=== PATIENT | male | born 1985 | race Two or more races ===

== ENCOUNTER 2022-05-21 15:20 | Emergency (ER) | payer MEDICAID, OTHER ==
[~2022-05-21] VITALS: Ht 167.6 cm; Wt 63.7 kg
[2022-05-21] MEDS ORDERED: cloNIDine HCL 0.1 MG TAB PO ONE ×2 (15:45→22:30)
[2022-05-21 16:14] LABS: Basophils # (auto) 0.1 10 ^3/uL (0-0.2); Eosinophils # (auto) 0.3 10 ^3/uL (0-0.8); Eosinophils % (auto) 3.8 % (0.0-7.0); Hematocrit 44.3 % (41.0-53.0); Hemoglobin 15.2 g/dL (13.5-17.5); Lymphocytes # (auto) 1.5 10 ^3/uL (0.4-5.4); Lymphocytes % (auto) 22.2 % (10.0-50.0); Mean Corpuscular Hemoglobin 29.4 pg (28.0-32.0); Mean Corpuscular Hgb Conc. 34.2 g/dL (32.0-36.0); Mean Corpuscular Volume 86.1 fL (80.0-100.0); Monocytes # (auto) 0.4 10 ^3/uL (0-1.3); Monocytes % (auto) 6.3 % (0.0-12.0); Neutrophils # (auto) 4.4 10 ^3/uL (1.6-8.6); Neutrophils % (auto) 66.7 % (37.0-80.0); Nucleated Red Blood Cells % 0.2 %; Red Blood Cells 5.15 10^6/uL (4.5-5.90); Red Cell Distribution Width 13.4 % (11.8-14.3); White Blood Cell 6.6 10^3/uL (4.4-10.8)
[2022-05-21 16:35] LABS: Albumin 3.7 g/dL (3.4-5.0); Calcium 9.3 mg/dL (8.5-10.1)
[2022-05-21 16:43] LABS: Bilirubin, Total 0.4 mg/dL (0.2-1.0); Total Protein 7.1 g/dL (6.4-8.2)
[2022-05-21] MEDS ORDERED: AML5T PO (23:00)
[2022-05-21 23:32] VITALS: BP 165/105
[2022-05-22 00:03] LABS: Urine Bacteria NONE SEEN /hpf (None Seen); Urine Blood Negative /uL (Negative); Urine Specific Gravity 1.015 (1.001-1.035); Urine WBC <1 /hpf (0 - 3)
== END 2022-05-21 23:34 | disposition home or self-care (01) ==
LOC: ER 15:20
DX: M79.672 Pain in left foot (principal); M79.671 Pain in right foot; I10 Essential (primary) hypertension; X58.XXXA Exposure to other specified factors, initial encounter; Y93.89 Activity, other specified; Y92.89 Other specified places as the place of occurrence of the external cause; Y99.8 Other external cause status
CPT/HCPCS: 36415; 71045; 73630; 80053; 81001; 84484; 85025

== ENCOUNTER 2022-12-03 08:34 | Inpatient (IN) | payer MEDICAID ==
[~2022-12-03] VITALS: Ht 175.3 cm; Wt 58.1 kg
[~2022-12-03 08:34] MED LIST: AML5T PO
[2022-12-03 08:40] VITALS: PULSE 96; RESP 25; O2SAT 98
[2022-12-03 09:07] LABS: Basophils # (auto) 0.1 10 ^3/uL (0-0.2); Basophils % (auto) 0.8 % (0.0-2.0); Eosinophils # (auto) 0.1 10 ^3/uL (0-0.8); Eosinophils % (auto) 0.6 % (0.0-7.0); Hematocrit 42.4 % (41.0-53.0); Hemoglobin 14.1 g/dL (13.5-17.5); Lymphocytes # (auto) 0.9 10 ^3/uL (0.4-5.4); Lymphocytes % (auto) 9.1 % (10.0-50.0); Mean Corpuscular Hemoglobin 29.5 pg (28.0-32.0); Mean Corpuscular Hgb Conc. 33.1 g/dL (32.0-36.0); Mean Corpuscular Volume 89.1 fL (80.0-100.0); Monocytes # (auto) 0.4 10 ^3/uL (0-1.3); Monocytes % (auto) 4.1 % (0.0-12.0); Neutrophils # (auto) 8.4 10 ^3/uL (1.6-8.6); Neutrophils % (auto) 85.4 % (37.0-80.0); Nucleated Red Blood Cells % 0.1 %; Red Blood Cells 4.76 10^6/uL (4.5-5.90); Red Cell Distribution Width 13.7 % (11.8-14.3); White Blood Cell 9.8 10^3/uL (4.4-10.8)
[2022-12-03] MEDS ORDERED: SODIUM CHLORIDE 0.9% 1,000 ML IV ONE (09:15)
[2022-12-03 09:41] LABS: Alanine Aminotransferase 27 U/L (7-40); Albumin 4.4 g/dL (3.2-4.8); Alkaline Phosphatase 94 U/L (46-116); Anion Gap 8 (5-15); Aspartate Aminotransferase 25 U/L (13-40); BUN/Creatinine Ratio 10.3 (10.0-20.0); Blood Urea Nitrogen 12 mg/dL (9-23); Calcium 9.9 mg/dL (8.5-10.1); Carbon Dioxide 28 mmol/L (20-30); Chloride 104 mmol/L (98-107); Glucose 110 mg/dL (74-106); Potassium 3.9 mmol/L (3.5-5.1); Sodium 140 mmol/L (136-145)
[2022-12-03 09:42] LABS: Bilirubin, Total 0.8 mg/dL (0.2-1.0); Total Protein 7.2 g/dL (5.7-8.2)
[2022-12-03 09:50] LABS: Urine Bacteria NONE SEEN /hpf (None Seen); Urine Blood Negative /uL (Negative); Urine Clarity Clear (Clear); Urine Color Yellow (Yellow); Urine Protein, UAD TRACE (Negative); Urine Specific Gravity 1.019 (1.001-1.035); Urine Urobilinogen Normal (Negative); Urine WBC 1 /hpf (0 - 3)
[2022-12-03 10:22] LABS: Amphetamine Screen, Urine Pos (NEGATIVE)
[2022-12-03 10:23] LABS: Benzodiazephine Screen, Urine Neg (NEGATIVE)
[2022-12-03 10:24] LABS: Barbiturate Scree,Urine Neg (NEGATIVE); Cocaine Screen, Urine Neg (NEGATIVE)
[2022-12-03 10:25] LABS: Cannabinoid Screen, Urine Neg (NEGATIVE); Opiate Scree,Urine Neg (NEGATIVE); Phencyclidine Screen, Urine Neg (NEGATIVE)
[2022-12-03 11:00] LABS: Acetaminophen < 2.0 UG/ML (10.0-20.0); Lipase 45 U/L (12-53)
[2022-12-03 11:09] LABS: Salicylate < 3.0 mg/dL (2.8-20.0)
[2022-12-03] MEDS ORDERED: cefTRIAXone 1GM/50ML D5W 50 ML IV ONE (13:00)
[2022-12-03] MEDS ORDERED: AZITHROMYCIN 500MG/ 250ML 250 ML IV ONE (13:00)
[2022-12-03] MEDS ORDERED: amLODIPine BESYLATE 5 MG TAB PO ONE (13:00)
[2022-12-03] MEDS ORDERED: MORPHINE SULFATE INJ 2 MG/ml SYRG IV PRN (14:30)
[2022-12-03] MEDS ORDERED: NITROGLYCERIN 0.4 MG SL TAB SL PRN (14:30)
[2022-12-03] MEDS: SODIUM CHLORIDE 0.9% 1,000 ML IV SCH (15:01)
[2022-12-03] MEDS: hydrALAZINE HCL 20 MG/ML VL IV PRN ×2 (16:18→21:13)
[2022-12-03] MEDS: ACETAMINOPHEN 325 MG TAB PO PRN (16:39)
[2022-12-03 17:51] VITALS: BP 157/90; PULSE 124; RESP 18
[2022-12-03 20:00] VITALS: PULSE 117; PULSE 95; RESP 18
[2022-12-03 22:00] VITALS: BP 174/110; PULSE 114; RESP 22; TEMP 98.2; O2SAT 97
[2022-12-04] VITALS (8 sets, daily range): BP systolic 150–165; BP diastolic 96–118; PULSE 56–121; RESP 17–22; TEMP 98–98.8; O2SAT 95–99
[2022-12-04] MEDS: SODIUM CHLORIDE 0.9% 1,000 ML IV SCH ×3 (00:30→20:30)
[2022-12-04] MEDS: ACETAMINOPHEN 325 MG TAB PO PRN ×2 (00:41→21:24)
[2022-12-04] MEDS: hydrALAZINE HCL 20 MG/ML VL IV PRN ×2 (06:15→21:24)
[2022-12-04 06:44] LABS: Basophils # (auto) 0 10 ^3/uL (0-0.2); Basophils % (auto) 0.4 % (0.0-2.0); Eosinophils # (auto) 0 10 ^3/uL (0-0.8); Eosinophils % (auto) 0.3 % (0.0-7.0); Hematocrit 46.3 % (41.0-53.0); Hemoglobin 15.7 g/dL (13.5-17.5); Lymphocytes # (auto) 0.9 10 ^3/uL (0.4-5.4); Lymphocytes % (auto) 7.5 % (10.0-50.0); Mean Corpuscular Hemoglobin 30.1 pg (28.0-32.0); Mean Corpuscular Hgb Conc. 33.8 g/dL (32.0-36.0); Mean Corpuscular Volume 88.9 fL (80.0-100.0); Monocytes # (auto) 0.6 10 ^3/uL (0-1.3); Monocytes % (auto) 4.9 % (0.0-12.0); Neutrophils # (auto) 10.8 10 ^3/uL (1.6-8.6); Neutrophils % (auto) 86.9 % (37.0-80.0); Nucleated Red Blood Cells % 0.1 %; Red Blood Cells 5.21 10^6/uL (4.5-5.90); Red Cell Distribution Width 13.6 % (11.8-14.3); White Blood Cell 12.4 10^3/uL (4.4-10.8)
[2022-12-04 07:09] LABS: Alanine Aminotransferase 18 U/L (7-40); Albumin 4.4 g/dL (3.2-4.8); Alkaline Phosphatase 100 U/L (46-116); Anion Gap 10 (5-15); BUN/Creatinine Ratio 6.8 (10.0-20.0); Blood Urea Nitrogen 7 mg/dL (9-23); Calcium 9.5 mg/dL (8.5-10.1); Carbon Dioxide 23 mmol/L (20-30); Chloride 100 mmol/L (98-107); Glucose 127 mg/dL (74-106); Potassium 3.7 mmol/L (3.5-5.1)
[2022-12-04 07:10] LABS: Aspartate Aminotransferase 22 U/L (13-40); Total Protein 7.5 g/dL (5.7-8.2)
[2022-12-04 07:11] LABS: Sodium 133 mmol/L (136-145)
[2022-12-04] MEDS: cefTRIAXone 1GM/50ML D5W 50 ML IV SCH (10:00)
[2022-12-04] MEDS: AZITHROMYCIN 500MG/ 250ML 250 ML IV SCH (10:01)
[2022-12-04] MEDS: ENOXAPARIN SOD 40 MG/0.4 ML SYRINGE SC SCH (10:01)
[2022-12-04] MEDS: amLODIPine BESYLATE 5 MG TAB PO SCH (10:01)
[2022-12-04] MEDS ORDERED: DOCUSATE SOD 100 MG CAP PO PRN (21:45)
[2022-12-05 05:00] VITALS: BP 162/117; PULSE 108; RESP 22; TEMP 98.2; O2SAT 96
[2022-12-05] MEDS: ACETAMINOPHEN 325 MG TAB PO PRN (05:53)
[2022-12-05] MEDS: hydrALAZINE HCL 20 MG/ML VL IV PRN (06:01)
[2022-12-05] MEDS: SODIUM CHLORIDE 0.9% 1,000 ML IV SCH (06:30)
[2022-12-05 06:39] VITALS: BP 138/93; PULSE 114
[2022-12-05 08:00] VITALS: PULSE 100; PULSE 113; RESP 18
[2022-12-05] MEDS: cefTRIAXone 1GM/50ML D5W 50 ML IV SCH (08:57)
[2022-12-05 09:00] VITALS: BP 137/95; PULSE 77; RESP 20; TEMP 98.3; O2SAT 97
[2022-12-05] MEDS: ENOXAPARIN SOD 40 MG/0.4 ML SYRINGE SC SCH (10:43)
[2022-12-05] MEDS: AZITHROMYCIN 500MG/ 250ML 250 ML IV SCH (10:43)
[2022-12-05] MEDS: amLODIPine BESYLATE 5 MG TAB PO SCH (10:43)
[2022-12-05] MEDS ORDERED: CLIN300C70 PO (10:50)
[2022-12-05 13:00] VITALS: BP 129/79; PULSE 109; RESP 18; TEMP 98.5; O2SAT 96
[2022-12-05 14:05] VITALS: BP 144/81; PULSE 77; RESP 20; TEMP 36.9; O2SAT 97
== END 2022-12-05 15:45 | disposition home or self-care (01) | DRG 137 ==
LOC: EDBD 08:34 → ER 08:34 → TELE 14:23 → TELE-WESTW 17:34
PROVIDERS: ADMIT Nurse Practitioner Family; ATTEND Family Medicine
DX: J69.0 Pneumonitis due to inhalation of food and vomit (principal); F15.10 Other stimulant abuse, uncomplicated; I10 Essential (primary) hypertension; F19.10 Other psychoactive substance abuse, uncomplicated; Z71.51 Drug abuse counseling and surveillance of drug abuser
CPT/HCPCS: 36415; 71045; 80053; 80307; 80320; 80329; 81001; 82140; 83690; 84484; 85025; 93005; G0378; J0696

== ENCOUNTER 2023-03-22 22:51 | Inpatient (IN) | payer SELFPAY ==
[~2023-03-22] VITALS: Ht 170.2 cm; Wt 56.0 kg
[~2023-03-22 22:51] MED LIST changes: +CLIN300C70 PO
[2023-03-22 23:30] LABS: Basophils # (auto) 0 10 ^3/uL (0-0.2); Basophils % (auto) 0.4 % (0.0-2.0); Eosinophils # (auto) 0.2 10 ^3/uL (0-0.8); Eosinophils % (auto) 1.6 % (0.0-7.0); Hematocrit 41.7 % (41.0-53.0); Hemoglobin 13.5 g/dL (13.5-17.5); Lymphocytes # (auto) 1.1 10 ^3/uL (0.4-5.4); Lymphocytes % (auto) 10.3 % (10.0-50.0); Mean Corpuscular Hemoglobin 28.4 pg (28.0-32.0); Mean Corpuscular Hgb Conc. 32.4 g/dL (32.0-36.0); Mean Corpuscular Volume 87.6 fL (80.0-100.0); Monocytes # (auto) 0.7 10 ^3/uL (0-1.3); Neutrophils % (auto) 81.7 % (37.0-80.0); Nucleated Red Blood Cells % 0.1 %; Red Blood Cells 4.76 10^6/uL (4.5-5.90); Red Cell Distribution Width 15.1 % (11.8-14.3)
[2023-03-22 23:36] LABS: Chloride 107 mmol/L (98-107); Potassium 4.2 mmol/L (3.5-5.1); Sodium 137 mmol/L (136-145)
[2023-03-22 23:38] LABS: Calcium 8.5 mg/dL (8.7-10.4)
[2023-03-22 23:43] LABS: BUN/Creatinine Ratio 10.7 (10.0-20.0); Blood Urea Nitrogen 13 mg/dL (9-23); Glucose 100 mg/dL (74-106)
[2023-03-22] MEDS ORDERED: LEVO500T91 PO (23:50)
[2023-03-22 23:58] LABS: Anion Gap 7 (5-15); Carbon Dioxide 23 mmol/L (20-30)
[2023-03-23] MEDS ORDERED: methylPREDNISolone SOD SUCC 125 MG/2 ML VL IM ONE
[2023-03-23] MEDS ORDERED: cefTRIAXone SOD 1,000 MG VL IM ONE
[2023-03-23] MEDS ORDERED: cloNIDine HCL 0.1 MG TAB PO ONE (01:00)
[2023-03-23] MEDS ORDERED: IOHEXOL 350 MG/ML 100ML IJ ONE (01:28)
[2023-03-23] MEDS ORDERED: ENOXAPARIN SOD 80 MG/0.8ML SYRINGE SC ONE (01:30)
[2023-03-23] MEDS ORDERED: FUROSEMIDE 40 MG/4 ML VIAL IV ONE (01:30)
[2023-03-23 03:10] LABS: Urine Epithelial Cast None Seen /hpf (<5)
[2023-03-23 03:45] LABS: Urine Bacteria NONE SEEN /hpf (None Seen); Urine Blood Negative /uL (Negative); Urine Clarity Clear (Clear); Urine Color Colorless (Yellow); Urine Protein, UAD Negative (Negative); Urine Specific Gravity 1.012 (1.001-1.035); Urine Urobilinogen Normal (Negative); Urine WBC <1 /hpf (0 - 3); Urine pH 7.5 (5.0-8.0)
[2023-03-23 04:00] LABS: Amphetamine Screen, Urine Neg (NEGATIVE); Barbiturate Scree,Urine Neg (NEGATIVE); Benzodiazephine Screen, Urine Neg (NEGATIVE); Cannabinoid Screen, Urine Neg (NEGATIVE); Cocaine Screen, Urine Neg (NEGATIVE); Opiate Scree,Urine Neg (NEGATIVE); Phencyclidine Screen, Urine Neg (NEGATIVE)
[2023-03-23] MEDS ORDERED: MORPHINE SULFATE INJ 2 MG/ml SYRG IV PRN (07:15)
[2023-03-23] MEDS ORDERED: NITROGLYCERIN 0.4 MG SL TAB SL PRN (07:15)
[2023-03-23] MEDS ORDERED: ONDANSETRON HCL 4 MG/2 ML VIAL IV PRN (07:15)
[2023-03-23 08:41] LABS: LDL Cholesterol 128 mg/dL (< 100); Triglycerides 54 mg/dL (< 150)
[2023-03-23 08:42] LABS: HDL Cholesterol 54 mg/dL (40-59)
[2023-03-23 08:43] LABS: Cholesterol 185 mg/dL (< 200)
[2023-03-23] MEDS ORDERED: amLODIPine BESYLATE 5 MG TAB PO SCH (10:00)
[2023-03-23] MEDS: CARVEDILOL 3.125 MG TAB PO SCH (10:15)
[2023-03-23] MEDS: ASPirin 81 mg TAB PO SCH (10:15)
[2023-03-23] MEDS: amLODIPine BESYLATE 5 MG TAB PO SCH (10:15)
[2023-03-23] MEDS ORDERED: cefTRIAXone 1GM/50ML D5W 50 ML IV ONE (12:15)
[2023-03-23] MEDS ORDERED: AZITHROMYCIN 500MG/ 250ML 250 ML IV ONE (12:15)
[2023-03-23 23:30] VITALS: BP 158/99; PULSE 84; RESP 18; TEMP 97.6; O2SAT 99
[2023-03-24] VITALS (8 sets, daily range): BP systolic 107–138; BP diastolic 78–101; PULSE 91–115; RESP 18–22; TEMP 97.5–98.6; O2SAT 93–100
[2023-03-24] MEDS: CARVEDILOL 3.125 MG TAB PO SCH ×3 (02:03→21:55)
[2023-03-24 03:06] LABS: COVID19 ANTIGEN SOFIA FIA NEGATIVE (NEGATIVE); Rapid Influenza A Negative (Negative); Rapid Influenza B Negative (Negative)
[2023-03-24] MEDS: FUROSEMIDE 20 MG/2 ML VIAL IV SCH ×2 (06:02→17:29)
[2023-03-24 06:29] LABS: Basophils # (auto) 0 10 ^3/uL (0-0.2); Basophils % (auto) 0.2 % (0.0-2.0); Eosinophils # (auto) 0 10 ^3/uL (0-0.8); Hematocrit 42.2 % (41.0-53.0); Hemoglobin 13.7 g/dL (13.5-17.5); Lymphocytes # (auto) 1.7 10 ^3/uL (0.4-5.4); Lymphocytes % (auto) 8.9 % (10.0-50.0); Mean Corpuscular Hemoglobin 28.1 pg (28.0-32.0); Mean Corpuscular Hgb Conc. 32.4 g/dL (32.0-36.0); Mean Corpuscular Volume 86.6 fL (80.0-100.0); Monocytes # (auto) 1.2 10 ^3/uL (0-1.3); Monocytes % (auto) 6.3 % (0.0-12.0); Neutrophils # (auto) 15.9 10 ^3/uL (1.6-8.6); Neutrophils % (auto) 84.6 % (37.0-80.0); Nucleated Red Blood Cells % 0.1 %; Red Blood Cells 4.87 10^6/uL (4.5-5.90); Red Cell Distribution Width 14.5 % (11.8-14.3); White Blood Cell 18.7 10^3/uL (4.4-10.8)
[2023-03-24 06:40] LABS: Free T3 2.34 pg/mL (2.3-4.2); Free T4 (Free Thyroxine) 0.92 ng/dL (0.89-1.76)
[2023-03-24 06:41] LABS: Alanine Aminotransferase 61 U/L (7-40); Alkaline Phosphatase 105 U/L (46-116); Anion Gap 7 (5-15); BUN/Creatinine Ratio 12.4 (10.0-20.0); Blood Urea Nitrogen 19 mg/dL (9-23); Calcium 9.2 mg/dL (8.5-10.1); Carbon Dioxide 23 mmol/L (20-30); Chloride 107 mmol/L (98-107); Glucose 98 mg/dL (74-106); Potassium 4.4 mmol/L (3.5-5.1); Sodium 137 mmol/L (136-145)
[2023-03-24 06:42] LABS: Albumin 3.5 g/dL (3.2-4.8); Aspartate Aminotransferase 50 U/L (13-40)
[2023-03-24 06:43] LABS: Bilirubin, Total 0.7 mg/dL (0.2-1.0); Total Protein 5.7 g/dL (5.7-8.2)
[2023-03-24] MEDS ORDERED: hydrALAZINE HCL 20 MG/ML VL IV PRN (08:45)
[2023-03-24] MEDS: cefTRIAXone 1GM/50ML D5W 50 ML IV SCH (09:31)
[2023-03-24] MEDS: AZITHROMYCIN 500MG/ 250ML 250 ML IV SCH (09:31)
[2023-03-24] MEDS: ASPirin 81 mg TAB PO SCH (09:31)
[2023-03-24] MEDS: amLODIPine BESYLATE 5 MG TAB PO SCH (09:32)
[2023-03-24] MEDS ORDERED: MORPHINE SULFATE INJ 2 MG/ml SYRG IV ONE (12:45)
[2023-03-24] MEDS: HYDROcodone-ACET 5/325MG TAB PO PRN (16:25)
[2023-03-25] VITALS (7 sets, daily range): BP systolic 112–126; BP diastolic 66–89; PULSE 80–104; RESP 16–20; TEMP 97.8–98.3; O2SAT 92–98
[2023-03-25] MEDS: HYDROcodone-ACET 5/325MG TAB PO PRN ×3 (00:17→18:14)
[2023-03-25] MEDS: FUROSEMIDE 20 MG/2 ML VIAL IV SCH ×2 (06:01→17:55)
[2023-03-25 06:19] LABS: Basophils # (auto) 0.1 10 ^3/uL (0-0.2); Basophils % (auto) 0.8 % (0.0-2.0); Eosinophils # (auto) 0.2 10 ^3/uL (0-0.8); Eosinophils % (auto) 2.3 % (0.0-7.0); Hematocrit 41.5 % (41.0-53.0); Hemoglobin 13.7 g/dL (13.5-17.5); Lymphocytes # (auto) 1.5 10 ^3/uL (0.4-5.4); Lymphocytes % (auto) 15.3 % (10.0-50.0); Mean Corpuscular Hemoglobin 28.6 pg (28.0-32.0); Mean Corpuscular Hgb Conc. 33.1 g/dL (32.0-36.0); Mean Corpuscular Volume 86.6 fL (80.0-100.0); Monocytes # (auto) 0.7 10 ^3/uL (0-1.3); Monocytes % (auto) 7.2 % (0.0-12.0); Neutrophils # (auto) 7.2 10 ^3/uL (1.6-8.6); Neutrophils % (auto) 74.4 % (37.0-80.0); Nucleated Red Blood Cells % 0.1 %; Red Blood Cells 4.79 10^6/uL (4.5-5.90); Red Cell Distribution Width 14.7 % (11.8-14.3); White Blood Cell 9.7 10^3/uL (4.4-10.8)
[2023-03-25 06:26] LABS: Alanine Aminotransferase 78 U/L (7-40); Alkaline Phosphatase 109 U/L (46-116); Anion Gap 6 (5-15); Aspartate Aminotransferase 60 U/L (13-40); BUN/Creatinine Ratio 15.5 (10.0-20.0); Blood Urea Nitrogen 22 mg/dL (9-23); Calcium 8.4 mg/dL (8.7-10.4); Carbon Dioxide 26 mmol/L (20-30); Chloride 104 mmol/L (98-107); Glucose 91 mg/dL (74-106); Potassium 4.4 mmol/L (3.5-5.1); Sodium 136 mmol/L (136-145)
[2023-03-25 06:27] LABS: Albumin 3.4 g/dL (3.2-4.8); Bilirubin, Total 0.6 mg/dL (0.2-1.0); Total Protein 5.5 g/dL (5.7-8.2)
[2023-03-25] MEDS: cefTRIAXone 1GM/50ML D5W 50 ML IV SCH (10:24)
[2023-03-25] MEDS: ASPirin 81 mg TAB PO SCH (10:25)
[2023-03-25] MEDS: amLODIPine BESYLATE 5 MG TAB PO SCH (10:25)
[2023-03-25] MEDS: AZITHROMYCIN 500MG/ 250ML 250 ML IV SCH (10:25)
[2023-03-25] MEDS: CARVEDILOL 3.125 MG TAB PO SCH ×2 (10:26→22:37)
[2023-03-25] MEDS: SACUBITRIL-VALSARTAN 24mg/26mg TAB PO SCH (22:34)
[2023-03-26] VITALS (7 sets, daily range): BP systolic 91–112; BP diastolic 62–73; PULSE 82–97; RESP 14–22; TEMP 97.9–98.3; O2SAT 91–100
[2023-03-26 06:06] LABS: Basophils # (auto) 0.1 10 ^3/uL (0-0.2); Basophils % (auto) 0.8 % (0.0-2.0); Eosinophils # (auto) 0.3 10 ^3/uL (0-0.8); Eosinophils % (auto) 3.5 % (0.0-7.0); Hematocrit 46.1 % (41.0-53.0); Hemoglobin 15.3 g/dL (13.5-17.5); Lymphocytes # (auto) 1.3 10 ^3/uL (0.4-5.4); Lymphocytes % (auto) 14.7 % (10.0-50.0); Mean Corpuscular Hemoglobin 28.3 pg (28.0-32.0); Mean Corpuscular Hgb Conc. 33.2 g/dL (32.0-36.0); Mean Corpuscular Volume 85.3 fL (80.0-100.0); Monocytes # (auto) 0.9 10 ^3/uL (0-1.3); Monocytes % (auto) 9.9 % (0.0-12.0); Neutrophils # (auto) 6.3 10 ^3/uL (1.6-8.6); Neutrophils % (auto) 71.1 % (37.0-80.0); Red Cell Distribution Width 14.4 % (11.8-14.3); White Blood Cell 8.9 10^3/uL (4.4-10.8)
[2023-03-26 06:23] LABS: Alanine Aminotransferase 67 U/L (7-40); Albumin 3.4 g/dL (3.2-4.8); Alkaline Phosphatase 108 U/L (46-116); Anion Gap 7 (5-15); Aspartate Aminotransferase 48 U/L (13-40); BUN/Creatinine Ratio 14.8 (10.0-20.0); Bilirubin, Total 0.6 mg/dL (0.2-1.0); Blood Urea Nitrogen 19 mg/dL (9-23); Calcium 8.7 mg/dL (8.5-10.1); Carbon Dioxide 23 mmol/L (20-30); Chloride 104 mmol/L (98-107); Glucose 87 mg/dL (74-106); Potassium 4.1 mmol/L (3.5-5.1); Sodium 134 mmol/L (136-145); Total Protein 5.5 g/dL (5.7-8.2)
[2023-03-26] MEDS: FUROSEMIDE 20 MG/2 ML VIAL IV SCH ×2 (06:30→18:07)
[2023-03-26 08:29] LABS: Hepatitis B Surface Antigen Negative (Negative)
[2023-03-26 08:51] LABS: Hepatitis C Antibody Negative (Negative)
[2023-03-26] MEDS: SACUBITRIL-VALSARTAN 24mg/26mg TAB PO SCH ×2 (09:49→21:18)
[2023-03-26] MEDS: cefTRIAXone 1GM/50ML D5W 50 ML IV SCH (09:49)
[2023-03-26] MEDS: AZITHROMYCIN 500MG/ 250ML 250 ML IV SCH (09:49)
[2023-03-26] MEDS: ASPirin 81 mg TAB PO SCH (09:50)
[2023-03-26] MEDS: CARVEDILOL 3.125 MG TAB PO SCH ×2 (09:50→21:17)
[2023-03-26] MEDS: SPIRONOLACTONE 25 MG TAB PO SCH (09:50)
[2023-03-26] MEDS: EMPAGLIFLOZIN 10 MG TAB PO SCH (09:50)
[2023-03-26 11:27] LABS: INR 1.01 (0.9-1.15); Prothrombin Time 10.6 sec (9.3-11.8)
[2023-03-26] MEDS: HYDROcodone-ACET 5/325MG TAB PO PRN ×2 (16:19→21:17)
[2023-03-27] VITALS (8 sets, daily range): BP systolic 107–120; BP diastolic 72–82; PULSE 85–100; RESP 18–20; TEMP 97.9–98.6; O2SAT 92–100
[2023-03-27] MEDS: FUROSEMIDE 20 MG/2 ML VIAL IV SCH (06:50)
[2023-03-27 06:56] LABS: Basophils # (auto) 0.1 10 ^3/uL (0-0.2); Basophils % (auto) 0.8 % (0.0-2.0); Eosinophils # (auto) 0.3 10 ^3/uL (0-0.8); Eosinophils % (auto) 3.5 % (0.0-7.0); Hematocrit 48.9 % (41.0-53.0); Hemoglobin 16.2 g/dL (13.5-17.5); Lymphocytes # (auto) 1.3 10 ^3/uL (0.4-5.4); Lymphocytes % (auto) 15.8 % (10.0-50.0); Mean Corpuscular Hemoglobin 28.3 pg (28.0-32.0); Mean Corpuscular Hgb Conc. 33.1 g/dL (32.0-36.0); Mean Corpuscular Volume 85.5 fL (80.0-100.0); Monocytes # (auto) 0.8 10 ^3/uL (0-1.3); Monocytes % (auto) 9.2 % (0.0-12.0); Neutrophils # (auto) 5.8 10 ^3/uL (1.6-8.6); Neutrophils % (auto) 70.7 % (37.0-80.0); Nucleated Red Blood Cells % 0.1 %; Red Blood Cells 5.71 10^6/uL (4.5-5.90); Red Cell Distribution Width 14.7 % (11.8-14.3); White Blood Cell 8.2 10^3/uL (4.4-10.8)
[2023-03-27 07:14] LABS: Alanine Aminotransferase 70 U/L (7-40); Albumin 3.5 g/dL (3.2-4.8); Alkaline Phosphatase 102 U/L (46-116); Anion Gap 4 (5-15); Aspartate Aminotransferase 51 U/L (13-40); BUN/Creatinine Ratio 16.2 (10.0-20.0); Blood Urea Nitrogen 22 mg/dL (9-23); Calcium 8.9 mg/dL (8.5-10.1); Carbon Dioxide 26 mmol/L (20-30); Chloride 105 mmol/L (98-107); Glucose 82 mg/dL (74-106); Potassium 4.3 mmol/L (3.5-5.1); Sodium 135 mmol/L (136-145)
[2023-03-27 07:15] LABS: Bilirubin, Total 0.5 mg/dL (0.2-1.0); Total Protein 5.7 g/dL (5.7-8.2)
[2023-03-27] MEDS: cefTRIAXone 1GM/50ML D5W 50 ML IV SCH (09:00)
[2023-03-27] MEDS ORDERED: CAR3125T PO (09:58)
[2023-03-27] MEDS ORDERED: SPIR25TA PO (09:58)
[2023-03-27] MEDS ORDERED: ASPI-325 PO (09:58)
[2023-03-27] MEDS ORDERED: SACU1TAB PO (09:58)
[2023-03-27] MEDS ORDERED: EMPA1TAB PO (09:58)
[2023-03-27] MEDS ORDERED: FURO1TAB31 PO (09:58)
[2023-03-27] MEDS: AZITHROMYCIN 500MG/ 250ML 250 ML IV SCH (10:00)
[2023-03-27] MEDS: ASPirin 81 mg TAB PO SCH (10:11)
[2023-03-27] MEDS: SPIRONOLACTONE 25 MG TAB PO SCH (10:11)
[2023-03-27] MEDS: CARVEDILOL 3.125 MG TAB PO SCH ×2 (10:12→21:29)
[2023-03-27] MEDS: EMPAGLIFLOZIN 10 MG TAB PO SCH (10:12)
[2023-03-27] MEDS: SACUBITRIL-VALSARTAN 24mg/26mg TAB PO SCH ×2 (10:12→21:30)
[2023-03-27] MEDS: FUROSEMIDE 40 MG TAB PO SCH (18:02)
[2023-03-27] MEDS: HYDROcodone-ACET 5/325MG TAB PO PRN (21:20)
[2023-03-28 05:00] VITALS: BP 113/80; PULSE 90; RESP 20; TEMP 98.1; O2SAT 95
[2023-03-28] MEDS: FUROSEMIDE 40 MG TAB PO SCH ×2 (05:30→19:47)
[2023-03-28] MEDS: HYDROcodone-ACET 5/325MG TAB PO PRN ×2 (05:30→20:22)
[2023-03-28 08:30] VITALS: PULSE 96; RESP 18; O2SAT 97
[2023-03-28 09:00] VITALS: BP 129/78; PULSE 96; RESP 20; TEMP 98.1; O2SAT 97
[2023-03-28] MEDS: SPIRONOLACTONE 25 MG TAB PO SCH (09:33)
[2023-03-28] MEDS: cefTRIAXone 1GM/50ML D5W 50 ML IV SCH (09:33)
[2023-03-28] MEDS: ASPirin 81 mg TAB PO SCH (09:33)
[2023-03-28] MEDS: EMPAGLIFLOZIN 10 MG TAB PO SCH (09:33)
[2023-03-28] MEDS: SACUBITRIL-VALSARTAN 24mg/26mg TAB PO SCH ×2 (09:37→22:00)
[2023-03-28] MEDS: CARVEDILOL 3.125 MG TAB PO SCH ×2 (09:37→22:00)
[2023-03-28] MEDS: AZITHROMYCIN 500MG/ 250ML 250 ML IV SCH (10:30)
[2023-03-28 13:00] VITALS: BP 103/68; PULSE 86; RESP 18; TEMP 97.7; O2SAT 100
[2023-03-28 17:00] VITALS: BP 113/72; PULSE 94; RESP 20; TEMP 98; O2SAT 97
[2023-03-28 20:00] VITALS: RESP 18; O2SAT 97
[2023-03-29] VITALS (7 sets, daily range): BP systolic 90–120; BP diastolic 50–74; PULSE 64–82; RESP 16–18; TEMP 97.8–98.2; O2SAT 92–99
[2023-03-29] MEDS: FUROSEMIDE 40 MG TAB PO SCH ×2 (05:53→18:00)
[2023-03-29 09:26] LABS: Basophils # (auto) 0.1 10 ^3/uL (0-0.2); Basophils % (auto) 0.8 % (0.0-2.0); Eosinophils # (auto) 0.3 10 ^3/uL (0-0.8); Eosinophils % (auto) 3.9 % (0.0-7.0); Hematocrit 51.8 % (41.0-53.0); Hemoglobin 16.7 g/dL (13.5-17.5); Lymphocytes # (auto) 1.6 10 ^3/uL (0.4-5.4); Lymphocytes % (auto) 19.5 % (10.0-50.0); Mean Corpuscular Hemoglobin 27.8 pg (28.0-32.0); Mean Corpuscular Hgb Conc. 32.2 g/dL (32.0-36.0); Mean Corpuscular Volume 86.4 fL (80.0-100.0); Monocytes # (auto) 0.5 10 ^3/uL (0-1.3); Monocytes % (auto) 5.7 % (0.0-12.0); Neutrophils # (auto) 5.6 10 ^3/uL (1.6-8.6); Neutrophils % (auto) 70.1 % (37.0-80.0); Nucleated Red Blood Cells % 0.1 %; Red Cell Distribution Width 14.4 % (11.8-14.3)
[2023-03-29] MEDS: ASPirin 81 mg TAB PO SCH (09:39)
[2023-03-29] MEDS: SACUBITRIL-VALSARTAN 24mg/26mg TAB PO SCH ×2 (09:39→22:31)
[2023-03-29] MEDS: EMPAGLIFLOZIN 10 MG TAB PO SCH (09:40)
[2023-03-29] MEDS: CARVEDILOL 3.125 MG TAB PO SCH ×2 (09:40→22:32)
[2023-03-29] MEDS: SPIRONOLACTONE 25 MG TAB PO SCH (09:41)
[2023-03-29] MEDS: cefTRIAXone 1GM/50ML D5W 50 ML IV SCH (09:42)
[2023-03-29 09:46] LABS: Alanine Aminotransferase 87 U/L (7-40); Alkaline Phosphatase 92 U/L (46-116); Anion Gap 5 (5-15); Aspartate Aminotransferase 54 U/L (13-40); BUN/Creatinine Ratio 12.9 (10.0-20.0); Blood Urea Nitrogen 20 mg/dL (9-23); Calcium 9.1 mg/dL (8.5-10.1); Carbon Dioxide 28 mmol/L (20-30); Chloride 102 mmol/L (98-107); Glucose 161 mg/dL (74-106); Potassium 4.6 mmol/L (3.5-5.1); Sodium 135 mmol/L (136-145)
[2023-03-29 09:47] LABS: Albumin 3.9 g/dL (3.2-4.8); Bilirubin, Total 0.4 mg/dL (0.2-1.0); Total Protein 6.3 g/dL (5.7-8.2)
[2023-03-29] MEDS: AZITHROMYCIN 500MG/ 250ML 250 ML IV SCH (12:27)
[2023-03-29] MEDS: HYDROcodone-ACET 5/325MG TAB PO PRN ×2 (15:47→22:31)
[2023-03-30 05:00] VITALS: BP 98/66; PULSE 80; RESP 16; TEMP 98.1; O2SAT 99
[2023-03-30 05:50] LABS: Basophils # (auto) 0.1 10 ^3/uL (0-0.2); Eosinophils # (auto) 0.3 10 ^3/uL (0-0.8); Eosinophils % (auto) 4.1 % (0.0-7.0); Hematocrit 46.2 % (41.0-53.0); Hemoglobin 15.2 g/dL (13.5-17.5); Lymphocytes # (auto) 1.7 10 ^3/uL (0.4-5.4); Lymphocytes % (auto) 22.5 % (10.0-50.0); Mean Corpuscular Hemoglobin 28.1 pg (28.0-32.0); Mean Corpuscular Hgb Conc. 32.9 g/dL (32.0-36.0); Mean Corpuscular Volume 85.3 fL (80.0-100.0); Monocytes # (auto) 0.8 10 ^3/uL (0-1.3); Monocytes % (auto) 10.2 % (0.0-12.0); Neutrophils # (auto) 4.6 10 ^3/uL (1.6-8.6); Neutrophils % (auto) 62.2 % (37.0-80.0); Nucleated Red Blood Cells % 0.1 %; Red Blood Cells 5.41 10^6/uL (4.5-5.90); Red Cell Distribution Width 14.5 % (11.8-14.3); White Blood Cell 7.4 10^3/uL (4.4-10.8)
[2023-03-30] MEDS: FUROSEMIDE 40 MG TAB PO SCH (06:03)
[2023-03-30 06:17] LABS: Alanine Aminotransferase 89 U/L (7-40); Albumin 3.5 g/dL (3.2-4.8); Alkaline Phosphatase 76 U/L (46-116); Anion Gap 4 (5-15); Aspartate Aminotransferase 59 U/L (13-40); BUN/Creatinine Ratio 20.3 (10.0-20.0); Blood Urea Nitrogen 26 mg/dL (9-23); Calcium 8.6 mg/dL (8.7-10.4); Carbon Dioxide 26 mmol/L (20-30); Chloride 105 mmol/L (98-107); Glucose 90 mg/dL (74-106); Magnesium 2.1 mg/dL (1.6-2.6); Potassium 4.7 mmol/L (3.5-5.1); Sodium 135 mmol/L (136-145)
[2023-03-30 06:18] LABS: Total Protein 5.6 g/dL (5.7-8.2)
[2023-03-30 06:19] LABS: Bilirubin, Total 0.3 mg/dL (0.2-1.0)
[2023-03-30 08:00] VITALS: BP 114/75; PULSE 73; RESP 21; TEMP 98.3; O2SAT 96
[2023-03-30 09:00] VITALS: BP 114/75; PULSE 73; RESP 21; TEMP 98.3; O2SAT 96
[2023-03-30] MEDS: cefTRIAXone 1GM/50ML D5W 50 ML IV SCH (09:09)
[2023-03-30] MEDS: ASPirin 81 mg TAB PO SCH (10:09)
[2023-03-30] MEDS: CARVEDILOL 3.125 MG TAB PO SCH (10:09)
[2023-03-30] MEDS: SACUBITRIL-VALSARTAN 24mg/26mg TAB PO SCH (10:09)
[2023-03-30] MEDS: EMPAGLIFLOZIN 10 MG TAB PO SCH (10:09)
[2023-03-30] MEDS: SPIRONOLACTONE 25 MG TAB PO SCH (10:10)
[2023-03-30] MEDS: AZITHROMYCIN 500MG/ 250ML 250 ML IV SCH (10:11)
== END 2023-03-30 13:35 | disposition home or self-care (01) | DRG 177 ==
LOC: ER 22:51 → TELE 03-23 07:09 → TELE-CENTR 03-24 00:52 → CENTRAL 03-28 15:17
PROVIDERS: ADMIT Internal Medicine Pulmonary Disease; ATTEND Internal Medicine Pulmonary Disease
DX: J15.69 Pneumonia due to other Gram-negative bacteria (principal); I50.43 Acute on chronic combined systolic (congestive) and diastolic (congestive) heart failure; J96.01 Acute respiratory failure with hypoxia; I42.9 Cardiomyopathy, unspecified; J90 Pleural effusion, not elsewhere classified; Z59.00 Homelessness unspecified; I11.0 Hypertensive heart disease with heart failure; Z20.822 Contact with and (suspected) exposure to COVID-19; M79.672 Pain in left foot; M79.671 Pain in right foot; F15.10 Other stimulant abuse, uncomplicated; Z87.891 Personal history of nicotine dependence
CPT/HCPCS: 36415; 71045; 71275; 76604; 80048; 80053; 80061; 80307; 81001; 82607; 82962; 83036; 83605; 83735; 83880; 84439; 84443; 84481; 85025; 85379; 85610; 85730; 86703; 86803; 87081; 87340; 87426; 87804; 93005; 93306; G0378; J0696

== ENCOUNTER 2023-04-14 02:22 | Emergency (ER) | payer SELFPAY ==
[~2023-04-14] VITALS: Ht 170.2 cm; Wt 72.6 kg
[~2023-04-14 02:22] MED LIST changes: +ASPI-325 PO; +CAR3125T PO; -CLIN300C70 PO; +EMPA1TAB PO; +FURO1TAB31 PO; +SACU1TAB PO; +SPIR25TA PO
[2023-04-14 02:28] VITALS: BP 151/118; PULSE 110; RESP 16; O2SAT 99
[2023-04-14] MEDS ORDERED: ACET500T58 PO (03:24)
== END 2023-04-14 03:30 | disposition home or self-care (01) ==
LOC: EDBD 02:22 → ER 02:22
DX: M79.671 Pain in right foot (principal); M79.672 Pain in left foot; I11.0 Hypertensive heart disease with heart failure; I50.9 Heart failure, unspecified; E11.9 Type 2 diabetes mellitus without complications; F15.90 Other stimulant use, unspecified, uncomplicated; Z79.899 Other long term (current) drug therapy

== ENCOUNTER 2023-04-16 20:26 | Inpatient (IN) | payer MEDICAID ==
[~2023-04-16] VITALS: Ht 170.2 cm; Wt 60.6 kg
[~2023-04-16 20:26] MED LIST changes: +ACET500T58 PO
[2023-04-16 22:19] LABS: Basophils # (auto) 0.1 10 ^3/uL (0-0.2); Basophils % (auto) 1.1 % (0.0-2.0); Eosinophils # (auto) 0.1 10 ^3/uL (0-0.8); Eosinophils % (auto) 0.7 % (0.0-7.0); Hematocrit 43.4 % (41.0-53.0); Hemoglobin 14.2 g/dL (13.5-17.5); Lymphocytes # (auto) 1.4 10 ^3/uL (0.4-5.4); Lymphocytes % (auto) 16.2 % (10.0-50.0); Mean Corpuscular Hemoglobin 28.2 pg (28.0-32.0); Mean Corpuscular Hgb Conc. 32.7 g/dL (32.0-36.0); Mean Corpuscular Volume 86.4 fL (80.0-100.0); Monocytes # (auto) 0.6 10 ^3/uL (0-1.3); Monocytes % (auto) 6.5 % (0.0-12.0); Neutrophils # (auto) 6.7 10 ^3/uL (1.6-8.6); Neutrophils % (auto) 75.5 % (37.0-80.0); Nucleated Red Blood Cells % 0.1 %; Red Blood Cells 5.02 10^6/uL (4.5-5.90); Red Cell Distribution Width 15.8 % (11.8-14.3); White Blood Cell 8.9 10^3/uL (4.4-10.8)
[2023-04-16 22:29] LABS: Chloride 107 mmol/L (98-107); Sodium 139 mmol/L (136-145)
[2023-04-16 22:30] LABS: Anion Gap 6 (5-15); Calcium 9.4 mg/dL (8.5-10.1); Carbon Dioxide 26 mmol/L (20-30)
[2023-04-16 22:35] LABS: BUN/Creatinine Ratio 12.2 (10.0-20.0); Blood Urea Nitrogen 18 mg/dL (9-23); Glucose 92 mg/dL (74-106)
[2023-04-16 23:23] VITALS: O2SAT 96
[2023-04-16] MEDS: ALBUTEROL SULF 2.5 MG/0.5ML(0.5%) NEB SOLN NEB ONE (23:33)
[2023-04-17] VITALS (13 sets, daily range): BP systolic 144–160; BP diastolic 92–102; PULSE 79–109; RESP 16–31; TEMP 98.5; O2SAT 90–98
[2023-04-17] MEDS ORDERED: ACETAMINOPHEN 325 MG TAB PO PRN
[2023-04-17] MEDS ORDERED: NITROGLYCERIN 0.4 MG SL TAB SL PRN
[2023-04-17] MEDS ORDERED: MORPHINE SULFATE INJ 2 MG/ml SYRG IV PRN
[2023-04-17] MEDS ORDERED: DOCUSATE SOD 100 MG CAP PO PRN
[2023-04-17] MEDS: ALBUTEROL SULF 2.5 MG/0.5ML(0.5%) NEB SOLN NEB PRN (04:12)
[2023-04-17] MEDS: InsuLIN REG 1unit/0.01ml Soln (100units/ml) IV ONE (05:14)
[2023-04-17] MEDS: DEXTROSE (50%) 50ML SYRG IV ONE (05:15)
[2023-04-17] MEDS: CALCIUM GLUC 1,000mg/50ml-NS 50 ML IV ONE (05:15)
[2023-04-17] MEDS: SODIUM BICARB 8.4% 50Meq/50ml SYR Vial IV ONE (05:15)
[2023-04-17] MEDS: FUROSEMIDE 100 MG/10ML VIAL IV ONE (05:20)
[2023-04-17] MEDS: SODIUM CHLOR 0.9% PF (SALINE LOCK) 10ML VIAL/SYR IV SCH (06:02)
[2023-04-17 06:09] LABS: Base Excess -3.6 mmol/L (-2.0-2.0)
[2023-04-17 06:48] LABS: Basophils # (auto) 0.1 10 ^3/uL (0-0.2); Eosinophils # (auto) 0.1 10 ^3/uL (0-0.8); Eosinophils % (auto) 1.2 % (0.0-7.0); Hematocrit 44.3 % (41.0-53.0); Hemoglobin 14.3 g/dL (13.5-17.5); Lymphocytes # (auto) 1.7 10 ^3/uL (0.4-5.4); Lymphocytes % (auto) 22.4 % (10.0-50.0); Mean Corpuscular Hgb Conc. 32.3 g/dL (32.0-36.0); Mean Corpuscular Volume 86.6 fL (80.0-100.0); Monocytes # (auto) 0.6 10 ^3/uL (0-1.3); Monocytes % (auto) 7.8 % (0.0-12.0); Neutrophils # (auto) 5.3 10 ^3/uL (1.6-8.6); Neutrophils % (auto) 67.6 % (37.0-80.0); Nucleated Red Blood Cells % 0.1 %; Red Blood Cells 5.11 10^6/uL (4.5-5.90); Red Cell Distribution Width 16.2 % (11.8-14.3); White Blood Cell 7.8 10^3/uL (4.4-10.8)
[2023-04-17] MEDS: hydrALAZINE HCL 20 MG/ML VL IV PRN (06:56)
[2023-04-17 07:16] LABS: Alanine Aminotransferase 56 U/L (7-40); Albumin 3.9 g/dL (3.2-4.8); Alkaline Phosphatase 120 U/L (46-116); Anion Gap 9 (5-15); Aspartate Aminotransferase 55 U/L (13-40); BUN/Creatinine Ratio 14.1 (10.0-20.0); Bilirubin, Total 1.1 mg/dL (0.2-1.0); Blood Urea Nitrogen 20 mg/dL (9-23); Calcium 9.3 mg/dL (8.5-10.1); Carbon Dioxide 23 mmol/L (20-30); Chloride 107 mmol/L (98-107); Glucose 95 mg/dL (74-106); Potassium 4.5 mmol/L (3.5-5.1); Sodium 139 mmol/L (136-145); Total Protein 5.9 g/dL (5.7-8.2)
[2023-04-17 07:36] LABS: Amphetamine Screen, Urine Pos (NEGATIVE); Benzodiazephine Screen, Urine Neg (NEGATIVE)
[2023-04-17 07:37] LABS: Barbiturate Scree,Urine Neg (NEGATIVE); Cannabinoid Screen, Urine Neg (NEGATIVE); Cocaine Screen, Urine Neg (NEGATIVE); Opiate Scree,Urine Neg (NEGATIVE); Phencyclidine Screen, Urine Neg (NEGATIVE)
[2023-04-17] MEDS: ONDANSETRON HCL 4 MG/2 ML VIAL IV PRN (08:20)
[2023-04-17] MEDS: MORPHINE SULFATE INJ 2 MG/ml SYRG IV PRN (08:21)
[2023-04-17] MEDS: CARVEDILOL 12.5 MG TAB PO SCH (10:24)
[2023-04-17] MEDS: FUROSEMIDE 40 MG/4 ML VIAL IV SCH ×2 (10:24→23:57)
[2023-04-17] MEDS: FAMOTIDINE (10MG/ML) 2ML VL IV SCH (10:24)
[2023-04-17] MEDS: ASPirin 81 mg TAB PO SCH (10:25)
[2023-04-17] MEDS: amLODIPine BESYLATE 5 MG TAB PO SCH (10:25)
[2023-04-17] MEDS: HYDROcodone-ACET 5/325MG TAB PO PRN (11:16)
[2023-04-17 11:33] LABS: Urine Bacteria NONE SEEN /hpf (None Seen); Urine Blood Negative /uL (Negative); Urine Clarity Clear (Clear); Urine Hyaline Cast FEW /lpf (0 - 2); Urine Protein, UAD Negative (Negative); Urine Specific Gravity 1.006 (1.001-1.035); Urine Urobilinogen Normal (Negative); Urine WBC 1 /hpf (0 - 3)
[2023-04-17 11:45] LABS: Urine Color Straw (Yellow)
[2023-04-17] MEDS: SPIRONOLACTONE 25 MG TAB PO ONE (11:50)
[2023-04-17 12:49] LABS: INR 1.14 (0.9-1.15); Partial Thromboplastin Time 39.6 SEC (24.5-34.5); Prothrombin Time 11.9 sec (9.3-11.8)
[2023-04-17] MEDS ORDERED: IOHEXOL 350 MG/ML 100ML IJ ONE (13:21)
[2023-04-17] MEDS: IPRATROPIUM BROM 0.5 MG/2.5ML INH SOL NEB SCH (13:51)
[2023-04-17] MEDS: FUROSEMIDE 40 MG/4 ML VIAL IV ONE (16:41)
[2023-04-17] MEDS: ENOXAPARIN SOD 40 MG/0.4 ML SYRINGE SC ONE (16:42)
[2023-04-17] MEDS ORDERED: FUROSEMIDE 40 MG/4 ML VIAL IV SCH (18:00)
[2023-04-17] MEDS ORDERED: ENOXAPARIN SOD 80 MG/0.8ML SYRINGE SC SCH (22:00)
[2023-04-17] MEDS ORDERED: CARVEDILOL 3.125 MG TAB PO SCH (22:00)
[2023-04-17] MEDS: SACUBITRIL-VALSARTAN 24mg/26mg TAB PO SCH (23:37)
[2023-04-18] VITALS (15 sets, daily range): BP systolic 131–153; BP diastolic 83–105; PULSE 82–108; RESP 16–20; TEMP 98–98.5; O2SAT 91–100
[2023-04-18 07:47] LABS: Basophils # (auto) 0.1 10 ^3/uL (0-0.2); Basophils % (auto) 0.5 % (0.0-2.0); Eosinophils # (auto) 0.3 10 ^3/uL (0-0.8); Eosinophils % (auto) 3.3 % (0.0-7.0); Hematocrit 45.5 % (41.0-53.0); Hemoglobin 14.9 g/dL (13.5-17.5); Lymphocytes # (auto) 0.8 10 ^3/uL (0.4-5.4); Lymphocytes % (auto) 8.1 % (10.0-50.0); Mean Corpuscular Hgb Conc. 32.8 g/dL (32.0-36.0); Mean Corpuscular Volume 85.4 fL (80.0-100.0); Monocytes # (auto) 0.7 10 ^3/uL (0-1.3); Monocytes % (auto) 7.2 % (0.0-12.0); Neutrophils # (auto) 8.4 10 ^3/uL (1.6-8.6); Neutrophils % (auto) 80.9 % (37.0-80.0); Nucleated Red Blood Cells % 0.1 %; Red Blood Cells 5.33 10^6/uL (4.5-5.90); Red Cell Distribution Width 15.8 % (11.8-14.3); White Blood Cell 10.4 10^3/uL (4.4-10.8)
[2023-04-18 08:01] LABS: Alanine Aminotransferase 46 U/L (7-40); Albumin 3.6 g/dL (3.2-4.8); Alkaline Phosphatase 117 U/L (46-116); Anion Gap 7 (5-15); Aspartate Aminotransferase 41 U/L (13-40); BUN/Creatinine Ratio 13.9 (10.0-20.0); Blood Urea Nitrogen 21 mg/dL (9-23); Calcium 8.7 mg/dL (8.7-10.4); Carbon Dioxide 28 mmol/L (20-30); Chloride 101 mmol/L (98-107); Glucose 104 mg/dL (74-106); Magnesium 1.9 mg/dL (1.6-2.6); Potassium 4.4 mmol/L (3.5-5.1); Sodium 136 mmol/L (136-145)
[2023-04-18 08:02] LABS: Bilirubin, Total 0.8 mg/dL (0.2-1.0); Total Protein 5.1 g/dL (5.7-8.2)
[2023-04-18] MEDS: EMPAGLIFLOZIN 10 MG TAB PO SCH (09:57)
[2023-04-18] MEDS: ENOXAPARIN SOD 40 MG/0.4 ML SYRINGE SC SCH (09:58)
[2023-04-18] MEDS ORDERED: FUROSEMIDE 20 MG TAB PO SCH (10:00)
[2023-04-19] VITALS (16 sets, daily range): BP systolic 101–135; BP diastolic 64–85; PULSE 77–107; RESP 16–20; TEMP 97.8–98.6; O2SAT 93–99
[2023-04-19 07:26] LABS: Basophils # (auto) 0.1 10 ^3/uL (0-0.2); Eosinophils # (auto) 0.4 10 ^3/uL (0-0.8); Hemoglobin 17.7 g/dL (13.5-17.5); Monocytes # (auto) 0.8 10 ^3/uL (0-1.3)
[2023-04-19 07:29] LABS: Basophils % (auto) 0.8 % (0.0-2.0); Eosinophils % (auto) 3.9 % (0.0-7.0); Hematocrit 52.8 % (41.0-53.0); Lymphocytes # (auto) 1.2 10 ^3/uL (0.4-5.4); Lymphocytes % (auto) 12.2 % (10.0-50.0); Mean Corpuscular Hemoglobin 28.4 pg (28.0-32.0); Mean Corpuscular Hgb Conc. 33.5 g/dL (32.0-36.0); Mean Corpuscular Volume 84.8 fL (80.0-100.0); Monocytes % (auto) 7.4 % (0.0-12.0); Neutrophils # (auto) 7.7 10 ^3/uL (1.6-8.6); Neutrophils % (auto) 75.7 % (37.0-80.0); Nucleated Red Blood Cells % 0.4 %; Red Blood Cells 6.22 10^6/uL (4.5-5.90); Red Cell Distribution Width 15.6 % (11.8-14.3); White Blood Cell 10.2 10^3/uL (4.4-10.8)
[2023-04-19 07:58] LABS: Alanine Aminotransferase 45 U/L (7-40); Albumin 4.1 g/dL (3.2-4.8); Alkaline Phosphatase 136 U/L (46-116); Anion Gap 10 (5-15); Aspartate Aminotransferase 40 U/L (13-40); BUN/Creatinine Ratio 14.2 (10.0-20.0); Bilirubin, Total 0.7 mg/dL (0.2-1.0); Blood Urea Nitrogen 22 mg/dL (9-23); Calcium 9.4 mg/dL (8.7-10.4); Carbon Dioxide 26 mmol/L (20-30); Chloride 97 mmol/L (98-107); Glucose 119 mg/dL (74-106); Potassium 4.6 mmol/L (3.5-5.1); Sodium 133 mmol/L (136-145); Total Protein 6.9 g/dL (5.7-8.2)
[2023-04-19] MEDS ORDERED: DEXTROSE (50%) 50ML SYRG IV PRN (22:45)
[2023-04-20] VITALS (20 sets, daily range): BP systolic 101–135; BP diastolic 73–95; PULSE 97–110; RESP 16–22; TEMP 97.5–98.4; O2SAT 92–98
[2023-04-20] MEDS: InsuLIN REG 1unit/0.01ml Soln (100units/ml) SC SCH (06:24)
[2023-04-20] MEDS: ACCU-CHEK COMFORT CURVE STRIP VI SCH (06:24)
[2023-04-20 06:55] LABS: Alanine Aminotransferase 32 U/L (7-40); Albumin 3.9 g/dL (3.2-4.8); Alkaline Phosphatase 117 U/L (46-116); Anion Gap 9 (5-15); Aspartate Aminotransferase 36 U/L (13-40); BUN/Creatinine Ratio 15.1 (10.0-20.0); Bilirubin, Total 0.6 mg/dL (0.2-1.0); Blood Urea Nitrogen 24 mg/dL (9-23); Calcium 9.5 mg/dL (8.5-10.1); Carbon Dioxide 27 mmol/L (20-30); Chloride 97 mmol/L (98-107); Glucose 121 mg/dL (74-106); Sodium 133 mmol/L (136-145); Total Protein 6.3 g/dL (5.7-8.2)
[2023-04-20 10:09] LABS: Basophils # (auto) 0.1 10 ^3/uL (0-0.2); Hemoglobin 17.5 g/dL (13.5-17.5); Lymphocytes # (auto) 1.6 10 ^3/uL (0.4-5.4); Mean Corpuscular Volume 85.6 fL (80.0-100.0); Monocytes # (auto) 0.8 10 ^3/uL (0-1.3); Red Cell Distribution Width 15.9 % (11.8-14.3)
[2023-04-20 10:11] LABS: Eosinophils # (auto) 0.3 10 ^3/uL (0-0.8); Eosinophils % (auto) 3.5 % (0.0-7.0); Hematocrit 52.3 % (41.0-53.0); Lymphocytes % (auto) 17.6 % (10.0-50.0); Mean Corpuscular Hemoglobin 28.5 pg (28.0-32.0); Mean Corpuscular Hgb Conc. 33.3 g/dL (32.0-36.0); Neutrophils # (auto) 6.4 10 ^3/uL (1.6-8.6); Neutrophils % (auto) 68.9 % (37.0-80.0); Nucleated Red Blood Cells % 0.3 %; Red Blood Cells 6.12 10^6/uL (4.5-5.90); White Blood Cell 9.2 10^3/uL (4.4-10.8)
[2023-04-20 10:32] LABS: Folate (Folic Acid) 19.62 ng/mL (>5.38)
[2023-04-20] MEDS: FUROSEMIDE 40 MG TAB PO SCH (11:02)
[2023-04-20 13:02] LABS: COVID19 ANTIGEN SOFIA FIA NEGATIVE (NEGATIVE); Rapid Influenza A Negative (Negative); Rapid Influenza B Negative (Negative)
[2023-04-20] MEDS: ATORVASTATIN 20 MG TAB PO SCH (22:23)
[2023-04-21] VITALS (13 sets, daily range): BP systolic 95–120; BP diastolic 51–82; PULSE 75–99; RESP 15–20; TEMP 97.8–98.7; O2SAT 94–100
[2023-04-21 06:16] LABS: Basophils # (auto) 0.1 10 ^3/uL (0-0.2); Basophils % (auto) 1.2 % (0.0-2.0); Eosinophils # (auto) 0.3 10 ^3/uL (0-0.8); Eosinophils % (auto) 4.4 % (0.0-7.0); Hematocrit 50.6 % (41.0-53.0); Hemoglobin 16.8 g/dL (13.5-17.5); Lymphocytes # (auto) 1.5 10 ^3/uL (0.4-5.4); Lymphocytes % (auto) 21.9 % (10.0-50.0); Mean Corpuscular Hemoglobin 28.2 pg (28.0-32.0); Mean Corpuscular Hgb Conc. 33.2 g/dL (32.0-36.0); Monocytes # (auto) 0.9 10 ^3/uL (0-1.3); Monocytes % (auto) 12.8 % (0.0-12.0); Neutrophils # (auto) 4.2 10 ^3/uL (1.6-8.6); Neutrophils % (auto) 59.7 % (37.0-80.0); Nucleated Red Blood Cells % 0.1 %; Red Blood Cells 5.95 10^6/uL (4.5-5.90); Red Cell Distribution Width 15.4 % (11.8-14.3)
[2023-04-21 06:19] LABS: Alanine Aminotransferase 33 U/L (7-40); Albumin 3.5 g/dL (3.2-4.8); Alkaline Phosphatase 95 U/L (46-116); Anion Gap 7 (5-15); Aspartate Aminotransferase 28 U/L (13-40); BUN/Creatinine Ratio 16.9 (10.0-20.0); Bilirubin, Total 0.5 mg/dL (0.2-1.0); Blood Urea Nitrogen 26 mg/dL (9-23); Calcium 8.9 mg/dL (8.7-10.4); Carbon Dioxide 25 mmol/L (20-30); Chloride 101 mmol/L (98-107); Glucose 90 mg/dL (74-106); Magnesium 2.3 mg/dL (1.6-2.6); Potassium 4.9 mmol/L (3.5-5.1); Sodium 133 mmol/L (136-145); Total Protein 6.1 g/dL (5.7-8.2)
[2023-04-21] MEDS: METOPROLOL TARTRATE 25 MG TAB PO SCH (09:46)
[2023-04-21] MEDS ORDERED: EMPA1TAB PO (11:03)
[2023-04-21] MEDS ORDERED: SACU1TAB PO (11:03)
[2023-04-21] MEDS ORDERED: CARV3.1240 PO (11:03)
[2023-04-21] MEDS ORDERED: FURO40TA4 PO (11:03)
[2023-04-21] MEDS ORDERED: ASPI1TAB20 PO (11:05)
[2023-04-27 12:06] LABS: Vitamin B1, Whole Blood 183.6 nmol/L (66.5-200.0)
== END 2023-04-21 16:09 | disposition home or self-care (01) | DRG 133 ==
LOC: ER 20:26 → EDBD 20:26 → EDUNIT# 20:26 → TELE 04-17 00:04 → TELE-WESTW 04-17 18:07
PROVIDERS: ADMIT Internal Medicine Geriatric Medicine; ATTEND Internal Medicine Geriatric Medicine
DX: J96.01 Acute respiratory failure with hypoxia (principal); I21.A1 Myocardial infarction type 2; I50.23 Acute on chronic systolic (congestive) heart failure; N17.9 Acute kidney failure, unspecified; I42.0 Dilated cardiomyopathy; I11.0 Hypertensive heart disease with heart failure; E11.9 Type 2 diabetes mellitus without complications; E87.5 Hyperkalemia; E03.8 Other specified hypothyroidism; Z20.822 Contact with and (suspected) exposure to COVID-19; F15.10 Other stimulant abuse, uncomplicated; I08.1 Rheumatic disorders of both mitral and tricuspid valves; F10.10 Alcohol abuse, uncomplicated; I42.7 Cardiomyopathy due to drug and external agent; T50.905A Adverse effect of unspecified drugs, medicaments and biological substances, initial encounter; Z79.899 Other long term (current) drug therapy; Z59.00 Homelessness unspecified; Z91.148 Patient's other noncompliance with medication regimen for other reason; Y92.89 Other specified places as the place of occurrence of the external cause
CPT/HCPCS: 36415; 36600; 71045; 71275; 73502; 73560; 76604; 76775; 80048; 80053; 80307; 81001; 82607; 82746; 82805; 82962; 83735; 83880; 84132; 84425; 84484; 85025; 85379; 85610; 85730; 87081; 87426; 87804; 93005; 93971; 94640; 97110; 97116; 97163; 97530; 99291; G0378; J2405; J3490

== ENCOUNTER 2023-06-01 11:39 | Emergency (ER) | payer SELFPAY ==
[~2023-06-01] VITALS: Ht 170.2 cm; Wt 73.0 kg
[~2023-06-01 11:39] MED LIST changes: -ACET500T58 PO; -AML5T PO; -ASPI-325 PO; +ASPI1TAB20 PO; -CAR3125T PO; +CARV3.1240 PO; -FURO1TAB31 PO; +FURO40TA4 PO; -SPIR25TA PO
[2023-06-01 11:59] VITALS: BP 136/110; PULSE 110; RESP 18; TEMP 98.9; O2SAT 98
[2023-06-01] MEDS: HYDROcodone-ACET 5/325MG TAB PO ONE (15:36)
[2023-06-01] MEDS ORDERED: IBUP1TAB5 PO (16:42)
== END 2023-06-01 16:47 | disposition home or self-care (01) ==
LOC: ER 11:39 → EDBD 11:39 → ER 16:47
DX: M79.671 Pain in right foot (principal); M79.672 Pain in left foot; I11.0 Hypertensive heart disease with heart failure; I50.9 Heart failure, unspecified; E11.9 Type 2 diabetes mellitus without complications; F15.90 Other stimulant use, unspecified, uncomplicated; Z59.00 Homelessness unspecified; Z79.899 Other long term (current) drug therapy
CPT/HCPCS: 73630

== ENCOUNTER 2023-07-14 19:39 | Inpatient (IN) | payer MEDICAID ==
[~2023-07-14] VITALS: Ht 175.3 cm; Wt 68.2 kg
[~2023-07-14 19:39] MED LIST changes: +IBUP1TAB5 PO
[2023-07-14 22:55] LABS: Basophils # (auto) 0.1 10 ^3/uL (0-0.2); Basophils % (auto) 1.2 % (0.0-2.0); Eosinophils # (auto) 0.1 10 ^3/uL (0-0.8); Eosinophils % (auto) 1.5 % (0.0-7.0); Hematocrit 42.2 % (41.0-53.0); Hemoglobin 13.5 g/dL (13.5-17.5); Lymphocytes # (auto) 1.5 10 ^3/uL (0.4-5.4); Lymphocytes % (auto) 17.1 % (10.0-50.0); Mean Corpuscular Volume 84.5 fL (80.0-100.0); Monocytes # (auto) 0.6 10 ^3/uL (0-1.3); Monocytes % (auto) 6.6 % (0.0-12.0); Neutrophils # (auto) 6.3 10 ^3/uL (1.6-8.6); Neutrophils % (auto) 73.6 % (37.0-80.0); Nucleated Red Blood Cells % 0.2 %; Red Blood Cells 4.99 10^6/uL (4.5-5.90); Red Cell Distribution Width 16.6 % (11.8-14.3); White Blood Cell 8.5 10^3/uL (4.4-10.8)
[2023-07-14 23:09] LABS: Alanine Aminotransferase 53 U/L (7-40); Albumin 3.6 g/dL (3.2-4.8); Alkaline Phosphatase 125 U/L (46-116); Anion Gap 5 (5-15); Aspartate Aminotransferase 50 U/L (13-40); BUN/Creatinine Ratio 11.3 (10.0-20.0); Bilirubin, Total 0.7 mg/dL (0.2-1.0); Blood Urea Nitrogen 16 mg/dL (9-23); Calcium 8.9 mg/dL (8.7-10.4); Carbon Dioxide 25 mmol/L (20-30); Chloride 108 mmol/L (98-107); Glucose 91 mg/dL (74-106); Potassium 4.6 mmol/L (3.5-5.1); Sodium 138 mmol/L (136-145); Total Protein 5.8 g/dL (5.7-8.2)
[2023-07-15] VITALS (10 sets, daily range): BP systolic 108–158; BP diastolic 58–111; PULSE 65–105; RESP 18–22; TEMP 97.9–98.3; O2SAT 93–100
[2023-07-15] MEDS: ALBUTEROL SULF 2.5 MG/0.5ML(0.5%) NEB SOLN ONE (00:37)
[2023-07-15] MEDS: ALBUTEROL SULF 2.5 MG/0.5ML(0.5%) NEB SOLN NEB ONE (00:37)
[2023-07-15] MEDS: cefTRIAXone 1GM/50ML D5W 50 ML IV ONE (04:11)
[2023-07-15] MEDS: FUROSEMIDE 100 MG/10ML VIAL IV ONE (04:11)
[2023-07-15] MEDS ORDERED: ONDANSETRON HCL 4 MG/2 ML VIAL IV PRN (05:15)
[2023-07-15] MEDS ORDERED: ALBUTEROL SULF 2.5 MG/0.5ML(0.5%) NEB SOLN NEB PRN (05:15)
[2023-07-15] MEDS ORDERED: NITROGLYCERIN 0.4 MG SL TAB SL PRN (05:15)
[2023-07-15] MEDS ORDERED: ACETAMINOPHEN 325 MG TAB PO PRN (05:15)
[2023-07-15] MEDS ORDERED: MORPHINE SULFATE INJ 2 MG/ml SYRG IV PRN (05:15)
[2023-07-15] MEDS ORDERED: TEMAZEPAM 15 MG CAP PO PRN (05:15)
[2023-07-15] MEDS: FUROSEMIDE 20 MG/2 ML VIAL IV SCH (06:00)
[2023-07-15] MEDS: SACUBITRIL-VALSARTAN 24mg/26mg TAB PO SCH (09:50)
[2023-07-15] MEDS: EMPAGLIFLOZIN 10 MG TAB PO SCH (09:50)
[2023-07-15] MEDS: CARVEDILOL 3.125 MG TAB PO SCH (09:50)
[2023-07-15] MEDS ORDERED: ENALAPRIL MALEATE 2.5 MG TAB PO SCH (10:00)
[2023-07-15 10:06] LABS: Urine Bacteria None Seen /hpf (None Seen)
[2023-07-15 10:24] LABS: Urine Blood Negative /uL (Negative); Urine Clarity Clear (Clear); Urine Color Colorless (Yellow); Urine Protein, UAD Negative (Negative); Urine Specific Gravity 1.007 (1.001-1.035); Urine Urobilinogen Normal (Negative); Urine WBC <1 /hpf (0 - 3); Urine pH 6.5 (5.0-9.0)
[2023-07-15 10:30] LABS: Amphetamine Screen, Urine Pos (NEGATIVE)
[2023-07-15 10:31] LABS: Barbiturate Scree,Urine Neg (NEGATIVE); Benzodiazephine Screen, Urine Neg (NEGATIVE); Cannabinoid Screen, Urine Neg (NEGATIVE); Cocaine Screen, Urine Neg (NEGATIVE); Opiate Scree,Urine Neg (NEGATIVE); Phencyclidine Screen, Urine Neg (NEGATIVE)
[2023-07-15 10:31] LABS: Triglycerides 170 mg/dL (< 150)
[2023-07-15 10:32] LABS: LDL Cholesterol 117 mg/dL (< 100)
[2023-07-15 10:33] LABS: Cholesterol 173 mg/dL (< 200); HDL Cholesterol 43 mg/dL (40-59)
[2023-07-15] MEDS: HYDROcodone-ACET 5/325MG TAB PO PRN (20:02)
[2023-07-16] VITALS (8 sets, daily range): BP systolic 117–146; BP diastolic 58–111; PULSE 67–95; RESP 18–20; TEMP 36.8; O2SAT 94–96
[2023-07-16] MEDS: GABAPENTIN 100 MG CAP PO ONE (03:21)
[2023-07-16 06:16] LABS: Chloride 105 mmol/L (98-107); Sodium 137 mmol/L (136-145)
[2023-07-16 06:17] LABS: Anion Gap 5 (5-15); Carbon Dioxide 27 mmol/L (20-30)
[2023-07-16 06:18] LABS: Calcium 8.7 mg/dL (8.7-10.4)
[2023-07-16 06:22] LABS: Glucose 100 mg/dL (74-106)
[2023-07-16 06:23] LABS: BUN/Creatinine Ratio 14.7 (10.0-20.0); Blood Urea Nitrogen 20 mg/dL (9-23)
[2023-07-16] MEDS: EMPAGLIFLOZIN 10 MG TAB PO SCH (09:24)
[2023-07-16 09:27] LABS: Hepatitis B Surface Antigen Negative (Negative)
[2023-07-16 09:49] LABS: Hepatitis C Antibody Negative (Negative)
[2023-07-16] MEDS ORDERED: SACU1TAB PO (10:57)
[2023-07-16] MEDS ORDERED: IBUP1TAB5 PO (10:57)
[2023-07-16] MEDS ORDERED: EMPA1TAB PO (10:57)
[2023-07-16] MEDS ORDERED: CARV3.1240 PO (10:57)
[2023-07-16] MEDS ORDERED: ASPI1TAB20 PO (10:57)
[2023-07-16] MEDS ORDERED: FURO40TA4 PO (10:57)
[2023-07-17] MEDS ORDERED: SPIRONOLACTONE 25 MG TAB PO SCH (10:00)
== END 2023-07-16 16:35 | disposition home or self-care (01) | DRG 194 ==
LOC: EDBD 19:39 → ER 19:39 → EDUNIT# 19:39 → TELE 07-15 05:12 → TELE-E-ADS 07-15 08:08 → TELE-WESTW 07-15 12:33
PROVIDERS: ADMIT Internal Medicine Geriatric Medicine; ATTEND Student in an Organized Health Care Education/Training Program
DX: I11.0 Hypertensive heart disease with heart failure (principal); I21.A1 Myocardial infarction type 2; I42.7 Cardiomyopathy due to drug and external agent; I50.23 Acute on chronic systolic (congestive) heart failure; Z59.00 Homelessness unspecified; F15.10 Other stimulant abuse, uncomplicated; R74.01 Elevation of levels of liver transaminase levels; M79.671 Pain in right foot; M79.672 Pain in left foot; F17.210 Nicotine dependence, cigarettes, uncomplicated; N45.1 Epididymitis; E78.5 Hyperlipidemia, unspecified; T43.625A Adverse effect of amphetamines, initial encounter; I08.1 Rheumatic disorders of both mitral and tricuspid valves; N43.3 Hydrocele, unspecified; E11.9 Type 2 diabetes mellitus without complications; Z91.199 Patient's noncompliance with other medical treatment and regimen due to unspecified reason; Z91.148 Patient's other noncompliance with medication regimen for other reason; Z79.82 Long term (current) use of aspirin; Z79.899 Other long term (current) drug therapy; Z82.49 Family history of ischemic heart disease and other diseases of the circulatory system; Z79.1 Long term (current) use of non-steroidal anti-inflammatories (NSAID); Y92.89 Other specified places as the place of occurrence of the external cause
CPT/HCPCS: 36415; 71045; 76870; 80048; 80053; 80061; 80307; 81001; 82306; 82607; 83036; 83880; 84484; 85025; 86803; 87340; 94640; G0378

== ENCOUNTER 2023-08-21 17:41 | Inpatient (IN) | payer MEDICAID ==
[~2023-08-21] VITALS: Ht 170.2 cm; Wt 67.5 kg
[2023-08-21] MEDS: FUROSEMIDE 100 MG/10ML VIAL IV ONE (18:00)
[2023-08-21 18:58] VITALS: PULSE 106
[2023-08-21 19:35] VITALS: PULSE 105; RESP 16; O2SAT 92
[2023-08-21 19:39] LABS: Basophils # (auto) 0.1 10 ^3/uL (0-0.2); Eosinophils # (auto) 0.1 10 ^3/uL (0-0.8); Lymphocytes # (auto) 1.2 10 ^3/uL (0.4-5.4); Monocytes # (auto) 0.7 10 ^3/uL (0-1.3); Nucleated Red Blood Cells % 0.1 %
[2023-08-21 19:40] LABS: Basophils % (auto) 0.7 % (0.0-2.0); Eosinophils % (auto) 1.1 % (0.0-7.0); Hematocrit 38.2 % (41.0-53.0); Hemoglobin 12.3 g/dL (13.5-17.5); Mean Corpuscular Hemoglobin 26.6 pg (28.0-32.0); Mean Corpuscular Hgb Conc. 32.2 g/dL (32.0-36.0); Mean Corpuscular Volume 82.4 fL (80.0-100.0); Neutrophils # (auto) 7.3 10 ^3/uL (1.6-8.6); Neutrophils % (auto) 78.2 % (37.0-80.0); Red Blood Cells 4.64 10^6/uL (4.5-5.90); Red Cell Distribution Width 16.2 % (11.8-14.3); White Blood Cell 9.4 10^3/uL (4.4-10.8)
[2023-08-21 19:57] LABS: Alanine Aminotransferase 49 U/L (7-40); Albumin 3.7 g/dL (3.2-4.8); Alkaline Phosphatase 156 U/L (46-116); Anion Gap 9 (5-15); Aspartate Aminotransferase 64 U/L (13-40); BUN/Creatinine Ratio 16.5 (10.0-20.0); Bilirubin, Total 0.7 mg/dL (0.2-1.0); Blood Urea Nitrogen 23 mg/dL (9-23); Calcium 8.9 mg/dL (8.5-10.1); Carbon Dioxide 21 mmol/L (20-30); Chloride 106 mmol/L (98-107); Glucose 84 mg/dL (74-106); Sodium 136 mmol/L (136-145); Total Protein 5.8 g/dL (5.7-8.2)
[2023-08-21] MEDS: ONDANSETRON HCL 4 MG/2 ML VIAL IV ONE (20:48)
[2023-08-21] MEDS: MORPHINE SULFATE 4 MG/ML SYR/VIAL IV ONE (20:48)
[2023-08-21] MEDS: IOHEXOL 350 MG/ML 100ML IJ ONE (21:04)
[2023-08-21] MEDS ORDERED: MORPHINE SULFATE INJ 2 MG/ml SYRG IV PRN (22:15)
[2023-08-21] MEDS ORDERED: NITROGLYCERIN 0.4 MG SL TAB SL PRN (22:15)
[2023-08-21] MEDS ORDERED: IBUPROFEN 600 MG TAB PO PRN (22:15)
[2023-08-21] MEDS ORDERED: DEXTROSE (50%) 50ML SYRG IV PRN (22:15)
[2023-08-21] MEDS ORDERED: ONDANSETRON HCL 4 MG/2 ML VIAL IV PRN (22:15)
[2023-08-21] MEDS ORDERED: DOCUSATE SOD 100 MG CAP PO PRN (22:15)
[2023-08-22] MEDS: hydrALAZINE HCL 20 MG/ML VL IV PRN (00:10)
[2023-08-22] MEDS: LORazepam 2MG/ML-1ML VIAL IV ONE (01:47)
[2023-08-22] MEDS: FLUMAZENIL 0.1 MG/ML INJ 10ML MDV IV ONE ×2 (04:19→05:00)
[2023-08-22] MEDS: D5W/SOD CHLO 0.9% 1,000 ML IV ONE (04:47)
[2023-08-22 04:57] LABS: Urine Bacteria None Seen /hpf (None Seen)
[2023-08-22 05:02] LABS: Urine Blood 1+ /uL (Negative); Urine Clarity Clear (Clear); Urine Protein, UAD Negative (Negative); Urine Specific Gravity 1.016 (1.001-1.035); Urine Urobilinogen Normal (Negative); Urine WBC 1 /hpf (0 - 3)
[2023-08-22] MEDS: SODIUM CHLOR 0.9% PF (SALINE LOCK) 10ML VIAL/SYR IV SCH (05:30)
[2023-08-22 05:53] LABS: Amphetamine Screen, Urine Pos (NEGATIVE); Barbiturate Scree,Urine Neg (NEGATIVE); Benzodiazephine Screen, Urine Neg (NEGATIVE); Cannabinoid Screen, Urine Neg (NEGATIVE); Cocaine Screen, Urine Neg (NEGATIVE); Opiate Scree,Urine Neg (NEGATIVE); Phencyclidine Screen, Urine Neg (NEGATIVE)
[2023-08-22 06:03] LABS: Basophils # (auto) 0.1 10 ^3/uL (0-0.2); Eosinophils # (auto) 0.1 10 ^3/uL (0-0.8); Hemoglobin 12.1 g/dL (13.5-17.5); Lymphocytes # (auto) 0.8 10 ^3/uL (0.4-5.4); Lymphocytes % (auto) 7.6 % (10.0-50.0); Mean Corpuscular Volume 81.8 fL (80.0-100.0); Monocytes # (auto) 0.6 10 ^3/uL (0-1.3)
[2023-08-22 06:07] LABS: Basophils % (auto) 0.8 % (0.0-2.0); Eosinophils % (auto) 0.9 % (0.0-7.0); Hematocrit 37.1 % (41.0-53.0); Mean Corpuscular Hemoglobin 26.7 pg (28.0-32.0); Mean Corpuscular Hgb Conc. 32.6 g/dL (32.0-36.0); Neutrophils # (auto) 8.8 10 ^3/uL (1.6-8.6); Neutrophils % (auto) 84.7 % (37.0-80.0); Red Blood Cells 4.53 10^6/uL (4.5-5.90); Red Cell Distribution Width 16.3 % (11.8-14.3); White Blood Cell 10.4 10^3/uL (4.4-10.8)
[2023-08-22 06:13] LABS: Urine Color Straw (Yellow)
[2023-08-22 06:27] LABS: Alanine Aminotransferase 40 U/L (7-40); Alkaline Phosphatase 148 U/L (46-116); Anion Gap 6 (5-15); Aspartate Aminotransferase 36 U/L (13-40); BUN/Creatinine Ratio 15.3 (10.0-20.0); Blood Urea Nitrogen 20 mg/dL (9-23); Calcium 8.6 mg/dL (8.5-10.1); Carbon Dioxide 26 mmol/L (20-30); Chloride 107 mmol/L (98-107); Glucose 160 mg/dL (74-106); Potassium 4.1 mmol/L (3.5-5.1); Sodium 139 mmol/L (136-145)
[2023-08-22 06:28] LABS: Albumin 3.3 g/dL (3.2-4.8)
[2023-08-22 06:29] LABS: Bilirubin, Total 0.7 mg/dL (0.2-1.0); Total Protein 5.1 g/dL (5.7-8.2)
[2023-08-22] MEDS: InsuLIN REG 1unit/0.01ml Soln (100units/ml) SC SCH (07:00)
[2023-08-22] MEDS: ACCU-CHEK COMFORT CURVE STRIP VI SCH (07:18)
[2023-08-22 08:00] VITALS: PULSE 108; RESP 18; O2SAT 95
[2023-08-22 08:45] LABS: Base Excess 0.7 mmol/L (-2.0-2.0)
[2023-08-22] MEDS: CARVEDILOL 3.125 MG TAB PO SCH (10:10)
[2023-08-22] MEDS: ASPirin 81 mg TAB PO SCH (10:11)
[2023-08-22] MEDS: FUROSEMIDE 40 MG/4 ML VIAL IV SCH (10:11)
[2023-08-22 13:11] VITALS: BP 169/96; PULSE 113; RESP 20; TEMP 97.6; O2SAT 90
[2023-08-22 16:59] VITALS: BP 175/111; PULSE 110; RESP 20; TEMP 97.9; O2SAT 95
[2023-08-22 20:00] VITALS: PULSE 100; PULSE 118; RESP 18; O2SAT 97
[2023-08-22 21:00] VITALS: BP 164/107; PULSE 117; RESP 18; TEMP 98.1; O2SAT 94
[2023-08-22] MEDS: ASPirin 81 mg TAB NG ONE (23:29)
[2023-08-23] VITALS (8 sets, daily range): BP systolic 131–159; BP diastolic 89–105; PULSE 104–117; RESP 18–20; TEMP 97.6–98.8; O2SAT 92–94
[2023-08-23] MEDS: ASPirin 81 mg TAB NG SCH (09:40)
[2023-08-23] MEDS: CARVEDILOL 3.125 MG TAB NG SCH (09:41)
[2023-08-24] VITALS (7 sets, daily range): BP systolic 119–156; BP diastolic 78–124; PULSE 92–108; RESP 18–20; TEMP 97.5–98.6; O2SAT 94–100
[2023-08-24] MEDS: D5W/SOD CHL 0.45% 1,000 ML IV SCH (00:37)
[2023-08-24 18:52] LABS: Chloride 102 mmol/L (98-107); Potassium 3.9 mmol/L (3.5-5.1); Sodium 135 mmol/L (136-145)
[2023-08-24 18:53] LABS: Anion Gap 7 (5-15); Calcium 8.9 mg/dL (8.5-10.1); Carbon Dioxide 26 mmol/L (20-30)
[2023-08-24 18:58] LABS: BUN/Creatinine Ratio 11.1 (10.0-20.0); Blood Urea Nitrogen 14 mg/dL (9-23); Glucose 95 mg/dL (74-106)
[2023-08-25] VITALS (8 sets, daily range): BP systolic 127–149; BP diastolic 87–100; PULSE 90–102; RESP 16–21; TEMP 97.4–98.5; O2SAT 94–100
[2023-08-25 05:51] LABS: Anion Gap 7 (5-15); Carbon Dioxide 25 mmol/L (20-30); Chloride 100 mmol/L (98-107); Potassium 3.8 mmol/L (3.5-5.1); Sodium 132 mmol/L (136-145)
[2023-08-25 05:52] LABS: Calcium 8.6 mg/dL (8.5-10.1)
[2023-08-25 05:57] LABS: BUN/Creatinine Ratio 13.6 (10.0-20.0); Blood Urea Nitrogen 16 mg/dL (9-23); Glucose 92 mg/dL (74-106)
[2023-08-25 05:58] LABS: Magnesium 1.8 mg/dL (1.6-2.6)
[2023-08-25 05:59] LABS: Phosphorus 3.5 mg/dL (2.4-5.1)
[2023-08-25 06:20] LABS: Basophils # (auto) 0.1 10 ^3/uL (0-0.2); Basophils % (auto) 0.7 % (0.0-2.0); Eosinophils # (auto) 0.1 10 ^3/uL (0-0.8); Eosinophils % (auto) 1.2 % (0.0-7.0); Hematocrit 45.7 % (41.0-53.0); Lymphocytes % (auto) 10.2 % (10.0-50.0); Mean Corpuscular Hemoglobin 26.6 pg (28.0-32.0); Mean Corpuscular Hgb Conc. 32.7 g/dL (32.0-36.0); Mean Corpuscular Volume 81.2 fL (80.0-100.0); Monocytes # (auto) 0.8 10 ^3/uL (0-1.3); Monocytes % (auto) 7.6 % (0.0-12.0); Neutrophils # (auto) 8.2 10 ^3/uL (1.6-8.6); Neutrophils % (auto) 80.3 % (37.0-80.0); Nucleated Red Blood Cells % 0.2 %; Red Blood Cells 5.64 10^6/uL (4.5-5.90); White Blood Cell 10.2 10^3/uL (4.4-10.8)
[2023-08-25] MEDS: GASTROGRAFIN 120 ML SOL ONE (13:19)
[2023-08-25 14:10] LABS: INR 1.06 (0.9-1.15); Partial Thromboplastin Time 30.9 SEC (24.5-34.5); Prothrombin Time 11.2 sec (9.3-11.8)
[2023-08-25 20:40] LABS: Body Fluid Polymorphonuclear 10 % (0-25)
[2023-08-25 21:48] LABS: Body Fluid Red Blood Cells 6725 CUMM (0-2000); Body Fluid White Blood Cells 400 CUMM (0-200)
[2023-08-26] VITALS (8 sets, daily range): BP systolic 33–147; BP diastolic 68–99; PULSE 88–93; RESP 16–18; TEMP 97.1–98.4; O2SAT 91–100
[2023-08-26 06:39] LABS: Alanine Aminotransferase 28 U/L (7-40); Alkaline Phosphatase 126 U/L (46-116); Anion Gap 8 (5-15); BUN/Creatinine Ratio 12.6 (10.0-20.0); Blood Urea Nitrogen 15 mg/dL (9-23); Calcium 8.8 mg/dL (8.5-10.1); Carbon Dioxide 26 mmol/L (20-30); Chloride 100 mmol/L (98-107); Glucose 91 mg/dL (74-106); Magnesium 1.9 mg/dL (1.6-2.6); Potassium 3.4 mmol/L (3.5-5.1); Sodium 134 mmol/L (136-145)
[2023-08-26 06:40] LABS: Albumin 3.1 g/dL (3.2-4.8); Aspartate Aminotransferase 40 U/L (13-40); Bilirubin, Total 0.6 mg/dL (0.2-1.0)
[2023-08-26] MEDS: POTASSIUM CHL 20 Meq TABLET PO ONE (13:53)
[2023-08-27 01:00] VITALS: BP 129/73; PULSE 98; RESP 18; TEMP 97.7; O2SAT 96
[2023-08-27 05:00] VITALS: BP 125/85; PULSE 95; RESP 18; TEMP 97.6; O2SAT 93
[2023-08-27 06:40] LABS: Chloride 102 mmol/L (98-107); Sodium 134 mmol/L (136-145)
[2023-08-27 06:41] LABS: Anion Gap 6 (5-15); Calcium 8.3 mg/dL (8.5-10.1); Carbon Dioxide 26 mmol/L (20-30)
[2023-08-27 06:46] LABS: BUN/Creatinine Ratio 10.3 (10.0-20.0); Blood Urea Nitrogen 11 mg/dL (9-23); Glucose 85 mg/dL (74-106)
[2023-08-27 06:47] LABS: Magnesium 1.8 mg/dL (1.6-2.6)
[2023-08-27 08:00] VITALS: PULSE 84; PULSE 90; RESP 18; O2SAT 100
[2023-08-27 09:00] VITALS: BP_SYST 116; BP_SYST 120; BP_DIAS 81; BP_DIAS 84; PULSE 90; PULSE 96; RESP 18; TEMP 97.7; TEMP 97.8; O2SAT 96; O2SAT 97
[2023-08-27 10:32] LABS: Protein, Body Fluid 1.4 g/dL (.)
[2023-08-27 13:00] VITALS: BP 116/81; PULSE 96; RESP 18; TEMP 97.7; O2SAT 97
[2023-08-27 14:07] VITALS: BP 116/81; PULSE 96; RESP 18; TEMP 97.7; O2SAT 97
== END 2023-08-27 16:35 | disposition home or self-care (01) | DRG 254 ==
LOC: EDBD 17:41 → ER 17:41 → TELE 22:25 → TELE-EAST 08-22 13:00 → EAST 08-27 12:41
PROVIDERS: ADMIT Nurse Practitioner Family; ATTEND Internal Medicine Geriatric Medicine
PROC: 0D9670Z Drainage of Stomach with Drainage Device, Via Natural or Artificial Opening (ICD-10-PCS; principal; 2023-08-22)
PROC: 0W9B3ZZ Drainage of Left Pleural Cavity, Percutaneous Approach (ICD-10-PCS; 2023-08-25)
DX: K40.30 Unilateral inguinal hernia, with obstruction, without gangrene, not specified as recurrent (principal); I50.23 Acute on chronic systolic (congestive) heart failure; I21.A1 Myocardial infarction type 2; E87.1 Hypo-osmolality and hyponatremia; I42.7 Cardiomyopathy due to drug and external agent; J91.8 Pleural effusion in other conditions classified elsewhere; E11.22 Type 2 diabetes mellitus with diabetic chronic kidney disease; I13.0 Hypertensive heart and chronic kidney disease with heart failure and stage 1 through stage 4 chronic kidney disease, or unspecified chronic kidney disease; I16.0 Hypertensive urgency; N18.9 Chronic kidney disease, unspecified; T50.995A Adverse effect of other drugs, medicaments and biological substances, initial encounter; F15.10 Other stimulant abuse, uncomplicated; R74.01 Elevation of levels of liver transaminase levels; Z59.00 Homelessness unspecified; Z91.199 Patient's noncompliance with other medical treatment and regimen due to unspecified reason; Z82.49 Family history of ischemic heart disease and other diseases of the circulatory system; Y92.89 Other specified places as the place of occurrence of the external cause
CPT/HCPCS: 32555; 36415; 36600; 71045; 71275; 74176; 74250; 76604; 76942; 80048; 80053; 80307; 81001; 82805; 82962; 83605; 83735; 83880; 83986; 84100; 84484; 85025; 85610; 85730; 87081; 87205; 89051; 93005; 93306; 93926; 96361; 96374; 96375; 96376; G0378; J1815; J2405

== ENCOUNTER 2023-10-09 12:17 | Inpatient (IN) | payer MEDICAID ==
[~2023-10-09] VITALS: Ht 172.7 cm; Wt 67.1 kg
[~2023-10-09 12:17] MED LIST changes: -IBUP1TAB5 PO
[2023-10-09 13:21] LABS: Basophils # (auto) 0.1 10 ^3/uL (0-0.2); Basophils % (auto) 0.7 % (0.0-2.0); Eosinophils # (auto) 0.1 10 ^3/uL (0-0.8); Hemoglobin 11.4 g/dL (13.5-17.5); Lymphocytes # (auto) 1.2 10 ^3/uL (0.4-5.4); Mean Corpuscular Volume 81.6 fL (80.0-100.0); Monocytes # (auto) 0.4 10 ^3/uL (0-1.3); Neutrophils # (auto) 7.5 10 ^3/uL (1.6-8.6)
[2023-10-09 13:22] LABS: Eosinophils % (auto) 1.1 % (0.0-7.0); Hematocrit 35.8 % (41.0-53.0); Lymphocytes % (auto) 12.9 % (10.0-50.0); Mean Corpuscular Hgb Conc. 31.9 g/dL (32.0-36.0); Monocytes % (auto) 4.3 % (0.0-12.0); Nucleated Red Blood Cells % 0.3 %; Platelet Count (auto) 399 10^3/uL (140-450); Red Blood Cells 4.39 10^6/uL (4.5-5.90); Red Cell Distribution Width 17.7 % (11.8-14.3); White Blood Cell 9.2 10^3/uL (4.4-10.8)
[2023-10-09] MEDS: SODIUM CHLORIDE 0.9% 1,000 ML IV ONE (13:39)
[2023-10-09 13:43] LABS: Alanine Aminotransferase 50 U/L (7-40); Albumin 4.1 g/dL (3.2-4.8); Alkaline Phosphatase 275 U/L (46-116); Anion Gap 7 (5-15); Aspartate Aminotransferase 57 U/L (13-40); Blood Alcohol < 3.0 mg/dL (<10); Blood Urea Nitrogen 14 mg/dL (9-23); Carbon Dioxide 26 mmol/L (20-30); Chloride 105 mmol/L (98-107); Glucose 136 mg/dL (74-106); Potassium 4.2 mmol/L (3.5-5.1); Sodium 138 mmol/L (136-145)
[2023-10-09 13:44] LABS: Bilirubin, Total 1.1 mg/dL (0.2-1.0)
[2023-10-09 14:00] VITALS: PULSE 110; RESP 22; O2SAT 93
[2023-10-09 14:21] LABS: Urine Bacteria None Seen /hpf (None Seen)
[2023-10-09 14:32] LABS: Urine Blood Negative /uL (Negative); Urine Clarity Clear (Clear); Urine Color Yellow (Yellow); Urine Protein, UAD 2+ (Negative); Urine Specific Gravity 1.031 (1.001-1.035); Urine Urobilinogen 4 mg/dL (Negative); Urine WBC <1 /hpf (0 - 3); Urine pH 5.5 (5.0-9.0)
[2023-10-09 14:47] LABS: Amphetamine Screen, Urine Pos (NEGATIVE); Barbiturate Scree,Urine Neg (NEGATIVE); Benzodiazephine Screen, Urine Neg (NEGATIVE); Cannabinoid Screen, Urine Neg (NEGATIVE); Cocaine Screen, Urine Neg (NEGATIVE); Opiate Scree,Urine Neg (NEGATIVE); Phencyclidine Screen, Urine Neg (NEGATIVE)
[2023-10-09 20:05] VITALS: PULSE 106; RESP 18; O2SAT 92
[2023-10-09] MEDS: FUROSEMIDE 40 MG/4 ML VIAL IV ONE (21:39)
[2023-10-09] MEDS: cloNIDine HCL 0.1 MG TAB PO ONE (21:39)
[2023-10-09] MEDS ORDERED: DOCUSATE SOD 100 MG CAP PO PRN (23:00)
[2023-10-09] MEDS ORDERED: DEXTROSE (50%) 50ML SYRG IV PRN (23:00)
[2023-10-09] MEDS ORDERED: ONDANSETRON HCL 4 MG/2 ML VIAL IV PRN (23:00)
[2023-10-09] MEDS ORDERED: ACETAMINOPHEN 325 MG TAB PO PRN (23:00)
[2023-10-09] MEDS ORDERED: NITROGLYCERIN 0.4 MG SL TAB SL PRN (23:45)
[2023-10-09] MEDS ORDERED: MORPHINE SULFATE INJ 2 MG/ml SYRG IV PRN (23:45)
[2023-10-10] VITALS (7 sets, daily range): BP systolic 123–151; BP diastolic 92–115; PULSE 73–109; RESP 17–22; TEMP 97.2–98; O2SAT 93–100
[2023-10-10] MEDS: NTG 0.1MG/HR TOPICAL PATCH TD ONE (00:04)
[2023-10-10] MEDS: hydrALAZINE HCL 20 MG/ML VL IV PRN (03:39)
[2023-10-10 03:58] LABS: Basophils # (auto) 0.1 10 ^3/uL (0-0.2); Eosinophils # (auto) 0.1 10 ^3/uL (0-0.8); Hemoglobin 12.7 g/dL (13.5-17.5); Lymphocytes # (auto) 1.5 10 ^3/uL (0.4-5.4); Monocytes # (auto) 0.4 10 ^3/uL (0-1.3); Monocytes % (auto) 4.2 % (0.0-12.0)
[2023-10-10 04:01] LABS: Basophils % (auto) 0.9 % (0.0-2.0); Eosinophils % (auto) 0.6 % (0.0-7.0); Hematocrit 39.3 % (41.0-53.0); Lymphocytes % (auto) 15.7 % (10.0-50.0); Mean Corpuscular Hemoglobin 26.3 pg (28.0-32.0); Mean Corpuscular Hgb Conc. 32.3 g/dL (32.0-36.0); Mean Corpuscular Volume 81.3 fL (80.0-100.0); Neutrophils # (auto) 7.5 10 ^3/uL (1.6-8.6); Neutrophils % (auto) 78.6 % (37.0-80.0); Nucleated Red Blood Cells % 0.2 %; Platelet Count (auto) 425 10^3/uL (140-450); Red Blood Cells 4.83 10^6/uL (4.5-5.90); Red Cell Distribution Width 17.6 % (11.8-14.3); White Blood Cell 9.5 10^3/uL (4.4-10.8)
[2023-10-10 04:18] LABS: Alanine Aminotransferase 45 U/L (7-40); Alkaline Phosphatase 280 U/L (46-116); Anion Gap 7 (5-15); Aspartate Aminotransferase 47 U/L (13-40); BUN/Creatinine Ratio 10.1 (10.0-20.0); Bilirubin, Total 1.5 mg/dL (0.2-1.0); Blood Urea Nitrogen 12 mg/dL (9-23); Carbon Dioxide 27 mmol/L (20-30); Chloride 104 mmol/L (98-107); Glucose 114 mg/dL (74-106); Potassium 4.1 mmol/L (3.5-5.1); Sodium 138 mmol/L (136-145); Total Protein 6.3 g/dL (5.7-8.2)
[2023-10-10] MEDS: HYDROcodone-ACET 5/325MG TAB PO PRN (05:25)
[2023-10-10] MEDS: SODIUM CHLOR 0.9% PF (SALINE LOCK) 10ML VIAL/SYR IV SCH (05:25)
[2023-10-10] MEDS: ACCU-CHEK COMFORT CURVE STRIP VI SCH (06:39)
[2023-10-10] MEDS: InsuLIN REG 1unit/0.01ml Soln (100units/ml) SC SCH (06:45)
[2023-10-10] MEDS ORDERED: POLYPOW85 (10:37)
[2023-10-10] MEDS: CARVEDILOL 3.125 MG TAB PO SCH (11:09)
[2023-10-10] MEDS: ASPirin 81 mg TAB PO SCH (11:10)
[2023-10-10] MEDS: FUROSEMIDE 40 MG/4 ML VIAL IV SCH (11:10)
[2023-10-10] MEDS: SACUBITRIL-VALSARTAN 24mg/26mg TAB PO SCH (23:12)
[2023-10-11] VITALS (7 sets, daily range): BP systolic 128–140; BP diastolic 66–103; PULSE 87–102; RESP 15–18; TEMP 97.3–98; O2SAT 94–99
[2023-10-11 04:42] LABS: Chloride 102 mmol/L (98-107); Potassium 4.2 mmol/L (3.5-5.1)
[2023-10-11 04:43] LABS: Anion Gap 4 (5-15); Carbon Dioxide 27 mmol/L (20-30)
[2023-10-11 04:44] LABS: Calcium 8.6 mg/dL (8.7-10.4)
[2023-10-11 04:45] LABS: Sodium 133 mmol/L (136-145)
[2023-10-11 04:49] LABS: BUN/Creatinine Ratio 14.3 (10.0-20.0); Blood Urea Nitrogen 15 mg/dL (9-23); Glucose 113 mg/dL (74-106)
[2023-10-11] MEDS: EMPAGLIFLOZIN 10 MG TAB PO SCH (10:17)
[2023-10-12] VITALS (8 sets, daily range): BP systolic 104–153; BP diastolic 61–97; PULSE 72–95; RESP 17–20; TEMP 97.7–98.3; O2SAT 91–98
[2023-10-12 07:18] LABS: Anion Gap 6 (5-15); Calcium 8.7 mg/dL (8.7-10.4); Carbon Dioxide 26 mmol/L (20-30); Chloride 99 mmol/L (98-107); Potassium 4.3 mmol/L (3.5-5.1); Sodium 131 mmol/L (136-145)
[2023-10-12 07:24] LABS: BUN/Creatinine Ratio 15.3 (10.0-20.0); Blood Urea Nitrogen 15 mg/dL (9-23); Glucose 95 mg/dL (74-106)
[2023-10-12] MEDS ORDERED: SACU1TAB PO (15:22)
[2023-10-12] MEDS ORDERED: CARV3.1240 PO (15:22)
[2023-10-12] MEDS ORDERED: FURO40TA4 PO (15:22)
[2023-10-12] MEDS ORDERED: ASPI1TAB20 PO (15:22)
[2023-10-12] MEDS ORDERED: EMPA1TAB PO (15:22)
== END 2023-10-12 19:46 | disposition home or self-care (01) | DRG 194 ==
LOC: EDBD 12:17 → ER 12:17 → TELE 23:39 → TELE-WESTW 10-10 10:01
PROVIDERS: ADMIT Nurse Practitioner Family; ATTEND Hospitalist
DX: I11.0 Hypertensive heart disease with heart failure (principal); I42.9 Cardiomyopathy, unspecified; F15.10 Other stimulant abuse, uncomplicated; I16.1 Hypertensive emergency; E11.9 Type 2 diabetes mellitus without complications; Z59.00 Homelessness unspecified; Z91.148 Patient's other noncompliance with medication regimen for other reason; I50.43 Acute on chronic combined systolic (congestive) and diastolic (congestive) heart failure
CPT/HCPCS: 36415; 71045; 76705; 80048; 80053; 80307; 80320; 81001; 82962; 83690; 83880; 84484; 85025; 93005; 96374; 97163; 99291; G0378; J1815

== ENCOUNTER 2024-01-22 12:10 | Inpatient (IN) | payer MEDICAID ==
[~2024-01-22] VITALS: Ht 170.2 cm; Wt 72.0 kg
[~2024-01-22 12:10] MED LIST changes: +ASPI-628 PO; +ASPI1TAB19 PO; +CARV-214 PO; +ENAL1TAB43 PO; +FAMO-12 PO; +FURO1TAB31 PO; +METO25TA5 PO; +POLY1POW50 PO; +POLYPOW85; +SPIR25TA PO
--- NOTE | 2024-01-22 14:30 | ED.PDOC ---
Musculoskeletal HPI Comments A 38 YEAR OLD MALE BROUGHT IN BY AMBULANCE PRESENTS TO THE ED WITH COMPLAINT OF BILATERAL LOWER EXTREMITY PAIN AND SWELLING. PATIENT STATES HE HAS BEEN EXPERIENCING BILATERAL LOWER EXTREMITY PAIN AND SWELLING OFF AND ON FOR THE PAST 6 MONTHS. PATIENT NOTES SHE HAS A HISTORY OF CHF AND WAS ADMITTED SEVERAL TIMES IN THE PAST DUE TO CHF EXACERBATION. PATIENT DENIES FEVER, CHILLS, SHORTNESS OF BREATH, CHEST PAIN, ABDOMINAL PAIN, NAUSEA, VOMITING, HEADACHE, OR OTHER COMPLAINTS. NO OTHER SYMPTOMS OR MODIFYING FACTORS AT THIS TIME. PATIENT IS ALERT, ORIENTED X 4, AND HAS STEADY GAIT. Chief Complaint: Lower Extremity Time Seen by MD: 13:09 Primary Care Provider: NONE Reviewed Notes: Nurses Notes, Dredge Pipeman Notes, Medications, Allergies Allergies: Coded Allergies: NO KNOWN ALLERGIES (Unverified , 05/21/22) Home Meds Active Scripts Aspirin (Aspirin) 81 Mg Tab, 81 MG PO DAILY for 30 Days, #30 TAB 3 Refills Prov:GILBERT LARSEN MD 11/03/23 Spironolactone (Aldactone) 25 Mg Tab, 25 MG PO DAILY for 30 Days, #30 TAB 3 Refills Prov:GILBERT LARSEN MD 11/03/23 Furosemide (Lasix) 40 Mg Tab, 40 MG PO QAM for 30 Days, #30 TAB 3 Refills Prov:GILBERT LARSEN MD 11/03/23 Famotidine (Famotidine) 20 Mg Tab, 20 MG PO DAILY for 30 Days, #30 TAB 2 Refills Prov:GILBERT LARSEN MD 11/03/23 Sacubitril-Valsartan (Entresto 24-26 mg) 1 Tab Tab, 1 TAB PO BID for 30 Days, #60 TAB 3 Refills Prov:GILBERT LARSEN MD 11/03/23 Carvedilol (COREG) 3.125 Mg Tab, 3.125 MG PO BID for 30 Days, #60 TAB 3 Refills Prov:GILBERT LARSEN MD 11/03/23 Aspirin (Aspir-81) 81 Mg Tab, 1 TAB PO DAILY for 30 Days, #30 TAB 3 Refills Prov:FLORENCE WEBSTER MD 10/12/23 Sacubitril-Valsartan (Entresto 24-26 mg) 1 Tab Tab, 1 TAB PO BID for 30 Days, #60 TAB 3 Refills Prov:FLORENCE WEBSTER MD 10/12/23 Empagliflozin (Jardiance) 10 Mg Tab, 10 MG PO DAILY for 30 Days, #30 TAB 3 Refills Prov:FLORENCE WEBSTER MD 10/12/23 Furosemide (Furosemide) 40 Mg Tab, 1 TAB PO DAILY, #30 TAB 3 Refills Prov:FLORENCE WEBSTER MD 10/12/23 Carvedilol (Carvedilol) 3.125 Mg Tab, 1 TAB PO BID for 30 Days, #60 TAB 3 Refills Prov:FLORENCE WEBSTER MD 10/12/23 Enalapril Maleate (VASOTEC TABLET) 2.5 Mg Tb, 1 TAB PO DAILY for 60 Days, #60 TAB 5 Refills Prov:ADELE BEAUCHAMP NP 03/06/23 Metoprolol Tartrate (Metoprolol Tartrate) 25 Mg Tab, 1 TAB PO BID for 60 Days, #120 TAB 1 Refill Prov:ADELE BEAUCHAMP NP 03/06/23 Reported Medications Carvedilol (Carvedilol) 3.125 Mg Tab, 1 TAB PO BID for 30 Days, #60 10/28/23 Polyethylene Glycol 3350 (Polyethylene Glycol) 17 Gm/Scoop Pow, 17 GM PO DAILY for 25 Days, #476 10/28/23 Aspirin (Aspirin Adult Low Dose) 81 Mg Tab, 1 TAB PO DAILY for 30 Days, #30 10/28/23 Furosemide (Furosemide) 40 Mg Tab, 1 TAB PO QAM for 30 Days, #30 10/28/23 Polyethylene Glycol 3350 (Clearlax) 17 Gm/Scoop Pow 10/10/23 Information Source: Patient Mode of Arrival: EMS Location: Bilateral Extremity Location: Leg (BILATERAL LOWER EXTREMITIES) Timing: Days Prehospital treatment: None Severity: Moderate Able to Move Extremity: Yes Bear Weight: Fully Pain: Moderate Mechanism: No Trauma, Spontaneous Circumstances: Spontaneous Onset of Symptoms: Spontaneous Symptoms: Swelling, Pain DVT Risk Factors: NONE Last Tetanus: Unknown Associated signs and symptoms: None Past Medical History PAST MEDICAL HISTORY: CHF, DM, HTN Surgical History: Denies all surgeries Family History Family History: Reviewed,noncontributory to illness Social History Smoker: Non-Smoker Alcohol: Denies ETOH Use Drugs: Methamphetamine Lives In: Homeless Constitutional: denies: chills, diaphoresis, fatigue, fever, malaise, sweats, weakness, others EENTM: denies: blurred vision, double vision, ear bleeding, ear discharge, ear drainage, ear pain, ear ringing, eye pain, eye redness, hearing loss, mouth pain, mouth swelling, nasal discharge, nose bleeding, nose congestion, nose pain, photophobia, tearing, throat pain, throat swelling, voice changes, others Respiratory: denies: cough, hemoptysis, orthopnea, SOB at rest, shortness of breath, SOB with excertion, stridor, wheezing, others Cardiovascular: denies: chest pain, dizzy spells, diaphoresis, Dyspnea on exertion, edema, irregular heart beat, left arm pain, lightheadedness, palpitations, PND, syncope, others Genitourinary: denies: burning, dysuria, flank pain, frequency, hematuria, incontinence, penile discharge, penile sore, pain, testicle pain, testicle swelling, urgency, others Neurological: denies: dizziness, fainting, headache, left sided numbness, left sided weakness, numbness, paresthesia, pre-existing deficit, right sided numbnes s, right sided weakness, seizure, speech problems, tingling, tremors, weakness, others Musculoskeletal: reports: joint pain, joint swelling, others (BILATERAL LOWER EXTREMITY SWELLING AND PAIN); denies: back pain, gout, muscle pain, muscle stiffness, neck pain Integumetry: denies: bruises, change in color, change in hair/nails, dryness, laceration, lesions, lumps, rash, wounds, others Allergic/Immunocompromised: denies: Difficulty Healing, Frequent Infections, Hives, Itching, others Hematologic/Lymphatic: denies: anemia, blood clots, easy bleeding, easy bruising, swollen glands, others Endocrine: denies: excessive hunger, excessive sweating, excessive thirst, excessive urination, flushing, intolerance to cold, intolerance to heat, unexplained weight gain, unexplained weight loss, others Psychiatric: denies: anxiety, bipolar disorder, depression, hopeless, panic disorder, schizophrenia, sleepless, suicidal, others All Other Systems: Reviewed and Negative Physical Exam General Appearance: No Apparent Distress, Normal HEENT: Normal ENT Inspection, PERRL/EOMI, Pharynx Normal, TMs Normal Neck: Full Range of Motion, Non-Tender, Normal, Normal Inspection Respiratory: Chest Non-Tender, Decreased Breath Sounds, No Accessory Muscle Use, No Respiratory Distress, Normal Breath Sounds Cardiovascular: No Edema, No JVD, No Murmur, No Gallop, Normal Peripheral Pulses, Regular Rate/Rhythm Breast Exam: Deferred Gastrointestinal: No Organomegaly, Non Tender, No Pulsatile Mass, Normal Bowel Sounds, Soft Genitalia: Deferred Pelvic: Deferred Rectal: Deferred Extremities: Leg edema, No calf tenderness, Normal capillary refill, No pedal edema, Swelling (BILATERAL LOWER LEGS WITH MILD REDNESS, NO OPEN WOUND SEEN, NO DVT SIGNS. 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 Was a procedure done?: No Differential Diagnosis EXT Differential Diagnosis: Cellulitis, CHF, Sprain, Strain X-Ray, Labs, Meds, VS Vital Signs Date Time Temp Pulse Resp B/P (MAP) Pulse Ox O2 Delivery O2 Flow Rate FiO2 01/22/24 17:54 111 19 94 Room Air* 0 21 01/22/24 17:54 98.5 111 18 152/83 (106) 95 98.5 01/22/24 16:00 156/80 01/22/24 12:15 97.7 98 16 172/86 (114) 98 Lab Test 01/22/24 15:07 01/22/24 14:19 Range/Units White Blood Count 7.7 4.4-10.8 10^3/uL Red Blood Count 4.80 4.5-5.90 10^6/uL Hemoglobin 11.4 L 13.5-17.5 g/dL Hematocrit 36.2 L 41.0-53.0 % Mean Corpuscular Volume 75.5 L 80.0-100.0 fL Mean Corpuscular Hemoglobin 23.7 L 28.0-32.0 pg Mean Corpuscular Hemoglobin Concent 31.4 L 32.0-36.0 g/dL Red Cell Distribution Width 18.4 H 11.8-14.3 % Platelet Count 340 140-450 10^3/uL Mean Platelet Volume 8.1 6.9-10.8 fL Neutrophils (%) (Auto) 77.6 37.0-80.0 % Lymphocytes (%) (Auto) 13.3 10.0-50.0 % Monocytes (%) (Auto) 6.8 0.0-12.0 % Eosinophils (%) (Auto) 1.2 0.0-7.0 % Basophils (%) (Auto) 1.1 0.0-2.0 % Neutrophils # (Auto) 6.0 1.6-8.6 10 ^3/uL Lymphocytes # (Auto) 1.0 0.4-5.4 10 ^3/uL Monocytes # (Auto) 0.5 0-1.3 10 ^3/uL Eosinophils # (Auto) 0.1 0-0.8 10 ^3/uL Basophils # (Auto) 0.1 0-0.2 10 ^3/uL Nucleated Red Blood Cells 0.2 % Sodium Level 140 136-145 mmol/L Potassium Level 4.2 3.5-5.1 mmol/L Chloride Level 107 98-107 mmol/L Carbon Dioxide Level 25 20-31 mmol/L Anion Gap 8 5-15 Blood Urea Nitrogen 21 9-23 mg/dL Creatinine 1.58 H 0.700-1.30 mg/dL Glomerular Filtration Rate Calc 57 >90 mL/min BUN/Creatinine Ratio 13.3 10.0-20.0 Serum Glucose 115 H 74-106 mg/dL Calcium Level 9.3 8.7-10.4 mg/dL B-Type Natriuretic Peptide 2061.10 0-100 pg/mL Urine Color Yellow Yellow Urine Clarity Clear Clear Urine pH 5.5 5.0-9.0 Urine Specific [place] 1.030 1.001-1.035 Urine Protein 1+ H Negative Urine Ketones Negative Negative Urine Blood Negative Negative /uL Urine Nitrite Negative Negative Urine Bilirubin Negative Negative Urine Urobilinogen 3 H Negative mg/dL Urine Leukocyte Esterase Negative Negative /uL Urine RBC <1 0 - 3 /hpf Urine WBC 2 0 - 3 /hpf Urine Squamous Epithelial Cells Few <5 /hpf Urine Bacteria Few H None Seen /hpf Urine Mucus Few None Seen Urine Sperm Present None Seen /hpf Urine Glucose Normal Normal mg/dL Urine Opiates Screen Neg NEGATIVE Urine Fentanyl Screen Neg NEGATIVE Urine Barbiturates Screen Neg NEGATIVE Urine Phencyclidine Screen Neg NEGATIVE Urine Amphetamines Screen Pos NEGATIVE Urine Benzodiazepines Screen Neg NEGATIVE Urine Cocaine Screen Neg NEGATIVE Urine Cannabinoids Screen Neg NEGATIVE Current Medications Medications (Trade) Dose Ordered Sig/Margarito Route Start Time Stop Time Status Last Admin Furosemide (Lasix Injection) 40 mg ONCE ONCE IV 01/22/24 16:00 01/22/24 16:01 DC 01/22/24 16:00 XY CHEST TWO VIEWS ROUTINE CLINICAL HISTORY: LOWER LEGS SWELLING, HX OF CHF COMPARISON: None TECHNIQUE: Frontal and lateral view of the chest was obtained FINDINGS: Lines and Tubes: None Lungs: Lower lung zone opacification. Pleura: No pneumothorax. Cardiomediastinal contours: Unremarkable Bones: No acute osseous abnormality. IMPRESSION: Left lower lung zone opacification which may represent pleural effusion with associated atelectasis /pneumonia. ATED BY: GHADA MARAVILLA DO DICTATED DATE/TIME: 01/22/241449 SIGNED BY: GHADA MARAVILLA DO SIGNED DATE/TIME: 01/22/241449 CC: X-Ray, Labs, Meds, VS Comment LABS ORDERED: CBC, BMP, BNP, UA, UDS REVIEWED AND INTERPRETED RESULTS: BNP 2061.10, AMPHETAMINE POSITIVE TREATMENT: LASIX 40 MG IV A 38 YEAR OLD MALE BROUGHT IN BY AMBULANCE PRESENTED TO THE ED C/O BILATERAL LOWER LEG SWELLING AND PAIN FOR THE PAST SEVERAL MONTHS. PATIENT NOTED HE HAS A HISTORY OF CHF. UPON MY PHYSICAL EXAMINATION, THE PATIENT HAD BILATERAL LOWER LEG SWELLING, BUT NO OPEN WOUND OR SIGN OF INFECTION. MY DIFFERENTIAL DIAGNOSIS INCLUDES, CHF EXACERBATION, DEPENDENT EDEMA, CKD, DRUG ABUSE, CELLULITIS, ERYSIPELAS. LABS WERE ORDERED FOR THE PATIENT WHICH REVEALED A BNP OF 2061.1, AND METHAMPHETAMINE BEING POSITIVE IN HIS URINE SUGGESTING ACUTE CHF EXACERBATION AND METHAMPHETAMINE ABUSE. A CHEST X-RAY WAS DONE FOR THE PATIENT WHICH REVEALED PLEURAL EFFUSION CONSISTENT WITH HIS HISTORY OF CHF. PATIENT WAS MEDICATED HERE IN THE ED WITH LASIX 40 MG IV. DUE TO THE PATIENT CURRENTLY EXPERIENCING AN ACUTE CHF EXACERBATION, I HAVE DETERMINED THE PATIENT SHOULD BE ADMITTED TO THIS HOSPITAL FOR FURTHER TREATMENT AND EVALUATION. Images Reviewed?: Images reviewed and evaluated by me Time of 1ST Reevaluation: 17:00 Reevaluation 1ST: Unchanged Patient Education/Counseling: Diagnosis, Treatment Family Education/Counseling: Diagnosis, Treatment Departure 1 Departure Time of Disposition: 17:00 Impression: Primary Impression: Acute exacerbation of CHF (congestive heart failure) Qualified Codes: I50.9 - Heart failure, unspecified Additional Impression: Pleural effusion Disposition: ADMITTED INPATIENT Admit to: Tele Condition: Serious Critical Care Note Critical Care Time?: No Stability Stability form required: No Unstable for transfer: Requires medication, ED Physician Assesment, Possible rapid decline I personally scribed for REA FERREIRA ([email or web address]) on 01/22/24 at 14:30. Electronically submitted by Vikram Gayle ([email or web address]). I personally scribed for REA FERREIRA ([email or web address]) on 01/22/24 at 16:00. Electronically submitted by Vikram Gayle (AJ). REA FERREIRA Jan 22, 2024 14:30
--- NOTE | 2024-01-22 14:52 | DVH ---
XY CHEST TWO VIEWS ROUTINE CLINICAL HISTORY: LOWER LEGS SWELLING, HX OF CHF COMPARISON: None TECHNIQUE: Frontal and lateral view of the chest was obtained FINDINGS: Lines and Tubes: None Lungs: Lower lung zone opacification. Pleura: No pneumothorax. Cardiomediastinal contours: Unremarkable Bones: No acute osseous abnormality. IMPRESSION: Left lower lung zone opacification which may represent pleural effusion with associated atelectasis / pneumonia.
[2024-01-22 15:27] LABS: Basophils # (auto) 0.1 10 ^3/uL (0-0.2); Basophils % (auto) 1.1 % (0.0-2.0); Eosinophils # (auto) 0.1 10 ^3/uL (0-0.8); Eosinophils % (auto) 1.2 % (0.0-7.0); Hematocrit 36.2 % (41.0-53.0); Hemoglobin 11.4 g/dL (13.5-17.5); Lymphocytes % (auto) 13.3 % (10.0-50.0); Mean Corpuscular Hemoglobin 23.7 pg (28.0-32.0); Mean Corpuscular Hgb Conc. 31.4 g/dL (32.0-36.0); Mean Corpuscular Volume 75.5 fL (80.0-100.0); Monocytes # (auto) 0.5 10 ^3/uL (0-1.3); Monocytes % (auto) 6.8 % (0.0-12.0); Neutrophils % (auto) 77.6 % (37.0-80.0); Nucleated Red Blood Cells % 0.2 %; Platelet Count (auto) 340 10^3/uL (140-450); Red Cell Distribution Width 18.4 % (11.8-14.3); White Blood Cell 7.7 10^3/uL (4.4-10.8)
[2024-01-22 15:33] LABS: Chloride 107 mmol/L (98-107); Potassium 4.2 mmol/L (3.5-5.1); Sodium 140 mmol/L (136-145)
[2024-01-22 15:34] LABS: Anion Gap 8 (5-15); Calcium 9.3 mg/dL (8.7-10.4); Carbon Dioxide 25 mmol/L (20-31)
[2024-01-22 15:39] LABS: BUN/Creatinine Ratio 13.3 (10.0-20.0); Blood Urea Nitrogen 21 mg/dL (9-23); Glucose 115 mg/dL (74-106)
[2024-01-22 15:40] LABS: Urine Bacteria FEW /hpf (None Seen); Urine Blood Negative /uL (Negative); Urine Clarity Clear (Clear); Urine Color Yellow (Yellow); Urine Mucus FEW (None Seen); Urine Protein, UAD 1+ (Negative); Urine Sperm PRESENT /hpf (None Seen); Urine Urobilinogen 3 mg/dL (Negative); Urine WBC 2 /hpf (0 - 3); Urine pH 5.5 (5.0-9.0)
[2024-01-22 15:49] LABS: Amphetamine Screen, Urine Pos (NEGATIVE); Barbiturate Scree,Urine Neg (NEGATIVE); Benzodiazephine Screen, Urine Neg (NEGATIVE)
[2024-01-22 15:50] LABS: Cannabinoid Screen, Urine Neg (NEGATIVE); Cocaine Screen, Urine Neg (NEGATIVE); Opiate Scree,Urine Neg (NEGATIVE); Phencyclidine Screen, Urine Neg (NEGATIVE)
[2024-01-22] MEDS: FUROSEMIDE 40 MG/4 ML VIAL IV ONE (16:00)
[2024-01-22 17:54] VITALS: PULSE 111; RESP 19; O2SAT 94
[2024-01-22] MEDS ORDERED: ZOLPIDEM TARTRATE 5 MG TAB PO PRN (19:00)
[2024-01-22] MEDS ORDERED: ONDANSETRON HCL 4 MG/2 ML VIAL IV PRN (19:00)
[2024-01-22] MEDS ORDERED: LORazepam 0.5 MG TAB PO PRN (19:00)
[2024-01-22 19:20] VITALS: RESP 19; O2SAT 97
--- NOTE | 2024-01-22 19:20 | DVHHP2 ---
History of Present Illness Reason for Visit: Shortness of Breath History of Present Illness 38 yo with shortness of breath and complaints of leg swelling states that for a few days he has been having worsening shortness of breath patient states that he has shortness of breath and couldn't lay texted Cardiovascular: CHF Review of Systems Constitutional: No: Fever, Chills, Sweats, Weakness, Malaise, Other Eyes: No: Pain, Vision change, Conjunctivae inflammation, Eyelid inflammation, Other, Redness ENT: No: Ear pain, Ear discharge, Nose pain, Nose discharge, Nose congestion, Mouth pain, Mouth swelling, Throat pain, Throat swelling, Other Respiratory: No: Cough, Dry, Shortness of breath, SOB with excertion, Wheezing, Hemoptysis, Pleuritic Pain, Sputum, Wheezing, Other Cardiovascular: Chest Pain, Palpitations, Orthopnea; No: Paroxysmal Noc. Dyspnea, Edema, Lt Headedness, Other Gastrointestinal: No: Nausea, Vomiting, Abdominal Pain, Diarrhea, Constipation, Melena, Hematochezia, Other Genitourinary: No Dysuria, No Frequency, No Incontinence, No Hematuria, No Retention, No Other Musculoskeletal: No: other, neck pain, shoulder pain, arm pain, back pain, hand pain, leg pain, foot pain Skin: No: Rash, Lesions, Jaundice, Bruising, Other Neurological: No: Weakness, Numbness, Incoordination, Change in speech, Confusion, Seizures, Other Allergies: Coded Allergies: NO KNOWN ALLERGIES (Unverified , 05/21/22) Medications Current Medications Medications Dose Ordered Sig/Margarito Route Start Time Stop Time Status Last Admin Dose Admin Aspirin 81 mg DAILY PO 01/23/24 10:00 UNV Clopidogrel Bisulfate 75 mg DAILY PO 01/23/24 10:00 Atorvastatin Calcium 40 mg HS PO 01/22/24 22:00 Carvedilol 6.25 mg Q12HR PO 01/22/24 22:00 UNV Acetaminophen 650 mg Q6HP PRN PO 01/22/24 19:00 Zolpidem Tartrate 5 mg QHSP PRN PO 01/22/24 19:00 Lorazepam 0.5 mg Q6HP PRN PO 01/22/24 19:00 Docusate Sodium 100 mg DAILY PO 01/23/24 10:00 Ondansetron HCl 4 mg Q4HP PRN IV 01/22/24 19:00 Lisinopril 10 mg DAILY PO 01/23/24 10:00 UNV Aspirin 81 mg DAILY PO 01/23/24 10:00 Carvedilol 3.125 mg BID PO 01/22/24 22:00 UNV Empaglifozin 10 mg DAILY PO 01/23/24 10:00 Enalapril Maleate 2.5 mg DAILY PO 01/23/24 10:00 UNV Famotidine 20 mg DAILY PO 01/23/24 10:00 Metoprolol Tartrate 25 mg BID PO 01/22/24 22:00 UNV Sacubitril/ Valsartan 1 tab BID PO 01/22/24 22:00 UNV Spironolactone 25 mg DAILY PO 01/23/24 10:00 Patient Own Medication 17 gm DAILY PO 01/23/24 10:00 UNV Exam Vital Signs Vital Signs Date Time Temp Pulse Resp B/P (MAP) Pulse Ox O2 Delivery O2 Flow Rate FiO2 01/22/24 17:54 111 19 94 Room Air* 0 21 01/22/24 17:54 98.5 152/83 (106) 98.5 General Appearance: Alert, Oriented X3 HEENT: Atraumatic, PERRLA Cardiovascular: Regular rate, Normal S1, Normal S2 Abdominal: Normal bowel sounds, Soft, No tenderness Extremities: No cyanosis, No edema Neuro: Normal speech Psych/Mental Status: Mood NL Labs/Xrays Labs Test 01/22/24 15:07 01/22/24 14:19 Range/Units White Blood Count 7.7 4.4-10.8 10^3/uL Red Blood Count 4.80 4.5-5.90 10^6/uL Hemoglobin 11.4 L 13.5-17.5 g/dL Hematocrit 36.2 L 41.0-53.0 % Mean Corpuscular Volume 75.5 L 80.0-100.0 fL Mean Corpuscular Hemoglobin 23.7 L 28.0-32.0 pg Mean Corpuscular Hemoglobin Concent 31.4 L 32.0-36.0 g/dL Red Cell Distribution Width 18.4 H 11.8-14.3 % Platelet Count 340 140-450 10^3/uL Mean Platelet Volume 8.1 6.9-10.8 fL Neutrophils (%) (Auto) 77.6 37.0-80.0 % Lymphocytes (%) (Auto) 13.3 10.0-50.0 % Monocytes (%) (Auto) 6.8 0.0-12.0 % Eosinophils (%) (Auto) 1.2 0.0-7.0 % Basophils (%) (Auto) 1.1 0.0-2.0 % Neutrophils # (Auto) 6.0 1.6-8.6 10 ^3/uL Lymphocytes # (Auto) 1.0 0.4-5.4 10 ^3/uL Monocytes # (Auto) 0.5 0-1.3 10 ^3/uL Eosinophils # (Auto) 0.1 0-0.8 10 ^3/uL Basophils # (Auto) 0.1 0-0.2 10 ^3/uL Nucleated Red Blood Cells 0.2 % Sodium Level 140 136-145 mmol/L Potassium Level 4.2 3.5-5.1 mmol/L Chloride Level 107 98-107 mmol/L Carbon Dioxide Level 25 20-31 mmol/L Anion Gap 8 5-15 Blood Urea Nitrogen 21 9-23 mg/dL Creatinine 1.58 H 0.700-1.30 mg/dL Glomerular Filtration Rate Calc 57 >90 mL/min BUN/Creatinine Ratio 13.3 10.0-20.0 Serum Glucose 115 H 74-106 mg/dL Calcium Level 9.3 8.7-10.4 mg/dL B-Type Natriuretic Peptide 2061.10 0-100 pg/mL Urine Color Yellow Yellow Urine Clarity Clear Clear Urine pH 5.5 5.0-9.0 Urine Specific [place] 1.030 1.001-1.035 Urine Protein 1+ H Negative Urine Ketones Negative Negative Urine Blood Negative Negative /uL Urine Nitrite Negative Negative Urine Bilirubin Negative Negative Urine Urobilinogen 3 H Negative mg/dL Urine Leukocyte Esterase Negative Negative /uL Urine RBC <1 0 - 3 /hpf Urine WBC 2 0 - 3 /hpf Urine Squamous Epithelial Cells Few <5 /hpf Urine Bacteria Few H None Seen /hpf Urine Mucus Few None Seen Urine Sperm Present None Seen /hpf Urine Glucose Normal Normal mg/dL Urine Opiates Screen Neg NEGATIVE Urine Fentanyl Screen Neg NEGATIVE Urine Barbiturates Screen Neg NEGATIVE Urine Phencyclidine Screen Neg NEGATIVE Urine Amphetamines Screen Pos NEGATIVE Urine Benzodiazepines Screen Neg NEGATIVE Urine Cocaine Screen Neg NEGATIVE Urine Cannabinoids Screen Neg NEGATIVE Assessment/Plan Assessment/Plan Admit to Med/Surge Acute on Chronic Combined CHF Fluid overload BNP> 2000 CXR pulmonary vascularization Lasix started in ed breathing improved Lasix BID 40mg Cardiac Protective meds asa, beta blockers continue home Plan discussed with: Patient My Orders Orders - KARYN AVILES MD Procedure Category Date Status Time Admit ADMIT 01/22/24 Transmitted 18:48 Code Status CODE 01/22/24 Transmitted 18:48 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 Farmer ROSIE 01/22/24 In Process 18:48 Cardiac DIET 01/23/24 Transmitted Diet-2gna,Lofat,Lochol Breakfast Aspirin Tablet PHA 01/23/24 Logged 10:00 Clopidogrel Bisulfate PHA 01/23/24 In Process (Plavix) 10:00 Atorvastatin (Lipitor) PHA 01/22/24 In Process 22:00 Carvedilol Tablet PHA 01/22/24 Logged (Coreg Tablet) 22:00 Acetaminophen Tablet PHA 01/22/24 In Process (Tylenol Tablet) 19:00 Zolpidem Tartrate PHA 01/22/24 In Process (Ambien) 19:00 Lorazepam Tablet PHA 01/22/24 In Process (Ativan Tablet) 19:00 Docusate Sodium PHA 01/23/24 In Process Capsule (Colace 10:00 Complete Blood Count LAB 01/23/24 Verified 04:00 Basic Metabolic Panel LAB 01/23/24 Verified 04:00 Echo 2d Mode Cardiac US 01/22/24 Logged DOP 18:48 Ondansetron Hcl PHA 01/22/24 In Process (Zofran) 19:00 Electrocardigram EKG 01/22/24 Logged 18:48 Alum & Mag PHA 01/22/24 In Process Hydrox-Simethicone 19:00 Troponin-I Hs LAB 01/22/24 In Process 18:48 Lisinopril Tablet PHA 01/23/24 Logged (Zestril Tablet) 10:00 Cardiac ROSIE 01/22/24 In Process Rehabilitation - Outpa Comprehensive LAB 01/24/24 Verified Metabolic Panel 04:00 Oxygen By Nasal RT 01/22/24 Transmitted Cannula 18:48 Notify Md Of Changes ROSIE 01/22/24 In Process From Base 18:48 Aspirin Enteric PHA 01/23/24 In Process Coated Tablet 10:00 Carvedilol Tablet PHA 01/22/24 Logged (Coreg Tablet) 22:00 Empagliflozin PHA 01/23/24 In Process (Jardiance) 10:00 Enalapril Tablet PHA 01/23/24 Logged (Vasotec Tablet) 10:00 Famotidine Tablet PHA 01/23/24 In Process (Pepcid Tablet) 10:00 Metoprolol Tartrate PHA 01/22/24 Logged Tablet (Lopressor Ta 22:00 Sacubitril-Valsartan PHA 01/22/24 Logged (Entresto 24-26 Mg 22:00 Spironolactone PHA 01/23/24 In Process (Aldactone) 10:00 (Nf) Polyethylene PHA 01/23/24 Logged Glycol 3350 (Polyethyl 10:00 Problem List: (1) Acute renal failure (2) Methamphetamine use (3) Pulmonary vascular congestion (4) CHF (congestive heart failure) Date of Service: Jan 22, 2024 Billing Provider: KARYN AVILES MD Common Visit Codes: [id number] INP/OBS CARE (HIGH) KARYN AVILES MD Jan 22, 2024 19:20
[2024-01-22] MEDS: MAALOX PLUS or MAALOX 30 ML PO ONE (19:26)
[2024-01-22] MEDS: ATORVASTATIN 20 MG TAB PO SCH (20:02)
[2024-01-22] MEDS: CARVEDILOL 3.125 MG TAB PO SCH (20:03)
[2024-01-22 20:29] VITALS: BP 157/125; PULSE 114; RESP 18; TEMP 98.3; O2SAT 97
[2024-01-22] MEDS: SACUBITRIL-VALSARTAN 24mg/26mg TAB PO SCH (21:03)
[2024-01-22] MEDS: ACETAMINOPHEN 325 MG TAB PO PRN (21:09)
[2024-01-22 21:28] VITALS: BP 157/125; PULSE 114; RESP 18; TEMP 98.3; O2SAT 97
[2024-01-22] MEDS ORDERED: METOPROLOL TARTRATE 25 MG TAB PO SCH (22:00)
[2024-01-22] MEDS ORDERED: CARVEDILOL 3.125 MG TAB PO SCH (22:00)
[2024-01-22] MEDS: cloNIDine HCL 0.1 MG TAB PO PRN (22:06)
[2024-01-23] VITALS (10 sets, daily range): BP systolic 120–144; BP diastolic 45–109; PULSE 77–102; RESP 16–20; TEMP 97.2–98.4; O2SAT 77–98
[2024-01-23 09:26] LABS: Basophils # (auto) 0.1 10 ^3/uL (0-0.2); Basophils % (auto) 1.5 % (0.0-2.0); Eosinophils # (auto) 0.3 10 ^3/uL (0-0.8); Eosinophils % (auto) 4.4 % (0.0-7.0); Hemoglobin 11.3 g/dL (13.5-17.5); Lymphocytes % (auto) 14.7 % (10.0-50.0); Mean Corpuscular Hemoglobin 23.6 pg (28.0-32.0); Mean Corpuscular Hgb Conc. 31.5 g/dL (32.0-36.0); Mean Corpuscular Volume 74.9 fL (80.0-100.0); Monocytes # (auto) 0.5 10 ^3/uL (0-1.3); Monocytes % (auto) 7.7 % (0.0-12.0); Neutrophils # (auto) 4.9 10 ^3/uL (1.6-8.6); Neutrophils % (auto) 71.7 % (37.0-80.0); Nucleated Red Blood Cells % 0.1 %; Platelet Count (auto) 304 10^3/uL (140-450); White Blood Cell 6.9 10^3/uL (4.4-10.8)
[2024-01-23 09:29] LABS: Chloride 104 mmol/L (98-107); Sodium 137 mmol/L (136-145)
[2024-01-23 09:30] LABS: Anion Gap 9 (5-15); Carbon Dioxide 24 mmol/L (20-31)
[2024-01-23 09:35] LABS: Glucose 142 mg/dL (74-106)
[2024-01-23 09:36] LABS: BUN/Creatinine Ratio 12.8 (10.0-20.0); Blood Urea Nitrogen 19 mg/dL (9-23)
[2024-01-23] MEDS ORDERED: ASPirin 81 mg TAB PO SCH (10:00)
[2024-01-23] MEDS ORDERED: LISINOPRIL 5 MG TAB PO SCH (10:00)
[2024-01-23] MEDS ORDERED: ENALAPRIL MALEATE 2.5 MG TAB PO SCH (10:00)
[2024-01-23] MEDS: POLYETHYLENE GLYCOL 17 GM PWDR PO SCH (11:48)
[2024-01-23] MEDS: SPIRONOLACTONE 25 MG TAB PO SCH (11:49)
[2024-01-23] MEDS: FAMOTIDINE 20 MG TAB PO SCH (11:49)
[2024-01-23] MEDS: ASPirin-EC 81 mg tab PO SCH (11:49)
[2024-01-23] MEDS: DOCUSATE SOD 100 MG CAP PO SCH (11:49)
[2024-01-23] MEDS: EMPAGLIFLOZIN 10 MG TAB PO SCH (11:50)
[2024-01-23] MEDS: CLOPIDOGREL BISULFATE 75 MG TAB PO SCH (11:51)
--- NOTE | 2024-01-23 13:08 | DVHPN2 ---
Reviewed: Care Plan, H&P, Labs, Medications, Previous Orders, Radiology Changes from previous H/P or p: No Changes Eyes: No Pain, No Vision change, No Conjunctivae inflammation, No Eyelid inflammation, No Other, No Redness ENT: No Ear pain, No Ear discharge, No Nose pain, No Nose discharge, No Nose congestion, No Mouth pain, No Mouth swelling, No Throat pain, No Throat swelling, No Other Cardiovascular: Chest Pain, Palpitations, Orthopnea; No Paroxysmal Noc. Dyspnea, No Edema, No Lt Headedness, No Other Respiratory: No Cough, No Dry, No Shortness of breath, No SOB with excertion, No Wheezing, No Hemoptysis, No Pleuritic Pain, No Sputum, No Other Gastrointestinal: No Nausea, No Vomiting, No Abdominal Pain, No Diarrhea, No Constipation, No Melena, No Hematochezia, No Other Genitourinary: No Dysuria, No Frequency, No Incontinence, No Hematuria, No Retention, No Other Musculoskeletal: No other, No neck pain, No shoulder pain, No arm pain, No back pain, No hand pain, No leg pain, No foot pain Skin: No Rash, No Lesions, No Jaundice, No Bruising, No Other Objective Vitals Vital Signs Date Time Temp Pulse Resp B/P (MAP) Pulse Ox O2 Delivery O2 Flow Rate FiO2 01/23/24 11:50 84 133/93 01/23/24 09:00 97.2 18 94 97.2 01/23/24 04:00 Room Air* 0 21 Intake/Output Intake and Output 01/23/24 07:00 Intake Total 0 ml Balance 0 ml Intake Oral 0 ml Medications Current Medications Medications Dose Ordered Sig/Margarito Route Start Time Stop Time Status Last Admin Dose Admin Clopidogrel Bisulfate 75 mg DAILY PO 01/23/24 10:00 01/23/24 11:51 75 MG Atorvastatin Calcium 40 mg HS PO 01/22/24 22:00 01/22/24 20:02 40 MG Acetaminophen 650 mg Q6HP PRN PO 01/22/24 19:00 01/22/24 21:09 650 MG Zolpidem Tartrate 5 mg QHSP PRN PO 01/22/24 19:00 Lorazepam 0.5 mg Q6HP PRN PO 01/22/24 19:00 Docusate Sodium 100 mg DAILY PO 01/23/24 10:00 01/23/24 11:49 100 MG Ondansetron HCl 4 mg Q4HP PRN IV 01/22/24 19:00 Aspirin 81 mg DAILY PO 01/23/24 10:00 01/23/24 11:49 81 MG Carvedilol 3.125 mg BID PO 01/22/24 22:00 01/23/24 11:50 3.125 MG Empaglifozin 10 mg DAILY PO 01/23/24 10:00 01/23/24 11:50 10 MG Famotidine 20 mg DAILY PO 01/23/24 10:00 01/23/24 11:49 20 MG Sacubitril/ Valsartan 1 tab BID PO 01/22/24 22:00 01/23/24 11:49 1 TAB Spironolactone 25 mg DAILY PO 01/23/24 10:00 01/23/24 11:49 25 MG Polyethylene Glycol 17 gm DAILY PO 01/23/24 10:00 01/23/24 11:48 17 GM Clonidine HCl 0.1 mg Q4HP PRN PO 01/22/24 21:45 01/22/24 22:06 0.1 MG Laboratory Results Laboratory Tests 01/23/24 08:57 Chemistry Test 01/22/24 15:07 01/23/24 08:57 Calcium Level 9.3 mg/dL (8.7-10.4) 9.0 mg/dL (8.7-10.4) Cardiac Markers Test 01/22/24 15:07 B-Type Natriuretic Peptide 2061.10 pg/mL (0-100) Urinalysis Test 01/22/24 14:19 Urine Color Yellow (Yellow) Urine Clarity Clear (Clear) Urine pH 5.5 (5.0-9.0) Urine Specific [place] 1.030 (1.001-1.035) Urine Protein 1+ (Negative) H Urine Ketones Negative (Negative) Urine Blood Negative /uL (Negative) Urine Nitrite Negative (Negative) Urine Bilirubin Negative (Negative) Urine Urobilinogen 3 mg/dL (Negative) H Urine Leukocyte Esterase Negative /uL (Negative) Urine RBC <1 /hpf (0 - 3) Urine WBC 2 /hpf (0 - 3) Urine Squamous Epithelial Cells Few /hpf (<5) Urine Bacteria Few /hpf (None Seen) H Urine Mucus Few (None Seen) Urine Sperm Present /hpf (None Seen) Urine Glucose Normal mg/dL (Normal) Labs and/or images reviewed: Labs reviewed by me, Image(s) reviewed by me Assessment/Plan Assessment/Plan Acute hypoxic respiratory failure: Oxygen by nasal cannula Acute left lower lobe pneumonia:: Rocephin azithromycin albuterol Atrovent Acute systolic CHF exacerbation BNP 2060: Lasix Jardiance Entresto , spironolactone consult for Cardiology Dr. Pinto Severe cardiomyopathy ejection fraction 25 % on 08-22-23 we will repeat echo Methamphetamine abuse: Counseling Chronic current smoker: Counseling Chronic current alcohol abuse History of left inguinal hernia Time spent 65 minutes Patient is full code Advanced care planning time 20 minutes Plan discussed with: Patient Date of Service: Jan 23, 2024 Billing Provider: MIRYAM ROSS MD Common Visit Codes: [id number] CARE 30-74 MIN MIRYAM ROSS MD Jan 23, 2024 13:08
--- NOTE | 2024-01-23 13:45 | DVHINCON2 ---
Date Seen: Jan 23, 2024 Referring Physician MD Alberto Reason for Consultation CHF exacerbation History of Present Illness This is a 38-year-old male patient who presents to the emergency room with chief complaint of worsening shortness of breath and bilateral lower extremity swelling for one week. Patient reports dyspnea on exertion as well as of orthopnea. The patient is a well known patient to this facility. He came to the emergency room for further evaluation. No baseline twelve lead electrocardiogram found in patient's hard chart. Initial BNP level of 2061.10pg/mL. He does admit to dietary indiscretions such as eating salty food as well as noncompliance with his congestive heart failure medications. Significant past medical history includes congestive heart failure, dilated cardiomyopathy, hypertension, pulmonary hypertension, tobacco use, and polysubstance abuse. Toxicology screen is positive for amphetamines. The patient reports he does not follow up with a operations trainer in the outpatient setting. Past Medical History Past medical history reviewed. No other significant than mentioned above. Past Surgical History Hernia repair Family History: Hypertension G8 FATHER, Onset:Unknown G8 FATHER Hypertension G8 FATHER, Onset:Unknown G8 FATHER Family History Family history reviewed. Social History Toxicology report positive for amphetamine use Denies any alcohol use Denies any tobacco use Allergies: Coded Allergies: NO KNOWN ALLERGIES (Unverified , 05/21/22) Home Meds Active Scripts Aspirin (Aspirin) 81 Mg Tab, 81 MG PO DAILY for 30 Days, #30 TAB 3 Refills Prov:GILBERT LARSEN MD 11/03/23 Spironolactone (Aldactone) 25 Mg Tab, 25 MG PO DAILY for 30 Days, #30 TAB 3 Refills Prov:GILBERT LARSEN MD 11/03/23 Furosemide (Lasix) 40 Mg Tab, 40 MG PO QAM for 30 Days, #30 TAB 3 Refills Prov:GILBERT LARSEN MD 11/03/23 Famotidine (Famotidine) 20 Mg Tab, 20 MG PO DAILY for 30 Days, #30 TAB 2 Refills Prov:GILBERT LARSEN MD 11/03/23 Sacubitril-Valsartan (Entresto 24-26 mg) 1 Tab Tab, 1 TAB PO BID for 30 Days, #60 TAB 3 Refills Prov:GILBERT LARSEN MD 11/03/23 Carvedilol (COREG) 3.125 Mg Tab, 3.125 MG PO BID for 30 Days, #60 TAB 3 Refills Prov:GILBERT LARSEN MD 11/03/23 Aspirin (Aspir-81) 81 Mg Tab, 1 TAB PO DAILY for 30 Days, #30 TAB 3 Refills Prov:FLORENCE WEBSTER MD 10/12/23 Sacubitril-Valsartan (Entresto 24-26 mg) 1 Tab Tab, 1 TAB PO BID for 30 Days, #60 TAB 3 Refills Prov:FLORENCE WEBSTER MD 10/12/23 Empagliflozin (Jardiance) 10 Mg Tab, 10 MG PO DAILY for 30 Days, #30 TAB 3 Refills Prov:FLORENCE WEBSTER MD 10/12/23 Furosemide (Furosemide) 40 Mg Tab, 1 TAB PO DAILY, #30 TAB 3 Refills Prov:FLORENCE WEBSTER MD 10/12/23 Carvedilol (Carvedilol) 3.125 Mg Tab, 1 TAB PO BID for 30 Days, #60 TAB 3 Refills Prov:FLORENCE WEBSTER MD 10/12/23 Enalapril Maleate (VASOTEC TABLET) 2.5 Mg Tb, 1 TAB PO DAILY for 60 Days, #60 TAB 5 Refills Prov:ADELE BEAUCHAMP INJECTION MOLDING TECHNICIAN 03/06/23 Metoprolol Tartrate (Metoprolol Tartrate) 25 Mg Tab, 1 TAB PO BID for 60 Days, #120 TAB 1 Refill Prov:ADELE BEAUCHAMP INJECTION MOLDING TECHNICIAN 03/06/23 Reported Medications Carvedilol (Carvedilol) 3.125 Mg Tab, 1 TAB PO BID for 30 Days, #60 10/28/23 Polyethylene Glycol 3350 (Polyethylene Glycol) 17 Gm/Scoop Pow, 17 GM PO DAILY for 25 Days, #476 10/28/23 Aspirin (Aspirin Adult Low Dose) 81 Mg Tab, 1 TAB PO DAILY for 30 Days, #30 10/28/23 Furosemide (Furosemide) 40 Mg Tab, 1 TAB PO QAM for 30 Days, #30 10/28/23 Polyethylene Glycol 3350 (Clearlax) 17 Gm/Scoop Pow 10/10/23 Home Meds Home medications reviewed. Current Medications Current Medications Medications (Trade) Dose Ordered Sig/Margarito Route PRN Reason Start Time Stop Time Status Last Admin Aspirin 81 mg DAILY PO 01/23/24 10:00 01/22/24 19:34 DC Clopidogrel Bisulfate (Plavix) 75 mg DAILY PO 01/23/24 10:00 01/23/24 11:51 Atorvastatin Calcium (Lipitor) 40 mg HS PO 01/22/24 22:00 01/22/24 20:02 Carvedilol (Coreg Tablet) 6.25 mg Q12HR PO 01/22/24 22:00 01/22/24 19:36 DC Acetaminophen (Tylenol Tablet) 650 mg Q6HP PRN PO MILD PAIN (1-3 PAIN SCALE) 01/22/24 19:00 01/22/24 21:09 Zolpidem Tartrate (Ambien) 5 mg QHSP PRN PO FOR INSOMNIA 01/22/24 19:00 Lorazepam (Ativan Tablet) 0.5 mg Q6HP PRN PO ANXIETY 01/22/24 19:00 Docusate Sodium (Colace Capsule) 100 mg DAILY PO 01/23/24 10:00 01/23/24 11:49 Ondansetron HCl (Zofran) 4 mg Q4HP PRN IV NAUSEA / VOMITING 01/22/24 19:00 Lisinopril (Zestril Tablet) 10 mg DAILY PO 01/23/24 10:00 01/22/24 19:38 DC Aspirin (Ecotrin Enteric Coated Tablet) 81 mg DAILY PO 01/23/24 10:00 01/23/24 11:49 Carvedilol (Coreg Tablet) 3.125 mg BID PO 01/22/24 22:00 01/23/24 11:50 Empaglifozin (Jardiance) 10 mg DAILY PO 01/23/24 10:00 01/23/24 11:50 Enalapril Maleate (Vasotec Tablet) 2.5 mg DAILY PO 01/23/24 10:00 01/22/24 19:37 DC Famotidine (Pepcid Tablet) 20 mg DAILY PO 01/23/24 10:00 01/23/24 11:49 Metoprolol Tartrate (Lopressor Tablet) 25 mg BID PO 01/22/24 22:00 01/22/24 19:36 DC Sacubitril/ Valsartan (Entresto 24-26 Mg tab) 1 tab BID PO 01/22/24 22:00 01/23/24 11:49 Spironolactone (Aldactone) 25 mg DAILY PO 01/23/24 10:00 01/23/24 11:49 Polyethylene Glycol (Miralax 17GM Powder) 17 gm DAILY PO 01/23/24 10:00 01/23/24 11:48 Clonidine HCl (Catapres Tablet) 0.1 mg Q4HP PRN PO SBP>150 01/22/24 21:45 01/22/24 22:06 Furosemide (Lasix Injection) 40 mg BIDD IV 01/23/24 18:00 Ceftriaxone Sodium 50 ml @ 100 mls/hr DAILY@09 IV 01/24/24 09:00 Azithromycin (Zithromax Tablet) 500 mg DAILY PO 01/24/24 10:00 Review of Systems Constitutional: No symptom reported Ears, Nose, & Throat: No symptom reported Eyes: No symptom reported Neurological: No symptoms reported Pulmonary/Respiratory: Shortness of breath Cardiovascular: No symptom reported Gastrointestinal: No symptom reported Genitourinary: No symptom reported Musculoskeletal: No symptom reported Skin: No symptom reported Psychiatric: No symptom reported Endocrine: No symptom reported Hematologic/Lymphatic: No symptom reported Vital Signs Vital Signs Date Time Temp Pulse Resp B/P (MAP) Pulse Ox O2 Delivery O2 Flow Rate FiO2 01/23/24 13:00 97.8 95 20 131/99 (110) 94 97.8 01/23/24 04:00 Room Air* 0 21 Physical Exam General Appearance: Cooperative. Well-developed. Well-nourished. No acute distress. Pulmonary/Respiratory: Coarse bilateral breaths sounds. Cardiovascular/Chest: Regular rate and rhythm. . Peripheral Pulses: 2+ Radial (R). 2+ Radial (L). 2+ Pedal (R). 2+ Pedal (L) Abdominal Exam: Normal bowel sounds. Ankle Exam: Nonpitting bilateral ankle edema Lower extremities: Nonpitting bilateral lower extremity edema Neuro/Mental Status: A/OX3, lethargic. Thoughts/Psych: Normal thought pattern. Appearance: No acute distress. Skin Exam: Normal inspection. Normal color. Warm and dry. Labs/Diagnostic Data Labs Test 01/23/24 08:57 01/22/24 15:07 01/22/24 14:19 Range/Units White Blood Count 6.9 4.4-10.8 10^3/uL Red Blood Count 4.80 4.5-5.90 10^6/uL Hemoglobin 11.3 L 13.5-17.5 g/dL Hematocrit 36.0 L 41.0-53.0 % Mean Corpuscular Volume 74.9 L 80.0-100.0 fL Mean Corpuscular Hemoglobin 23.6 L 28.0-32.0 pg Mean Corpuscular Hemoglobin Concent 31.5 L 32.0-36.0 g/dL Red Cell Distribution Width 18.0 H 11.8-14.3 % Platelet Count 304 140-450 10^3/uL Mean Platelet Volume 8.3 6.9-10.8 fL Neutrophils (%) (Auto) 71.7 37.0-80.0 % Lymphocytes (%) (Auto) 14.7 10.0-50.0 % Monocytes (%) (Auto) 7.7 0.0-12.0 % Eosinophils (%) (Auto) 4.4 0.0-7.0 % Basophils (%) (Auto) 1.5 0.0-2.0 % Neutrophils # (Auto) 4.9 1.6-8.6 10 ^3/uL Lymphocytes # (Auto) 1.0 0.4-5.4 10 ^3/uL Monocytes # (Auto) 0.5 0-1.3 10 ^3/uL Eosinophils # (Auto) 0.3 0-0.8 10 ^3/uL Basophils # (Auto) 0.1 0-0.2 10 ^3/uL Nucleated Red Blood Cells 0.1 % Sodium Level 137 136-145 mmol/L Potassium Level 4.0 3.5-5.1 mmol/L Chloride Level 104 98-107 mmol/L Carbon Dioxide Level 24 20-31 mmol/L Anion Gap 9 5-15 Blood Urea Nitrogen 19 9-23 mg/dL Creatinine 1.48 H 0.700-1.30 mg/dL Glomerular Filtration Rate Calc 62 >90 mL/min BUN/Creatinine Ratio 12.8 10.0-20.0 Serum Glucose 142 H 74-106 mg/dL Calcium Level 9.0 8.7-10.4 mg/dL Troponin I High Sensitivity 49 </=54 ng/L B-Type Natriuretic Peptide 2061.10 0-100 pg/mL Urine Color Yellow Yellow Urine Clarity Clear Clear Urine pH 5.5 5.0-9.0 Urine Specific [place] 1.030 1.001-1.035 Urine Protein 1+ H Negative Urine Ketones Negative Negative Urine Blood Negative Negative /uL Urine Nitrite Negative Negative Urine Bilirubin Negative Negative Urine Urobilinogen 3 H Negative mg/dL Urine Leukocyte Esterase Negative Negative /uL Urine RBC <1 0 - 3 /hpf Urine WBC 2 0 - 3 /hpf Urine Squamous Epithelial Cells Few <5 /hpf Urine Bacteria Few H None Seen /hpf Urine Mucus Few None Seen Urine Sperm Present None Seen /hpf Urine Glucose Normal Normal mg/dL Urine Opiates Screen Neg NEGATIVE Urine Fentanyl Screen Neg NEGATIVE Urine Barbiturates Screen Neg NEGATIVE Urine Phencyclidine Screen Neg NEGATIVE Urine Amphetamines Screen Pos NEGATIVE Urine Benzodiazepines Screen Neg NEGATIVE Urine Cocaine Screen Neg NEGATIVE Urine Cannabinoids Screen Neg NEGATIVE Assessment Acute on chronic decompensated HFrEF, NYHA class III-IV Dilated/drug-induced cardiomyopathy Hypertension Pneumonia Acute kidney injury Amphetamine use Medical noncompliance Plan/Recommendation We will continue with following plan/recommendations (Dr. Pinto): * Echocardiogram from 08/22/2023 reveals EF of 25% * Pending repeat echocardiogram results * Initiate GDMT for CHF as tolerated * Closely monitor kidney function * Strict intake and output, daily weights, maintain fluid restriction * IV diuresis as tolerated * Antibiotics per primary care team * Risk factor modifications, counseled * Cessation of amphetamines * Adherence to GDMT regimen * Dietary and lifestyle changes Patient seen and examined at bedside with . Plan of care discussed with the patient, all questions answered. Thank you for allowing us to care for this patient. Please call with any questions or concerns. Critical care time spent: 35 minutes This medical document was created using an electronic medical record system with voice recognition software and computerized dictation system. Although this document has been carefully reviewed, there might still be some phonetic and typographical errors. Occasional wrong-word or ``sound-alike substitutions may have occurred due to the inherent limitations of voice recognition software. These areas are purely typographical due to imperfections of the software programs and do not reflect any compromise in the patient's medical care. Please read the chart carefully and recognize, using context, where these substitutions have occurred. Plan discussed with: Patient NYHA Physical activity limitations: Class3(Marked) ordinary (activity causes symtoms) Date of Service: Jan 23, 2024 Billing Provider: DIGNA MI Cardiology Common Codes: [id number] INP/OBS CARE (High) Cardiology Consultation Codes: [id number] CONSULT <45MIN DIGNA MI Jan 23, 2024 13:45
--- NOTE | 2024-01-23 14:46 | DVHSR ---
APPROVED REPORT EXAM: Two-dimensional and M-mode echocardiogram with Doppler and color Doppler. Blood Pressure: 131/85 mmHg INDICATION Chest Pain RISK FACTORS Height: 5'7", Weight: 160 DIMENSIONS LVDd5.7 (3.8-5.7cm)LA (2D)4.7 (1.9-4.0cm)Aortic Root3.6 (2.0-3.7cm) LVDs5.2 (2.5-4.0cm)LA (MM) (1.9-4.0cm)Aortic Cusp Exc1.9 (1.5-2.0cm) EF (%) 19.0 (55-70%)Rt. Atrium5.1 (1.9-4.0cm)Asc. Aorta cm IVSd1.1 (0.7-1.1cm)RV (D)4.4 (1.8-2.4cm) PWd1.2 (0.7-1.1cm) Mitral Valve MitralMitral Stenosis E wave1.25m/sMV Mean GR.mmHg A wave0.50m/sMV Peak GR.mmHg E/A ratio2.52D MVAcm2 DECEL [id number] 1/2 Timems Aortic Valve Aortic ValveAortic Stenosis V10.62m/Rosemary Mean GR.3mmHg V21.14m/Rosemary Peak GR.5mmHg LVOT Diameter2.1 (1.8-2.4cm)Doppler AVA1.88cm2 Pulmonic Valve V20.76m/s Tricuspid Valve TR Velocity3.18m/s [id number] Conclusion REMARKABLY DILATED ALL CARDIAC CHAMBERS SEVERE GLOBAL HYPOKINESIS OF ALL CARDIAC CHAMBERS LV EJECTION FRACTION IS ONLY 19% AND IS REMARKABLY REDUCED MODERATE DEGREE MR NO EFFUSION NORMAL VALVES
[2024-01-23] MEDS: AZITHROMYCIN 250 MG TAB PO ONE (16:26)
[2024-01-23] MEDS: cefTRIAXone 1GM/50ML D5W 50 ML IV ONE (16:27)
[2024-01-23] MEDS: FUROSEMIDE 40 MG/4 ML VIAL IV SCH (18:43)
--- NOTE | 2024-01-23 20:51 | DVHINCON2 ---
Date Seen: Jan 23, 2024 Referring Physician MD Alberto Reason for Consultation CHF exacerbation History of Present Illness This is a 38-year-old male with a PMH of congestive heart failure, dilated cardiomyopathy, hypertension, pulmonary hypertension, tobacco use, and polysubstance abuse who presents to the ED with complaint of worsening shortness of breath and bilateral lower extremity swelling for x1 week. Patient reports SOB on exertion as well as of orthopnea. Patient is a well known patient to [facility]. Patient does admit to dietary indiscretions such as eating salty food as well as noncompliance with his congestive heart failure medications. Toxicology screen is positive for amphetamines. Patient reports he does not follow up with a drapery rod assembler in the outpatient setting. Initial BNP level of 2061.10pg/mL, bone plant supervisor 1.48, d-dimer 0.73 . Chest x-ray shows left lower lung zone opacification which may represent pleural effusion with associated atelectasis /pneumonia. Patient was admitted to the hospital. I am asked to consult on this patient. Family History: Hypertension G8 FATHER, Onset:Unknown G8 FATHER Hypertension G8 FATHER, Onset:Unknown G8 FATHER Allergies: Coded Allergies: NO KNOWN ALLERGIES (Unverified , 05/21/22) Home Meds Active Scripts Aspirin (Aspirin) 81 Mg Tab, 81 MG PO DAILY for 30 Days, #30 TAB 3 Refills Prov:GILBERT LARSEN MD 11/03/23 Spironolactone (Aldactone) 25 Mg Tab, 25 MG PO DAILY for 30 Days, #30 TAB 3 Refills Prov:GILBERT LARSEN MD 11/03/23 Furosemide (Lasix) 40 Mg Tab, 40 MG PO QAM for 30 Days, #30 TAB 3 Refills Prov:GILBERT LARSEN MD 11/03/23 Famotidine (Famotidine) 20 Mg Tab, 20 MG PO DAILY for 30 Days, #30 TAB 2 Refills Prov:GILBERT LARSEN MD 11/03/23 Sacubitril-Valsartan (Entresto 24-26 mg) 1 Tab Tab, 1 TAB PO BID for 30 Days, #60 TAB 3 Refills Prov:GILBERT LARSEN MD 11/03/23 Carvedilol (COREG) 3.125 Mg Tab, 3.125 MG PO BID for 30 Days, #60 TAB 3 Refills Prov:GILBERT LARSEN MD 11/03/23 Aspirin (Aspir-81) 81 Mg Tab, 1 TAB PO DAILY for 30 Days, #30 TAB 3 Refills Prov:FLORENCE WEBSTER MD 10/12/23 Sacubitril-Valsartan (Entresto 24-26 mg) 1 Tab Tab, 1 TAB PO BID for 30 Days, #60 TAB 3 Refills Prov:FLORENCE WEBSTER MD 10/12/23 Empagliflozin (Jardiance) 10 Mg Tab, 10 MG PO DAILY for 30 Days, #30 TAB 3 Refills Prov:FLORENCE WEBSTER MD 10/12/23 Furosemide (Furosemide) 40 Mg Tab, 1 TAB PO DAILY, #30 TAB 3 Refills Prov:FLORENCE WEBSTER MD 10/12/23 Carvedilol (Carvedilol) 3.125 Mg Tab, 1 TAB PO BID for 30 Days, #60 TAB 3 R efills Prov:FLORENCE WEBSTER MD 10/12/23 Enalapril Maleate (VASOTEC TABLET) 2.5 Mg Tb, 1 TAB PO DAILY for 60 Days, #60 TAB 5 Refills Prov:ADELE BEAUCHAMP APPLICATION SYSTEMS ENGINEER 03/06/23 Metoprolol Tartrate (Metoprolol Tartrate) 25 Mg Tab, 1 TAB PO BID for 60 Days, #120 TAB 1 Refill Prov:ADELE BEAUCHAMP APPLICATION SYSTEMS ENGINEER 03/06/23 Reported Medications Carvedilol (Carvedilol) 3.125 Mg Tab, 1 TAB PO BID for 30 Days, #60 10/28/23 Polyethylene Glycol 3350 (Polyethylene Glycol) 17 Gm/Scoop Pow, 17 GM PO DAILY for 25 Days, #476 10/28/23 Aspirin (Aspirin Adult Low Dose) 81 Mg Tab, 1 TAB PO DAILY for 30 Days, #30 10/28/23 Furosemide (Furosemide) 40 Mg Tab, 1 TAB PO QAM for 30 Days, #30 10/28/23 Polyethylene Glycol 3350 (Clearlax) 17 Gm/Scoop Pow 10/10/23 Current Medications Current Medications Medications (Trade) Dose Ordered Sig/Margarito Route PRN Reason Start Time Stop Time Status Last Admin Aspirin 81 mg DAILY PO 01/23/24 10:00 01/22/24 19:34 DC Clopidogrel Bisulfate (Plavix) 75 mg DAILY PO 01/23/24 10:00 01/23/24 14:33 DC 01/23/24 11:51 Atorvastatin Calcium (Lipitor) 40 mg HS PO 01/22/24 22:00 01/22/24 20:02 Carvedilol (Coreg Tablet) 6.25 mg Q12HR PO 01/22/24 22:00 01/22/24 19:36 DC Acetaminophen (Tylenol Tablet) 650 mg Q6HP PRN PO MILD PAIN (1-3 PAIN SCALE) 01/22/24 19:00 01/22/24 21:09 Zolpidem Tartrate (Ambien) 5 mg QHSP PRN PO FOR INSOMNIA 01/22/24 19:00 Lorazepam (Ativan Tablet) 0.5 mg Q6HP PRN PO ANXIETY 01/22/24 19:00 Docusate Sodium (Colace Capsule) 100 mg DAILY PO 01/23/24 10:00 01/23/24 11:49 Ondansetron HCl (Zofran) 4 mg Q4HP PRN IV NAUSEA / VOMITING 01/22/24 19:00 Lisinopril (Zestril Tablet) 10 mg DAILY PO 01/23/24 10:00 01/22/24 19:38 DC Aspirin (Ecotrin Enteric Coated Tablet) 81 mg DAILY PO 01/23/24 10:00 01/23/24 14:33 DC 01/23/24 11:49 Carvedilol (Coreg Tablet) 3.125 mg BID PO 01/22/24 22:00 01/23/24 11:50 Empaglifozin (Jardiance) 10 mg DAILY PO 01/23/24 10:00 01/23/24 11:50 Enalapril Maleate (Vasotec Tablet) 2.5 mg DAILY PO 01/23/24 10:00 01/22/24 19:37 DC Famotidine (Pepcid Tablet) 20 mg DAILY PO 01/23/24 10:00 01/23/24 11:49 Metoprolol Tartrate (Lopressor Tablet) 25 mg BID PO 01/22/24 22:00 01/22/24 19:36 DC Sacubitril/ Valsartan (Entresto 24-26 Mg tab) 1 tab BID PO 01/22/24 22:00 01/23/24 11:49 Spironolactone (Aldactone) 25 mg DAILY PO 01/23/24 10:00 01/23/24 11:49 Polyethylene Glycol (Miralax 17GM Powder) 17 gm DAILY PO 01/23/24 10:00 01/23/24 11:48 Clonidine HCl (Catapres Tablet) 0.1 mg Q4HP PRN PO SBP>150 01/22/24 21:45 01/22/24 22:06 Furosemide (Lasix Injection) 40 mg BIDD IV 01/23/24 18:00 Ceftriaxone Sodium 50 ml @ 100 mls/hr DAILY@09 IV 01/24/24 09:00 Azithromycin (Zithromax Tablet) 500 mg DAILY PO 01/24/24 10:00 Review of Systems Constitutional: No symptom reported Ears, Nose, & Throat: No symptom reported Eyes: No symptom reported Neurological: No symptoms reported Pulmonary/Respiratory: Shortness of breath Cardiovascular: No symptom reported Gastrointestinal: No symptom reported Genitourinary: No symptom reported Musculoskeletal: No symptom reported Skin: No symptom reported Psychiatric: No symptom reported Endocrine: No symptom reported Hematologic/Lymphatic: No symptom reported Vital Signs Vital Signs Date Time Temp Pulse Resp B/P (MAP) Pulse Ox O2 Delivery O2 Flow Rate FiO2 01/23/24 13:00 97.8 95 20 131/99 (110) 94 97.8 01/23/24 04:00 Room Air* 0 21 Physical Exam GENERAL: Awake, alert, oriented. LUNGS: Coarse breath sounds. CARDIOVASCULAR: Heart sounds are good. ABDOMEN: Soft. Labs/Diagnostic Data Labs Test 01/23/24 13:34 01/23/24 08:57 01/22/24 15:07 01/22/24 14:19 Range/Units D-Dimer, Quantitative 0.73 H 0.0-0.49 mg/L FEU White Blood Count 6.9 4.4-10.8 10^3/uL Red Blood Count 4.80 4.5-5.90 10^6/uL Hemoglobin 11.3 L 13.5-17.5 g/dL Hematocrit 36.0 L 41.0-53.0 % Mean Corpuscular Volume 74.9 L 80.0-100.0 fL Mean Corpuscular Hemoglobin 23.6 L 28.0-32.0 pg Mean Corpuscular Hemoglobin Concent 31.5 L 32.0-36.0 g/dL Red Cell Distribution Width 18.0 H 11.8-14.3 % Platelet Count 304 140-450 10^3/uL Mean Platelet Volume 8.3 6.9-10.8 fL Neutrophils (%) (Auto) 71.7 37.0-80.0 % Lymphocytes (%) (Auto) 14.7 10.0-50.0 % Monocytes (%) (Auto) 7.7 0.0-12.0 % Eosinophils (%) (Auto) 4.4 0.0-7.0 % Basophils (%) (Auto) 1.5 0.0-2.0 % Neutrophils # (Auto) 4.9 1.6-8.6 10 ^3/uL Lymphocytes # (Auto) 1.0 0.4-5.4 10 ^3/uL Monocytes # (Auto) 0.5 0-1.3 10 ^3/uL Eosinophils # (Auto) 0.3 0-0.8 10 ^3/uL Basophils # (Auto) 0.1 0-0.2 10 ^3/uL Nucleated Red Blood Cells 0.1 % Sodium Level 137 136-145 mmol/L Potassium Level 4.0 3.5-5.1 mmol/L Chloride Level 104 98-107 mmol/L Carbon Dioxide Level 24 20-31 mmol/L Anion Gap 9 5-15 Blood Urea Nitrogen 19 9-23 mg/dL Creatinine 1.48 H 0.700-1.30 mg/dL Glomerular Filtration Rate Calc 62 >90 mL/min BUN/Creatinine Ratio 12.8 10.0-20.0 Serum Glucose 142 H 74-106 mg/dL Calcium Level 9.0 8.7-10.4 mg/dL Troponin I High Sensitivity 49 </=54 ng/L B-Type Natriuretic Peptide 2061.10 0-100 pg/mL Urine Color Yellow Yellow Urine Clarity Clear Clear Urine pH 5.5 5.0-9.0 Urine Specific [place] 1.030 1.001-1.035 Urine Protein 1+ H Negative Urine Ketones Negative Negative Urine Blood Negative Negative /uL Urine Nitrite Negative Negative Urine Bilirubin Negative Negative Urine Urobilinogen 3 H Negative mg/dL Urine Leukocyte Esterase Negative Negative /uL Urine RBC <1 0 - 3 /hpf Urine WBC 2 0 - 3 /hpf Urine Squamous Epithelial Cells Few <5 /hpf Urine Bacteria Few H None Seen /hpf Urine Mucus Few None Seen Urine Sperm Present None Seen /hpf Urine Glucose Normal Normal mg/dL Urine Opiates Screen Neg NEGATIVE Urine Fentanyl Screen Neg NEGATIVE Urine Barbiturates Screen Neg NEGATIVE Urine Phencyclidine Screen Neg NEGATIVE Urine Amphetamines Screen Pos NEGATIVE Urine Benzodiazepines Screen Neg NEGATIVE Urine Cocaine Screen Neg NEGATIVE Urine Cannabinoids Screen Neg NEGATIVE Assessment Acute on chronic decompensated HFrEF, NYHA class III-IV . Dilated/drug-induced cardiomyopathy. Hypertension. Pneumonia. Acute kidney injury. Amphetamine use. Medical noncompliance. Plan/Recommendation I agree with your ongoing assessment and care of plan. Patient has been seen by Keri Seth NP on my behalf, her and I discussed the plan with the patient. Echocardiogram from 08/22/2023 reveals EF of 25%. Pending repeat echocardiogram results. Initiate GDMT for CHF as tolerated. Closely monitor kidney function. Strict intake and output, daily weights, maintain fluid restriction. IV diuresis as tolerated. Antibiotics per primary care team. Risk factor modifications, counseled. Cessation of amphetamines. Adherence to GDMT regimen. Dietary and lifestyle changes. Additional plan as per the hospital course. Plan discussed with: Patient Date of Service: Jan 23, 2024 Billing Provider: HONORIO GASTELUM MD Cardiology Common Codes: [id number] INP/OBS CARE (High) HONORIO GASTELUM MD Jan 23, 2024 15:17
[2024-01-23] MEDS: methylPREDNISolone SOD SUCC 40 MG/ML VL IV SCH (22:15)
[2024-01-24] VITALS (7 sets, daily range): BP systolic 133–147; BP diastolic 90–110; PULSE 84–99; RESP 18–20; TEMP 97.4–99.1; O2SAT 92–96
[2024-01-24 07:46] LABS: Alanine Aminotransferase 45 U/L (7-40); Alkaline Phosphatase 261 U/L (46-116); Anion Gap 9 (5-15); Aspartate Aminotransferase 40 U/L (13-40); BUN/Creatinine Ratio 14.7 (10.0-20.0); Blood Urea Nitrogen 21 mg/dL (9-23); Calcium 9.6 mg/dL (8.7-10.4); Carbon Dioxide 23 mmol/L (20-31); Chloride 104 mmol/L (98-107); Cholesterol 178 mg/dL (< 200); Glucose 122 mg/dL (74-106); HDL Cholesterol 56 mg/dL (40-59); LDL Cholesterol 116 mg/dL (< 100); Magnesium 2.1 mg/dL (1.6-2.6); Potassium 4.4 mmol/L (3.5-5.1); Sodium 136 mmol/L (136-145); Triglycerides 48 mg/dL (< 150)
[2024-01-24 07:47] LABS: Bilirubin, Total 0.9 mg/dL (0.2-1.0); Total Protein 6.4 g/dL (5.7-8.2)
[2024-01-24] MEDS: AZITHROMYCIN 250 MG TAB PO SCH (09:05)
[2024-01-24] MEDS: cefTRIAXone 1GM/50ML D5W 50 ML IV SCH (09:06)
[2024-01-24 10:19] LABS: COVID19 ANTIGEN SOFIA FIA NEGATIVE (NEGATIVE)
--- NOTE | 2024-01-24 11:29 | DVHPN2 ---
Consult Progress Note Date Seen: Jan 24, 2024 Subjective Patient reports: Feels better Other Systems: Patient denies any cardiac symptoms at time of assessment. Objective vital signs Vital Sign Date Time Temp Pulse Resp B/P (MAP) Pulse Ox O2 Delivery O2 Flow Rate FiO2 01/24/24 09:06 84 144/110 01/24/24 05:00 99.0 20 93 99.0 01/23/24 20:00 Room Air* 0 21 Total Intake and Output 01/23/24 01/23/24 01/24/24 14:59 22:59 06:59 Intake Total 240 ml 1825 ml 1950 ml Output Total 900 ml 2400 ml Balance 240 ml 925 ml -450 ml medications Current Medications Medications Dose Ordered Sig/Margarito Route Start Time Stop Time Status Last Admin Dose Admin Atorvastatin Calcium 40 mg HS PO 01/22/24 22:00 01/23/24 22:20 40 MG Acetaminophen 650 mg Q6HP PRN PO 01/22/24 19:00 01/24/24 02:05 650 MG Zolpidem Tartrate 5 mg QHSP PRN PO 01/22/24 19:00 Lorazepam 0.5 mg Q6HP PRN PO 01/22/24 19:00 Docusate Sodium 100 mg DAILY PO 01/23/24 10:00 01/24/24 09:05 100 MG Ondansetron HCl 4 mg Q4HP PRN IV 01/22/24 19:00 Carvedilol 3.125 mg BID PO 01/22/24 22:00 01/24/24 09:06 3.125 MG Empaglifozin 10 mg DAILY PO 01/23/24 10:00 01/24/24 09:05 10 MG Famotidine 20 mg DAILY PO 01/23/24 10:00 01/24/24 09:05 20 MG Sacubitril/ Valsartan 1 tab BID PO 01/22/24 22:00 01/24/24 09:05 1 TAB Spironolactone 25 mg DAILY PO 01/23/24 10:00 01/24/24 09:05 25 MG Polyethylene Glycol 17 gm DAILY PO 01/23/24 10:00 01/24/24 09:04 17 GM Clonidine HCl 0.1 mg Q4HP PRN PO 01/22/24 21:45 01/22/24 22:06 0.1 MG Furosemide 40 mg BIDD IV 01/23/24 18:00 01/24/24 06:36 40 MG Ceftriaxone Sodium 50 ml @ 100 mls/hr DAILY@09 IV 01/24/24 09:00 01/24/24 09:06 100 MLS/HR Azithromycin 500 mg DAILY PO 01/24/24 10:00 01/24/24 09:05 500 MG Methylprednisolone Sodium Succinate 18 mg TID IV 01/23/24 22:00 01/25/24 21:59 01/24/24 06:36 18 MG Examination: GENERAL:Normal, LUNGS:Normal, CVS:Normal, NEURO:Normal laboratory and microbiology Laboratory Tests 01/24/24 07:03 01/23/24 08:57 Test 01/24/24 07:03 Range/Units Serum Glucose 122 H 74-106 mg/dL Problem List/Assessment/Plan Problem List/Assessment/Plan Acute on chronic decompensated HFrEF, NYHA class III-IV Dilated/drug-induced cardiomyopathy Hypertension Pneumonia Acute kidney injury Amphetamine use Medical noncompliance Plan/Recommendation (Dr. Pinto): * Echocardiogram reveals EF 19% with severe global hypokinesis * Continue GDMT for CHF as tolerated * Closely monitor kidney function * Strict intake and output, daily weights, maintain fluid restriction * IV diuresis as tolerated * Antibiotics per primary care team * Risk factor modifications, counseled * Cessation of amphetamines * Adherence to GDMT regimen * Dietary and lifestyle changes Plan of care discussed with the patient, all questions answered. Thank you for allowing us to care for this patient. Please call with any questions or concerns. This medical document was created using an electronic medical record system with voice recognition software and computerized dictation system. Although this document has been carefully reviewed, there might still be some phonetic and typographical errors. Occasional wrong-word or ``sound-alike substitutions may have occurred due to the inherent limitations of voice recognition software. These areas are purely typographical due to imperfections of the software programs and do not reflect any compromise in the patient's medical care. Please read the chart carefully and recognize, using context, where these substitutions have occurred. Plan discussed with: Patient, Other (Bedside RN) Date of Service: Jan 24, 2024 Billing Provider: DIGNA MI Cardiology Common Codes: [id number] INP/OBS CARE(Mod) DIGNA MI Jan 24, 2024 11:28
--- NOTE | 2024-01-24 13:24 | DVHPN2 ---
Reviewed: Care Plan, H&P, Labs, Medications, Previous Orders, Radiology Changes from previous H/P or p: No Changes Eyes: No Pain, No Vision change, No Conjunctivae inflammation, No Eyelid inflammation, No Other, No Redness ENT: No Ear pain, No Ear discharge, No Nose pain, No Nose discharge, No Nose congestion, No Mouth pain, No Mouth swelling, No Throat pain, No Throat swelling, No Other Cardiovascular: Chest Pain, Palpitations, Orthopnea; No Paroxysmal Noc. Dyspnea, No Edema, No Lt Headedness, No Other Respiratory: No Cough, No Dry, No Shortness of breath, No SOB with excertion, No Wheezing, No Hemoptysis, No Pleuritic Pain, No Sputum, No Other Gastrointestinal: No Nausea, No Vomiting, No Abdominal Pain, No Diarrhea, No Constipation, No Melena, No Hematochezia, No Other Genitourinary: No Dysuria, No Frequency, No Incontinence, No Hematuria, No Retention, No Other Musculoskeletal: No other, No neck pain, No shoulder pain, No arm pain, No back pain, No hand pain, No leg pain, No foot pain Skin: No Rash, No Lesions, No Jaundice, No Bruising, No Other Objective Vitals Vital Signs Date Time Temp Pulse Resp B/P (MAP) Pulse Ox O2 Delivery O2 Flow Rate FiO2 01/24/24 09:06 84 144/110 01/24/24 05:00 99.0 20 93 99.0 01/23/24 20:00 Room Air* 0 21 Intake/Output Intake and Output 01/24/24 07:00 Intake Total 4015 ml Output Total 3300 ml Balance 715 ml Intake Oral 3965 ml IV Total 50 ml Output Urine Total 3300 ml Medications Current Medications Medications Dose Ordered Sig/Margarito Route Start Time Stop Time Status Last Admin Dose Admin Atorvastatin Calcium 40 mg HS PO 01/22/24 22:00 01/23/24 22:20 40 MG Acetaminophen 650 mg Q6HP PRN PO 01/22/24 19:00 01/24/24 02:05 650 MG Zolpidem Tartrate 5 mg QHSP PRN PO 01/22/24 19:00 Lorazepam 0.5 mg Q6HP PRN PO 01/22/24 19:00 Docusate Sodium 100 mg DAILY PO 01/23/24 10:00 01/24/24 09:05 100 MG Ondansetron HCl 4 mg Q4HP PRN IV 01/22/24 19:00 Carvedilol 3.125 mg BID PO 01/22/24 22:00 01/24/24 09:06 3.125 MG Empaglifozin 10 mg DAILY PO 01/23/24 10:00 01/24/24 09:05 10 MG Famotidine 20 mg DAILY PO 01/23/24 10:00 01/24/24 09:05 20 MG Sacubitril/ Valsartan 1 tab BID PO 01/22/24 22:00 01/24/24 09:05 1 TAB Spironolactone 25 mg DAILY PO 01/23/24 10:00 01/24/24 09:05 25 MG Polyethylene Glycol 17 gm DAILY PO 01/23/24 10:00 01/24/24 09:04 17 GM Clonidine HCl 0.1 mg Q4HP PRN PO 01/22/24 21:45 01/22/24 22:06 0.1 MG Furosemide 40 mg BIDD IV 01/23/24 18:00 01/24/24 06:36 40 MG Ceftriaxone Sodium 50 ml @ 100 mls/hr DAILY@09 IV 01/24/24 09:00 01/24/24 09:06 100 MLS/HR Azithromycin 500 mg DAILY PO 01/24/24 10:00 01/24/24 09:05 500 MG Methylprednisolone Sodium Succinate 18 mg TID IV 01/23/24 22:00 01/25/24 21:59 01/24/24 06:36 18 MG Laboratory Results Laboratory Tests 01/23/24 08:57 01/24/24 07:03 Chemistry Test 01/24/24 07:03 Albumin 4.0 g/dL (3.2-4.8) Calcium Level 9.6 mg/dL (8.7-10.4) Magnesium Level 2.1 mg/dL (1.6-2.6) Total Protein 6.4 g/dL (5.7-8.2) Coagulation Test 01/23/24 13:34 D-Dimer, Quantitative 0.73 mg/L FEU (0.0-0.49) H Lipid panel Test 01/24/24 07:03 Cholesterol Level 178 mg/dL (< 200) HDL Cholesterol 56 mg/dL (40-59) Triglycerides Level 48 mg/dL (< 150) LFT Test 01/24/24 07:03 Alanine Aminotransferase (ALT) 45 U/L (7-40) H Alkaline Phosphatase 261 U/L (46-116) H Aspartate Amino Transferase (AST) 40 U/L (13-40) Total Bilirubin 0.9 mg/dL (0.2-1.0) HgA1c, TSH Test 01/24/24 07:03 Hemoglobin A1c 5.7 % A1C (<5.7) Thyroid Stimulating Hormone (TSH) 0.34 uIU/mL (0.55-4.78) L Urinalysis Test 01/22/24 14:19 Urine Color Yellow (Yellow) Urine Clarity Clear (Clear) Urine pH 5.5 (5.0-9.0) Urine Specific [place] 1.030 (1.001-1.035) Urine Protein 1+ (Negative) H Urine Ketones Negative (Negative) Urine Blood Negative /uL (Negative) Urine Nitrite Negative (Negative) Urine Bilirubin Negative (Negative) Urine Urobilinogen 3 mg/dL (Negative) H Urine Leukocyte Esterase Negative /uL (Negative) Urine RBC <1 /hpf (0 - 3) Urine WBC 2 /hpf (0 - 3) Urine Squamous Epithelial Cells Few /hpf (<5) Urine Bacteria Few /hpf (None Seen) H Urine Mucus Few (None Seen) Urine Sperm Present /hpf (None Seen) Urine Glucose Normal mg/dL (Normal) Labs and/or images reviewed: Labs reviewed by me, Image(s) reviewed by me Assessment/Plan Assessment/Plan Acute hypoxic respiratory failure: Oxygen by nasal cannula Acute left lower lobe pneumonia:: Rocephin azithromycin albuterol Atrovent Acute systolic CHF exacerbation BNP 2060: Lasix Jardiance Entresto , spironolactone consult for Cardiology Dr. Pinto appreciated Severe cardiomyopathy ejection fraction 19 % on 08-22-23 we will repeat echo Methamphetamine abuse: Counseling Chronic current smoker: Counseling Chronic current alcohol abuse History of left inguinal hernia Patient is homeless Time spent 55 minutes Patient is full code Advanced care planning time 20 minutes Plan discussed with: Patient My Orders Orders - MIRYAM ROSS MD Procedure Category Date Status Time Ceftriaxone 1gm/50ml PHA 01/24/24 In Process D5w (Rocephin) 09:00 Azithromycin Tablet PHA 01/24/24 In Process (Zithromax Tablet) 10:00 Date of Service: Jan 24, 2024 Billing Provider: MIRYAM ROSS MD Common Visit Codes: [id number] INP/OBS CARE(HIGH) MIRYAM ROSS MD Jan 24, 2024 13:23
--- NOTE | 2024-01-24 20:03 | DVHPN2 ---
Progress Note - Dictate Date Seen: Jan 24, 2024 Medical Necessity Reason Pt with a Central, PICC or Fol: No Subjective Patient was seen and evaluated in follow up. Patient reports feeling better. Patient denies any cardiac symptoms at time of assessment. Patient is hypertensive 147/105. Police Detective 1.43. LDL 116. TSH .34. vital signs Vital Sign Date Time Temp Pulse Resp B/P (MAP) Pulse Ox O2 Delivery O2 Flow Rate FiO2 01/24/24 13:00 97.7 86 19 147/105 (119) 92 97.7 01/23/24 20:00 Room Air* 0 21 Total Intake and Output 01/23/24 01/23/24 01/24/24 14:59 22:59 06:59 Intake Total 240 ml 1825 ml 1950 ml Output Total 900 ml 2400 ml Balance 240 ml 925 ml -450 ml medications Current Medications Medications Dose Ordered Sig/Margarito Route Start Time Stop Time Status Last Admin Dose Admin Atorvastatin Calcium 40 mg HS PO 01/22/24 22:00 01/23/24 22:20 40 MG Acetaminophen 650 mg Q6HP PRN PO 01/22/24 19:00 01/24/24 02:05 650 MG Zolpidem Tartrate 5 mg QHSP PRN PO 01/22/24 19:00 Lorazepam 0.5 mg Q6HP PRN PO 01/22/24 19:00 Docusate Sodium 100 mg DAILY PO 01/23/24 10:00 01/24/24 09:05 100 MG Ondansetron HCl 4 mg Q4HP PRN IV 01/22/24 19:00 Carvedilol 3.125 mg BID PO 01/22/24 22:00 01/24/24 09:06 3.125 MG Empaglifozin 10 mg DAILY PO 01/23/24 10:00 01/24/24 09:05 10 MG Famotidine 20 mg DAILY PO 01/23/24 10:00 01/24/24 09:05 20 MG Sacubitril/ Valsartan 1 tab BID PO 01/22/24 22:00 01/24/24 09:05 1 TAB Spironolactone 25 mg DAILY PO 01/23/24 10:00 01/24/24 09:05 25 MG Polyethylene Glycol 17 gm DAILY PO 01/23/24 10:00 01/24/24 09:04 17 GM Clonidine HCl 0.1 mg Q4HP PRN PO 01/22/24 21:45 01/22/24 22:06 0.1 MG Furosemide 40 mg BIDD IV 01/23/24 18:00 01/24/24 06:36 40 MG Ceftriaxone Sodium 50 ml @ 100 mls/hr DAILY@09 IV 01/24/24 09:00 01/24/24 09:06 100 MLS/HR Azithromycin 500 mg DAILY PO 01/24/24 10:00 01/24/24 09:05 500 MG Methylprednisolone Sodium Succinate 18 mg TID IV 01/23/24 22:00 01/25/24 21:59 01/24/24 06:36 18 MG objective GENERAL: Awake, alert, oriented. LUNGS: Coarse breath sounds. CARDIOVASCULAR: Heart sounds are good. ABDOMEN: Soft. laboratory and microbiology Laboratory Tests 01/24/24 07:03 01/23/24 08:57 Test 01/24/24 07:03 Range/Units Serum Glucose 122 H 74-106 mg/dL Problem List Acute on chronic decompensated HFrEF, NYHA class III-IV. Dilated/drug-induced cardiomyopathy. Hypertension. Pneumonia. Acute kidney injury. Amphetamine use. Medical noncompliance. Assessment/Plan Continued all current supportive medical care. Patient has been seen by Keri Seth NP on my behalf, her and I discussed the plan with the patient. Echocardiogram reveals EF 19% with severe global hypokinesis. Continue GDMT for CHF as tolerated. Closely monitor kidney function. Strict intake and output, daily weights, maintain fluid restriction. IV diuresis as tolerated. Antibiotics per primary care team. Risk factor modifications, counseled. Cessation of amphetamines. Adherence to GDMT regimen. Dietary and lifestyle changes. Additional plan as per the hospital course. Plan discussed with: Patient HONORIO GASTELUM MD Jan 24, 2024 14:11
[2024-01-25] VITALS (7 sets, daily range): BP systolic 119–148; BP diastolic 80–97; PULSE 80–101; RESP 16–20; TEMP 97.5–98.3; O2SAT 92–99
[2024-01-25 00:04] LABS: Rapid Influenza A Negative (Negative); Rapid Influenza B Negative (Negative)
[2024-01-25 06:25] LABS: Alanine Aminotransferase 39 U/L (7-40); Albumin 3.7 g/dL (3.2-4.8); Alkaline Phosphatase 224 U/L (46-116); Anion Gap 8 (5-15); Aspartate Aminotransferase 28 U/L (13-40); BUN/Creatinine Ratio 13.5 (10.0-20.0); Blood Urea Nitrogen 23 mg/dL (9-23); Calcium 9.5 mg/dL (8.7-10.4); Carbon Dioxide 24 mmol/L (20-31); Chloride 102 mmol/L (98-107); Glucose 148 mg/dL (74-106); Potassium 4.9 mmol/L (3.5-5.1); Sodium 134 mmol/L (136-145)
[2024-01-25 06:26] LABS: Bilirubin, Total 0.6 mg/dL (0.2-1.0)
--- NOTE | 2024-01-25 12:45 | DVHPN2 ---
Reviewed: Care Plan, H&P, Labs, Medications, Previous Orders, Radiology Changes from previous H/P or p: No Changes Eyes: No Pain, No Vision change, No Conjunctivae inflammation, No Eyelid inflammation, No Other, No Redness ENT: No Ear pain, No Ear discharge, No Nose pain, No Nose discharge, No Nose congestion, No Mouth pain, No Mouth swelling, No Throat pain, No Throat swelling, No Other Cardiovascular: Chest Pain, Palpitations, Orthopnea; No Paroxysmal Noc. Dyspnea, No Edema, No Lt Headedness, No Other Respiratory: No Cough, No Dry, No Shortness of breath, No SOB with excertion, No Wheezing, No Hemoptysis, No Pleuritic Pain, No Sputum, No Other Gastrointestinal: No Nausea, No Vomiting, No Abdominal Pain, No Diarrhea, No Constipation, No Melena, No Hematochezia, No Other Genitourinary: No Dysuria, No Frequency, No Incontinence, No Hematuria, No Retention, No Other Musculoskeletal: No other, No neck pain, No shoulder pain, No arm pain, No back pain, No hand pain, No leg pain, No foot pain Skin: No Rash, No Lesions, No Jaundice, No Bruising, No Other Objective Vitals Vital Signs Date Time Temp Pulse Resp B/P (MAP) Pulse Ox O2 Delivery O2 Flow Rate FiO2 01/25/24 09:51 90 130/91 01/25/24 09:31 98.2 18 98 98.2 01/24/24 20:00 Room Air* 0 21 Intake/Output Intake and Output 01/25/24 07:00 Intake Total 3570 ml Output Total 3975 ml Balance -405 ml Intake Oral 3520 ml IV Total 50 ml Output Urine Total 3975 ml # Bowel Movements 3 Medications Current Medications Medications Dose Ordered Sig/Margarito Route Start Time Stop Time Status Last Admin Dose Admin Atorvastatin Calcium 40 mg HS PO 01/22/24 22:00 01/24/24 21:42 40 MG Acetaminophen 650 mg Q6HP PRN PO 01/22/24 19:00 01/24/24 02:05 650 MG Zolpidem Tartrate 5 mg QHSP PRN PO 01/22/24 19:00 Lorazepam 0.5 mg Q6HP PRN PO 01/22/24 19:00 Docusate Sodium 100 mg DAILY PO 01/23/24 10:00 01/24/24 09:05 100 MG Ondansetron HCl 4 mg Q4HP PRN IV 01/22/24 19:00 Carvedilol 3.125 mg BID PO 01/22/24 22:00 01/25/24 09:51 3.125 MG Empaglifozin 10 mg DAILY PO 01/23/24 10:00 01/25/24 09:50 10 MG Famotidine 20 mg DAILY PO 01/23/24 10:00 01/25/24 09:51 20 MG Sacubitril/ Valsartan 1 tab BID PO 01/22/24 22:00 01/25/24 09:50 1 TAB Spironolactone 25 mg DAILY PO 01/23/24 10:00 01/25/24 09:52 25 MG Polyethylene Glycol 17 gm DAILY PO 01/23/24 10:00 01/24/24 09:04 17 GM Clonidine HCl 0.1 mg Q4HP PRN PO 01/22/24 21:45 01/22/24 22:06 0.1 MG Furosemide 40 mg BIDD IV 01/23/24 18:00 01/25/24 05:17 40 MG Ceftriaxone Sodium 50 ml @ 100 mls/hr DAILY@09 IV 01/24/24 09:00 01/24/24 09:06 100 MLS/HR Azithromycin 500 mg DAILY PO 01/24/24 10:00 01/25/24 09:51 500 MG Methylprednisolone Sodium Succinate 18 mg TID IV 01/23/24 22:00 01/25/24 21:59 01/25/24 05:13 18 MG Laboratory Results Laboratory Tests 01/23/24 08:57 01/25/24 00:00 Chemistry Test 01/25/24 00:00 Albumin 3.7 g/dL (3.2-4.8) Calcium Level 9.5 mg/dL (8.7-10.4) Total Protein 6.0 g/dL (5.7-8.2) LFT Test 01/25/24 00:00 Alanine Aminotransferase (ALT) 39 U/L (7-40) Alkaline Phosphatase 224 U/L (46-116) H Aspartate Amino Transferase (AST) 28 U/L (13-40) Total Bilirubin 0.6 mg/dL (0.2-1.0) Urinalysis Test 01/22/24 14:19 Urine Color Yellow (Yellow) Urine Clarity Clear (Clear) Urine pH 5.5 (5.0-9.0) Urine Specific [place] 1.030 (1.001-1.035) Urine Protein 1+ (Negative) H Urine Ketones Negative (Negative) Urine Blood Negative /uL (Negative) Urine Nitrite Negative (Negative) Urine Bilirubin Negative (Negative) Urine Urobilinogen 3 mg/dL (Negative) H Urine Leukocyte Esterase Negative /uL (Negative) Urine RBC <1 /hpf (0 - 3) Urine WBC 2 /hpf (0 - 3) Urine Squamous Epithelial Cells Few /hpf (<5) Urine Bacteria Few /hpf (None Seen) H Urine Mucus Few (None Seen) Urine Sperm Present /hpf (None Seen) Urine Glucose Normal mg/dL (Normal) Labs and/or images reviewed: Labs reviewed by me, Image(s) reviewed by me Assessment/Plan Assessment/Plan Acute hypoxic respiratory failure: Oxygen by nasal cannula Acute left lower lobe pneumonia:: Rocephin azithromycin albuterol Atrovent Acute systolic CHF exacerbation BNP 2060: Lasix Jardiance Entresto , spironolactone consult for Cardiology Dr. Pinto appreciated Severe cardiomyopathy ejection fraction 19 % on 01-24-24 Methamphetamine abuse: Counseling Chronic current smoker: Counseling Chronic current alcohol abuse History of left inguinal hernia Patient is homeless Time spent 55 minutes Patient is full code Advanced care planning time 20 minutes Plan discussed with: Patient My Orders Orders - MIRYAM ROSS MD Procedure Category Date Status Time * Head [employer] CONS 01/24/24 Transmitted Consult Date of Service: Jan 25, 2024 Billing Provider: MIRYAM ROSS MD Common Visit Codes: [id number] INP/OBS CARE(HIGH) MIRYAM ROSS MD Jan 25, 2024 12:45
--- NOTE | 2024-01-25 18:32 | DVHPN2 ---
Progress Note - Dictate Date Seen: Jan 25, 2024 Medical Necessity Reason Pt with a Central, PICC or Fol: No Subjective Patient was seen and evaluated in follow up. No overnight events. Patient is complaining of chest discomfort. [employer] 1.70. vital signs Vital Sign Date Time Temp Pulse Resp B/P (MAP) Pulse Ox O2 Delivery O2 Flow Rate FiO2 01/25/24 17:43 118/68 01/25/24 16:42 98.3 89 17 97 98.3 01/25/24 08:00 Room Air* 0 21 Total Intake and Output 01/24/24 01/24/24 01/25/24 15:00 23:00 07:00 Intake Total 530 ml 2000 ml 1040 ml Output Total 1600 ml 2375 ml Balance 530 ml 400 ml -1335 ml medications Current Medications Medications Dose Ordered Sig/Margarito Route Start Time Stop Time Status Last Admin Dose Admin Atorvastatin Calcium 40 mg HS PO 01/22/24 22:00 01/24/24 21:42 40 MG Acetaminophen 650 mg Q6HP PRN PO 01/22/24 19:00 01/24/24 02:05 650 MG Zolpidem Tartrate 5 mg QHSP PRN PO 01/22/24 19:00 Lorazepam 0.5 mg Q6HP PRN PO 01/22/24 19:00 Docusate Sodium 100 mg DAILY PO 01/23/24 10:00 01/24/24 09:05 100 MG Ondansetron HCl 4 mg Q4HP PRN IV 01/22/24 19:00 Carvedilol 3.125 mg BID PO 01/22/24 22:00 01/25/24 09:51 3.125 MG Empaglifozin 10 mg DAILY PO 01/23/24 10:00 01/25/24 09:50 10 MG Famotidine 20 mg DAILY PO 01/23/24 10:00 01/25/24 09:51 20 MG Sacubitril/ Valsartan 1 tab BID PO 01/22/24 22:00 01/25/24 09:50 1 TAB Spironolactone 25 mg DAILY PO 01/23/24 10:00 01/25/24 09:52 25 MG Polyethylene Glycol 17 gm DAILY PO 01/23/24 10:00 01/24/24 09:04 17 GM Clonidine HCl 0.1 mg Q4HP PRN PO 01/22/24 21:45 01/22/24 22:06 0.1 MG Furosemide 40 mg BIDD IV 01/23/24 18:00 01/25/24 17:43 40 MG Ceftriaxone Sodium 50 ml @ 100 mls/hr DAILY@09 IV 01/24/24 09:00 01/24/24 09:06 100 MLS/HR Azithromycin 500 mg DAILY PO 01/24/24 10:00 01/25/24 09:51 500 MG Methylprednisolone Sodium Succinate 18 mg TID IV 01/23/24 22:00 01/25/24 21:59 01/25/24 14:02 18 MG objective GENERAL: Awake, alert, oriented. LUNGS: Coarse breath sounds. CARDIOVASCULAR: Heart sounds are good. ABDOMEN: Soft. laboratory and microbiology Laboratory Tests 01/25/24 00:00 01/23/24 08:57 Test 01/25/24 00:00 Range/Units Serum Glucose 148 H 74-106 mg/dL Problem List Acute on chronic decompensated HFrEF, NYHA class III-IV. Dilated/drug-induced cardiomyopathy. Hypertension. Pneumonia. Acute kidney injury. Amphetamine use. Medical noncompliance. Assessment/Plan Continued all current supportive medical care. Lipitor. IV antibiotics as ordered. Coreg, Clonidine. Jardiance. Diuretics with Lasix. Aldactone. Closely monitor kidney function. Strict intake and output, daily weights, maintain fluid restriction. Risk factor modifications, counseled. Cessation of amphetamines. Dietary and lifestyle changes. Additional plan as per the hospital course. Plan discussed with: Patient HONORIO GASTELUM MD Jan 25, 2024 18:32
[2024-01-26 01:00] VITALS: BP 128/91; PULSE 58; RESP 20; TEMP 97.6; O2SAT 95
[2024-01-26 05:00] VITALS: BP 123/83; PULSE 99; RESP 18; TEMP 97.9; O2SAT 98
[2024-01-26 09:00] VITALS: BP 134/81; PULSE 85; RESP 20; TEMP 97.6; O2SAT 98
[2024-01-26] MEDS ORDERED: AZIT500T66 PO ×2 (12:41)
--- NOTE | 2024-01-26 12:48 | DVHDS2 ---
Discharge Summary Date of Admission Jan 22, 2024 at 18:48 Date of Discharge: Jan 26, 2024 Admitting Diagnosis Shortness of breaths Wounds: None Labs/Diagnostic Data: Laboratory Results Test 01/25/24 00:00 01/24/24 23:30 01/24/24 08:08 01/24/24 07:03 Sodium Level 134 mmol/L (136-145) Potassium Level 4.9 mmol/L (3.5-5.1) Chloride Level 102 mmol/L (98-107) Carbon Dioxide Level 24 mmol/L (20-31) Anion Gap 8 (5-15) Blood Urea Nitrogen 23 mg/dL (9-23) Creatinine 1.70 mg/dL (0.700-1.30) Glomerular Filtration Rate Calc 53 mL/min (>90) BUN/Creatinine Ratio 13.5 (10.0-20.0) Serum Glucose 148 mg/dL (74-106) Calcium Level 9.5 mg/dL (8.7-10.4) Total Bilirubin 0.6 mg/dL (0.2-1.0) Aspartate Amino Transferase (AST) 28 U/L (13-40) Alanine Aminotransferase (ALT) 39 U/L (7-40) Alkaline Phosphatase 224 U/L (46-116) Total Protein 6.0 g/dL (5.7-8.2) Albumin 3.7 g/dL (3.2-4.8) Influenza Type A Antigen Negative (Negative) Influenza Type B Antigen Negative (Negative) SARS-CoV-2 Antigen (Rapid) Negative (NEGATIVE) Hemoglobin A1c 5.7 % A1C (<5.7) Magnesium Level 2.1 mg/dL (1.6-2.6) Triglycerides Level 48 mg/dL (< 150) Cholesterol Level 178 mg/dL (< 200) LDL Cholesterol 116 mg/dL (< 100) HDL Cholesterol 56 mg/dL (40-59) Thyroid Stimulating Hormone (TSH) 0.34 uIU/mL (0.55-4.78) Test 01/23/24 13:34 01/23/24 08:57 01/22/24 15:07 01/22/24 14:19 D-Dimer, Quantitative 0.73 mg/L FEU (0.0-0.49) White Blood Count 6.9 10^3/uL (4.4-10.8) Red Blood Count 4.80 10^6/uL (4.5-5.90) Hemoglobin 11.3 g/dL (13.5-17.5) Hematocrit 36.0 % (41.0-53.0) Mean Corpuscular Volume 74.9 fL (80.0-100.0) Mean Corpuscular Hemoglobin 23.6 pg (28.0-32.0) Mean Corpuscular Hemoglobin Concent 31.5 g/dL (32.0-36.0) Red Cell Distribution Width 18.0 % (11.8-14.3) Platelet Count 304 10^3/uL (140-450) Mean Platelet Volume 8.3 fL (6.9-10.8) Neutrophils (%) (Auto) 71.7 % (37.0-80.0) Lymphocytes (%) (Auto) 14.7 % (10.0-50.0) Monocytes (%) (Auto) 7.7 % (0.0-12.0) Eosinophils (%) (Auto) 4.4 % (0.0-7.0) Basophils (%) (Auto) 1.5 % (0.0-2.0) Neutrophils # (Auto) 4.9 10 ^3/uL (1.6-8.6) Lymphocytes # (Auto) 1.0 10 ^3/uL (0.4-5.4) Monocytes # (Auto) 0.5 10 ^3/uL (0-1.3) Eosinophils # (Auto) 0.3 10 ^3/uL (0-0.8) Basophils # (Auto) 0.1 10 ^3/uL (0-0.2) Nucleated Red Blood Cells 0.1 % Troponin I High Sensitivity 49 ng/L (</=54) B-Type Natriuretic Peptide 2061.10 pg/mL (0-100) Urine Color Yellow (Yellow) Urine Clarity Clear (Clear) Urine pH 5.5 (5.0-9.0) Urine Specific [place] 1.030 (1.001-1.035) Urine Protein 1+ (Negative) Urine Ketones Negative (Negative) Urine Blood Negative /uL (Negative) Urine Nitrite Negative (Negative) Urine Bilirubin Negative (Negative) Urine Urobilinogen 3 mg/dL (Negative) Urine Leukocyte Esterase Negative /uL (Negative) Urine RBC <1 /hpf (0 - 3) Urine WBC 2 /hpf (0 - 3) Urine Squamous Epithelial Cells Few /hpf (<5) Urine Bacteria Few /hpf (None Seen) Urine Mucus Few (None Seen) Urine Sperm Present /hpf (None Seen) Urine Glucose Normal mg/dL (Normal) Urine Opiates Screen Neg (NEGATIVE) Urine Fentanyl Screen Neg (NEGATIVE) Urine Barbiturates Screen Neg (NEGATIVE) Urine Phencyclidine Screen Neg (NEGATIVE) Urine Amphetamines Screen Pos (NEGATIVE) Urine Benzodiazepines Screen Neg (NEGATIVE) Urine Cocaine Screen Neg (NEGATIVE) Urine Cannabinoids Screen Neg (NEGATIVE) Other Laboratory Tests 01/25/24 00:00 01/23/24 08:57 Brief Hx & Hospital Course: 38-year-old male with a history of severe systolic congestive heart failure chronic meth abuse current smoker chronic alcohol abuse came in complaining of shortness of breaths found to have left lower lobe pneumonia treated with Rocephin azithromycin albuterol Atrovent and significantly improved patient has a ejection fraction 19 percent with severe cardiomyopathy seen by Cardiology Dr. Pinto advised to continue Lasix Jardiance Entresto spironolactone. Patient feels slightly better on room air having regular diet and ambulatory discharged home. Reviewed all his home medications. Prescription for azithromycin for pneumonia transmitted to the pharmacy. General condition Very poor at the time of discharge. Consults/Reason for consult Cardiology Dr. Pinto Operations or Procedures Echocardiogram Condition at Discharge: Poor Final Diagnosis/Problems List Acute hypoxic respiratory failure: Oxygen by nasal cannula Acute left lower lobe pneumonia:: Rocephin azithromycin albuterol Atrovent Acute systolic CHF exacerbation BNP 2060: Lasix Jardiance Entresto , spironolactone consult for Cardiology Dr. Pinto appreciated Severe cardiomyopathy ejection fraction 19 % on 01-24-24 Methamphetamine abuse: Counseling Chronic current smoker: Counseling Chronic current alcohol abuse History of left inguinal hernia Discharge Disposition: Home Discharge Instruct/Medications Diet: Cardiac 2g Na,low cholest Activity: Light activity Follow Up/Referral: Resume all your previous home medications Follow up with your primary Dr in one week Follow up with the Cardiology Dr. Pinto in two weeks Medications: Azithromycin Transmitted to [facility]'s 39 (Time Taken for discharge summary 39 minutes) Discharge Statement: "Patient was advised to return to the ER or call 911 if any headaches, dizziness, shortness of breath, chest pain, abdominal pain, bleeding, fevers, or worsening of medical condition. Patient was counseled about treatment plan, medications, possible side effects, patientverbalized understanding. All questions were answered to the best of my ability. This discharge took greater then 30 minutes in planning, reviewing documentation, counseling the patient, and discussing with other team members." ASSESSMENT ASSESSMENT Hospital Course Uneventful Assessment Acute hypoxic respiratory failure: Oxygen by nasal cannula Acute left lower lobe pneumonia:: Rocephin azithromycin albuterol Atrovent Acute systolic CHF exacerbation BNP 2060: Lasix Jardiance Entresto , spironolactone consult for Cardiology Dr. Pinto appreciated Severe cardiomyopathy ejection fraction 19 % on 01-24-24 Methamphetamine abuse: Counseling Chronic current smoker: Counseling Chronic current alcohol abuse History of left inguinal hernia Date of Service: Jan 26, 2024 Billing Provider: MIRYAM ROSS MD Common Visit Codes: 70110-XGZ/OBS DISCH DAY >30min MIRYAM ROSS MD Jan 26, 2024 12:48
[2024-01-26 13:00] VITALS: BP 125/93; PULSE 89; RESP 20; TEMP 97.9; O2SAT 99
[2024-01-26 17:00] VITALS: BP 122/80; PULSE 84; RESP 20; TEMP 98.4; O2SAT 99
--- NOTE | 2024-01-26 23:12 | DVHPN2 ---
Progress Note - Dictate Date Seen: Jan 26, 2024 Medical Necessity Reason Pt with a Central, PICC or Fol: No Subjective Patient was seen and evaluated in follow up. Patient has no new complaints at this time. Patient denies any cardiac symptoms. Patient is cardiac stable for discharge. vital signs Vital Sign Date Time Temp Pulse Resp B/P (MAP) Pulse Ox O2 Delivery O2 Flow Rate FiO2 01/26/24 17:12 122/80 01/26/24 17:00 98.4 84 20 99 98.4 01/26/24 14:30 Room Air* 0 21 Total Intake and Output 01/25/24 01/25/24 01/26/24 15:00 23:00 07:00 Intake Total 250 ml 1600 ml Output Total 1200 ml 2220 ml Balance -950 ml -620 ml objective GENERAL: Awake, alert, oriented. LUNGS: Coarse breath sounds. CARDIOVASCULAR: Heart sounds are good. ABDOMEN: Soft. laboratory and microbiology Laboratory Tests 01/25/24 00:00 01/23/24 08:57 Test 01/25/24 00:00 Range/Units Serum Glucose 148 H 74-106 mg/dL Problem List Acute on chronic decompensated HFrEF, NYHA class III-IV. Dilated/drug-induced cardiomyopathy. Hypertension. Pneumonia. Acute kidney injury. Amphetamine use. Medical noncompliance. Assessment/Plan Continued all current supportive medical care. Lipitor. IV antibiotics as ordered. Coreg, Clonidine. Jardiance. Diuretics with Lasix. Aldactone. Closely monitor kidney function. Strict intake and output, daily weights, maintain fluid restriction. Risk factor modifications, counseled. Cessation of amphetamines. Dietary and lifestyle changes. Additional plan as per the hospital course. Plan discussed with: Patient HONORIO GASTELUM MD Jan 26, 2024 23:12
== END 2024-01-26 20:05 | disposition home or self-care (01) | DRG 137 ==
LOC: EDBD 12:10 → ER 12:10 → OVERFLOW 18:48 → WEST WING 18:54 → TELE-WESTW 01-25 12:42
PROVIDERS: ADMIT Hospitalist; ATTEND Family Medicine
DX: J15.69 Pneumonia due to other Gram-negative bacteria (principal); I50.23 Acute on chronic systolic (congestive) heart failure; N17.9 Acute kidney failure, unspecified; I42.0 Dilated cardiomyopathy; I11.0 Hypertensive heart disease with heart failure; J18.9 Pneumonia, unspecified organism; J15.9 Unspecified bacterial pneumonia; I42.7 Cardiomyopathy due to drug and external agent; E11.9 Type 2 diabetes mellitus without complications; T50.995A Adverse effect of other drugs, medicaments and biological substances, initial encounter; F15.10 Other stimulant abuse, uncomplicated; F17.200 Nicotine dependence, unspecified, uncomplicated; Z71.6 Tobacco abuse counseling; Z59.00 Homelessness unspecified; Z79.4 Long term (current) use of insulin; Z82.49 Family history of ischemic heart disease and other diseases of the circulatory system; Z91.199 Patient's noncompliance with other medical treatment and regimen due to unspecified reason; Y92.89 Other specified places as the place of occurrence of the external cause
CPT/HCPCS: 36415; 71046; 80048; 80053; 80061; 80307; 81001; 83036; 83735; 83880; 84443; 84484; 85025; 85379; 87426; 87804; 93306; 96374; G0378

== ENCOUNTER 2024-02-06 03:37 | Inpatient (IN) | payer MEDICAID ==
[~2024-02-06] VITALS: Ht 170.2 cm; Wt 68.4 kg
[~2024-02-06 03:37] MED LIST changes: +AZIT500T66 PO
--- NOTE | 2024-02-06 04:14 | ED.PDOC ---
SOB-HPI HPI Comments 38 year old male who came to ER for shortness of breath. Patient does have history of hypertension, congestive heart failure and methamphetamine abuse. States for the past 2 days he has been short of breath, progressively worsening especially when laying down on the supine position. Denies any acute chest pains. Denies any cough, nausea or vomiting. Patient saturating at 99% on room air upon arrival. Patient is stating that he feels very weak and fatigued at this time. Chief Complaint: Shortness of Breath Time Seen by MD: 04:13 Reviewed notes: Nurses Notes Information Source: Patient Mode of Arrival: Ambulatory Severity: Moderate Timing: Days Duration: Intermittent Context: At Rest, With Light Exertion PE Risk Factors: None History of: CHF Prehospital treatment: Oxygen Modifying Factors: Nothing Associated Signs and Symptoms: Other (Orthopnea) Past Medical History PAST MEDICAL HISTORY: CHF, DM, HTN Surgical History: Denies all surgeries Family History Family History: Reviewed,noncontributory to illness Social History Smoker: Non-Smoker Alcohol: Denies ETOH Use Drugs: Methamphetamine Lives In: Home Constitutional: reports: fatigue, weakness; denies: chills, diaphoresis, fever, malaise, sweats, others EENTM: denies: blurred vision, double vision, ear bleeding, ear discharge, ear drainage, ear pain, ear ringing, eye pain, eye redness, hearing loss, mouth pain, mouth swelling, nasal discharge, nose bleeding, nose congestion, nose pain, photophobia, tearing, throat pain, throat swelling, voice changes, others Respiratory: reports: orthopnea, SOB at rest, shortness of breath, SOB with excertion; denies: cough, hemoptysis, stridor, wheezing, others Cardiovascular: denies: chest pain, dizzy spells, diaphoresis, Dyspnea on exertion, edema, irregular heart beat, left arm pain, lightheadedness, palpitations, PND, syncope, others Gastrointestinal: denies: abdomen distended, abdominal pain, blood streaked bowels, constipated, diarrhea, dysphagia, difficulty swallowing, hematemesis, melena, nausea, poor appetite, poor fluid intake, rectal bleeding, rectal pain, vomiting, others Genitourinary: denies: burning, dysuria, flank pain, frequency, hematuria, incontinence, penile discharge, penile sore, pain, testicle pain, testicle swelling, urgency, others Neurological: denies: dizziness, fainting, headache, left sided numbness, left sided weakness, numbness, paresthesia, pre-existing deficit, right sided numbness, right sided weakness, seizure, speech problems, tingling, tremors, weakness, others Musculoskeletal: denies: back pain, gout, joint pain, joint swelling, muscle pain, muscle stiffness, neck pain, others Integumetry: denies: bruises, change in color, change in hair/nails, dryness, laceration, lesions, lumps, rash, wounds, others Allergic/Immunocompromised: denies: Difficulty Healing, Frequent Infections, Hives, Itching, others Hematologic/Lymphatic: denies: anemia, blood clots, easy bleeding, easy bruising, swollen glands, others Endocrine: denies: excessive hunger, excessive sweating, excessive thirst, excessive urination, flushing, intolerance to cold, intolerance to heat, unexplained weight gain, unexplained weight loss, others Psychiatric: denies: anxiety, bipolar disorder, depression, hopeless, panic disorder, schizophrenia, sleepless, suicidal, others Physical Exam General Appearance: No Apparent Distress, Normal HEENT: Normal ENT Inspection, Pharynx Normal, TMs Normal Neck: Full Range of Motion, Non-Tender, Normal, Normal Inspection Respiratory: Chest Non-Tender, Lungs Clear, No Accessory Muscle Use, No Respiratory Distress, Normal Breath Sounds Cardiovascular: No Edema, No JVD, No Murmur, No Gallop, Normal Peripheral Pulses, Regular Rate/Rhythm Breast Exam: Deferred Gastrointestinal: No Organomegaly, Non Tender, No Pulsatile Mass, Normal Bowel Sounds, Soft Genitalia: Deferred Pelvic: Deferred Rectal: Deferred Extremities: No calf tenderness, Normal capillary refill, Normal inspection, Normal range of motion, Non-tender, No pedal edema Musculoskeletal : Apperance: Normal Neurologic: Alert, transformation lead II-XII nml as Tested, No Motor Deficits, Normal Affect, Normal Mood, No Sensory Deficits Cerebellar Function: Normal Reflexes: Normal Skin: Dry, Normal Color, Warm Lymphatic: No Adenopathy Was a procedure done? Was a procedure done?: No Differential Dx Differential Diagnosis: Asthma, Bronchitis, Panic Attack, Pneumonia, Respiratory Distress, Pharyngitis, URI X-Ray, Labs, Meds, VS Vital Signs Date Time Temp Pulse Resp B/P (MAP) Pulse Ox O2 Delivery O2 Flow Rate FiO2 02/06/24 03:59 119 02/06/24 03:45 98.6 117 18 144/100 (115) 99 CHEST RADIOGRAPH Indication: sob Technique: Frontal and lateral view of the chest was obtained Comparison: XY CHEST TWO VIEWS ROUTINE on DOS: 01/22/24 IMPRESSION: Previously noted effusion and airspace opacity in the left lung base has resolved. The heart is prominent in size. Increased pulmonary markings, similar to prior examination. No sizable effusion or pneumothorax. Time of 1ST Reevaluation: 04:07 Reevaluation 1ST: Unchanged Patient Education/Counseling: Diagnosis, Treatment Family Education/Counseling: Diagnosis, Treatment Departure 1 Departure Time of Disposition: 05:52 (Patient with a worsening shortness of breath concerning for CHF exacerbation. We will patient for further workup) Impression: Primary Impression: Dyspnea Qualified Codes: R06.02 - Shortness of breath Additional Impression: CHF (congestive heart failure) Qualified Codes: I50.43 - Acute on chronic combined systolic (congestive) and diastolic (congestive) heart failure Disposition: ADMITTED INPATIENT Admit to: Med Surg Condition: Serious Critical Care Note Critical Care Time?: No Stability Stability form required: No Heart Score Heart Score: Heart Score Response (Comments) Value History Slightly Suspicious 0 EKG Normal 0 Age <45 0 Risk Factors 1 or 2 risk factors 1 Troponin Normal limit 0 Total 1 I personally scribed for ARNIE BELL MD ([email or web address]) on 02/06/24 at 04:14. Electronically submitted by Raul Andrews ([email or web address]). I personally scribed for ARNIE BELL MD ([email or web address]) on 02/06/24 at 04:43. Electronically submitted by Raul Andrews ([email or web address]). I personally scribed for ARNIE BELL MD ([email or web address]) on 02/06/24 at 04:53. Becka ctronically submitted by Raul Andrews ([email or web address]). ARNIE BELL MD Feb 06, 2024 04:14
--- NOTE | 2024-02-06 04:34 | DVH ---
CHEST RADIOGRAPH Indication: sob Technique: Frontal and lateral view of the chest was obtained Comparison: XY CHEST TWO VIEWS ROUTINE on DOS: 01/22/24 IMPRESSION: Previously noted effusion and airspace opacity in the left lung base has resolved. The heart is prom inent in size. Increased pulmonary markings, similar to prior examination. No sizable effusion or pn eumothorax.
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
[2024-02-06] MEDS ORDERED: hydrALAZINE HCL 20 MG/ML VL IV PRN (06:45)
[2024-02-06] MEDS ORDERED: DEXTROSE (50%) 50ML SYRG IV PRN (06:45)
[2024-02-06] MEDS ORDERED: MORPHINE SULFATE INJ 2 MG/ml SYRG IV PRN (07:30)
[2024-02-06] MEDS ORDERED: DOCUSATE SOD 100 MG CAP PO PRN (07:30)
[2024-02-06] MEDS ORDERED: SPIR25TA8 PO (07:34)
[2024-02-06] MEDS ORDERED: FAMO20TA10 PO ×2 (07:34)
[2024-02-06] MEDS: InsuLIN REG 1unit/0.01ml Soln (100units/ml) SC SCH (07:37)
[2024-02-06] MEDS: ACCU-CHEK COMFORT CURVE STRIP VI SCH (07:37)
[2024-02-06 07:56] LABS: Chloride 107 mmol/L (98-107); Potassium 4.3 mmol/L (3.5-5.1); Sodium 140 mmol/L (136-145)
[2024-02-06 07:57] LABS: Anion Gap 9 (5-15); Calcium 9.6 mg/dL (8.7-10.4); Carbon Dioxide 24 mmol/L (20-31)
[2024-02-06 08:02] LABS: BUN/Creatinine Ratio 12.3 (10.0-20.0); Blood Urea Nitrogen 16 mg/dL (9-23); Glucose 102 mg/dL (74-106)
[2024-02-06 08:03] LABS: Basophils # (auto) 0.1 10 ^3/uL (0-0.2); Basophils % (auto) 0.5 % (0.0-2.0); Eosinophils # (auto) 0.3 10 ^3/uL (0-0.8); Hematocrit 32.4 % (41.0-53.0); Hemoglobin 10.2 g/dL (13.5-17.5); Lymphocytes # (auto) 1.3 10 ^3/uL (0.4-5.4); Lymphocytes % (auto) 9.2 % (10.0-50.0); Mean Corpuscular Hemoglobin 24.2 pg (28.0-32.0); Mean Corpuscular Hgb Conc. 31.6 g/dL (32.0-36.0); Mean Corpuscular Volume 76.5 fL (80.0-100.0); Monocytes # (auto) 0.9 10 ^3/uL (0-1.3); Monocytes % (auto) 6.1 % (0.0-12.0); Neutrophils # (auto) 11.8 10 ^3/uL (1.6-8.6); Neutrophils % (auto) 82.2 % (37.0-80.0); Nucleated Red Blood Cells % 0.1 %; Platelet Count (auto) 209 10^3/uL (140-450); Red Blood Cells 4.23 10^6/uL (4.5-5.90); Red Cell Distribution Width 18.4 % (11.8-14.3); White Blood Cell 14.4 10^3/uL (4.4-10.8)
[2024-02-06] MEDS: FUROSEMIDE 40 MG/4 ML VIAL IV ONE (08:07)
[2024-02-06] MEDS: SODIUM CHLORIDE 0.9% 1,000 ML IV SCH (08:30)
[2024-02-06] MEDS: cefTRIAXone 1GM/50ML D5W 50 ML IV ONE (08:30)
[2024-02-06] MEDS: ACETAMINOPHEN 325 MG TAB PO ONE (08:42)
[2024-02-06 09:10] VITALS: BP 132/100; PULSE 114; RESP 18; TEMP 98.4; O2SAT 98
[2024-02-06 09:38] LABS: Triglycerides 118 mg/dL (< 150)
[2024-02-06] MEDS: SPIRONOLACTONE 25 MG TAB PO SCH (09:43)
[2024-02-06 09:44] LABS: Cholesterol 230 mg/dL (< 200); HDL Cholesterol 91 mg/dL (40-59); LDL Cholesterol 118 mg/dL (< 100)
[2024-02-06] MEDS: ASPirin-EC 81 mg tab PO SCH (09:47)
[2024-02-06] MEDS: CARVEDILOL 3.125 MG TAB PO SCH (09:47)
[2024-02-06] MEDS: POLYETHYLENE GLYCOL 17 GM PWDR PO SCH (09:48)
[2024-02-06] MEDS: FAMOTIDINE 20 MG TAB PO SCH (09:48)
[2024-02-06] MEDS ORDERED: POLYETHYLENE GLYCOL 17 GM PO SCH (10:00)
--- NOTE | 2024-02-06 10:35 | DVH ---
CLINICAL INDICATION: r/o fx TECHNIQUE: Single view of the right shoulder. XY R SHOULDER 1V XRAY Comparison: None FINDINGS/IMPRESSION: There is no evidence of acute fracture or dislocation. Soft tissues are unremarkable.
[2024-02-06] MEDS: cefTRIAXone 1GM/50ML D5W 50 ML IV SCH (10:42)
[2024-02-06 20:12] VITALS: PULSE 77; RESP 18; O2SAT 95
[2024-02-06 23:22] VITALS: PULSE 116; RESP 20; O2SAT 97
[2024-02-06 23:30] VITALS: PULSE 108; RESP 16; O2SAT 100
[2024-02-07] VITALS (8 sets, daily range): BP systolic 119–121; BP diastolic 80–83; PULSE 97–110; RESP 15–18; TEMP 97.3–97.8; O2SAT 95–100
[2024-02-07] MEDS: ACETAMINOPHEN 325 MG TAB PO PRN (03:25)
[2024-02-07] MEDS: ONDANSETRON HCL 4 MG/2 ML VIAL IV PRN (03:25)
[2024-02-07] MEDS: FUROSEMIDE 40 MG TAB PO SCH (07:11)
[2024-02-07 08:25] LABS: Eosinophils # (auto) 0.3 10 ^3/uL (0-0.8); Hemoglobin 9.9 g/dL (13.5-17.5); Monocytes # (auto) 0.7 10 ^3/uL (0-1.3); Neutrophils # (auto) 12.8 10 ^3/uL (1.6-8.6); Red Cell Distribution Width 18.6 % (11.8-14.3); White Blood Cell 15.1 10^3/uL (4.4-10.8)
[2024-02-07 08:28] LABS: Basophils # (auto) 0.1 10 ^3/uL (0-0.2); Basophils % (auto) 0.4 % (0.0-2.0); Eosinophils % (auto) 1.9 % (0.0-7.0); Hematocrit 31.6 % (41.0-53.0); Lymphocytes # (auto) 1.2 10 ^3/uL (0.4-5.4); Mean Corpuscular Hemoglobin 23.5 pg (28.0-32.0); Mean Corpuscular Hgb Conc. 31.4 g/dL (32.0-36.0); Monocytes % (auto) 4.7 % (0.0-12.0); Platelet Count (auto) 211 10^3/uL (140-450); Red Blood Cells 4.22 10^6/uL (4.5-5.90)
[2024-02-07 08:33] LABS: Anion Gap 10 (5-15); Carbon Dioxide 25 mmol/L (20-31); Chloride 105 mmol/L (98-107); Potassium 4.7 mmol/L (3.5-5.1); Sodium 140 mmol/L (136-145)
[2024-02-07 08:34] LABS: Calcium 9.6 mg/dL (8.7-10.4)
[2024-02-07 08:39] LABS: BUN/Creatinine Ratio 19.4 (10.0-20.0); Glucose 87 mg/dL (74-106)
[2024-02-07 08:41] LABS: Blood Urea Nitrogen 26 mg/dL (9-23)
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
[2024-02-07] MEDS: ALBUTEROL SULF 2.5 MG/0.5ML(0.5%) NEB SOLN NEB PRN (16:11)
--- NOTE | 2024-02-07 17:37 | DVHPN2 ---
Subjective Patient is complaining of shortness breath on minimal exertion. Reviewed: Care Plan Changes from previous H/P or p: No Changes Eyes: No Pain, No Vision change, No Conjunctivae inflammation, No Eyelid inflammation, No Other, No Redness ENT: No Ear pain, No Ear discharge, No Nose pain, No Nose discharge, No Nose congestion, No Mouth pain, No Mouth swelling, No Throat pain, No Throat swelling, No Other Cardiovascular: No Chest Pain, No Palpitations, No Orthopnea, No Paroxysmal Noc. Dyspnea, No Edema, No Lt Headedness, No Other Respiratory: No Cough, No Dry; Shortness of breath; No SOB with excertion, No Wheezing, No Hemoptysis, No Pleuritic Pain, No Sputum, No Other Gastrointestinal: No Nausea, No Vomiting, No Abdominal Pain, No Diarrhea, No Constipation, No Melena, No Hematochezia, No Other Genitourinary: No Dysuria, No Frequency, No Incontinence, No Hematuria, No Retention, No Other Musculoskeletal: No other, No neck pain, No shoulder pain; arm pain; No back pain, No hand pain, No leg pain, No foot pain Skin: No Rash, No Lesions, No Jaundice, No Bruising, No Other Objective Vitals Vital Signs Date Time Temp Pulse Resp B/P (MAP) Pulse Ox O2 Delivery O2 Flow Rate FiO2 02/07/24 16:11 96 Room Air 02/07/24 16:11 0 21 02/07/24 16:11 97 15 02/07/24 15:25 115/75 (88) 02/07/24 08:18 97.5 97.5 Intake/Output Intake and Output 02/07/24 07:00 Intake Total 75 ml Balance 75 ml Intake IV Total 75 ml Exam HEENT pupils are reactive Neck is supple CV is S1-S2 regular rate and rhythm Respiratory bilateral basal crackles GI positive bowel sound Extremity no edema 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 no motor 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 Medications Current Medications Medications Dose Ordered Sig/Margarito Route Start Time Stop Time Status Last Admin Dose Admin Diagnostic Test (Pha) 1 strip IQ4HR 02/06/24 08:00 02/07/24 03:46 1 STRIP Insulin Human Regular IQ4HR SC 02/06/24 08:00 02/07/24 01:10 3 UNITS Dextrose 50 ml UD PRN IV 02/06/24 06:45 Hydralazine HCl 10 mg Q6HP PRN IV 02/06/24 06:45 Docusate Sodium 100 mg BIDPRN PRN PO 02/06/24 07:30 Acetaminophen 650 mg Q6HP PRN PO 02/06/24 07:30 02/07/24 14:17 650 MG Acetaminophen/ Hydrocodone Bitart 1 tab Q4HP PRN PO 02/06/24 07:30 Ondansetron HCl 4 mg Q4HP PRN IV 02/06/24 07:30 02/07/24 03:25 4 MG Morphine Sulfate 2 mg Q4HPRN PRN IV 02/06/24 07:30 Aspirin 81 mg DAILY PO 02/06/24 10:00 02/07/24 10:53 81 MG Carvedilol 3.125 mg BID PO 02/06/24 10:00 02/07/24 10:57 3.125 MG Famotidine 20 mg DAILY PO 02/06/24 10:00 02/07/24 10:53 20 MG Spironolactone 25 mg DAILY PO 02/06/24 10:00 02/07/24 10:53 25 MG Patient Own Medication 17 gm DAILY PO 02/06/24 10:00 UNV Ceftriaxone Sodium 50 ml @ 100 mls/hr DAILY@09 IV 02/06/24 09:00 02/07/24 09:14 100 MLS/HR Albuterol 1.25 mg Q4HPRN PRN NEB 02/06/24 09:00 02/07/24 16:11 1.25 MG Polyethylene Glycol 17 gm DAILY PO 02/06/24 10:00 02/07/24 10:57 17 GM Azithromycin 250 ml @ 125 mls/hr DAILY IV 02/08/24 10:00 Furosemide 40 mg BIDD IV 02/07/24 18:00 Laboratory Results Laboratory Tests 02/07/24 07:47 Chemistry Test 02/07/24 07:47 Calcium Level 9.6 mg/dL (8.7-10.4) Cardiac Markers Test 02/07/24 07:47 02/07/24 16:00 B-Type Natriuretic Peptide 1575.93 pg/mL (0-100) 1238.26 pg/mL (0-100) Assessment/Plan Assessment/Plan 78-year-old male with a known history of congestive heart failure presented to the hospital with shortness breath found to have 1. Acute CHF exacerbation with systolic dysfunction 2. Dilated cardiomyopathy with a low ejection fraction 3. Chronic meth use 4. Noncompliance -IV diuretics, 2D echo and cardiology consultation daily weights strict I&Os -repeat BMP and Mag level Plan discussed with: Patient My Orders Orders - DAVID ROBLEDO MD Procedure Category Date Status Time Furosemide Injection PHA 02/07/24 In Process (Lasix Injection) 18:00 Complete Blood Count LAB 02/08/24 Verified 06:00 Comprehensive LAB 02/08/24 Verified Metabolic Panel 04:00 Drug Screen LAB 02/07/24 Verified 17:35 Date of Service: Feb 07, 2024 Billing Provider: DAVID ROBLEDO MD Common Visit Codes: [id number] INP/OBS CARE(MOD) DAVID ROBLEDO MD Feb 07, 2024 17:37
--- NOTE | 2024-02-07 17:39 | DVHPNRES ---
Progress Note Date Seen: Feb 07, 2024 Resident Creating Document: RADHA GRACE RESIDENT Has the PT tested + for MRSA If YES, has PT been informed?: No Medical Necessity Reason Pt with a Central, PICC or Fol: No Subjective Review of Systems A 38-year-old male with past medical history of heart failure diabetes hypertension and med abuse who came for shortness of breath leg swelling. Pt stated PND, orthopnea. Pt also states cough and states that in his house are sick, no fever Objective vital signs Vital Sign Date Time Temp Pulse Resp B/P (MAP) Pulse Ox O2 Delivery O2 Flow Rate FiO2 02/07/24 16:11 96 Room Air 02/07/24 16:11 0 21 02/07/24 16:11 97 15 02/07/24 15:25 115/75 (88) 02/07/24 08:18 97.5 97.5 Total Intake and Output 02/06/24 02/06/24 02/07/24 15:00 23:00 07:00 Intake Total 75 ml Balance 75 ml medications Current Medications Medications Dose Ordered Sig/Margarito Route Start Time Stop Time Status Last Admin Dose Admin Diagnostic Test (Pha) 1 strip IQ4HR 02/06/24 08:00 02/07/24 03:46 1 STRIP Insulin Human Regular IQ4HR SC 02/06/24 08:00 02/07/24 01:10 3 UNITS Dextrose 50 ml UD PRN IV 02/06/24 06:45 Hydralazine HCl 10 mg Q6HP PRN IV 02/06/24 06:45 Docusate Sodium 100 mg BIDPRN PRN PO 02/06/24 07:30 Acetaminophen 650 mg Q6HP PRN PO 02/06/24 07:30 02/07/24 14:17 650 MG Acetaminophen/ Hydrocodone Bitart 1 tab Q4HP PRN PO 02/06/24 07:30 Ondansetron HCl 4 mg Q4HP PRN IV 02/06/24 07:30 02/07/24 03:25 4 MG Morphine Sulfate 2 mg Q4HPRN PRN IV 02/06/24 07:30 Aspirin 81 mg DAILY PO 02/06/24 10:00 02/07/24 10:53 81 MG Carvedilol 3.125 mg BID PO 02/06/24 10:00 02/07/24 10:57 3.125 MG Famotidine 20 mg DAILY PO 02/06/24 10:00 02/07/24 10:53 20 MG Spironolactone 25 mg DAILY PO 02/06/24 10:00 02/07/24 10:53 25 MG Patient Own Medication 17 gm DAILY PO 02/06/24 10:00 UNV Ceftriaxone Sodium 50 ml @ 100 mls/hr DAILY@09 IV 02/06/24 09:00 02/07/24 09:14 100 MLS/HR Albuterol 1.25 mg Q4HPRN PRN NEB 02/06/24 09:00 02/07/24 16:11 1.25 MG Polyethylene Glycol 17 gm DAILY PO 02/06/24 10:00 02/07/24 10:57 17 GM Azithromycin 250 ml @ 125 mls/hr DAILY IV 02/08/24 10:00 Furosemide 40 mg BIDD IV 02/07/24 18:00 Examination GEN: Healthy appearing, well-developed, NAD. PSYCH: Good Judgment. AOx3. Normal memory, mood, and affect. HEENT -Head: normocephalic atraumatic, no facial trauma, neck is supple -Eyes: PERRL, EOMI. No discharge or redness; -Ears: External ears are normal. Normal TMs. -Nose: Normal nares. -Mouth and throat: MMM. Normal gums, mucosa, palate,. Good dentition. NECK: Supple, with no masses. CV: RRR, no m/r/g. LUNGS: crackles and mild wheezing bibasilar ABD: Soft, ND/NT. No evidence of fluid wave. No pulsatile masses on exam, rebound tenderness, Resendiz sign or pain over Mcburney's point. : N/A SKIN: Warm, well perfused. No skin rashes or abnormal lesions. MSK: No deformities or signs of scoliosis. Normal gait. EXT: No clubbing, cyanosis, or edema. NEURO: Ambulating with no limitations. Normal muscle strength and tone. No focal deficits. laboratory and microbiology Laboratory Tests 02/07/24 07:47 Test 02/07/24 07:47 Range/Units Serum Glucose 87 74-106 mg/dL Labs and/or images reviewed: Labs reviewed by me, Image(s) reviewed by me Problem List/Assessment/Plan Problem List/Assessment/Plan #Acute CHF exacerbation #HFrEF due to dilated cardiomyopathy to meth abuse #Sepsis due to possible early pneumonia? #Acute Bronchitis #JA probable vasomotor mediated/cardiorenal syndrome improving #DM type 2 controlled #H/o of HTN #Polysubstance use disorder including meth, tobacco, and alcohol Cardiac diet Furosemide 40 mg IV BID Spironolactone 25 mg PO Carvedilol 3.125 mg BID Moderate insulin sliding scale Azithromycin and ceftriaxone Pending influenza and covid Pending urinalysis and UDS ECHO recently EF 19% Cardiology consult Dr Pinto for possible ICD placement on primary prevention on cardiac sudden Counseled on polysubstance use cessation for 18 minutes Goals of care discussed 20 minutes; full code Case discussed with Dr Burns Plan discussed with: Patient, Other (rn) My Orders My Orders Orders - RADHA GRACE RESIDENT Procedure Category Date Status Time Covid19 Antigen Peggy LAB 02/07/24 Logged Rapid Influenza A&B LAB 02/07/24 Logged 11:16 Azithromycin 500mg/ PHA 02/08/24 In Process 250ml (Zithromax 50 10:00 Electrocardigram EKG 02/07/24 Logged 11:23 Addendum Addendum Addendum I was physically present for the johnson portions of the service provided to patient by THE RESIDENT. I have reviewed the documentation, discussed the case with resident and agree with the resident's documentation except as noted. Also the patient's clinical case was discussed with the patient's nurse. This medical document was created using an electronic medical record system with computerized dictation system. Although this document has been carefully reviewed, there might still be some phonetic and typographical errors. These areas are purely typographical due to imperfections of the software programs, and do not reflect any compromise in the patient's medical care. Late signature. Date of Service: Feb 07, 2024 Billing Provider: SHOSHANA BURNS MD Common Visit Codes: [id number] INP/OBS CARE(HIGH) Secondary Visit Codes: [id number] CHNG SMOKING >10MIN (Counseled on polysubstance use cessation for 18 minutes), [id number] CARE PLAN 30 MINUTES (20 minutes) RADHA GRACE RESIDENT Feb 07, 2024 17:39 SHOSHANA BURNS MD Feb 08, 2024 13:05
[2024-02-07] MEDS: FUROSEMIDE 40 MG/4 ML VIAL IV SCH (18:08)
[2024-02-07] MEDS: HYDROcodone-ACET 5/325MG TAB PO PRN (21:06)
[2024-02-07] MEDS: ENOXAPARIN SOD 80 MG/0.8ML SYRINGE SC SCH (21:10)
[2024-02-08] VITALS (10 sets, daily range): BP systolic 107–133; BP diastolic 71–90; PULSE 90–102; RESP 16–20; TEMP 97.2–97.9; O2SAT 0–100
[2024-02-08 06:25] LABS: Basophils # (auto) 0.1 10 ^3/uL (0-0.2); Basophils % (auto) 0.8 % (0.0-2.0); Eosinophils # (auto) 0.3 10 ^3/uL (0-0.8); Lymphocytes # (auto) 1.6 10 ^3/uL (0.4-5.4); Nucleated Red Blood Cells % 0.2 %; White Blood Cell 10.9 10^3/uL (4.4-10.8)
[2024-02-08 06:29] LABS: Eosinophils % (auto) 2.7 % (0.0-7.0); Hematocrit 30.7 % (41.0-53.0); Hemoglobin 9.9 g/dL (13.5-17.5); Lymphocytes % (auto) 14.3 % (10.0-50.0); Mean Corpuscular Hgb Conc. 32.3 g/dL (32.0-36.0); Mean Corpuscular Volume 74.5 fL (80.0-100.0); Monocytes # (auto) 0.7 10 ^3/uL (0-1.3); Monocytes % (auto) 6.6 % (0.0-12.0); Neutrophils # (auto) 8.3 10 ^3/uL (1.6-8.6); Neutrophils % (auto) 75.6 % (37.0-80.0); Platelet Count (auto) 213 10^3/uL (140-450); Red Blood Cells 4.12 10^6/uL (4.5-5.90); Red Cell Distribution Width 18.5 % (11.8-14.3)
[2024-02-08 06:34] LABS: Albumin 3.9 g/dL (3.2-4.8); Alkaline Phosphatase 103 U/L (46-116)
[2024-02-08 06:35] LABS: Anion Gap 7 (5-15); Aspartate Aminotransferase 30 U/L (13-40); BUN/Creatinine Ratio 14.6 (10.0-20.0); Calcium 9.7 mg/dL (8.7-10.4); Carbon Dioxide 27 mmol/L (20-31); Chloride 102 mmol/L (98-107); Glucose 94 mg/dL (74-106); Potassium 4.7 mmol/L (3.5-5.1); Sodium 136 mmol/L (136-145)
[2024-02-08 06:37] LABS: Bilirubin, Total 0.8 mg/dL (0.2-1.0)
[2024-02-08 06:47] LABS: Alanine Aminotransferase 69 U/L (7-40); Blood Urea Nitrogen 26 mg/dL (9-23)
[2024-02-08] MEDS ORDERED: ENOXAPARIN SOD 100 MG/1 ML SYRINGE SC SCH (10:00)
[2024-02-08] MEDS: AZITHROMYCIN 500MG/ 250ML 250 ML IV SCH (12:50)
--- NOTE | 2024-02-08 16:25 | DVHPN2 ---
Subjective PATIENT COMPLAINING OF SHORTNESS OF BREATH. Reviewed: Care Plan Changes from previous H/P or p: No Changes Eyes: No Pain, No Vision change, No Conjunctivae inflammation, No Eyelid inflammation, No Other, No Redness ENT: No Ear pain, No Ear discharge, No Nose pain, No Nose discharge, No Nose congestion, No Mouth pain, No Mouth swelling, No Throat pain, No Throat swelling, No Other Cardiovascular: No Chest Pain, No Palpitations, No Orthopnea, No Paroxysmal Noc. Dyspnea, No Edema, No Lt Headedness, No Other Respiratory: No Cough, No Dry; Shortness of breath; No SOB with excertion, No Wheezing, No Hemoptysis, No Pleuritic Pain, No Sputum, No Other Gastrointestinal: No Nausea, No Vomiting, No Abdominal Pain, No Diarrhea, No Constipation, No Melena, No Hematochezia, No Other Genitourinary: No Dysuria, No Frequency, No Incontinence, No Hematuria, No Retention, No Other Musculoskeletal: No other, No neck pain, No shoulder pain; arm pain; No back pain, No hand pain, No leg pain, No foot pain Skin: No Rash, No Lesions, No Jaundice, No Bruising, No Other Objective Vitals Vital Signs Date Time Temp Pulse Resp B/P (MAP) Pulse Ox O2 Delivery O2 Flow Rate FiO2 02/08/24 12:59 97.8 102 18 131/83 (99) 93 97.8 02/08/24 08:06 Room Air* 0 21 Intake/Output Intake and Output 02/08/24 07:00 Intake Total 1050 ml Balance 1050 ml Intake Oral 400 ml IV Total 650 ml # Voids 1 Exam HEENT pupils are reactive Neck is supple CV is S1-S2 regular rate and rhythm Respiratory bilateral basal crackles GI positive bowel sound Extremity no edema 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 Medications Current Medications Medications Dose Ordered Sig/Margarito Route Start Time Stop Time Status Last Admin Dose Admin Diagnostic Test (Pha) 1 strip IQ4HR 02/06/24 08:00 02/08/24 16:01 1 STRIP Insulin Human Regular IQ4HR SC 02/06/24 08:00 02/07/24 01:10 3 UNITS Dextrose 50 ml UD PRN IV 02/06/24 06:45 Hydralazine HCl 10 mg Q6HP PRN IV 02/06/24 06:45 Docusate Sodium 100 mg BIDPRN PRN PO 02/06/24 07:30 Acetaminophen 650 mg Q6HP PRN PO 02/06/24 07:30 02/08/24 14:50 650 MG Acetaminophen/ Hydrocodone Bitart 1 tab Q4HP PRN PO 02/06/24 07:30 02/07/24 21:06 1 TAB Ondansetron HCl 4 mg Q4HP PRN IV 02/06/24 07:30 02/08/24 14:50 4 MG Morphine Sulfate 2 mg Q4HPRN PRN IV 02/06/24 07:30 Aspirin 81 mg DAILY PO 02/06/24 10:00 02/08/24 09:00 81 MG Carvedilol 3.125 mg BID PO 02/06/24 10:00 02/08/24 08:59 3.125 MG Famotidine 20 mg DAILY PO 02/06/24 10:00 02/08/24 08:59 20 MG Spironolactone 25 mg DAILY PO 02/06/24 10:00 02/08/24 09:00 25 MG Patient Own Medication 17 gm DAILY PO 02/06/24 10:00 UNV Ceftriaxone Sodium 50 ml @ 100 mls/hr DAILY@09 IV 02/06/24 09:00 02/08/24 08:58 100 MLS/HR Albuterol 1.25 mg Q4HPRN PRN NEB 02/06/24 09:00 02/07/24 22:48 1.25 MG Polyethylene Glycol 17 gm DAILY PO 02/06/24 10:00 02/08/24 08:59 17 GM Azithromycin 250 ml @ 125 mls/hr DAILY IV 02/08/24 10:00 02/08/24 12:50 125 MLS/HR Furosemide 40 mg BIDD IV 02/07/24 18:00 02/08/24 05:49 40 MG Enoxaparin Sodium 70 mg DAILY SC 02/08/24 10:00 UNV Enoxaparin Sodium 70 mg Q12H SC 02/07/24 20:00 02/08/24 08:59 70 MG Laboratory Results Laboratory Tests 02/08/24 05:42 Chemistry Test 02/08/24 05:42 Albumin 3.9 g/dL (3.2-4.8) Calcium Level 9.7 mg/dL (8.7-10.4) Total Protein 6.0 g/dL (5.7-8.2) LFT Test 02/08/24 05:42 Alanine Aminotransferase (ALT) 69 U/L (7-40) H Alkaline Phosphatase 103 U/L (46-116) Aspartate Amino Transferase (AST) 30 U/L (13-40) Total Bilirubin 0.8 mg/dL (0.2-1.0) Assessment/Plan Assessment/Plan 78-year-old male with a known history of congestive heart failure presented to the hospital with shortness breath found to have 1. Acute CHF exacerbation with systolic dysfunction 2. Dilated cardiomyopathy with a low ejection fraction 3. Chronic meth use 4. Noncompliance -IV diuretics, 2D echo and cardiology consultation daily weights strict I&Os -repeat BMP and Mag level Plan discussed with: Patient My Orders Orders - DAVID ROBLEDO MD Procedure Category Date Status Time Drug Screen LAB 02/07/24 Logged 17:35 * Food And Drug Research Scientist CONS 02/08/24 Transmitted Consult Date of Service: Feb 08, 2024 Billing Provider: DAVID ROBLEDO MD Common Visit Codes: [id number] INP/OBS CARE(MOD) DAVID ROBLEDO MD Feb 08, 2024 16:25
--- NOTE | 2024-02-08 23:13 | DVHPN2 ---
Progress Note - Dictate Date Seen: Feb 08, 2024 Has the PT tested + for MRSA If YES, has PT been informed?: No Medical Necessity Reason Pt with a Central, PICC or Fol: No Subjective Patient was seen and evaluated in follow up. Patient is complaining of cough with SOB. Patient is receiving PRN med neb treatments. WBC 10.9, BUN 26, Defensive Line Coach 1.78. vital signs Vital Sign Date Time Temp Pulse Resp B/P (MAP) Pulse Ox O2 Delivery O2 Flow Rate FiO2 02/08/24 21:49 93 107/71 02/08/24 21:00 97.2 18 98 97.2 02/08/24 20:00 Room Air* 0 21 Total Intake and Output 02/07/24 02/07/24 02/08/24 15:00 23:00 07:00 Intake Total 575 ml 75 ml 400 ml Balance 575 ml 75 ml 400 ml medications Current Medications Medications Dose Ordered Sig/Margarito Route Start Time Stop Time Status Last Admin Dose Admin Diagnostic Test (Pha) 1 strip IQ4HR 02/06/24 08:00 02/08/24 19:58 1 STRIP Insulin Human Regular IQ4HR SC 02/06/24 08:00 02/07/24 01:10 3 UNITS Dextrose 50 ml UD PRN IV 02/06/24 06:45 Hydralazine HCl 10 mg Q6HP PRN IV 02/06/24 06:45 Docusate Sodium 100 mg BIDPRN PRN PO 02/06/24 07:30 Acetaminophen 650 mg Q6HP PRN PO 02/06/24 07:30 02/08/24 14:50 650 MG Acetaminophen/ Hydrocodone Bitart 1 tab Q4HP PRN PO 02/06/24 07:30 02/08/24 20:02 1 TAB Ondansetron HCl 4 mg Q4HP PRN IV 02/06/24 07:30 02/08/24 14:50 4 MG Morphine Sulfate 2 mg Q4HPRN PRN IV 02/06/24 07:30 Aspirin 81 mg DAILY PO 02/06/24 10:00 02/08/24 09:00 81 MG Carvedilol 3.125 mg BID PO 02/06/24 10:00 02/08/24 21:49 3.125 MG Famotidine 20 mg DAILY PO 02/06/24 10:00 02/08/24 08:59 20 MG Spironolactone 25 mg DAILY PO 02/06/24 10:00 02/08/24 09:00 25 MG Patient Own Medication 17 gm DAILY PO 02/06/24 10:00 UNV Ceftriaxone Sodium 50 ml @ 100 mls/hr DAILY@09 IV 02/06/24 09:00 02/08/24 08:58 100 MLS/HR Albuterol 1.25 mg Q4HPRN PRN NEB 02/06/24 09:00 02/08/24 18:13 1.25 MG Polyethylene Glycol 17 gm DAILY PO 02/06/24 10:00 02/08/24 08:59 17 GM Azithromycin 250 ml @ 125 mls/hr DAILY IV 02/08/24 10:00 02/08/24 12:50 125 MLS/HR Furosemide 40 mg BIDD IV 02/07/24 18:00 02/08/24 17:11 40 MG Enoxaparin Sodium 70 mg DAILY SC 02/08/24 10:00 UNV Enoxaparin Sodium 70 mg Q12H SC 02/07/24 20:00 02/08/24 19:58 70 MG objective GENERAL: Awake, alert, oriented. LUNGS: Clear. CARDIOVASCULAR: Heart sounds are good. ABDOMEN: Soft. laboratory and microbiology Laboratory Tests 02/08/24 05:42 Test 02/08/24 05:42 Range/Units Serum Glucose 94 74-106 mg/dL Problem List Acute CHF exacerbation. Left-sided pleural effusion suspected sepsis. JA. History of diabetes. Hypertension. Methamphetamine abuse. Assessment/Plan Continued all current supportive medical care. Morphine and [place] for pain management. Aspirin. IV antibiotics as ordered. Coreg. DVT prophylactics. Diuretics with Lasix. Additional plan as per the hospital course. Plan discussed with: Patient HONORIO GASTELUM MD Feb 08, 2024 23:13
[2024-02-09] VITALS (11 sets, daily range): BP systolic 107–130; BP diastolic 63–83; PULSE 88–98; RESP 16–24; TEMP 97.6–98.2; O2SAT 94–100
[2024-02-09 00:36] LABS: COVID19 ANTIGEN SOFIA FIA NEGATIVE (NEGATIVE); Rapid Influenza A Negative (Negative); Rapid Influenza B Negative (Negative)
[2024-02-09 10:01] LABS: Basophils # (auto) 0.1 10 ^3/uL (0-0.2); Basophils % (auto) 0.8 % (0.0-2.0); Neutrophils # (auto) 7.4 10 ^3/uL (1.6-8.6); Nucleated Red Blood Cells % 0.1 %
[2024-02-09 10:03] LABS: Eosinophils # (auto) 0.2 10 ^3/uL (0-0.8); Eosinophils % (auto) 2.3 % (0.0-7.0); Hematocrit 33.9 % (41.0-53.0); Lymphocytes # (auto) 1.2 10 ^3/uL (0.4-5.4); Lymphocytes % (auto) 12.6 % (10.0-50.0); Mean Corpuscular Hemoglobin 24.2 pg (28.0-32.0); Mean Corpuscular Hgb Conc. 32.6 g/dL (32.0-36.0); Mean Corpuscular Volume 74.3 fL (80.0-100.0); Monocytes # (auto) 0.9 10 ^3/uL (0-1.3); Monocytes % (auto) 8.9 % (0.0-12.0); Neutrophils % (auto) 75.4 % (37.0-80.0); Platelet Count (auto) 242 10^3/uL (140-450); Red Blood Cells 4.55 10^6/uL (4.5-5.90); Red Cell Distribution Width 18.7 % (11.8-14.3); White Blood Cell 9.8 10^3/uL (4.4-10.8)
[2024-02-09 10:12] LABS: Chloride 99 mmol/L (98-107); Potassium 4.2 mmol/L (3.5-5.1); Sodium 138 mmol/L (136-145)
[2024-02-09 10:13] LABS: Anion Gap 6 (5-15)
[2024-02-09 10:14] LABS: Calcium 9.9 mg/dL (8.7-10.4)
[2024-02-09 10:18] LABS: INR 1.04 (0.9-1.15); Partial Thromboplastin Time 32.2 SEC (24.5-34.5)
[2024-02-09 10:19] LABS: BUN/Creatinine Ratio 15.9 (10.0-20.0)
[2024-02-09 10:21] LABS: Phosphorus 4.9 mg/dL (2.4-5.1)
[2024-02-09 10:28] LABS: Blood Urea Nitrogen 30 mg/dL (9-23); Carbon Dioxide 33 mmol/L (20-31); Glucose 111 mg/dL (74-106)
--- NOTE | 2024-02-09 13:13 | ECG ---
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
--- NOTE | 2024-02-09 17:35 | DVHPN2 ---
Subjective PATIENT COMPLAINING OF SHORTNESS OF BREATH. Patient has stated that he take nursing for diabetes at home. Reviewed: Care Plan Changes from previous H/P or p: No Changes Eyes: No Pain, No Vision change, No Conjunctivae inflammation, No Eyelid inflammation, No Other, No Redness ENT: No Ear pain, No Ear discharge, No Nose pain, No Nose discharge, No Nose congestion, No Mouth pain, No Mouth swelling, No Throat pain, No Throat swelling, No Other Cardiovascular: No Chest Pain, No Palpitations, No Orthopnea, No Paroxysmal Noc. Dyspnea, No Edema, No Lt Headedness, No Other Respiratory: No Cough, No Dry; Shortness of breath; No SOB with excertion, No Wheezing, No Hemoptysis, No Pleuritic Pain, No Sputum, No Other Gastrointestinal: No Nausea, No Vomiting, No Abdominal Pain, No Diarrhea, No Constipation, No Melena, No Hematochezia, No Other Genitourinary: No Dysuria, No Frequency, No Incontinence, No Hematuria, No Retention, No Other Musculoskeletal: No other, No neck pain, No shoulder pain; arm pain; No back pain, No hand pain, No leg pain, No foot pain Skin: No Rash, No Lesions, No Jaundice, No Bruising, No Other Objective Vitals Vital Signs Date Time Temp Pulse Resp B/P (MAP) Pulse Ox O2 Delivery O2 Flow Rate FiO2 02/09/24 13:00 97.6 98 16 109/63 (78) 98 97.6 02/09/24 08:00 Room Air* 0 21 Intake/Output Intake and Output 02/09/24 07:00 Intake Total 2870 ml Output Total 1000 ml Balance 1870 ml Intake Oral 2570 ml IV Total 300 ml Output Urine Total 1000 ml # Voids 2 Exam HEENT pupils are reactive Neck is supple CV is S1-S2 regular rate and rhythm Respiratory bilateral basal crackles GI positive bowel sound Extremity no edema 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 Medications Current Medications Medications Dose Ordered Sig/Margarito Route Start Time Stop Time Status Last Admin Dose Admin Diagnostic Test (Pha) 1 strip IQ4HR 02/06/24 08:00 02/09/24 16:52 1 STRIP Insulin Human Regular IQ4HR SC 02/06/24 08:00 02/09/24 17:00 2 UNITS Dextrose 50 ml UD PRN IV 02/06/24 06:45 Hydralazine HCl 10 mg Q6HP PRN IV 02/06/24 06:45 Docusate Sodium 100 mg BIDPRN PRN PO 02/06/24 07:30 Acetaminophen 650 mg Q6HP PRN PO 02/06/24 07:30 02/08/24 14:50 650 MG Acetaminophen/ Hydrocodone Bitart 1 tab Q4HP PRN PO 02/06/24 07:30 02/08/24 20:02 1 TAB Ondansetron HCl 4 mg Q4HP PRN IV 02/06/24 07:30 02/08/24 14:50 4 MG Morphine Sulfate 2 mg Q4HPRN PRN IV 02/06/24 07:30 Aspirin 81 mg DAILY PO 02/06/24 10:00 02/09/24 10:29 81 MG Carvedilol 3.125 mg BID PO 02/06/24 10:00 02/08/24 22:49 3.125 MG Famotidine 20 mg DAILY PO 02/06/24 10:00 02/09/24 10:29 20 MG Spironolactone 25 mg DAILY PO 02/06/24 10:00 02/09/24 10:29 25 MG Patient Own Medication 17 gm DAILY PO 02/06/24 10:00 UNV Ceftriaxone Sodium 50 ml @ 100 mls/hr DAILY@09 IV 02/06/24 09:00 02/09/24 07:53 100 MLS/HR Albuterol 1.25 mg Q4HPRN PRN NEB 02/06/24 09:00 02/08/24 18:13 1.25 MG Polyethylene Glycol 17 gm DAILY PO 02/06/24 10:00 02/08/24 08:59 17 GM Azithromycin 250 ml @ 125 mls/hr DAILY IV 02/08/24 10:00 02/09/24 10:34 125 MLS/HR Furosemide 40 mg BIDD IV 02/07/24 18:00 02/09/24 06:05 40 MG Enoxaparin Sodium 70 mg DAILY SC 02/08/24 10:00 UNV Enoxaparin Sodium 70 mg Q12H SC 02/07/24 20:00 02/09/24 10:34 70 MG Laboratory Results Laboratory Tests 02/09/24 09:30 Chemistry Test 02/09/24 09:30 Calcium Level 9.9 mg/dL (8.7-10.4) Magnesium Level 2.0 mg/dL (1.6-2.6) Phosphorus Level 4.9 mg/dL (2.4-5.1) Coagulation Test 02/09/24 09:30 Prothrombin Time 11.0 sec (9.3-11.8) Prothrombin Time INR 1.04 (0.9-1.15) Activated Partial Thromboplast Time 32.2 SEC (24.5-34.5) Assessment/Plan Assessment/Plan 78-year-old male with a known history of congestive heart failure presented to the hospital with shortness breath found to have 1. Acute CHF exacerbation with systolic dysfunction 2. Dilated cardiomyopathy with a low ejection fraction 3. Chronic meth use 4. Noncompliance -IV diuretics, repeat chest x-ray -check hemoglobin A1c. Plan discussed with: Patient Date of Service: Feb 09, 2024 Billing Provider: DAVID ROBLEDO MD Common Visit Codes: [id number] INP/OBS CARE(MOD) DAVID ROBLEDO MD Feb 09, 2024 17:35
--- NOTE | 2024-02-09 21:28 | DVHPN2 ---
Progress Note - Dictate Date Seen: Feb 09, 2024 Has the PT tested + for MRSA If YES, has PT been informed?: No Medical Necessity Reason Pt with a Central, PICC or Fol: No Subjective Patient was seen and evaluated in follow up. Patient is complaining of SOB.Viral swabs are negative. CO2 33, BUN 30, DENTAL TECHNOLOGIST 1.89. vital signs Vital Sign Date Time Temp Pulse Resp B/P (MAP) Pulse Ox O2 Delivery O2 Flow Rate FiO2 02/09/24 17:55 116/83 02/09/24 17:00 97.6 97 24 95 97.6 02/09/24 08:00 Room Air* 0 21 Total Intake and Output 02/08/24 02/08/24 02/09/24 15:00 23:00 07:00 Intake Total 540 ml 1530 ml 800 ml Output Total 1000 ml Balance 540 ml 530 ml 800 ml medications Current Medications Medications Dose Ordered Sig/Margarito Route Start Time Stop Time Status Last Admin Dose Admin Diagnostic Test (Pha) 1 strip IQ4HR 02/06/24 08:00 02/09/24 19:42 1 STRIP Insulin Human Regular IQ4HR SC 02/06/24 08:00 02/09/24 17:00 2 UNITS Dextrose 50 ml UD PRN IV 02/06/24 06:45 Hydralazine HCl 10 mg Q6HP PRN IV 02/06/24 06:45 Docusate Sodium 100 mg BIDPRN PRN PO 02/06/24 07:30 Acetaminophen 650 mg Q6HP PRN PO 02/06/24 07:30 02/08/24 14:50 650 MG Acetaminophen/ Hydrocodone Bitart 1 tab Q4HP PRN PO 02/06/24 07:30 02/08/24 20:02 1 TAB Ondansetron HCl 4 mg Q4HP PRN IV 02/06/24 07:30 02/08/24 14:50 4 MG Morphine Sulfate 2 mg Q4HPRN PRN IV 02/06/24 07:30 Aspirin 81 mg DAILY PO 02/06/24 10:00 02/09/24 10:29 81 MG Carvedilol 3.125 mg BID PO 02/06/24 10:00 02/08/24 22:49 3.125 MG Famotidine 20 mg DAILY PO 02/06/24 10:00 02/09/24 10:29 20 MG Spironolactone 25 mg DAILY PO 02/06/24 10:00 02/09/24 10:29 25 MG Patient Own Medication 17 gm DAILY PO 02/06/24 10:00 UNV Ceftriaxone Sodium 50 ml @ 100 mls/hr DAILY@09 IV 02/06/24 09:00 02/09/24 07:53 100 MLS/HR Albuterol 1.25 mg Q4HPRN PRN NEB 02/06/24 09:00 02/09/24 20:05 1.25 MG Polyethylene Glycol 17 gm DAILY PO 02/06/24 10:00 02/08/24 08:59 17 GM Azithromycin 250 ml @ 125 mls/hr DAILY IV 02/08/24 10:00 02/09/24 10:34 125 MLS/HR Furosemide 40 mg BIDD IV 02/07/24 18:00 02/09/24 17:55 40 MG Enoxaparin Sodium 70 mg DAILY SC 02/08/24 10:00 UNV Enoxaparin Sodium 70 mg Q12H SC 02/07/24 20:00 02/09/24 19:46 70 MG objective GENERAL: Awake, alert, oriented. LUNGS: Clear. CARDIOVASCULAR: Heart sounds are good. ABDOMEN: Soft. laboratory and microbiology Laboratory Tests 02/09/24 09:30 Test 02/09/24 09:30 Range/Units Serum Glucose 111 H 74-106 mg/dL Problem List Acute CHF exacerbation with systolic dysfunction. Dilated cardiomyopathy with a low ejection fraction. Left-sided pleural effusion suspected sepsis. JA. History of diabetes. Hypertension. Methamphetamine abuse. Noncompliance. Assessment/Plan Continued all current supportive medical care. Morphine and [place] for pain management. Aspirin. IV antibiotics as ordered. Coreg. DVT prophylactics. Diuretics with Lasix. Additional plan as per the hospital course. Plan discussed with: Patient HONORIO GASTELUM MD Feb 09, 2024 21:28
[2024-02-10] VITALS (7 sets, daily range): BP systolic 107–119; BP diastolic 58–84; PULSE 80–89; RESP 16–18; TEMP 97–98.3; O2SAT 96–100
[2024-02-10 05:56] LABS: Basophils # (auto) 0.1 10 ^3/uL (0-0.2); Hemoglobin 10.3 g/dL (13.5-17.5); Lymphocytes # (auto) 1.4 10 ^3/uL (0.4-5.4); Monocytes # (auto) 0.9 10 ^3/uL (0-1.3)
[2024-02-10 05:58] LABS: Basophils % (auto) 0.9 % (0.0-2.0); Eosinophils # (auto) 0.2 10 ^3/uL (0-0.8); Eosinophils % (auto) 2.6 % (0.0-7.0); Hematocrit 31.7 % (41.0-53.0); Lymphocytes % (auto) 16.7 % (10.0-50.0); Mean Corpuscular Hemoglobin 24.2 pg (28.0-32.0); Mean Corpuscular Hgb Conc. 32.5 g/dL (32.0-36.0); Mean Corpuscular Volume 74.4 fL (80.0-100.0); Monocytes % (auto) 10.6 % (0.0-12.0); Neutrophils % (auto) 69.2 % (37.0-80.0); Platelet Count (auto) 245 10^3/uL (140-450); Red Blood Cells 4.27 10^6/uL (4.5-5.90); Red Cell Distribution Width 18.8 % (11.8-14.3); White Blood Cell 8.7 10^3/uL (4.4-10.8)
[2024-02-10 06:10] LABS: Anion Gap 9 (5-15); Calcium 9.7 mg/dL (8.7-10.4); Carbon Dioxide 28 mmol/L (20-31); Chloride 102 mmol/L (98-107); Potassium 4.4 mmol/L (3.5-5.1); Sodium 139 mmol/L (136-145)
[2024-02-10 06:15] LABS: Glucose 104 mg/dL (74-106)
[2024-02-10 06:16] LABS: BUN/Creatinine Ratio 16.9 (10.0-20.0); Magnesium 2.1 mg/dL (1.6-2.6)
[2024-02-10 06:34] LABS: Blood Urea Nitrogen 30 mg/dL (9-23)
--- NOTE | 2024-02-10 06:56 | DVH ---
CHEST RADIOGRAPH Indication: History of heart failure. Technique: Single frontal view of the chest was obtained Comparison: XY CHEST XRAY 1 VIEW on DOS: 10/09/23, XY CHEST PORTABLE on DOS: 08/25/23, XY CHEST XRAY 1 V IEW on DOS: 08/22/23, XY CHEST XRAY 1 VIEW on DOS: 08/21/23, XY CHEST XRAY 1 VIEW on DOS: 07/15/23 FINDINGS: Lines and Tubes: None Lungs: No focal consolidation. Pleura: No effusion. No pneumothorax. Cardiomediastinal contours: Cardiomegaly. Bones: No acute osseous abnormality. IMPRESSION: No acute cardiopulmonary disease.
[2024-02-10] MEDS ORDERED: FURO40TA4 PO ×2 (15:54)
[2024-02-10] MEDS ORDERED: CARV3.1240 PO ×2 (15:54)
[2024-02-10] MEDS ORDERED: SACU1TAB PO ×2 (15:54)
[2024-02-10] MEDS ORDERED: SPIR25TA PO ×2 (15:54)
[2024-02-10] MEDS ORDERED: EMPA1TAB PO ×2 (15:54)
[2024-02-10] MEDS ORDERED: ASPI1TAB19 PO ×2 (15:54)
[2024-02-10] MEDS ORDERED: ALBUAER3 IN ×2 (16:28)
--- NOTE | 2024-02-10 16:28 | DVHDS2 ---
Discharge Summary Date of Admission Feb 06, 2024 at 07:23 Date of Discharge: Feb 10, 2024 Labs/Diagnostic Data: Laboratory Results Test 02/10/24 11:50 02/10/24 05:23 02/09/24 09:30 02/08/24 23:55 POC Glucose 113 mg/dl (70-106) White Blood Count 8.7 10^3/uL (4.4-10.8) Red Blood Count 4.27 10^6/uL (4.5-5.90) Hemoglobin 10.3 g/dL (13.5-17.5) Hematocrit 31.7 % (41.0-53.0) Mean Corpuscular Volume 74.4 fL (80.0-100.0) Mean Corpuscular Hemoglobin 24.2 pg (28.0-32.0) Mean Corpuscular Hemoglobin Concent 32.5 g/dL (32.0-36.0) Red Cell Distribution Width 18.8 % (11.8-14.3) Platelet Count 245 10^3/uL (140-450) Mean Platelet Volume 8.8 fL (6.9-10.8) Neutrophils (%) (Auto) 69.2 % (37.0-80.0) Lymphocytes (%) (Auto) 16.7 % (10.0-50.0) Monocytes (%) (Auto) 10.6 % (0.0-12.0) Eosinophils (%) (Auto) 2.6 % (0.0-7.0) Basophils (%) (Auto) 0.9 % (0.0-2.0) Neutrophils # (Auto) 6.0 10 ^3/uL (1.6-8.6) Lymphocytes # (Auto) 1.4 10 ^3/uL (0.4-5.4) Monocytes # (Auto) 0.9 10 ^3/uL (0-1.3) Eosinophils # (Auto) 0.2 10 ^3/uL (0-0.8) Basophils # (Auto) 0.1 10 ^3/uL (0-0.2) Nucleated Red Blood Cells 0.0 % Sodium Level 139 mmol/L (136-145) Potassium Level 4.4 mmol/L (3.5-5.1) Chloride Level 102 mmol/L (98-107) Carbon Dioxide Level 28 mmol/L (20-31) Anion Gap 9 (5-15) Blood Urea Nitrogen 30 mg/dL (9-23) Creatinine 1.77 mg/dL (0.700-1.30) Glomerular Filtration Rate Calc 50 mL/min (>90) BUN/Creatinine Ratio 16.9 (10.0-20.0) Serum Glucose 104 mg/dL (74-106) Calcium Level 9.7 mg/dL (8.7-10.4) Magnesium Level 2.1 mg/dL (1.6-2.6) Prothrombin Time 11.0 sec (9.3-11.8) Prothrombin Time INR 1.04 (0.9-1.15) Activated Partial Thromboplast Time 32.2 SEC (24.5-34.5) Phosphorus Level 4.9 mg/dL (2.4-5.1) Influenza Type A Antigen Negative (Negative) Influenza Type B Antigen Negative (Negative) SARS-CoV-2 Antigen (Rapid) Negative (NEGATIVE) Test 02/08/24 05:42 02/07/24 16:00 02/07/24 07:47 02/06/24 10:09 Total Bilirubin 0.8 mg/dL (0.2-1.0) Aspartate Amino Transferase (AST) 30 U/L (13-40) Alanine Aminotransferase (ALT) 69 U/L (7-40) Alkaline Phosphatase 103 U/L (46-116) Total Protein 6.0 g/dL (5.7-8.2) Albumin 3.9 g/dL (3.2-4.8) B-Type Natriuretic Peptide 1238.26 pg/mL (0-100) Troponin I High Sensitivity 51 ng/L (</=54) Lactic Acid Level 1.6 mmol/L (0.4-2.0) Test 02/06/24 07:17 Triglycerides Level 118 mg/dL (< 150) Cholesterol Level 230 mg/dL (< 200) LDL Cholesterol 118 mg/dL (< 100) HDL Cholesterol 91 mg/dL (40-59) Thyroid Stimulating Hormone (TSH) 2.76 uIU/mL (0.55-4.78) Other Laboratory Tests 02/10/24 05:23 Brief Hx & Hospital Course: 78-year-old male with a known history of congestive heart failure presented to the hospital with shortness breath found to have acute CHF exacerbation with systolic dysfunction. Patient does have known history of dilated cardiomyopathy with EF of 19% secondary to chronic meth use. Patient was given IV diuretics. Patient was being checked for blood sugar but hemoglobin A1c is 5.7. Patient will be discharged home under stable condition. Patient has requested all the medication which will be given. Patient needs close follow up with the Cardiology upon discharge. Condition at Discharge: Stable Final Diagnosis/Problems List 78-year-old male with a known history of congestive heart failure presented to the hospital with shortness breath found to have 1. Acute CHF exacerbation with systolic dysfunction 2. Dilated cardiomyopathy with a low ejection fraction 3. Chronic meth use 4. Noncompliance Discharge Disposition: Home SNF Discharge Will this Physician continue t: No Discharge Instruct/Medications Diet: Cardiac 2g Na,low cholest Activity: No Restrictions, As Tolerated Follow Up/Referral: PCP in 1-2 weeks Follow up with the Cardiology Dr. Edison Pinto in one week Medications: As prescribed Discharge Statement: "Patient was advised to return to the ER or call 911 if any headaches, dizziness, shortness of breath, chest pain, abdominal pain, bleeding, fevers, or worsening of medical condition. Patient was counseled about treatment plan, medications, possible side effects, patientverbalized understanding. All questions were answered to the best of my ability. This discharge took greater then 30 minutes in planning, reviewing documentation, counseling the patient, and discussing with other team members." ASSESSMENT ASSESSMENT Assessment 78-year-old male with a known history of congestive heart failure presented to the hospital with shortness breath found to have 1. Acute CHF exacerbation with systolic dysfunction 2. Dilated cardiomyopathy with a low ejection fraction 3. Chronic meth use 4. Noncompliance Date of Service: Feb 10, 2024 Billing Provider: DAVID ROBLEDO MD Common Visit Codes: [id number] DISCH DAY >30min DAVID ROBLEDO MD Feb 10, 2024 16:28
--- NOTE | 2024-02-10 22:17 | DVHPN2 ---
Progress Note - Dictate Date Seen: Feb 10, 2024 Has the PT tested + for MRSA If YES, has PT been informed?: No Medical Necessity Reason Pt with a Central, PICC or Fol: No Subjective Patient was seen and evaluated in follow up. Patient has no new complaints at this time. Chest x-ray shows NAD. BUN 30, CLINICAL REHAB LIAISON 1.77. vital signs Vital Sign Date Time Temp Pulse Resp B/P (MAP) Pulse Ox O2 Delivery O2 Flow Rate FiO2 02/10/24 13:20 97 Room Air 0.0 02/10/24 13:00 98.3 80 17 107/58 (74) 98.3 02/09/24 22:05 21 Total Intake and Output 02/09/24 02/09/24 02/10/24 15:00 23:00 07:00 Intake Total 500 ml 1512 ml 1100 ml Output Total 600 ml 800 ml Balance 500 ml 912 ml 300 ml medications Current Medications Medications Dose Ordered Sig/Margarito Route Start Time Stop Time Status Last Admin Dose Admin Diagnostic Test (Pha) 1 strip IQ4HR 02/06/24 08:00 02/10/24 11:52 1 STRIP Insulin Human Regular IQ4HR SC 02/06/24 08:00 02/10/24 00:01 2 UNITS Dextrose 50 ml UD PRN IV 02/06/24 06:45 Hydralazine HCl 10 mg Q6HP PRN IV 02/06/24 06:45 Docusate Sodium 100 mg BIDPRN PRN PO 02/06/24 07:30 Acetaminophen 650 mg Q6HP PRN PO 02/06/24 07:30 02/08/24 14:50 650 MG Acetaminophen/ Hydrocodone Bitart 1 tab Q4HP PRN PO 02/06/24 07:30 02/08/24 20:02 1 TAB Ondansetron HCl 4 mg Q4HP PRN IV 02/06/24 07:30 02/08/24 14:50 4 MG Morphine Sulfate 2 mg Q4HPRN PRN IV 02/06/24 07:30 Aspirin 81 mg DAILY PO 02/06/24 10:00 02/10/24 08:56 81 MG Carvedilol 3.125 mg BID PO 02/06/24 10:00 02/10/24 08:57 3.125 MG Famotidine 20 mg DAILY PO 02/06/24 10:00 02/10/24 08:56 20 MG Spironolactone 25 mg DAILY PO 02/06/24 10:00 02/10/24 08:56 25 MG Patient Own Medication 17 gm DAILY PO 02/06/24 10:00 UNV Ceftriaxone Sodium 50 ml @ 100 mls/hr DAILY@09 IV 02/06/24 09:00 02/10/24 08:54 100 MLS/HR Albuterol 1.25 mg Q4HPRN PRN NEB 02/06/24 09:00 02/09/24 20:05 1.25 MG Polyethylene Glycol 17 gm DAILY PO 02/06/24 10:00 02/10/24 08:55 17 GM Azithromycin 250 ml @ 125 mls/hr DAILY IV 02/08/24 10:00 02/10/24 12:04 125 MLS/HR Furosemide 40 mg BIDD IV 02/07/24 18:00 02/10/24 05:53 40 MG Enoxaparin Sodium 70 mg DAILY SC 02/08/24 10:00 UNV Enoxaparin Sodium 70 mg Q12H SC 02/07/24 20:00 02/10/24 09:04 70 MG objective GENERAL: Awake, alert, oriented. LUNGS: Clear. CARDIOVASCULAR: Heart sounds are good. ABDOMEN: Soft. laboratory and microbiology Laboratory Tests 02/10/24 05:23 Test 02/10/24 05:23 Range/Units Serum Glucose 104 74-106 mg/dL Problem List Acute CHF exacerbation with systolic dysfunction. Dilated cardiomyopathy with a low ejection fraction. Left-sided pleural effusion suspected sepsis. JA. History of diabetes. Hypertension. Methamphetamine abuse. Noncompliance. Assessment/Plan Continued all current supportive medical care. Morphine and [place] for pain management. Aspirin. IV antibiotics as ordered. Coreg. DVT prophylactics. Diuretics with Lasix. Additional plan as per the hospital course. Plan discussed with: Patient HONORIO GASTELUM MD Feb 10, 2024 15:00
== END 2024-02-10 19:53 | disposition home or self-care (01) | DRG 194 ==
LOC: ER 03:37 → OVERFLOW 07:23 → TELE 08:55 → TELE-WESTW 02-07 19:07
PROVIDERS: ADMIT Internal Medicine Geriatric Medicine; ATTEND Internal Medicine
DX: I11.0 Hypertensive heart disease with heart failure (principal); N17.0 Acute kidney failure with tubular necrosis; I42.0 Dilated cardiomyopathy; R65.10 Systemic inflammatory response syndrome (SIRS) of non-infectious origin without acute organ dysfunction; I50.43 Acute on chronic combined systolic (congestive) and diastolic (congestive) heart failure; Z20.822 Contact with and (suspected) exposure to COVID-19; J20.9 Acute bronchitis, unspecified; F15.10 Other stimulant abuse, uncomplicated; E11.9 Type 2 diabetes mellitus without complications; Z87.891 Personal history of nicotine dependence; Z82.49 Family history of ischemic heart disease and other diseases of the circulatory system; Z91.199 Patient's noncompliance with other medical treatment and regimen due to unspecified reason
CPT/HCPCS: 36415; 71045; 71046; 73020; 80048; 80053; 80061; 82962; 83605; 83735; 83880; 84100; 84443; 84484; 85025; 85610; 85730; 87426; 87804; 93005; 94640; G0378; J1815; J2405

== ENCOUNTER 2024-03-21 21:32 | Emergency (ER) | payer MEDICAID ==
[~2024-03-21] VITALS: Ht 170.2 cm; Wt 75.6 kg
[~2024-03-21 21:32] MED LIST changes: +ALBUAER3 IN; -ASPI-628 PO; -ASPI1TAB20 PO; -AZIT500T66 PO; -CARV-214 PO; -ENAL1TAB43 PO; -FAMO-12 PO; +FAMO20TA10 PO; -FURO1TAB31 PO; -METO25TA5 PO; -POLY1POW50 PO; -POLYPOW85
--- NOTE | 2024-03-21 23:19 | DVH ---
CHEST RADIOGRAPH Indication: COUGH Technique: Single frontal view of the chest was obtained Comparison: XY CHEST XRAY 1 VIEW on DOS: 02/10/24, XY CHEST XRAY 1 VIEW on DOS: 10/09/23, XY CHEST PORT ABLE on DOS: 08/25/23 FINDINGS: Lines and Tubes: None Lungs: Clear Pleura: No effusion. No pneumothorax. Cardiomediastinal contours: Unremarkable Bones: Unremarkable IMPRESSION: Clear lungs.
[2024-03-21 23:22] LABS: COVID19 ANTIGEN SOFIA FIA NEGATIVE (NEGATIVE)
[2024-03-21 23:24] LABS: Rapid Influenza A Positive (Negative); Rapid Influenza B Negative (Negative)
[2024-03-22 00:01] VITALS: BP 112/58; PULSE 91; RESP 20; TEMP 98.9; O2SAT 99
[2024-03-22] MEDS ORDERED: OSEL75CA5 PO (00:05)
[2024-03-22] MEDS ORDERED: ACET500T58 PO (00:05)
--- NOTE | 2024-03-22 00:05 | ED.PDOC ---
History of Present Illness HPI Comments 38-YEAR-OLD MALE PRESENTS TO ER WITH COMPLAINTS OF FLU-LIKE SYMPTOMS X2 DAYS. PATIENT REPORTS THAT HE HAS BEEN EXPERIENCING PRODUCTIVE COUGH WITH GREEN PHLEGM, RUNNY NOSE, SORE THROAT, INTERMITTENT BODY ACHES, FEVER AND INTERMITTENT NAUSEA/VOMITING/DIARRHEA X2 DAYS. REPORTS THAT HE LAST TOOK IBUPROFEN "LAST NIGHT". PATIENT PRESENTS TO ER AFEBRILE ON ARRIVAL, AMBULATORY, WITH STEADY GAIT, IN NO DISTRESS. DENIES SHORTNESS OF BREATH, CHEST PAIN, HEMOPTYSIS, HEADACHE, DIZZINESS, EARACHE, KNOWN EXPOSURE TO SICK CONTACTS, ABDOMINAL PAIN, CHANGES IN URINATION OR ANY FURTHER SYMPTOMS/COMPLAINTS Chief Complaint: Flu like Time Seen by MD: 21:38 Primary Care Provider: TOM Gipson Notes: Nurses Notes, Medications, Allergies Information Source: Patient Mode of Arrival: Ambulatory Past Medical History PAST MEDICAL HISTORY: CHF, DM, HTN Surgical History: Denies all surgeries Family History Family History: Unknown Social History Smoker: Non-Smoker Alcohol: Denies ETOH Use Drugs: Denies Drug Use Lives In: Home Constitutional: See HPI EENTM: See HPI Respiratory: See HPI Cardiovascular: No Symptoms Reported Gastrointestinal: See HPI Genitourinary: No Symptoms Reported Neurological: No Symptoms Reported Musculoskeletal: No Symptoms Reported Integumentary: No Symptoms Reported Allergic/Immunocompromised: others (DENIES) Hematologic/Lymphatic: No Symptoms Reported Endocrine: No Symptoms Reported Psychiatric: No symptoms Reported Physical Exam General Appearance: No Apparent Distress, Normal HEENT: Normal ENT Inspection, PERRL/EOMI, Pharynx Normal, TMs Normal Neck: Full Range of Motion, Non-Tender, Normal Respiratory: Chest Non-Tender, Lungs Clear, No Accessory Muscle Use, No Respiratory Distress, Normal Breath Sounds Cardiovascular: No Murmur, No Gallop, Regular Rate/Rhythm Breast Exam: Deferred Gastrointestinal: Non Tender, No Pulsatile Mass, Soft Genitalia: Deferred Pelvic: Deferred Rectal: Deferred Extremities: Normal capillary refill, Normal range of motion Neurologic: Alert, hand packager II-XII nml as Tested, No Motor Deficits, Normal Affect, Normal Mood, No Sensory Deficits Cerebellar Function: Normal Reflexes: Normal Skin: Dry, Normal Color, Warm Peripheral Pulses: 2+ Radial (R), 2+ Radial (L), 2+ Brachial (R), 2+ Brachial (L) Lymphatic: No Adenopathy Was a procedure done? Was a procedure done?: No Sedation Sedation?: No Fever Differential Dx Differential Diagnosis: Pneumonia, Respiratory Failure, Sepsis, Pharyngitis, Other (COVID-19) X-Ray, Labs, Meds, VS Vital Signs Date Time Temp Pulse Resp B/P (MAP) Pulse Ox O2 Delivery O2 Flow Rate FiO2 03/22/24 00:01 98.9 91 20 112/58 (76) 99 98.9 03/21/24 22:23 99.4 88 17 112/58 (76) 99 Lab Test 03/21/24 22:00 Range/Units Influenza Type A Antigen Positive Negative Influenza Type B Antigen Negative Negative SARS-CoV-2 Antigen (Rapid) Negative NEGATIVE PATIENT: GURPREET COLLINSREGINALDACCT: [id number] UNIT: [id number] : 1985 LOC: ER ROOM / BED: / AGE / SEX: 38 / M ADM STATUS: REG ER SERVICE 21 ORDERING PHYSICIAN: TIM VINCENT PROCEDURE(s): CXR1 - CHEST XRAY 1 VIEW REASON: COUGH ORDER NUMBER(s): [id number], ACCESSION NUMBER(s): [id number] CHEST RADIOGRAPH Indication: COUGH Technique: Single frontal view of the chest was obtained Comparison: XY CHEST XRAY 1 VIEW on DOS: 02/10/24, XY CHEST XRAY 1 VIEW on DOS: 10/09/23, XY CHEST PORTABLE on DOS: 08/25/23 FINDINGS: Lines and Tubes: None Lungs: Clear Pleura: No effusion. No pneumothorax. Cardiomediastinal contours: Unremarkable Bones: Unremarkable IMPRESSION: Clear lungs. ATED BY: KEVEN ANTONIO DO DICTATED DATE/TIME: 03/21/242315 SIGNED BY: KEVEN ANTONIO DO SIGNED DATE/TIME: 03/21/242315 CC: SWAB RESULTS REVIEWED-INFLUENZA A POSITIVE CHEST X-RAY REVIEWED PATIENT TOLERATING P.O. INTAKE WELL AND IN NO DISTRESS DURING ER VISIT/PRIOR TO DISCHARGE DIET EDUCATION DISCUSSED ADVISED TO FOLLOW UP WITH PCP IN 1-2 DAYS PATIENT VERBALIZED UNDERSTANDING AND AGREEABLE WITH CURRENT PLAN OF CARE ADVISED TO RETURN TO ER IMMEDIATELY IF SYMPTOMS WORSEN Images Reviewed?: Images reviewed and evaluated by me Time of 1ST Reevaluation: 23:44 Reevaluation 1ST: N/A Patient Education/Counseling: Diagnosis, Treatment, Prognosis, Need For Follow Up Family Education/Counseling: No Family Present Departure 1 Departure Time of Disposition: 00:02 Impression: Primary Impression: Influenza A Additional Impression: Upper respiratory infection Qualified Codes: J06.9 - Acute upper respiratory infection, unspecified Disposition: 01 HOME / SELF CARE / HOMELESS Condition: Stable e-Prescriptions Amoxicillin & Pot Clavulanate (Amoxicillin/Potassium Cla) 875 Mg Tab 1 TAB PO BID for 7 Days, #14 TAB 0 Refills Prov: TIM VINCENT 03/22/24 Oseltamivir Phosphate (Tamiflu) 75 Mg Cap 1 CAP PO BID for 5 Days, #10 CAP 0 Refills Prov: TIM VINCENT 03/22/24 Acetaminophen (Acetaminophen) 500 Mg Tab 500 MG PO Q4HPRN, #30 TAB 0 Refills Prov: TIM VINCENT 03/22/24 Discharged With: Self Critical Care Note Critical Care Time?: No Stability Stability form required: No Heart Score Heart Score: Heart Score Response (Comments) Value History N/A 0 EKG N/A 0 Age N/A 0 Risk Factors N/A 0 Troponin N/A 0 Total 0 TIM VINCENT Mar 22, 2024 00:05
[2024-03-22] MEDS ORDERED: AMOX875T4 PO (00:09)
== END 2024-03-22 00:11 | disposition home or self-care (01) ==
LOC: ER 21:32
DX: J10.1 Influenza due to other identified influenza virus with other respiratory manifestations (principal); I11.0 Hypertensive heart disease with heart failure; I50.9 Heart failure, unspecified; E11.9 Type 2 diabetes mellitus without complications; R50.9 Fever, unspecified; R11.2 Nausea with vomiting, unspecified; R19.7 Diarrhea, unspecified; R05.9 Cough, unspecified; Z20.822 Contact with and (suspected) exposure to COVID-19
CPT/HCPCS: 36415; 71045; 87426; 87804

== ENCOUNTER 2024-09-12 14:01 | Inpatient (IN) | payer MEDICAID ==
[~2024-09-12] VITALS: Ht 170.2 cm; Wt 84.3 kg
[~2024-09-12 14:01] MED LIST changes: +ACET500T58 PO; +AMOX875T4 PO; +OSEL75CA5 PO
--- NOTE | 2024-09-12 14:23 | ED.PDOC ---
GI ASSESSMENT HPI Comments 39 y.o male with PMHx of CHF and HTN, presents to the ED for a chief complaint of lower abdominal pain radiating to bilateral lower quadrants and to the side/flank that started 3 days ago. Patient describes pain as sharp, constant, and has no alleviating factors. Patient denies any vomiting, diarrhea, fever, chills, bloody stool or dysuria. Patient reports having an ICD defibrillator placed on May of 2024. Chief Complaint: Abdominal Pain Time Seen by MD: 14:08 Primary Care Provider: TOM Reviewed Notes: Nurses Notes, Medications, Allergies Allergies: Coded Allergies: NO KNOWN ALLERGIES (Unverified , 05/21/22) Home Meds Active Scripts Amoxicillin & Pot Clavulanate (Amoxicillin/Potassium Cla) 875 Mg Tab, 1 TAB PO BID for 7 Days, #14 TAB 0 Refills Prov:TIM VINCENT 03/22/24 Oseltamivir Phosphate (Tamiflu) 75 Mg Cap, 1 CAP PO BID for 5 Days, #10 CAP 0 Refills Prov:TIM VINCENT 03/22/24 Acetaminophen (Acetaminophen) 500 Mg Tab, 500 MG PO Q4HPRN, #30 TAB 0 Refills Prov:TIM VINCENT 03/22/24 Albuterol Sulfate (VENTOLIN MDI) 90 Mcg Ih, 90 MCG IN Q6HP PRN, #1 INH Prov:DAVID ROBLEDO MD 02/10/24 Aspirin (Aspirin) 81 Mg Tab, 81 MG PO DAILY for 30 Days, #30 TAB 3 Refills Prov:DAVID ROBLEDO MD 02/10/24 Spironolactone (Aldactone) 25 Mg Tab, 25 MG PO DAILY for 30 Days, #30 TAB 3 Refills Prov:DAVID ROBLEDO MD 02/10/24 Carvedilol (Carvedilol) 3.125 Mg Tab, 1 TAB PO BID for 30 Days, #60 TAB Prov:DAVID ROBLEDO MD 02/10/24 Furosemide (Furosemide) 40 Mg Tab, 1 TAB PO QAM for 30 Days, #30 TAB Prov:DAVID ROBLEDO MD 02/10/24 Sacubitril-Valsartan (Entresto 24-26 mg) 1 Tab Tab, 1 TAB PO BID for 30 Days, #60 TAB 3 Refills Prov:DAVID ROBELDO MD 02/10/24 Empagliflozin (Jardiance) 10 Mg Tab, 10 MG PO DAILY for 30 Days, #30 TAB 3 Refills Prov:DAVID ROBLEDO MD 02/10/24 Reported Medications Famotidine (PEPCID TABLET) 20 Mg Tb, 1 TAB PO DAILY 02/06/24 Information Source: Patient Mode of Arrival: Ambulatory Timing: Days (3) Duration: Since onset Quality: Sharp Vomitus: None Stool: Normal Severity: Moderate Recent: None Recent Hx of: None Pain Location: Suprapubic Modifying Factors: Nothing Associated sign and symptoms: Nausea, Abdominal Pain Past Medical History PAST MEDICAL HISTORY: CHF, DM, HTN Surgical History (Other): icd Family History Family History: Unknown Social History Smoker: Non-Smoker Alcohol: Denies ETOH Use Drugs: Denies Drug Use Lives In: Home Constitutional: denies: chills, diaphoresis, fatigue, fever, malaise, sweats, weakness, others EENTM: denies: blurred vision, double vision, ear bleeding, ear discharge, ear drainage, ear pain, ear ringing, eye pain, eye redness, hearing loss, mouth pain, mouth swelling, nasal discharge, nose bleeding, nose congestion, nose pain, photophobia, tearing, throat pain, throat swelling, voice changes, others Respiratory: denies: cough, hemoptysis, orthopnea, SOB at rest, shortness of b reath, SOB with excertion, stridor, wheezing, others Cardiovascular: denies: chest pain, dizzy spells, diaphoresis, Dyspnea on exertion, edema, irregular heart beat, left arm pain, lightheadedness, palpitations, PND, syncope, others Gastrointestinal: reports: abdominal pain, nausea; denies: abdomen distended, blood streaked bowels, constipated, diarrhea, dysphagia, difficulty swallowing, hematemesis, melena, poor appetite, poor fluid intake, rectal bleeding, rectal pain, vomiting, others Genitourinary: denies: burning, dysuria, flank pain, frequency, hematuria, incontinence, penile discharge, penile sore, pain, testicle pain, testicle swelling, urgency, others Neurological: denies: dizziness, fainting, headache, left sided numbness, left sided weakness, numbness, paresthesia, pre-existing deficit, right sided numbness, right sided weakness, seizure, speech problems, tingling, tremors, weakness, others Musculoskeletal: denies: back pain, gout, joint pain, joint swelling, muscle pain, muscle stiffness, neck pain, others Integumetry: denies: bruises, change in color, change in hair/nails, dryness, laceration, lesions, lumps, rash, wounds, others Allergic/Immunocompromised: denies: Difficulty Healing, Frequent Infections, Hives, Itching, others Hematologic/Lymphatic: denies: anemia, blood clots, easy bleeding, easy bruising, swollen glands, others Endocrine: denies: excessive hunger, excessive sweating, excessive thirst, excessive urination, flushing, intolerance to cold, intolerance to heat, unexplained weight gain, unexplained weight loss, others Psychiatric: denies: anxiety, bipolar disorder, depression, hopeless, panic disorder, schizophrenia, sleepless, suicidal, others All Other Systems: Reviewed and Negative Physical Exam General Appearance: Moderate Distress HEENT: Normal ENT Inspection, Pharynx Normal, TMs Normal Neck: Full Range of Motion, Non-Tender, Normal, Normal Inspection Respiratory: Chest Non-Tender, Lungs Clear, No Accessory Muscle Use, No Respiratory Distress, Normal Breath Sounds Cardiovascular: No Edema, No JVD, No Murmur, No Gallop, Normal Peripheral Pulses, Regular Rate/Rhythm Breast Exam: Deferred Gastrointestinal: Diffuse, No Organomegaly, No Pulsatile Mass, Normal Bowel Sounds, Soft, Tenderness Genitalia: Deferred Pelvic: Deferred Rectal: Deferred Extremities: No calf tenderness, Normal capillary refill, Normal inspection, Normal range of motion, Non-tender, No pedal edema Musculoskeletal : Apperance: Normal Neurologic: Alert, audio visual design engineer II-XII nml as Tested, No Motor Deficits, Normal Affect, Normal Mood, No Sensory Deficits Cerebellar Function: Normal Reflexes: Normal Skin: Dry, Normal Color, Warm Lymphatic: No Adenopathy EKG EKG : Pulse Rate (adult): 72 Cardiac Rhythm: NSR Was a procedure done? Was a procedure done?: No GI differential Dx Differential Diagnosis: Esophagitis, Gastroenteritis, Inflammatory BD, Dehydration, Electrolyte Imbalance, Viral X-Ray, Labs, Meds, VS Vital Signs Date Time Temp Pulse Resp B/P (MAP) Pulse Ox O2 Delivery O2 Flow Rate FiO2 09/12/24 14:23 72 09/12/24 14:19 72 09/12/24 14:15 98.8 73 16 128/96 (107) 98 98.8 Lab Test 09/12/24 14:57 Range/Units White Blood Count 8.9 4.4-10.8 10^3/uL Red Blood Count 6.65 H 4.5-5.90 10^6/uL Hemoglobin 14.4 13.5-17.5 g/dL Hematocrit 45.8 41.0-53.0 % Mean Corpuscular Volume 68.8 L 80.0-100.0 fL Mean Corpuscular Hemoglobin 21.7 L 28.0-32.0 pg Mean Corpuscular Hemoglobin Concent 31.5 L 32.0-36.0 g/dL Red Cell Distribution Width 21.3 H 11.8-14.3 % Platelet Count 185 140-450 10^3/uL Mean Platelet Volume 8.9 6.9-10.8 fL Neutrophils (%) (Auto) 77.8 37.0-80.0 % Lymphocytes (%) (Auto) 12.2 10.0-50.0 % Monocytes (%) (Auto) 4.8 0.0-12.0 % Eosinophils (%) (Auto) 4.6 0.0-7.0 % Basophils (%) (Auto) 0.6 0.0-2.0 % Neutrophils # (Auto) 6.9 1.6-8.6 10 ^3/uL Lymphocytes # (Auto) 1.1 0.4-5.4 10 ^3/uL Monocytes # (Auto) 0.4 0-1.3 10 ^3/uL Eosinophils # (Auto) 0.4 0-0.8 10 ^3/uL Basophils # (Auto) 0.1 0-0.2 10 ^3/uL Nucleated Red Blood Cells 0.1 % Sodium Level 137 136-145 mmol/L Potassium Level 4.2 3.5-5.1 mmol/L Chloride Level 104 98-107 mmol/L Carbon Dioxide Level 26 20-31 mmol/L Anion Gap 7 5-15 Blood Urea Nitrogen 11 9-23 mg/dL Creatinine 1.47 H 0.700-1.30 mg/dL Glomerular Filtration Rate Calc 62 >90 mL/min BUN/Creatinine Ratio 7.5 L 10.0-20.0 Serum Glucose 89 74-106 mg/dL Calcium Level 9.0 8.7-10.4 mg/dL Total Bilirubin 0.4 0.2-1.0 mg/dL Aspartate Amino Transferase (AST) 26 13-40 U/L Alanine Aminotransferase (ALT) 29 7-40 U/L Alkaline Phosphatase 78 46-116 U/L Total Protein 7.2 5.7-8.2 g/dL Albumin 4.6 3.2-4.8 g/dL Lipase 50 12-53 U/L CAT scan of the abdomen and pelvis shows: IMPRESSION: Left inguinal hernia containing small bowel loops measuring 5.5 x 4.5 cm. There is edema in the hernia surrounding the small bowel loops. Correlate for incarceration / strangulation. Recommend surgical consultation for further management. Moderate distention of the small bowel loops up to 3.3 cm with a few air-fluid levels could represent partial obstruction/ obstruction secondary to the underlying left inguinal hernia containing bowel loops. Moderate volume stool within the colon On reflecting signs described. The patient's CBC is within normal limits The chemistry panel shows a creatinine of 1.47 The rest of the chemistry panel is within normal limits At this time, the patient's seems to have possible small-bowel obstruction versus incarceration or strangulation The patient is being admitted to the hospitalist Surgical consult is being obtained Images Reviewed?: Images reviewed and evaluated by me Time of 1ST Reevaluation: 14:20 Reevaluation 1ST: Unchanged Patient Education/Counseling: Diagnosis, Treatment, Prognosis Family Education/Counseling: No Family Present SEPSIS Sepsis Screen Physician Orders Urinalysis (09/12/24 14:18) Ct Ab Pel Wo Con-No Oral Or Iv (09/12/24 14:18) Heplock Iv (09/12/24 14:18) Manager Investigations (09/12/24 14:18) Blood Pressure (09/12/24 14:18) Pulse Oximetry (09/12/24 14:18) Electrocardigram (09/12/24 14:22) Vital Signs Date Time Temp Pulse Resp B/P (MAP) Pulse Ox O2 Delivery O2 Flow Rate FiO2 09/12/24 14:23 72 09/12/24 14:19 72 09/12/24 14:15 98.8 73 16 128/96 (107) 98 98.8 Laboratory Tests Test 09/12/24 14:57 White Blood Count 8.9 10^3/uL (4.4-10.8) Departure 1 Departure Time of Disposition: 17:56 Impression: Primary Impression: Intractable abdominal pain Additional Impressions: Incarcerated hernia Small bowel obstruction Disposition: 09 ADMITTED INPATIENT Admit to: Tele Condition: Fair Critical Care Note Critical Care Time?: No Stability Stability form required: Yes Unstable for transfer: Telemetry monitoring (Telemetry monitoring required), ED Physician Assesment (Clinical assesment) Heart Score Heart Score: Heart Score Response (Comments) Value History N/A 0 EKG N/A 0 Age N/A 0 Risk Factors N/A 0 Troponin N/A 0 Total 0 I personally scribed for CHACHA FUNK MD ([email or web address]) on 09/12/24 at 14:23. Electronically submitted by Divya Giron ([facility]). CHACHA FUNK MD Sep 12, 2024 14:23
[2024-09-12 15:23] LABS: Hematocrit 45.8 % (41.0-53.0); Hemoglobin 14.4 g/dL (13.5-17.5); Mean Corpuscular Hemoglobin 21.7 pg (28.0-32.0); Mean Corpuscular Volume 68.8 fL (80.0-100.0); Nucleated Red Blood Cells % 0.1 %
[2024-09-12 15:26] LABS: Alanine Aminotransferase 29 U/L (7-40); Albumin 4.6 g/dL (3.2-4.8); Alkaline Phosphatase 78 U/L (46-116); Anion Gap 7 (5-15); BUN/Creatinine Ratio 7.5 (10.0-20.0); Blood Urea Nitrogen 11 mg/dL (9-23); Calcium 9.0 mg/dL (8.7-10.4); Carbon Dioxide 26 mmol/L (20-31); Chloride 104 mmol/L (98-107); Glucose 89 mg/dL (74-106); Lipase 50 U/L (12-53); Potassium 4.2 mmol/L (3.5-5.1); Sodium 137 mmol/L (136-145); Total Protein 7.2 g/dL (5.7-8.2)
[2024-09-12 15:27] LABS: Bilirubin, Total 0.4 mg/dL (0.2-1.0)
--- NOTE | 2024-09-12 15:39 | DVH ---
Indication: pain Technique: CT axial images of the abdomen and pelvis are obtained without contrast. Coronal and sagit mathieu reformats were obtained. Radiation Dose Information: CTDI volume is 9.21 mGy. Dose-length product is 473.38 mGy*cm Comparison: CT CT AB PEL WO CON-NO ORAL OR IV on DOS: 08/21/23 FINDINGS: There is limited interpretation of the abdomen and pelvis without administration of intravenous contr ast. The lung bases demonstrate atelectasis. Adrenal glands, spleen and pancreas unremarkable in shape. Liver unremarkable in shape. No CT evide nce for cholelithiasis. No hydronephrosis/ nephrolithiasis. Stomach partially distended. Left inguinal hernia which contains small bowel loops measuring 5.5 x 4.5 cm. There is edema in the hernia. Moderate distention small bowel loops up to 3.3 cm with a few air-fluid levels. Moderate volume stool in the colon. Normal appendix. Bladder partially distended. No free pelvic fluid. No inguinal lymphadenopathy. No aggressive osseous process. Moderate lumbar degenerative disc disease L5-S1. IMPRESSION: Left inguinal hernia containing small bowel loops measuring 5.5 x 4.5 cm. There is edema in the lesly ia surrounding the small bowel loops. Correlate for incarceration / strangulation. Recommend surgica l consultation for further management. Moderate distention of the small bowel loops up to 3.3 cm with a few air-fluid levels could represent partial obstruction/ obstruction secondary to the underlying left inguinal hernia containing bowel l oops. Moderate volume stool within the colon On reflecting signs described.
--- NOTE | 2024-09-12 18:36 | ECG ---
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
[2024-09-12] MEDS: SODIUM CHLORIDE 0.9% 1,000 ML IV ONE (19:15)
[2024-09-12 19:56] LABS: INR 0.99 (0.9-1.15); Partial Thromboplastin Time 30.4 SEC (24.5-34.5); Prothrombin Time 10.5 sec (9.3-11.8)
[2024-09-12 20:07] LABS: Urine Protein, UAD Negative (Negative)
--- NOTE | 2024-09-12 21:22 | DVHHP2 ---
History of Present Illness Reason for Visit: Abdominal pain History of Present Illness 39-year-old male presents for evaluation of abdominal pain. Patient endorses a three day history of sharp mid abdominal pain with associated nausea and diarrhea. Denies fever or chills. No cardiac or respiratory complaints. Past Medical History Hypertension, diabetes mellitus, congestive heart failure Past Surgical History Abdominal surgery, ICD Family History Noncontributory Smoke: No ALCOHOL: none Drugs: None Lives: with Family Review of Systems Review of Systems Review of systems are currently negative otherwise addressed in HPI. Allergies: Coded Allergies: NO KNOWN ALLERGIES (Unverified , 05/21/22) Medications Current Medications Medications Dose Ordered Sig/Margarito Route Start Time Stop Time Status Last Admin Dose Admin Pantoprazole Sodium 40 mg DAILY IV 09/13/24 10:00 Ondansetron HCl 4 mg Q4HP PRN IV 09/12/24 19:15 Morphine Sulfate 2 mg Q4HPRN PRN IV 09/12/24 19:15 Exam Vital Signs Vital Signs Date Time Temp Pulse Resp B/P (MAP) Pulse Ox O2 Delivery O2 Flow Rate FiO2 09/12/24 18:18 98.3 71 20 143/89 (107) 96 98.3 09/12/24 18:18 Room Air Exam Gen: His 39-year-old male in mild distress Skin: Warm, dry, normal color and texture, no rash. HEENT: Normocephalic atraumatic, mucous membranes moist and pink. Neck: Cervical and supraclavicular nodes normal without enlargement, trachea is midline, thyroid gland is normal without masses. Pulmonary: Clear to auscultation and percussion bilaterally. Cardiac: Regular rate and rhythm. No murmur Abdomen: Soft, made abdominal tenderness, nondistended, bowel sounds present all 4 quadrants, no guarding, no rigidity, no organomegaly. Extremities: No cyanosis, clubbing, no edema Neuro: Cranial nerves II through XII grossly intact, normal affect and speech, no focal motor deficits. Labs/Xrays ORDERING PHYSICIAN: CHACHA FUNK MD PROCEDURE(s): ABPL - CT AB PEL WO CON-NO ORAL OR IV REASON: pain ORDER NUMBER(s): [id number], ACCESSION NUMBER(s): [id number] Indication: pain Technique: CT axial images of the abdomen and pelvis are obtained without contrast. Coronal and sagittal reformats were obtained. Radiation Dose Information: CTDI volume is 9.21 mGy. Dose-length product is 473.38 mGy*cm Comparison: CT CT AB PEL WO CON-NO ORAL OR IV on DOS: 08/21/23 FINDINGS: There is limited interpretation of the abdomen and pelvis without administration of intravenous contrast. The lung bases demonstrate atelectasis. Adrenal glands, spleen and pancreas unremarkable in shape. Liver unremarkable in shape. No CT evidence for cholelithiasis. No hydronephrosis/ nephrolithiasis. Stomach partially distended. Left inguinal hernia which contains small bowel loops measuring 5.5 x 4.5 cm. There is edema in the hernia. Moderate distention small bowel loops up to 3.3 cm with a few air-fluid levels. Moderate volume stool in the colon. Normal appendix. Bladder partially distended. No free pelvic fluid. No inguinal lymphadenopathy. No aggressive osseous process. Moderate lumbar degenerative disc disease L5-S1. IMPRESSION: Left inguinal hernia containing small bowel loops measuring 5.5 x 4.5 cm. There is edema in the hernia surrounding the small bowel loops. Correlate for incarceration / strangulation. Recommend surgical consultation for further management. Moderate distention of the small bowel loops up to 3.3 cm with a few air-fluid levels could represent partial obstruction/ obstruction secondary to the underlying left inguinal hernia containing bowel loops. Moderate volume stool within the colon On reflecting signs described. Labs Test 09/12/24 19:24 09/12/24 18:45 09/12/24 14:57 Range/Units Prothrombin Time 10.5 9.3-11.8 sec Prothrombin Time INR 0.99 0.9-1.15 Activated Partial Thromboplast Time 30.4 24.5-34.5 SEC Urine Color Light-yellow Yellow Urine Clarity Clear Clear Urine pH 7.0 5.0-9.0 Urine Specific [place] 1.015 1.001-1.035 Urine Protein Negative Negative Urine Ketones Negative Negative Urine Blood Negative Negative /uL Urine Nitrite Negative Negative Urine Bilirubin Negative Negative Urine Urobilinogen Normal Negative mg/dL Urine Leukocyte Esterase Negative Negative /uL Urine RBC 1 0 - 3 /hpf Urine Microscopic WBC 0-3 /HPF Urine Squamous Epithelial Cells None seen <5 /hpf Urine Bacteria None seen None Seen /hpf Urine Glucose 4+ H Normal mg/dL White Blood Count 8.9 4.4-10.8 10^3/uL Red Blood Count 6.65 H 4.5-5.90 10^6/uL Hemoglobin 14.4 13.5-17.5 g/dL Hematocrit 45.8 41.0-53.0 % Mean Corpuscular Volume 68.8 L 80.0-100.0 fL Mean Corpuscular Hemoglobin 21.7 L 28.0-32.0 pg Mean Corpuscular Hemoglobin Concent 31.5 L 32.0-36.0 g/dL Red Cell Distribution Width 21.3 H 11.8-14.3 % Platelet Count 185 140-450 10^3/uL Mean Platelet Volume 8.9 6.9-10.8 fL Neutrophils (%) (Auto) 77.8 37.0-80.0 % Lymphocytes (%) (Auto) 12.2 10.0-50.0 % Monocytes (%) (Auto) 4.8 0.0-12.0 % Eosinophils (%) (Auto) 4.6 0.0-7.0 % Basophils (%) (Auto) 0.6 0.0-2.0 % Neutrophils # (Auto) 6.9 1.6-8.6 10 ^3/uL Lymphocytes # (Auto) 1.1 0.4-5.4 10 ^3/uL Monocytes # (Auto) 0.4 0-1.3 10 ^3/uL Eosinophils # (Auto) 0.4 0-0.8 10 ^3/uL Basophils # (Auto) 0.1 0-0.2 10 ^3/uL Nucleated Red Blood Cells 0.1 % Sodium Level 137 136-145 mmol/L Potassium Level 4.2 3.5-5.1 mmol/L Chloride Level 104 98-107 mmol/L Carbon Dioxide Level 26 20-31 mmol/L Anion Gap 7 5-15 Blood Urea Nitrogen 11 9-23 mg/dL Creatinine 1.47 H 0.700-1.30 mg/dL Glomerular Filtration Rate Calc 62 >90 mL/min BUN/Creatinine Ratio 7.5 L 10.0-20.0 Serum Glucose 89 74-106 mg/dL Calcium Level 9.0 8.7-10.4 mg/dL Total Bilirubin 0.4 0.2-1.0 mg/dL Aspartate Amino Transferase (AST) 26 13-40 U/L Alanine Aminotransferase (ALT) 29 7-40 U/L Alkaline Phosphatase 78 46-116 U/L Total Protein 7.2 5.7-8.2 g/dL Albumin 4.6 3.2-4.8 g/dL Lipase 50 12-53 U/L SEPSIS Sepsis Screen Date sepsis recognized/suspect: Sep 12, 2024 Time Sepsis recognized/suspect: 1819 Recent Procedure: No On Antibiotic Therapy: No Respiratory Rate >20: No Heart Rate >90: No Temp<36 C (96.8 F) or >38.3 C: No SBP <90 or MAP <65 mmHG: No New Acute Mental Status Change: No Is the patient on CPAP, BIPAP,: No Physician Orders Ct Ab Pel Wo Con-No Oral Or Iv (09/12/24 14:18) Heplock Iv (09/12/24 14:18) Latin Dancer (09/12/24 14:18) Blood Pressure (09/12/24 14:18) Pulse Oximetry (09/12/24 14:18) Electrocardigram (09/12/24 14:22) *Consult Dr. Xiao (09/12/24 17:55) Sodium Chloride 0.9% (09/12/24 19:15) Pantoprazole (Protonix) (09/13/24 10:00) Basic Metabolic Panel (09/13/24 04:00) Complete Blood Count (09/13/24 04:00) Comprehensive Metabolic Panel (09/13/24 04:00) Npo (Nothing By Mouth) Diet (09/13/24 Breakfast) Condition: Stable (09/12/24 19:13) Bedrest With Bathroom Privileg (09/12/24 19:13) Morphine Sulfate Injection (09/12/24 19:15) Admit (09/12/24 19:13) Ondansetron Hcl (Zofran) (09/12/24 19:15) Vital Signs Date Time Temp Pulse Resp B/P (MAP) Pulse Ox O2 Delivery O2 Flow Rate FiO2 09/12/24 18:18 98.3 71 20 143/89 (107) 96 98.3 09/12/24 18:18 71 20 96 Room Air 09/12/24 14:23 72 09/12/24 14:19 72 09/12/24 14:15 98.8 73 16 128/96 (107) 98 98.8 Laboratory Tests Test 09/12/24 14:57 White Blood Count 8.9 10^3/uL (4.4-10.8) Assessment/Plan Assessment/Plan Assessment Acute abdominal pain Rule out incarcerated hernia Acute kidney injury Plan Admit the patient to [facility] to the hospitalist Surgical consultation NPO Maintenance IV fluids Pain management Continue treatment per orders. Plan discussed with: Patient My Orders Orders - GILBERT MCGREGOR Procedure Category Date Status Time Sodium Chloride 0.9% PHA 09/12/24 In Process 19:15 Pantoprazole PHA 09/13/24 In Process (Protonix) 10:00 Basic Metabolic Panel LAB 09/13/24 Verified 04:00 Complete Blood Count LAB 09/13/24 Verified 04:00 Comprehensive LAB 09/13/24 Verified Metabolic Panel 04:00 Npo (Nothing By DIET 09/13/24 Transmitted Mouth) Diet Breakfast Condition: Stable ROSIE 09/12/24 In Process 19:13 Bedrest With Bathroom ROSIE 09/12/24 In Process Privileg 19:13 Morphine Sulfate PHA 09/12/24 In Process Injection 19:15 Admit ADMIT 09/12/24 Verified 19:13 Ondansetron Hcl PHA 09/12/24 In Process (Zofran) 19:15 Date of Service: Sep 12, 2024 Billing Provider: GILBERT MCGREGOR Common Visit Codes: [id number] INP/OBS CARE (HIGH) GILBERT MCGREGOR Sep 12, 2024 21:22
[2024-09-12 23:00] VITALS: BP 159/102; PULSE 73; RESP 17; TEMP 98; O2SAT 98
[2024-09-12] MEDS: MORPHINE SULFATE INJ 2 MG/ml SYRG IV PRN (23:23)
[2024-09-13] MEDS: hydrALAZINE HCL 20 MG/ML VL IV PRN (00:42)
[2024-09-13 00:57] VITALS: BP 157/104; PULSE 72; RESP 17; TEMP 98.3; O2SAT 94
[2024-09-13 05:00] VITALS: BP 140/100; PULSE 64; RESP 17; TEMP 97.6; O2SAT 97
[2024-09-13 06:33] LABS: Hemoglobin 15.1 g/dL (13.5-17.5)
[2024-09-13 06:36] LABS: Hematocrit 47.7 % (41.0-53.0); Mean Corpuscular Hemoglobin 21.8 pg (28.0-32.0); Mean Corpuscular Volume 68.8 fL (80.0-100.0); Nucleated Red Blood Cells % 0.1 %
[2024-09-13 06:51] LABS: Alanine Aminotransferase 25 U/L (7-40); Albumin 4.5 g/dL (3.2-4.8); Alkaline Phosphatase 79 U/L (46-116); Anion Gap 10 (5-15); BUN/Creatinine Ratio 6.2 (10.0-20.0); Bilirubin, Total 0.8 mg/dL (0.2-1.0); Blood Urea Nitrogen 9 mg/dL (9-23); Calcium 10.1 mg/dL (8.7-10.4); Carbon Dioxide 26 mmol/L (20-31); Chloride 104 mmol/L (98-107); Glucose 76 mg/dL (74-106); Potassium 3.8 mmol/L (3.5-5.1); Sodium 140 mmol/L (136-145); Total Protein 7.1 g/dL (5.7-8.2)
[2024-09-13 08:30] VITALS: BP 139/101; PULSE 80; RESP 18; TEMP 97.2; O2SAT 95
[2024-09-13 08:30] LABS: Anisocytosis Slight
[2024-09-13] MEDS: PANTOPRAZOLE 40 MG/10 ML VIAL INJ IV SCH (10:27)
--- NOTE | 2024-09-13 12:25 | DVHPN2 ---
Reviewed: Care Plan, H&P, Labs, Medications, Previous Orders, Radiology Changes from previous H/P or p: No Changes Objective Vitals Vital Signs Date Time Temp Pulse Resp B/P (MAP) Pulse Ox O2 Delivery O2 Flow Rate FiO2 09/13/24 08:30 97.2 80 18 139/101 (114) 95 97.2 09/12/24 22:25 Room Air* 0 21 Medications Current Medications Medications Dose Ordered Sig/Margarito Route Start Time Stop Time Status Last Admin Dose Admin Pantoprazole Sodium 40 mg DAILY IV 09/13/24 10:00 09/13/24 10:27 40 MG Ondansetron HCl 4 mg Q4HP PRN IV 09/12/24 19:15 Morphine Sulfate 2 mg Q4HPRN PRN IV 09/12/24 19:15 09/12/24 23:23 2 MG Hydralazine HCl 10 mg Q6HP PRN IV 09/12/24 23:45 09/13/24 00:42 10 MG Laboratory Results Laboratory Tests 09/13/24 05:50 Chemistry Test 09/12/24 14:57 09/13/24 05:50 Albumin 4.6 g/dL (3.2-4.8) 4.5 g/dL (3.2-4.8) Calcium Level 9.0 mg/dL (8.7-10.4) 10.1 mg/dL (8.7-10.4) Total Protein 7.2 g/dL (5.7-8.2) 7.1 g/dL (5.7-8.2) Coagulation Test 09/12/24 19:24 Prothrombin Time 10.5 sec (9.3-11.8) Prothrombin Time INR 0.99 (0.9-1.15) Activated Partial Thromboplast Time 30.4 SEC (24.5-34.5) Lipid panel Test 09/12/24 14:57 Lipase 50 U/L (12-53) LFT Test 09/12/24 14:57 09/13/24 05:50 Alanine Aminotransferase (ALT) 29 U/L (7-40) 25 U/L (7-40) Alkaline Phosphatase 78 U/L (46-116) 79 U/L (46-116) Aspartate Amino Transferase (AST) 26 U/L (13-40) 25 U/L (13-40) Total Bilirubin 0.4 mg/dL (0.2-1.0) 0.8 mg/dL (0.2-1.0) Urinalysis Test 09/12/24 18:45 Urine Color Light-yellow (Yellow) Urine Clarity Clear (Clear) Urine pH 7.0 (5.0-9.0) Urine Specific [place] 1.015 (1.001-1.035) Urine Protein Negative (Negative) Urine Ketones Negative (Negative) Urine Blood Negative /uL (Negative) Urine Nitrite Negative (Negative) Urine Bilirubin Negative (Negative) Urine Urobilinogen Normal mg/dL (Negative) Urine Leukocyte Esterase Negative /uL (Negative) Urine RBC 1 /hpf (0 - 3) Urine Microscopic WBC /HPF (0-3) Urine Squamous Epithelial Cells None seen /hpf (<5) Urine Bacteria None seen /hpf (None Seen) Urine Glucose 4+ mg/dL (Normal) H Labs and/or images reviewed: Labs reviewed by me, Image(s) reviewed by me Assessment/Plan Assessment/Plan Acute abdominal pain secondary to possible incarcerated left inguinal hernia: Consult for surgeon Dr. Xiao, pain medications Acute dehydration: IV fluids Hypertension Diabetes History of congestive heart failure Plan discussed with: Patient Date of Service: Sep 13, 2024 Billing Provider: MIRYAM ROSS MD Common Visit Codes: [id number] INP/OBS CARE(HIGH) MIRYAM ROSS MD Sep 13, 2024 12:25
--- NOTE | 2024-09-13 13:44 | DVHINCON2 ---
Date of service: Sep 13, 2024 Reason for Consultation Possible strangulated versus incarcerated left inguinal hernia History of Present Illness History Source: Patient, MD Notes Exam Limitations: No limitations HPI 39 year old male presented to the ER with complaint of mid abdominal pain for the past three days. Patient states the pain progressed and had diarrhea and nausea. Home Meds Active Scripts Amoxicillin & Pot Clavulanate (Amoxicillin/Potassium Cla) 875 Mg Tab, 1 TAB PO BID for 7 Days, #14 TAB 0 Refills Prov:TIM VINCENT 03/22/24 Oseltamivir Phosphate (Tamiflu) 75 Mg Cap, 1 CAP PO BID for 5 Days, #10 CAP 0 Refills Prov:TIM VINCENT 03/22/24 Acetaminophen (Acetaminophen) 500 Mg Tab, 500 MG PO Q4HPRN, #30 TAB 0 Refills Prov:TIM VINCENT 03/22/24 Albuterol Sulfate (VENTOLIN MDI) 90 Mcg Ih, 90 MCG IN Q6HP PRN, #1 INH Prov:DAVID ROBLEDO MD 02/10/24 Aspirin (Aspirin) 81 Mg Tab, 81 MG PO DAILY for 30 Days, #30 TAB 3 Refills Prov:DAVID ROBLEDO MD 02/10/24 Spironolactone (Aldactone) 25 Mg Tab, 25 MG PO DAILY for 30 Days, #30 TAB 3 Refills Prov:DAVID ROBLEDO MD 02/10/24 Carvedilol (Carvedilol) 3.125 Mg Tab, 1 TAB PO BID for 30 Days, #60 TAB Prov:DAVID ROBLEDO MD 02/10/24 Furosemide (Furosemide) 40 Mg Tab, 1 TAB PO QAM for 30 Days, #30 TAB Prov:DAVID ROBLEDO MD 02/10/24 Sacubitril-Valsartan (Entresto 24-26 mg) 1 Tab Tab, 1 TAB PO BID for 30 Days, #60 TAB 3 Refills Prov:DAVID ROBLEDO MD 02/10/24 Empagliflozin (Jardiance) 10 Mg Tab, 10 MG PO DAILY for 30 Days, #30 TAB 3 Refills Prov:DAVID ROBLEDO MD 02/10/24 Reported Medications Famotidine (PEPCID TABLET) 20 Mg Tb, 1 TAB PO DAILY 02/06/24 Chief Complaint of Abdominal/F: Diarrhea, Nausea Abdominal Pain Radiation: Periumbilical Past Medical History Cardiac: HTN Pulmonary: No pertinent Hx Central Nervous System: No pertinent Hx GI: No pertinent Hx Hemotology/Oncology: No pertinent Hx Hepatobiliary: No pertinent Hx Psychiatric: No pertinent Hx Musculoskeletal: No pertinent Hx Rheumotologic: No pertinent Hx Infectious Disease: No peritnent Hx ENT: No pertinent Hx Renal/: No pertinent Hx Endocrine: No pertinent Hx Dermatology: No pertinent Hx Past Surgical History: AICD, Hernia repair Patient Family History: Hypertension G8 FATHER, Onset:Unknown G8 FATHER Hypertension G8 FATHER, Onset:Unknown G8 FATHER Smoker: No Hx (Negative) Alocohol: None Drugs: None Lives with: With family Review of Systems Constitutional: No symptom reported Ears, Nose, & Throat: No symptom reported Eyes: No symptom reported Pulmonary/Respiratory: No symptom reported Cardiovascular: No symptom reported Gastrointestinal: Abdominal Pain Genitourinary: No symptom reported Musculoskeletal: No symptom reported Skin: No symptom reported Psychiatric: No symptom reported Endocrine: No symptom reported Hemotologic/Lymphatic: No symptom reported H&P Exam Vital Signs Vital Signs Date Time Temp Pulse Resp B/P (MAP) Pulse Ox O2 Delivery O2 Flow Rate FiO2 09/13/24 08:30 97.2 80 18 139/101 (114) 95 97.2 09/12/24 22:25 Room Air* 0 21 General Appeara: Well developed, Well nourished, Normal Appearance Head Exam: Normal inspection Neck Exam: Normal inspection, Non-tender Eye Exam: bilateral eye Normal inspection, bilateral eye PERRL Nasal Exam: Normal inspection Cardiovascular/Chest: Normal inspection, Regular rate, Normal Rhythm Abdominal Exam: Normal bowel sounds, Soft, No tenderness Rectal Exam: Deferred Tendon/ Neuro: Normal sensation Neuro/Mental St: Alert, Oriented Appearance: Appropriate appearance Eye contact/ Speech: Cooperative, Good eye contact, Normal speech Skin Exam: Normal inspection, Normal color, Warm/dry Labs/Xrays Labs Test 09/13/24 05:50 09/12/24 19:24 09/12/24 18:45 09/12/24 14:57 Range/Units White Blood Count 9.5 4.4-10.8 10^3/uL Red Blood Count 6.94 H 4.5-5.90 10^6/uL Hemoglobin 15.1 13.5-17.5 g/dL Hematocrit 47.7 41.0-53.0 % Mean Corpuscular Volume 68.8 L 80.0-100.0 fL Mean Corpuscular Hemoglobin 21.8 L 28.0-32.0 pg Mean Corpuscular Hemoglobin Concent 31.7 L 32.0-36.0 g/dL Red Cell Distribution Width 21.0 H 11.8-14.3 % Platelet Count 175 140-450 10^3/uL Mean Platelet Volume 9.0 6.9-10.8 fL Neutrophils (%) (Auto) 72.4 37.0-80.0 % Lymphocytes (%) (Auto) 16.7 10.0-50.0 % Monocytes (%) (Auto) 6.3 0.0-12.0 % Eosinophils (%) (Auto) 4.0 0.0-7.0 % Basophils (%) (Auto) 0.6 0.0-2.0 % Neutrophils # (Auto) 6.9 1.6-8.6 10 ^3/uL Lymphocytes # (Auto) 1.6 0.4-5.4 10 ^3/uL Monocytes # (Auto) 0.6 0-1.3 10 ^3/uL Eosinophils # (Auto) 0.4 0-0.8 10 ^3/uL Basophils # (Auto) 0.1 0-0.2 10 ^3/uL Nucleated Red Blood Cells 0.1 % Platelet Estimate Adequate Hypochromasia (manual) Slight Anisocytosis (manual) Slight Microcytosis Moderate Sodium Level 140 136-145 mmol/L Potassium Level 3.8 3.5-5.1 mmol/L Chloride Level 104 98-107 mmol/L Carbon Dioxide Level 26 20-31 mmol/L Anion Gap 10 5-15 Blood Urea Nitrogen 9 9-23 mg/dL Creatinine 1.46 H 0.700-1.30 mg/dL Glomerular Filtration Rate Calc 63 >90 mL/min BUN/Creatinine Ratio 6.2 L 10.0-20.0 Serum Glucose 76 74-106 mg/dL Calcium Level 10.1 8.7-10.4 mg/dL Total Bilirubin 0.8 0.2-1.0 mg/dL Aspartate Amino Transferase (AST) 25 13-40 U/L Alanine Aminotransferase (ALT) 25 7-40 U/L Alkaline Phosphatase 79 46-116 U/L Total Protein 7.1 5.7-8.2 g/dL Albumin 4.5 3.2-4.8 g/dL Prothrombin Time 10.5 9.3-11.8 sec Prothrombin Time INR 0.99 0.9-1.15 Activated Partial Thromboplast Time 30.4 24.5-34.5 SEC Urine Color Light-yellow Yellow Urine Clarity Clear Clear Urine pH 7.0 5.0-9.0 Urine Specific [place] 1.015 1.001-1.035 Urine Protein Negative Negative Urine Ketones Negative Negative Urine Blood Negative Negative /uL Urine Nitrite Negative Negative Urine Bilirubin Negative Negative Urine Urobilinogen Normal Negative mg/dL Urine Leukocyte Esterase Negative Negative /uL Urine RBC 1 0 - 3 /hpf Urine Microscopic WBC 0-3 /HPF Urine Squamous Epithelial Cells None seen <5 /hpf Urine Bacteria None seen None Seen /hpf Urine Glucose 4+ H Normal mg/dL Lipase 50 12-53 U/L Assessment/Plan Problem List: (1) Inguinal hernia Plan patient states he has discomfort mid abdomen no longer as painful on admission left inguinal area no visible bulge or complaint of pain on palpation slightly tender patient states has cardiac history and AICD Plan: cardiology consult repair of incarcerated left inguinal hernia tomorrow full liquid diet NPO after midnight Plan discussed with: Patient, Other (Dr. Xiao ) Visit Coding Surgery Date of Service if different f: Sep 13, 2024 Billing Provider: JOVAN XIAO MD Surgery Visit Codes: [id number] INP/OBS CARE(HIGH) MONROE STEIN [id number] ARCHITECT Sep 13, 2024 13:44
[2024-09-13] MEDS: LACTATED RINGER'S 1,000 ML IV SCH (13:45)
--- NOTE | 2024-09-13 14:40 | DVHINCON2 ---
Date Seen: Sep 13, 2024 Referring Physician MD Dameon Reason for Consultation Cardiac risk stratification History of Present Illness This is a 39-year-old man who presented to the emergency room with a chief complaint of abdominal pain for three days. The patient presented with complaints of abdominal pain radiating to the bilateral flank area and associated with some nausea and diarrhea. He has been diagnosed with an inguinal hernia with tentative repair of an incarcerated left inguinal hernia on 09/14/2024 with surgical team requesting cardiac risk stratification prior to intervention. The patient denies any chest pain, palpitations, diaphoresis, SOB, dizziness, or syncopal events. Denies exertional angina or dyspnea on exertion. States he is able to ambulate with the assistance has an optimal functional capacity. He underwent a 12 lead electrocardiogram revealing a sinus rhythm with left ventricular hypertrophy and T-wave inversion to inferior and lateral leads. These changes are similar to those ECGs from previous admissions. Latest AICD interrogation was two months ago stating he was unremarkable. Follows up in the outpatient setting with Dr. Pinto with upcoming appointment on 10/27/2024. Significant past medical history includes nonischemic/dilated/drug-induced cardiomyopathy, status post AICD placement at [facility] on 05/2024 ([employer]), pulmonary hypertension, pulmonary hypertension, prediabetes, dyslipidemia, tobacco use, and polysubstance abuse. Past Medical History Past medical history reviewed. No other significant than mentioned above. Past Surgical History AICD implantation, 05/2024 Family History: Hypertension G8 FATHER, Onset:Unknown G8 FATHER Hypertension G8 FATHER, Onset:Unknown G8 FATHER Family History Family history reviewed. Social History Denies the use of illicit drugs, alcohol, or tobacco use. States he last used methamphetamines on December,. Allergies: Coded Allergies: NO KNOWN ALLERGIES (Unverified , 05/21/22) Home Meds Active Scripts Amoxicillin & Pot Clavulanate (Amoxicillin/Potassium Cla) 875 Mg Tab, 1 TAB PO BID for 7 Days, #14 TAB 0 Refills Prov:TIM VINCENT 03/22/24 Oseltamivir Phosphate (Tamiflu) 75 Mg Cap, 1 CAP PO BID for 5 Days, #10 CAP 0 Refills Prov:TIM VINCENT 03/22/24 Acetaminophen (Acetaminophen) 500 Mg Tab, 500 MG PO Q4HPRN, #30 TAB 0 Refills Prov:TIM VINCENT 03/22/24 Albuterol Sulfate (VENTOLIN MDI) 90 Mcg Ih, 90 MCG IN Q6HP PRN, #1 INH Prov:DAVID ROBLEDO MD 02/10/24 Aspirin (Aspirin) 81 Mg Tab, 81 MG PO DAILY for 30 Days, #30 TAB 3 Refills Prov:DAVID ROBLEDO MD 02/10/24 Spironolactone (Aldactone) 25 Mg Tab, 25 MG PO DAILY for 30 Days, #30 TAB 3 Refills Prov:DAVID ROBLEDO MD 02/10/24 Carvedilol (Carvedilol) 3.125 Mg Tab, 1 TAB PO BID for 30 Days, #60 TAB Prov:DAVID ROBLEDO MD 02/10/24 Furosemide (Furosemide) 40 Mg Tab, 1 TAB PO QAM for 30 Days, #30 TAB Prov:DAVID ROBLEDO MD 02/10/24 Sacubitril-Valsartan (Entresto 24-26 mg) 1 Tab Tab, 1 TAB PO BID for 30 Days, #60 TAB 3 Refills Prov:DAVID ROBLEDO MD 02/10/24 Empagliflozin (Jardiance) 10 Mg Tab, 10 MG PO DAILY for 30 Days, #30 TAB 3 Refills Prov:DAVID ROBLEDO MD 02/10/24 Reported Medications Famotidine (PEPCID TABLET) 20 Mg Tb, 1 TAB PO DAILY 02/06/24 Home Meds Home medications reviewed. Current Medications Current Medications Medications (Trade) Dose Ordered Sig/Margarito Route PRN Reason Start Time Stop Time Status Last Admin Pantoprazole Sodium (Protonix) 40 mg DAILY IV 09/13/24 10:00 09/13/24 10:27 Ondansetron HCl (Zofran) 4 mg Q4HP PRN IV NAUSEA / VOMITING 09/12/24 19:15 Morphine Sulfate 2 mg Q4HPRN PRN IV SEVERE PAIN (7-10 PAIN SCALE) 09/12/24 19:15 09/12/24 23:23 Hydralazine HCl (Apresoline Injection) 10 mg Q6HP PRN IV SBP>150 09/12/24 23:45 09/13/24 00:42 Lactated Ringer's 1,000 ml @ 100 mls/hr Q10H IV 09/13/24 13:45 Review of Systems Constitutional: No symptom reported Ears, Nose, & Throat: No symptom reported Eyes: No symptom reported Neurological: No symptoms reported Pulmonary/Respiratory: No symptom reported Cardiovascular: No symptom reported Gastrointestinal: Abdominal pain, nausea, diarrhea, bilateral flank pain Genitourinary: No symptom reported Musculoskeletal: No symptom reported Skin: No symptom reported Psychiatric: No symptom reported Endocrine: No symptom reported Hemotologic/Lymphatic: No symptom reported Vital Signs Vital Signs Date Time Temp Pulse Resp B/P (MAP) Pulse Ox O2 Delivery O2 Flow Rate FiO2 09/13/24 08:30 97.2 80 18 139/101 (114) 95 97.2 09/12/24 22:25 Room Air* 0 21 Physical Exam General Appearance: Cooperative. Well developed. Well nourished. In no acute distress Head Exam: Normal inspection Neck Exam: Normal inspection. Non-tender. Normal alignment Pulmonary/Respiratory: Chest non-tender. Clear bilateral breath sounds Cardiovascular/Chest: Regular rate and rhythm. S1, S2. Sinus rhythm with T- wave inversion to inferolateral leads and LVH. No murmurs. No JVD. Peripheral Pulses: 2+ Radial (R). 2+ Radial (L). 2+ Pedal (R). 2+ Pedal (L) Abdominal Exam: Normal bowel sounds. Soft. Tender Ankle Exam: Negative ankle edema Lower extremities: Negative lower extremity edema Neuro/Mental Status: A&O x4. Coherent Thoughts/Psych: Normal thought pattern. Appropriate mood and affect. Good judgement and insight Appearance: In no acute distress Skin Exam: Normal inspection. Normal color. Warm. Dry Labs/Diagnostic Data Labs Test 09/13/24 05:50 09/12/24 19:24 09/12/24 18:45 09/12/24 14:57 Range/Units White Blood Count 9.5 4.4-10.8 10^3/uL Red Blood Count 6.94 H 4.5-5.90 10^6/uL Hemoglobin 15.1 13.5-17.5 g/dL Hematocrit 47.7 41.0-53.0 % Mean Corpuscular Volume 68.8 L 80.0-100.0 fL Mean Corpuscular Hemoglobin 21.8 L 28.0-32.0 pg Mean Corpuscular Hemoglobin Concent 31.7 L 32.0-36.0 g/dL Red Cell Distribution Width 21.0 H 11.8-14.3 % Platelet Count 175 140-450 10^3/uL Mean Platelet Volume 9.0 6.9-10.8 fL Neutrophils (%) (Auto) 72.4 37.0-80.0 % Lymphocytes (%) (Auto) 16.7 10.0-50.0 % Monocytes (%) (Auto) 6.3 0.0-12.0 % Eosinophils (%) (Auto) 4.0 0.0-7.0 % Basophils (%) (Auto) 0.6 0.0-2.0 % Neutrophils # (Auto) 6.9 1.6-8.6 10 ^3/uL Lymphocytes # (Auto) 1.6 0.4-5.4 10 ^3/uL Monocytes # (Auto) 0.6 0-1.3 10 ^3/uL Eosinophils # (Auto) 0.4 0-0.8 10 ^3/uL Basophils # (Auto) 0.1 0-0.2 10 ^3/uL Nucleated Red Blood Cells 0.1 % Platelet Estimate Adequate Hypochromasia (manual) Slight Anisocytosis (manual) Slight Microcytosis Moderate Sodium Level 140 136-145 mmol/L Potassium Level 3.8 3.5-5.1 mmol/L Chloride Level 104 98-107 mmol/L Carbon Dioxide Level 26 20-31 mmol/L Anion Gap 10 5-15 Blood Urea Nitrogen 9 9-23 mg/dL Creatinine 1.46 H 0.700-1.30 mg/dL Glomerular Filtration Rate Calc 63 >90 mL/min BUN/Creatinine Ratio 6.2 L 10.0-20.0 Serum Glucose 76 74-106 mg/dL Calcium Level 10.1 8.7-10.4 mg/dL Total Bilirubin 0.8 0.2-1.0 mg/dL Aspartate Amino Transferase (AST) 25 13-40 U/L Alanine Aminotransferase (ALT) 25 7-40 U/L Alkaline Phosphatase 79 46-116 U/L Total Protein 7.1 5.7-8.2 g/dL Albumin 4.5 3.2-4.8 g/dL Prothrombin Time 10.5 9.3-11.8 sec Prothrombin Time INR 0.99 0.9-1.15 Activated Partial Thromboplast Time 30.4 24.5-34.5 SEC Urine Color Light-yellow Yellow Urine Clarity Clear Clear Urine pH 7.0 5.0-9.0 Urine Specific [place] 1.015 1.001-1.035 Urine Protein Negative Negative Urine Ketones Negative Negative Urine Blood Negative Negative /uL Urine Nitrite Negative Negative Urine Bilirubin Negative Negative Urine Urobilinogen Normal Negative mg/dL Urine Leukocyte Esterase Negative Negative /uL Urine RBC 1 0 - 3 /hpf Urine Microscopic WBC 0-3 /HPF Urine Squamous Epithelial Cells None seen <5 /hpf Urine Bacteria None seen None Seen /hpf Urine Glucose 4+ H Normal mg/dL Lipase 50 12-53 U/L Assessment Preprocedural cardiovascular examination Left inguinal hernia Dilated/nonischemic/drug-induced cardiomyopathy with LVEF <20% Chronic compensated HFrEF Presence of AICD ([employer], 05/2024) Pulmonary hypertension Hypertension Prediabetes Recent history of methamphetamine abuse Plan/Recommendation (Dr. Pinto) Revised cardiac risk index (Pete criteria): 5.0% risk of , [place], or cardiac arrest. Patient has underlying history of congestive heart failure without acute decompensation, has no history of coronary artery disease, and has an optimal functional capacity. Per Cardiology standpoint, the patient is at a moderate-risk for moderate-risk surgery. There is no additional cardiac workup indicated prior to surgery. Thank you for allowing us to care for this patient. Please call with any questions or concerns. This medical document was created using an electronic medical record system with voice recognition software and computerized dictation system. Although this do cument has been carefully reviewed, there might still be some phonetic and typographical errors. Occasional wrong-word or ``sound-alike substitutions may have occurred due to the inherent limitations of voice recognition software. These areas are purely typographical due to imperfections of the software programs and do not reflect any compromise in the patient's medical care. Please read the chart carefully and recognize, using context, where these substitutions have occurred. Plan discussed with: Patient, Other NYHA Physical activity limitations: Class2(Slight)fatigue,sob (palpitatns, angina w activityv) Date of Service: Sep 13, 2024 Billing Provider: JO ANN DIEGO Cardiology Common Codes: [id number] INP/OBS CARE (High) JO ANN DIEGO Sep 13, 2024 14:40
[2024-09-13 17:04] VITALS: BP 126/99; PULSE 75; RESP 17; TEMP 96.4; O2SAT 97
--- NOTE | 2024-09-13 17:15 | DVH ---
CHEST RADIOGRAPH Indication: Pre-op Technique: Single frontal view of the chest was obtained Comparison: XY CHEST XRAY 1 VIEW on DOS: 03/21/24, XY CHEST XRAY 1 VIEW on DOS: 02/10/24, XY CHEST XRA Y 1 VIEW on DOS: 10/09/23 FINDINGS: Lines and Tubes: Dual-chamber pacemaker in place with pulse generator over the left chest Lungs: No focal consolidation. Pleura: No effusion. No pneumothorax. Cardiomediastinal contours: Unremarkable Bones: No acute osseous abnormality. IMPRESSION: 1. No acute cardiopulmonary disease. 2. Dual-chamber pacemaker in place with pulse generator over left chest.
[2024-09-13 20:00] VITALS: PULSE 85; RESP 17; O2SAT 96
[2024-09-13 21:00] VITALS: BP 148/117; PULSE 85; RESP 17; TEMP 98; O2SAT 96
--- NOTE | 2024-09-13 22:33 | DVHINCON2 ---
Date Seen: Sep 13, 2024 Referring Physician MD Dameon Reason for Consultation Cardiac risk stratification History of Present Illness This is a 39-year-old male with a PMH of ischemic/dilated/drug-induced cardiomyopathy, status post AICD placement at [facility] on 05/2024 ([employer]), pulmonary hypertension, pulmonary hypertension, prediabetes, dyslipidemia, tobacco use, and polysubstance abuse who presented to the ED with complaints of abdominal pain for three days. The patient presented with complaints of abdominal pain radiating to the bilateral flank area and associated with some nausea and diarrhea. He has been diagnosed with an inguinal hernia with tentative repair of an incarcerated left inguinal hernia on 09/14/2024 with surgical team requesting cardiac risk stratification prior to intervention. The patient denies any chest pain, palpitations, diaphoresis, SOB, dizziness, or syncopal events. Denies exertional angina or dyspnea on exertion. States he is able to ambulate with the assistance has an optimal functional capacity. He underwent a 12 lead electrocardiogram revealing a sinus rhythm with left ventricular hypertrophy and T-wave inversion to inferior and lateral leads. These changes are similar to those ECGs from previous admissions. Latest AICD interrogation was two months ago stating he was unremarkable. Follows up in the outpatient setting at my office with upcoming appointment on 10/27/2024. Past Medical History Past medical history reviewed. No other significant than mentioned above. Past Surgical History AICD implantation, 05/2024 Family History: Hypertension G8 FATHER, Onset:Unknown G8 FATHER Hypertension G8 FATHER, Onset:Unknown G8 FATHER Allergies: Coded Allergies: NO KNOWN ALLERGIES (Unverified , 05/21/22) Home Meds Active Scripts Amoxicillin & Pot Clavulanate (Amoxicillin/Potassium Cla) 875 Mg Tab, 1 TAB PO BID for 7 Days, #14 TAB 0 Refills Prov:TIM VINCENT 03/22/24 Oseltamivir Phosphate (Tamiflu) 75 Mg Cap, 1 CAP PO BID for 5 Days, #10 CAP 0 Refills Prov:TIM VINCENT 03/22/24 Acetaminophen (Acetaminophen) 500 Mg Tab, 500 MG PO Q4HPRN, #30 TAB 0 Refills Prov:TIM VINCENT 03/22/24 Albuterol Sulfate (VENTOLIN MDI) 90 Mcg Ih, 90 MCG IN Q6HP PRN, #1 INH Prov:DAVID ROBLEDO MD 02/10/24 Aspirin (Aspirin) 81 Mg Tab, 81 MG PO DAILY for 30 Days, #30 TAB 3 Refills Prov:DAVID ROBLEDO MD 02/10/24 Spironolactone (Aldactone) 25 Mg Tab, 25 MG PO DAILY for 30 Days, #30 TAB 3 Refills Prov:DAVID ROBLEDO MD 02/10/24 Carvedilol (Carvedilol) 3.125 Mg Tab, 1 TAB PO BID for 30 Days, #60 TAB Prov:DAVID ROBLEDO MD 02/10/24 Furosemide (Furosemide) 40 Mg Tab, 1 TAB PO QAM for 30 Days, #30 TAB Prov:DAVID ROBLEDO MD 02/10/24 Sacubitril-Valsartan (Entresto 24-26 mg) 1 Tab Tab, 1 TAB PO BID for 30 Days, #60 TAB 3 Refills Prov:DAVID ROBLEDO MD 02/10/24 Empagliflozin (Jardiance) 10 Mg Tab, 10 MG PO DAILY for 30 Days, #30 TAB 3 Refills Prov:DAVID ROBLEDO MD 02/10/24 Reported Medications Famotidine (PEPCID TABLET) 20 Mg Tb, 1 TAB PO DAILY 02/06/24 Current Medications Current Medications Medications (Trade) Dose Ordered Sig/Margarito Route PRN Reason Start Time Stop Time Status Last Admin Pantoprazole Sodium (Protonix) 40 mg DAILY IV 09/13/24 10:00 09/13/24 10:27 Hydralazine HCl (Apresoline Injection) 10 mg Q6HP PRN IV SBP>150 09/12/24 23:45 09/13/24 00:42 Lactated Ringer's 1,000 ml @ 100 mls/hr Q10H IV 09/13/24 13:45 09/13/24 13:45 Review of Systems Constitutional: No symptom reported Ears, Nose, & Throat: No symptom reported Eyes: No symptom reported Neurological: No symptoms reported Pulmonary/Respiratory: No symptom reported Cardiovascular: No symptom reported Gastrointestinal: Abdominal pain, nausea, diarrhea, bilateral flank pain Genitourinary: No symptom reported Musculoskeletal: No symptom reported Skin: No symptom reported Psychiatric: No symptom reported Endocrine: No symptom reported Hemotologic/Lymphatic: No symptom reported Vital Signs Vital Signs Date Time Temp Pulse Resp B/P (MAP) Pulse Ox O2 Delivery O2 Flow Rate FiO2 09/13/24 22:24 85 17 148/98 09/13/24 21:00 98.0 96 98.0 09/13/24 08:00 Room Air* 0 21 Physical Exam GENERAL: Alert and oriented x 3. No acute distress. EYES: PERRL, EOMI. Anicteric. HENT: Moist mucous membranes. LUNGS: Clear to auscultation bilaterally. CARDIOVASCULAR: Regular rate and rhythm. ABDOMEN: Soft, non-tender and non-distended. EXTREMITIES: No edema. NEUROLOGIC: No focal neurological deficits. SKIN: Warm, dry. Labs/Diagnostic Data Labs Test 09/13/24 05:50 09/12/24 19:24 09/12/24 18:45 09/12/24 14:57 Range/Units White Blood Count 9.5 4.4-10.8 10^3/uL Red Blood Count 6.94 H 4.5-5.90 10^6/uL Hemoglobin 15.1 13.5-17.5 g/dL Hematocrit 47.7 41.0-53.0 % Mean Corpuscular Volume 68.8 L 80.0-100.0 fL Mean Corpuscular Hemoglobin 21.8 L 28.0-32.0 pg Mean Corpuscular Hemoglobin Concent 31.7 L 32.0-36.0 g/dL Red Cell Distribution Width 21.0 H 11.8-14.3 % Platelet Count 175 140-450 10^3/uL Mean Platelet Volume 9.0 6.9-10.8 fL Neutrophils (%) (Auto) 72.4 37.0-80.0 % Lymphocytes (%) (Auto) 16.7 10.0-50.0 % Monocytes (%) (Auto) 6.3 0.0-12.0 % Eosinophils (%) (Auto) 4.0 0.0-7.0 % Basophils (%) (Auto) 0.6 0.0-2.0 % Neutrophils # (Auto) 6.9 1.6-8.6 10 ^3/uL Lymphocytes # (Auto) 1.6 0.4-5.4 10 ^3/uL Monocytes # (Auto) 0.6 0-1.3 10 ^3/uL Eosinophils # (Auto) 0.4 0-0.8 10 ^3/uL Basophils # (Auto) 0.1 0-0.2 10 ^3/uL Nucleated Red Blood Cells 0.1 % Platelet Estimate Adequate Hypochromasia (manual) Slight Anisocytosis (manual) Slight Microcytosis Moderate Sodium Level 140 136-145 mmol/L Potassium Level 3.8 3.5-5.1 mmol/L Chloride Level 104 98-107 mmol/L Carbon Dioxide Level 26 20-31 mmol/L Anion Gap 10 5-15 Blood Urea Nitrogen 9 9-23 mg/dL Creatinine 1.46 H 0.700-1.30 mg/dL Glomerular Filtration Rate Calc 63 >90 mL/min BUN/Creatinine Ratio 6.2 L 10.0-20.0 Serum Glucose 76 74-106 mg/dL Calcium Level 10.1 8.7-10.4 mg/dL Total Bilirubin 0.8 0.2-1.0 mg/dL Aspartate Amino Transferase (AST) 25 13-40 U/L Alanine Aminotransferase (ALT) 25 7-40 U/L Alkaline Phosphatase 79 46-116 U/L Total Protein 7.1 5.7-8.2 g/dL Albumin 4.5 3.2-4.8 g/dL Prothrombin Time 10.5 9.3-11.8 sec Prothrombin Time INR 0.99 0.9-1.15 Activated Partial Thromboplast Time 30.4 24.5-34.5 SEC Urine Color Light-yellow Yellow Urine Clarity Clear Clear Urine pH 7.0 5.0-9.0 Urine Specific [place] 1.015 1.001-1.035 Urine Protein Negative Negative Urine Ketones Negative Negative Urine Blood Negative Negative /uL Urine Nitrite Negative Negative Urine Bilirubin Negative Negative Urine Urobilinogen Normal Negative mg/dL Urine Leukocyte Esterase Negative Negative /uL Urine RBC 1 0 - 3 /hpf Urine Microscopic WBC 0-3 /HPF Urine Squamous Epithelial Cells None seen <5 /hpf Urine Bacteria None seen None Seen /hpf Urine Glucose 4+ H Normal mg/dL Lipase 50 12-53 U/L Assessment Preprocedural cardiovascular examination. Left inguinal hernia. 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 Chronic compensated HFrEF. Presence of AICD ([employer], 05/2024). Pulmonary hypertension. Hypertension. Prediabetes. Recent history of methamphetamine abuse. Plan/Recommendation I agree with your ongoing assessment and care of plan. Patient has been seen by Ebonie Kenny NP on my behalf. We have discussed the plan with the patient. Revised cardiac risk index (Pete criteria): 5.0% risk of , [place], or cardiac arrest. Patient has underlying history of congestive heart failure without acute decompensation, has no history of coronary artery disease, and has an optimal functional capacity. Per Cardiology standpoint, the patient is at a moderate-risk for moderate-risk surgery. There is no additional cardiac workup indicated prior to surgery. Additional plan as per the hospital course. Plan discussed with: Patient NYHA Physical activity limitations: Class2(Slight)fatigue,sob Date of Service: Sep 13, 2024 Billing Provider: HONORIO GASTELUM MD Cardiology Common Codes: [id number] INP/OBS CARE (High) HONORIO GASTELUM MD Sep 13, 2024 22:33
[2024-09-14] VITALS (27 sets, daily range): BP systolic 91–184; BP diastolic 69–109; PULSE 60–123; RESP 9–38; TEMP 97.6–98.6; O2SAT 93–98
[2024-09-14 05:39] LABS: Hemoglobin 14.3 g/dL (13.5-17.5)
[2024-09-14 05:43] LABS: Hematocrit 44.7 % (41.0-53.0); Mean Corpuscular Hemoglobin 22.0 pg (28.0-32.0); Mean Corpuscular Volume 68.9 fL (80.0-100.0); Nucleated Red Blood Cells % 0.2 %
[2024-09-14 06:03] LABS: Alanine Aminotransferase 22 U/L (7-40); Albumin 4.4 g/dL (3.2-4.8); Alkaline Phosphatase 75 U/L (46-116); Anion Gap 8 (5-15); BUN/Creatinine Ratio 6.4 (10.0-20.0); Blood Urea Nitrogen 10 mg/dL (9-23); Calcium 9.1 mg/dL (8.7-10.4); Carbon Dioxide 27 mmol/L (20-31); Chloride 104 mmol/L (98-107); Glucose 78 mg/dL (74-106); Potassium 4.0 mmol/L (3.5-5.1); Sodium 139 mmol/L (136-145); Total Protein 6.8 g/dL (5.7-8.2)
[2024-09-14 06:04] LABS: Bilirubin, Total 1.1 mg/dL (0.2-1.0)
[2024-09-14 10:32] LABS: Hepatitis B Surface Antigen Negative (Negative)
[2024-09-14 10:39] LABS: Hepatitis C Antibody Negative (Negative)
--- NOTE | 2024-09-14 10:51 | DVHPN2 ---
Reviewed: Care Plan, H&P, Labs, Medications, Previous Orders, Radiology Changes from previous H/P or p: No Changes Objective Vitals Vital Signs Date Time Temp Pulse Resp B/P (MAP) Pulse Ox O2 Delivery O2 Flow Rate FiO2 09/14/24 09:00 97.6 75 18 150/99 (116) 95 97.6 09/14/24 08:20 Room Air* 0 21 Intake/Output Intake and Output 09/14/24 07:00 Intake Total 2058 ml Output Total 1290 ml Balance 768 ml Intake Oral 2058 ml Output Urine Total 1290 ml # Voids 10 Medications Current Medications Medications Dose Ordered Sig/Margarito Route Start Time Stop Time Status Last Admin Dose Admin Pantoprazole Sodium 40 mg DAILY IV 09/13/24 10:00 09/14/24 10:03 40 MG Ondansetron HCl 4 mg Q4HP PRN IV 09/12/24 19:15 Morphine Sulfate 2 mg Q4HPRN PRN IV 09/12/24 19:15 09/13/24 22:24 2 MG Hydralazine HCl 10 mg Q6HP PRN IV 09/12/24 23:45 09/14/24 05:13 10 MG Lactated Ringer's 1,000 ml @ 100 mls/hr Q10H IV 09/13/24 13:45 09/13/24 13:45 100 MLS/HR Laboratory Results Laboratory Tests 09/14/24 05:17 Chemistry Test 09/14/24 05:17 Albumin 4.4 g/dL (3.2-4.8) Calcium Level 9.1 mg/dL (8.7-10.4) Total Protein 6.8 g/dL (5.7-8.2) LFT Test 09/14/24 05:17 Alanine Aminotransferase (ALT) 22 U/L (7-40) Alkaline Phosphatase 75 U/L (46-116) Aspartate Amino Transferase (AST) 23 U/L (13-40) Total Bilirubin 1.1 mg/dL (0.2-1.0) H Urinalysis Test 09/12/24 18:45 Urine Color Light-yellow (Yellow) Urine Clarity Clear (Clear) Urine pH 7.0 (5.0-9.0) Urine Specific [place] 1.015 (1.001-1.035) Urine Protein Negative (Negative) Urine Ketones Negative (Negative) Urine Blood Negative /uL (Negative) Urine Nitrite Negative (Negative) Urine Bilirubin Negative (Negative) Urine Urobilinogen Normal mg/dL (Negative) Urine Leukocyte Esterase Negative /uL (Negative) Urine RBC 1 /hpf (0 - 3) Urine Microscopic WBC /HPF (0-3) Urine Squamous Epithelial Cells None seen /hpf (<5) Urine Bacteria None seen /hpf (None Seen) Urine Glucose 4+ mg/dL (Normal) H Labs and/or images reviewed: Labs reviewed by me, Image(s) reviewed by me Assessment/Plan Assessment/Plan Acute abdominal pain secondary to possible incarcerated left inguinal hernia: Patient getting surgery today by Acute dehydration: IV fluids Hypertension Diabetes History of congestive heart failure Plan discussed with: Patient My Orders Orders - MIRYAM ROSS MD Procedure Category Date Status Time *Consult Dr. Xiao CONS 09/13/24 Transmitted 12:14 Lactated Ringer's PHA 09/13/24 In Process 13:45 Date of Service: Sep 14, 2024 Billing Provider: MIRYAM ROSS MD Common Visit Codes: [id number] INP/OBS CARE(HIGH) MIRYAM ROSS MD Sep 14, 2024 10:51
[2024-09-14] MEDS: LIDOCAINE W/ EPINEPHRINE 1% 20ML VIAL ONE (15:41)
[2024-09-14] MEDS: BUPIVACAINE 0.5% P/F INJ 10 ML VIAL ONE (15:41)
[2024-09-14] MEDS ORDERED: MIDAZOLAM HCL 2MG/2ML 2ml VIAL (1mg/ml) ONE (15:46)
[2024-09-14] MEDS ORDERED: fentaNYL CITRATE 100 MCG/2 ML VL ONE (15:46)
[2024-09-14] MEDS ORDERED: HYDROmorphone HCL 2 MG/ML VL/or syr ONE (15:46)
[2024-09-14] MEDS ORDERED: ETOMIDATE (2MG/ML) 20ML VIAL IV ONE (16:02)
[2024-09-14] MEDS: ONDANSETRON HCL 4 MG/2 ML VIAL IV ONE (17:15)
[2024-09-14] MEDS ORDERED: MIDAZOLAM HCL 2MG/2ML 2ml VIAL (1mg/ml) IV PRN (17:15)
[2024-09-14] MEDS ORDERED: MORPHINE SULFATE 4 MG/ML SYR/VIAL IV PRN (17:15)
[2024-09-14] MEDS: hydrALAZINE HCL 20 MG/ML VL IV PRN (17:28)
--- NOTE | 2024-09-14 17:37 | DVHOP ---
DATE OF SURGERY: 09/14/2024 PREOPERATIVE DIAGNOSIS: Incarcerated left inguinal hernia. POSTOPERATIVE DIAGNOSIS: Incarcerated left inguinal hernia. SURGEON: Matt Xiao MD ANESTHESIA: General endotracheal. ANESTHESIOLOGIST: Dr. Arredondo. PROCEDURE: Repair of incarcerated left inguinal hernia (indirect). DESCRIPTION OF PROCEDURE: Under adequate anesthesia with the patient's skin prepped and draped, an incision was made over the ____ palpable visible bulge of the left groin. Incision was deepened with electrocautery. The patient's cord structures were encircled with a Nyasia drain. The ilioinguinal nerve was visualized, protected, laterally retracted. The patient's indirect hernia was from fibrous tissue and cremasteric fibers. It was opened and digitally explored. It contained no viscera at the time of this examination. The tissues were swept to allow for twisting of the sac on itself. The sac was twisted on itself, traced high up into the internal inguinal ring where it was doubly ligated. The excess peritoneum was excised and submitted for histopathologic examination. The stump of the ligated peritoneum was then allowed to retract beneath the fibers of the internal oblique muscle fibers. ____ examination, the peritoneal reflection was then allowed to retract beneath the fibers of the internal oblique aponeurosis. The patient's floor of the hernia was then repaired using nonabsorbable sutures through the conjoint tendon and reflecting portion of Poupart's ligament. The ring was secured so as to accommodate the cord structures without undue constriction. The testicle was placed into its normal anatomical position. Subcutaneous tissues and skin approximated using Monocryl sutures, Dermabond, glue, and Steri-Strips. The patient remained stable throughout the procedure and left the operating room following an accurate needle and sponge counts. His father, Mustapha Travis, . was thoroughly informed at [phone]. MD GANESH Oneil/REDD/KEENA TID: [id number] RECEIPT: [id number]
[2024-09-14] MEDS: HYDROmorphone HCL 2 MG/ML VL/or syr IV PRN (17:45)
--- NOTE | 2024-09-14 21:07 | DVHPN2 ---
Progress Note - Dictate Date Seen: Sep 14, 2024 Medical Necessity Reason Pt with a Central, PICC or Fol: No Subjective Patient was seen and evaluated in follow up in the ICU. Patient is on 5 LPM NC. Patient underwent repair of left inguinal hernia by Dr. Xiao. Patient is complaining of pain at surgical site. vital signs Vital Sign Date Time Temp Pulse Resp B/P (MAP) Pulse Ox O2 Delivery O2 Flow Rate FiO2 09/14/24 13:00 98.1 72 18 127/80 (96) 98 98.1 09/14/24 08:20 Room Air* 0 21 Total Intake and Output 09/13/24 09/13/24 09/14/24 15:00 23:00 07:00 Intake Total 1458 ml 600 ml Output Total 600 ml 690 ml Balance 858 ml -90 ml medications Current Medications Medications Dose Ordered Sig/Margarito Route Start Time Stop Time Status Last Admin Dose Admin Pantoprazole Sodium 40 mg DAILY IV 09/13/24 10:00 09/14/24 10:03 40 MG Ondansetron HCl 4 mg Q4HP PRN IV 09/12/24 19:15 Morphine Sulfate 2 mg Q4HPRN PRN IV 09/12/24 19:15 09/13/24 22:24 2 MG Hydralazine HCl 10 mg Q6HP PRN IV 09/12/24 23:45 09/14/24 05:13 10 MG Lactated Ringer's 1,000 ml @ 100 mls/hr Q10H IV 09/13/24 13:45 09/13/24 13:45 100 MLS/HR Acetaminophen/ Codeine Phosphate 1 tab Q4HP PRN PO 09/14/24 17:00 Cefazolin Sodium 50 ml @ 100 mls/hr Q8HR IV 09/14/24 22:00 Hydralazine HCl 5 mg Q10M PRN IV 09/14/24 17:15 09/14/24 18:06 Midazolam HCl 1 mg Q10M PRN IV 09/14/24 17:15 09/14/24 17:56 Ephedrine Sulfate 10 mg Q10M PRN IV 09/14/24 17:15 09/14/24 17:56 Hydromorphone HCl 0.5 mg Q10M PRN IV 09/14/24 17:15 09/14/24 17:56 objective GENERAL: Alert and oriented x 3. No acute distress. EYES: PERRL, EOMI. Anicteric. HENT: Moist mucous membranes. LUNGS: Clear to auscultation bilaterally. CARDIOVASCULAR: Regular rate and rhythm. ABDOMEN: Soft, non-tender and non-distended. EXTREMITIES: No edema. NEUROLOGIC: No focal neurological deficits. SKIN: Warm, dry. laboratory and microbiology Laboratory Tests 09/14/24 05:17 Test 09/14/24 05:17 Range/Units Serum Glucose 78 74-106 mg/dL Problem List Preprocedural cardiovascular examination. Left inguinal hernia. 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 Chronic compensated HFrEF. Presence of AICD ([employer], 05/2024). Pulmonary hypertension. Hypertension. Prediabetes. Recent history of methamphetamine abuse. Assessment/Plan Continued all current supportive medical care. Dilaudid and Tylenol #3 for pain management. IV antibiotics as ordered. IV Hydralazine for SBP > 160. GI prophylactics. Additional plan as per the hospital course. Critical care time of 45 minutes provided to include time spent evaluation of patient at bedside, when appropriate patient/family education for diagnosis, treatment plan, review of pertinent medical information and discussion of care with specialty providers and PCP. Dietary Evaluation Review Comments: 1. Advise pt to call his primary physician and let him know that he is hospitalized at [facility]. 2. Consider clear liquid if no furthter GI symtopms 3. Follow up with his lab values and progress notes for reassessment as needed. Expected Outcomes/Goals: free from GI symptoms Plan discussed with: Patient HONORIO GASTELUM MD Sep 14, 2024 17:25
[2024-09-14] MEDS: ONDANSETRON HCL 4 MG/2 ML VIAL IV PRN (21:19)
[2024-09-14] MEDS: ceFAZolin 1GM/50ML 50 ML IV SCH (21:19)
[2024-09-15] VITALS (43 sets, daily range): BP systolic 90–173; BP diastolic 59–107; PULSE 86–121; RESP 11–29; TEMP 98–98.8; O2SAT 90–97
[2024-09-15] MEDS: ACETAMINOPHEN/CODEINE#3 (300/30mg) TAB PO PRN (01:45)
[2024-09-15 04:09] LABS: Hematocrit 44.3 % (41.0-53.0); Hemoglobin 14.2 g/dL (13.5-17.5); Mean Corpuscular Hemoglobin 22.0 pg (28.0-32.0); Mean Corpuscular Volume 68.3 fL (80.0-100.0); Nucleated Red Blood Cells % 0.0 %
[2024-09-15 04:11] LABS: Anion Gap 13 (5-15); Carbon Dioxide 22 mmol/L (20-31); Chloride 101 mmol/L (98-107); Potassium 4.4 mmol/L (3.5-5.1)
[2024-09-15 04:12] LABS: Calcium 9.9 mg/dL (8.7-10.4)
[2024-09-15 04:17] LABS: BUN/Creatinine Ratio 7.5 (10.0-20.0); Blood Urea Nitrogen 12 mg/dL (9-23)
[2024-09-15 04:23] LABS: Glucose 131 mg/dL (74-106); Sodium 136 mmol/L (136-145)
--- NOTE | 2024-09-15 09:37 | DVHPN2 ---
Reviewed: Care Plan, H&P, Labs, Medications, Previous Orders, Radiology Changes from previous H/P or p: No Changes Objective Vitals Vital Signs Date Time Temp Pulse Resp B/P (MAP) Pulse Ox O2 Delivery O2 Flow Rate FiO2 09/15/24 08:00 91 09/15/24 08:00 12 94 Nasal Cannula* 3 32 09/15/24 08:00 98.3 119/105 (110) 98.3 135/86 (102) Intake/Output Intake and Output 09/15/24 07:00 Intake Total 810 ml Output Total 1900 ml Balance -1090 ml Intake Oral 700 ml IV Total 110 ml Output Urine Total 1000 ml Emesis 900 ml # Voids 4 Medications Current Medications Medications Dose Ordered Sig/Margarito Route Start Time Stop Time Status Last Admin Dose Admin Pantoprazole Sodium 40 mg DAILY IV 09/13/24 10:00 09/14/24 10:03 40 MG Ondansetron HCl 4 mg Q4HP PRN IV 09/12/24 19:15 09/15/24 01:45 4 MG Morphine Sulfate 2 mg Q4HPRN PRN IV 09/12/24 19:15 09/14/24 23:32 2 MG Hydralazine HCl 10 mg Q6HP PRN IV 09/12/24 23:45 09/15/24 02:04 10 MG Acetaminophen/ Codeine Phosphate 1 tab Q4HP PRN PO 09/14/24 17:00 09/15/24 01:45 1 TAB Cefazolin Sodium 50 ml @ 100 mls/hr Q8HR IV 09/14/24 22:00 09/15/24 05:16 100 MLS/HR Laboratory Results Laboratory Tests 09/15/24 03:45 Chemistry Test 09/15/24 03:45 Calcium Level 9.9 mg/dL (8.7-10.4) Urinalysis Test 09/12/24 18:45 Urine Color Light-yellow (Yellow) Urine Clarity Clear (Clear) Urine pH 7.0 (5.0-9.0) Urine Specific Mazon 1.015 (1.001-1.035) Urine Protein Negative (Negative) Urine Ketones Negative (Negative) Urine Blood Negative /uL (Negative) Urine Nitrite Negative (Negative) Urine Bilirubin Negative (Negative) Urine Urobilinogen Normal mg/dL (Negative) Urine Leukocyte Esterase Negative /uL (Negative) Urine RBC 1 /hpf (0 - 3) Urine Microscopic WBC /HPF (0-3) Urine Squamous Epithelial Cells None seen /hpf (<5) Urine Bacteria None seen /hpf (None Seen) Urine Glucose 4+ mg/dL (Normal) H Labs and/or images reviewed: Labs reviewed by me, Image(s) reviewed by me Assessment/Plan Assessment/Plan Acute abdominal pain secondary to incarcerated left inguinal hernia: Status post surgery by on 09-14-24 Acute dehydration: IV fluids Hypertension Diabetes History of congestive heart failure Patient is seen in ICU Time spent 70 minutes Advanced care planning time 20 minutes [place] [id number]: Ordered blood cultures, continue Ancef Plan discussed with: Patient My Orders Orders - MIRYAM ROSS MD Procedure Category Date Status Time Blood Culture SOURAV 09/15/24 Logged 09:30 Date of Service: Sep 15, 2024 Billing Provider: MIRYAM ROSS MD Common Visit Codes: [id number] CARE 30-74 MIN MIRYAM ROSS MD Sep 15, 2024 09:37
--- NOTE | 2024-09-15 10:06 | DVHPN2 ---
Progress Note Date Seen: Sep 15, 2024 Medical Necessity Reason Pt with a Central, PICC or Fol: No Objective vital signs Vital Sign Date Time Temp Pulse Resp B/P (MAP) Pulse Ox O2 Delivery O2 Flow Rate FiO2 09/15/24 08:00 91 09/15/24 08:00 12 94 Nasal Cannula* 3 32 09/15/24 08:00 98.3 119/105 (110) 98.3 135/86 (102) Total Intake and Output 09/14/24 09/14/24 09/15/24 15:00 23:00 07:00 Intake Total 10 ml 50 ml 750 ml Output Total 1900 ml Balance 10 ml 50 ml -1150 ml medications Current Medications Medications Dose Ordered Sig/Margarito Route Start Time Stop Time Status Last Admin Dose Admin Pantoprazole Sodium 40 mg DAILY IV 09/13/24 10:00 09/15/24 09:50 40 MG Ondansetron HCl 4 mg Q4HP PRN IV 09/12/24 19:15 09/15/24 01:45 4 MG Morphine Sulfate 2 mg Q4HPRN PRN IV 09/12/24 19:15 09/14/24 23:32 2 MG Hydralazine HCl 10 mg Q6HP PRN IV 09/12/24 23:45 09/15/24 02:04 10 MG Acetaminophen/ Codeine Phosphate 1 tab Q4HP PRN PO 09/14/24 17:00 09/15/24 01:45 1 TAB Cefazolin Sodium 50 ml @ 100 mls/hr Q8HR IV 09/14/24 22:00 09/15/24 05:16 100 MLS/HR laboratory and microbiology Laboratory Tests 09/15/24 03:45 Test 09/15/24 03:45 Range/Units Serum Glucose 131 H 74-106 mg/dL Problem List/Assessment/Plan Problem List/Assessment/Plan 09/15/24 stable, wound ok,dressing dry. no abdominal tenderness,had several bouts of vomiting last night but no no nausea Plan discussed with: Patient Dietary Evaluation Review Comments: 1. Advise pt to call his primary physician and let him know that he is hospitalized at [facility]. 2. Consider clear liquid if no furthter GI symtopms 3. Follow up with his lab values and progress notes for reassessment as needed. Expected Outcomes/Goals: free from GI symptoms JOVAN HE MD Sep 15, 2024 10:06
--- NOTE | 2024-09-15 21:41 | DVHPN2 ---
Progress Note - Dictate Date Seen: Sep 15, 2024 Medical Necessity Reason Pt with a Central, PICC or Fol: No Subjective Patient was seen and evaluated in follow up in the ICU. Patient is on 3 LPM NC. Overnight, patient had 4 episodes of vomiting. Patient complains of abdominal pain at the surgical site. Dressings are C/D/I. WBC 16.4, FILE CLERK 1.59. vital signs Vital Sign Date Time Temp Pulse Resp B/P (MAP) Pulse Ox O2 Delivery O2 Flow Rate FiO2 09/15/24 12:00 92 16 118/66 (83) 95 09/15/24 08:00 Nasal Cannula* 3 32 09/15/24 08:00 98.3 98.3 Total Intake and Output 09/14/24 09/14/24 09/15/24 15:00 23:00 07:00 Intake Total 10 ml 50 ml 750 ml Output Total 1900 ml Balance 10 ml 50 ml -1150 ml medications Current Medications Medications Dose Ordered Sig/Margarito Route Start Time Stop Time Status Last Admin Dose Admin Pantoprazole Sodium 40 mg DAILY IV 09/13/24 10:00 09/15/24 09:50 40 MG Ondansetron HCl 4 mg Q4HP PRN IV 09/12/24 19:15 09/15/24 01:45 4 MG Morphine Sulfate 2 mg Q4HPRN PRN IV 09/12/24 19:15 09/14/24 23:32 2 MG Hydralazine HCl 10 mg Q6HP PRN IV 09/12/24 23:45 09/15/24 02:04 10 MG Acetaminophen/ Codeine Phosphate 1 tab Q4HP PRN PO 09/14/24 17:00 09/15/24 01:45 1 TAB Cefazolin Sodium 50 ml @ 100 mls/hr Q8HR IV 09/14/24 22:00 09/15/24 05:16 100 MLS/HR objective GENERAL: Alert and oriented x 3. No acute distress. EYES: PERRL, EOMI. Anicteric. HENT: Moist mucous membranes. LUNGS: Clear to auscultation bilaterally. CARDIOVASCULAR: Regular rate and rhythm. ABDOMEN: Soft, non-tender and non-distended. EXTREMITIES: No edema. NEUROLOGIC: No focal neurological deficits. SKIN: Warm, dry. laboratory and microbiology Laboratory Tests 09/15/24 03:45 Test 09/15/24 03:45 Range/Units Serum Glucose 131 H 74-106 mg/dL Problem List Preprocedural cardiovascular examination. Left inguinal hernia. 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 Chronic compensated HFrEF. Presence of AICD ([employer], 05/2024). Pulmonary hypertension. Hypertension. Prediabetes. Recent history of methamphetamine abuse. Assessment/Plan Continued all current supportive medical care. Zofran. Tylenol #3 for pain management. IV antibiotics as ordered. IV Hydralazine for SBP > 160. GI prophylactics. Additional plan as per the hospital course. Critical care time of 45 minutes provided to include time spent evaluation of patient at bedside, when appropriate patient/family education for diagnosis, treatment plan, review of pertinent medical information and discussion of care with specialty providers and PCP. Dietary Evaluation Review Comments: 1. Advise pt to call his primary physician and let him know that he is hospitalized at [facility]. 2. Consider clear liquid if no furthter GI symtopms 3. Follow up with his lab values and progress notes for reassessment as needed. Expected Outcomes/Goals: free from GI symptoms Plan discussed with: Patient HONORIO GASTELUM MD Sep 15, 2024 12:57
[2024-09-16] VITALS (7 sets, daily range): BP systolic 126–165; BP diastolic 82–109; PULSE 76–95; RESP 12–19; TEMP 97.6–98.2; O2SAT 92–95
--- NOTE | 2024-09-16 12:50 | DVHPN2 ---
Subjective Date Seen: Sep 16, 2024 Post op day Post op day: 2 Patient reports: No new complaints Nursing reports: No new complaints General: Normal HNT: Normal Cardiovascular: Normal Respiratory: Normal Gastrointestinal: Normal Genitourinary: Normal Musculoskeletal: Normal Neurological: Normal Objective Vitals Vital Sign Date Time Temp Pulse Resp B/P (MAP) Pulse Ox O2 Delivery O2 Flow Rate FiO2 09/16/24 09:02 97.6 86 16 165/97 (119) 93 97.6 09/16/24 08:10 Nasal Cannula* 3 32 Total Intake and Output 09/15/24 09/15/24 09/16/24 15:00 23:00 07:00 Intake Total 50 ml 750 ml 1840 ml Output Total 1300 ml 625 ml Balance 50 ml -550 ml 1215 ml Medications Current Medications Medications Dose Ordered Sig/Margarito Route Start Time Stop Time Status Last Admin Dose Admin Pantoprazole Sodium 40 mg DAILY IV 09/13/24 10:00 09/16/24 09:12 40 MG Ondansetron HCl 4 mg Q4HP PRN IV 09/12/24 19:15 09/15/24 01:45 4 MG Morphine Sulfate 2 mg Q4HPRN PRN IV 09/12/24 19:15 09/16/24 04:34 2 MG Hydralazine HCl 10 mg Q6HP PRN IV 09/12/24 23:45 09/15/24 02:04 10 MG Acetaminophen/ Codeine Phosphate 1 tab Q4HP PRN PO 09/14/24 17:00 09/16/24 12:26 1 TAB Cefazolin Sodium 50 ml @ 100 mls/hr Q8HR IV 09/14/24 22:00 09/16/24 12:26 100 MLS/HR General: Normal, Well developed Head/Eyes: Normal ENT: Normal Neck: Normal Lungs: Normal Abdominal: Normal, Soft Musculoskeletal: Normal Labs and Microbiology Laboratory Tests 09/15/24 03:45 Test 09/15/24 03:45 Range/Units Serum Glucose 131 H 74-106 mg/dL Ass/Plan Labs and/or images reviewed: Labs reviewed by me, Image(s) reviewed by me Problem List Preprocedural cardiovascular examination. Left inguinal hernia. 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 Chronic compensated HFrEF. Presence of AICD ([employer], 05/2024). Pulmonary hypertension. Hypertension. Prediabetes. Recent history of methamphetamine abuse. Assessment/Plan s/p left inguinal hernia repair no new complaints passing gas, NO BM wound clean dry and intact Plan: patient to ambulate wear scrotal support continuously until further notice may shower in 48 hours Prognosis: Excellent Plan discussed with Dr. Xiao Patient Visit Coding Surgery Date of Service if different f: Sep 16, 2024 Billing Provider: JOVAN XIAO MD Surgery Visit Codes: [id number] INP/OBS CARE(HIGH) MONROE STEIN NP Sep 16, 2024 12:49
--- NOTE | 2024-09-16 23:26 | DVHPN2 ---
Progress Note - Dictate Date Seen: Sep 16, 2024 Medical Necessity Reason Pt with a Central, PICC or Fol: No Subjective Patient was seen and evaluated in follow up. Patient was downgraded to tele bed. Patient is on 3 LPM NC. Patient is complaining of abdominal discomfort. Patient denies any further episodes of vomiting. Telemetry reviewed. vital signs Vital Sign Date Time Temp Pulse Resp B/P (MAP) Pulse Ox O2 Delivery O2 Flow Rate FiO2 09/16/24 13:08 98.2 87 14 152/95 (114) 93 98.2 09/16/24 08:10 Nasal Cannula* 3 32 Total Intake and Output 09/15/24 09/15/24 09/16/24 15:00 23:00 07:00 Intake Total 50 ml 750 ml 1840 ml Output Total 1300 ml 625 ml Balance 50 ml -550 ml 1215 ml medications Current Medications Medications Dose Ordered Sig/Margarito Route Start Time Stop Time Status Last Admin Dose Admin Pantoprazole Sodium 40 mg DAILY IV 09/13/24 10:00 09/16/24 09:12 40 MG Ondansetron HCl 4 mg Q4HP PRN IV 09/12/24 19:15 09/15/24 01:45 4 MG Morphine Sulfate 2 mg Q4HPRN PRN IV 09/12/24 19:15 09/16/24 04:34 2 MG Hydralazine HCl 10 mg Q6HP PRN IV 09/12/24 23:45 09/15/24 02:04 10 MG Acetaminophen/ Codeine Phosphate 1 tab Q4HP PRN PO 09/14/24 17:00 09/16/24 12:26 1 TAB Cefazolin Sodium 50 ml @ 100 mls/hr Q8HR IV 09/14/24 22:00 09/16/24 12:26 100 MLS/HR objective GENERAL: Alert and oriented x 3. No acute distress. EYES: PERRL, EOMI. Anicteric. HENT: Moist mucous membranes. LUNGS: Clear to auscultation bilaterally. CARDIOVASCULAR: Regular rate and rhythm. ABDOMEN: Soft, non-tender and non-distended. EXTREMITIES: No edema. NEUROLOGIC: No focal neurological deficits. SKIN: Warm, dry. laboratory and microbiology Laboratory Tests 09/15/24 03:45 Test 09/15/24 03:45 Range/Units Serum Glucose 131 H 74-106 mg/dL Problem List Preprocedural cardiovascular examination. Left inguinal hernia. 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 Chronic compensated HFrEF. Presence of AICD ([employer], 05/2024). Pulmonary hypertension. Hypertension. Prediabetes. Recent history of methamphetamine abuse. Assessment/Plan Continued all current supportive medical care. Tylenol #3 and Morphine for pain management. IV antibiotics as ordered. GI prophylactics. Additional plan as per the hospital course. Dietary Evaluation Review Comments: 1. Advise pt to call his primary physician and let him know that he is hospitalized at [facility]. 2. Consider clear liquid if no furthter GI symtopms 3. Follow up with his lab values and progress notes for reassessment as needed. Expected Outcomes/Goals: free from GI symptoms Plan discussed with: Patient HONORIO GASTELUM MD Sep 16, 2024 13:16
[2024-09-17] VITALS (9 sets, daily range): BP systolic 144–162; BP diastolic 96–112; PULSE 74–115; RESP 16–19; TEMP 98.2–98.5; O2SAT 95–97
--- NOTE | 2024-09-17 11:14 | DVHPN2 ---
Subjective Date Seen: Sep 17, 2024 Post op day Post op day: 3 Patient reports: No new complaints Nursing reports: No new complaints General: Normal HNT: Normal Cardiovascular: Normal Respiratory: Normal Gastrointestinal: Normal Genitourinary: Normal Musculoskeletal: Normal Neurological: Normal Objective Vitals Vital Sign Date Time Temp Pulse Resp B/P (MAP) Pulse Ox O2 Delivery O2 Flow Rate FiO2 09/17/24 08:35 98.2 80 16 144/100 (115) 97 98.2 09/17/24 08:15 Nasal Cannula* 3 32 Total Intake and Output 09/16/24 09/16/24 09/17/24 15:00 23:00 07:00 Intake Total 50 ml 600 ml 420 ml Output Total 600 ml Balance 50 ml 600 ml -180 ml Medications Current Medications Medications Dose Ordered Sig/Margarito Route Start Time Stop Time Status Last Admin Dose Admin Pantoprazole Sodium 40 mg DAILY IV 09/13/24 10:00 09/17/24 09:23 40 MG Ondansetron HCl 4 mg Q4HP PRN IV 09/12/24 19:15 09/15/24 01:45 4 MG Morphine Sulfate 2 mg Q4HPRN PRN IV 09/12/24 19:15 09/16/24 04:34 2 MG Hydralazine HCl 10 mg Q6HP PRN IV 09/12/24 23:45 09/17/24 01:14 10 MG Acetaminophen/ Codeine Phosphate 1 tab Q4HP PRN PO 09/14/24 17:00 09/17/24 09:23 1 TAB Cefazolin Sodium 50 ml @ 100 mls/hr Q8HR IV 09/14/24 22:00 09/17/24 05:49 100 MLS/HR General: Normal, Well developed Head/Eyes: Normal ENT: Normal Neck: Normal Lungs: Normal Abdominal: Normal, Soft Musculoskeletal: Normal Labs and Microbiology Laboratory Tests 09/15/24 03:45 Test 09/15/24 03:45 Range/Units Serum Glucose 131 H 74-106 mg/dL Ass/Plan Labs and/or images reviewed: Labs reviewed by me, Image(s) reviewed by me Problem List Preprocedural cardiovascular examination. Left inguinal hernia. 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 Chronic compensated HFrEF. Presence of AICD ([employer], 05/2024). Pulmonary hypertension. Hypertension. Prediabetes. Recent history of methamphetamine abuse. Assessment/Plan s/p left inguinal hernia repair no new complaints passing gas, NO BM wound clean dry and intact Plan: patient to ambulate wear scrotal support continuously until further notice may shower in 48 hours 09/17/24 s/p left inguinal hernia repair no new complaints passing gas wound clean dry and intact Plan: patient to ambulate wear scrotal support continuously until further notice may shower in 24 hours ok to discharge per surgery point of view patient to follow up in surgery clinic in two weeks Prognosis: Excellent Plan discussed with patient, Dr. Xiao Visit Coding Surgery Date of Service if different f: Sep 17, 2024 Billing Provider: JOVAN XIAO MD Surgery Visit Codes: [id number] INP/OBS CARE(HIGH) MONROE STEIN NP Sep 17, 2024 11:14
[2024-09-17 11:48] LABS: Hematocrit 42.9 % (41.0-53.0); Hemoglobin 13.8 g/dL (13.5-17.5); Mean Corpuscular Hemoglobin 22.2 pg (28.0-32.0); Mean Corpuscular Volume 69.1 fL (80.0-100.0); Nucleated Red Blood Cells % 0.0 %
--- NOTE | 2024-09-17 23:52 | DVHPN2 ---
Progress Note - Dictate Date Seen: Sep 17, 2024 Medical Necessity Reason Pt with a Central, PICC or Fol: No Subjective Patient was seen and evaluated in follow up. Patient complains of mild abdominal discomfort. Patient is stable on 3 LPM NC. Telemetry reviewed. vital signs Vital Sign Date Time Temp Pulse Resp B/P (MAP) Pulse Ox O2 Delivery O2 Flow Rate FiO2 09/17/24 08:35 98.2 80 16 144/100 (115) 97 98.2 09/17/24 08:15 Nasal Cannula* 3 32 Total Intake and Output 09/16/24 09/16/24 09/17/24 15:00 23:00 07:00 Intake Total 50 ml 600 ml 420 ml Output Total 600 ml Balance 50 ml 600 ml -180 ml medications Current Medications Medications Dose Ordered Sig/Margarito Route Start Time Stop Time Status Last Admin Dose Admin Pantoprazole Sodium 40 mg DAILY IV 09/13/24 10:00 09/17/24 09:23 40 MG Ondansetron HCl 4 mg Q4HP PRN IV 09/12/24 19:15 09/15/24 01:45 4 MG Morphine Sulfate 2 mg Q4HPRN PRN IV 09/12/24 19:15 09/16/24 04:34 2 MG Hydralazine HCl 10 mg Q6HP PRN IV 09/12/24 23:45 09/17/24 01:14 10 MG Acetaminophen/ Codeine Phosphate 1 tab Q4HP PRN PO 09/14/24 17:00 09/17/24 09:23 1 TAB Cefazolin Sodium 50 ml @ 100 mls/hr Q8HR IV 09/14/24 22:00 09/17/24 05:49 100 MLS/HR objective GENERAL: Alert and oriented x 3. No acute distress. EYES: PERRL, EOMI. Anicteric. HENT: Moist mucous membranes. LUNGS: Clear to auscultation bilaterally. CARDIOVASCULAR: Regular rate and rhythm. ABDOMEN: Soft, non-tender and non-distended. EXTREMITIES: No edema. NEUROLOGIC: No focal neurological deficits. SKIN: Warm, dry. laboratory and microbiology Laboratory Tests 09/17/24 11:15 09/15/24 03:45 Test 09/15/24 03:45 Range/Units Serum Glucose 131 H 74-106 mg/dL Problem List Preprocedural cardiovascular examination. Left inguinal hernia. 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 Chronic compensated HFrEF. Presence of AICD ([employer], 05/2024). Pulmonary hypertension. Hypertension. Prediabetes. Recent history of methamphetamine abuse. Assessment/Plan Continued all current supportive medical care. Tylenol #3 for pain management. IV antibiotics as ordered. GI prophylactics. IV Hydralazine for SBP > 150. Additional plan as per the hospital course. Dietary Evaluation Review Comments: 1. Advise pt to call his primary physician and let him know that he is hospitalized at [facility]. 2. Consider clear liquid if no furthter GI symtopms 3. Follow up with his lab values and progress notes for reassessment as needed. Expected Outcomes/Goals: free from GI symptoms Plan discussed with: Patient HONORIO GASTELUM MD Sep 17, 2024 13:37
[2024-09-18] VITALS (7 sets, daily range): BP systolic 145–172; BP diastolic 89–123; PULSE 62–105; RESP 17–19; TEMP 98.2–98.8; O2SAT 95–98
--- NOTE | 2024-09-18 22:39 | DVHPN2 ---
Progress Note - Dictate Date Seen: Sep 18, 2024 Medical Necessity Reason Pt with a Central, PICC or Fol: No Subjective Patient was seen and evaluated in follow up. Patient on 3 LPM NC. Patient complaining of abdominal cramping. Prelim blood cultures show no growth after 72 hours. Telemetry reviewed. vital signs Vital Sign Date Time Temp Pulse Resp B/P (MAP) Pulse Ox O2 Delivery O2 Flow Rate FiO2 09/18/24 12:52 98.4 94 19 147/89 (108) 96 98.4 09/18/24 08:05 Nasal Cannula* 3 32 Total Intake and Output 09/17/24 09/17/24 09/18/24 15:00 23:00 07:00 Intake Total 50 ml 400 ml 200 ml Output Total 750 ml 925 ml Balance 50 ml -350 ml -725 ml medications Current Medications Medications Dose Ordered Sig/Margarito Route Start Time Stop Time Status Last Admin Dose Admin Pantoprazole Sodium 40 mg DAILY IV 09/13/24 10:00 09/18/24 08:01 40 MG Ondansetron HCl 4 mg Q4HP PRN IV 09/12/24 19:15 09/17/24 22:16 4 MG Morphine Sulfate 2 mg Q4HPRN PRN IV 09/12/24 19:15 09/16/24 04:34 2 MG Hydralazine HCl 10 mg Q6HP PRN IV 09/12/24 23:45 09/18/24 08:02 10 MG Acetaminophen/ Codeine Phosphate 1 tab Q4HP PRN PO 09/14/24 17:00 09/17/24 20:01 1 TAB Cefazolin Sodium 50 ml @ 100 mls/hr Q8HR IV 09/14/24 22:00 09/18/24 14:24 100 MLS/HR objective GENERAL: Alert and oriented x 3. No acute distress. EYES: PERRL, EOMI. Anicteric. HENT: Moist mucous membranes. LUNGS: Clear to auscultation bilaterally. CARDIOVASCULAR: Regular rate and rhythm. ABDOMEN: Soft, non-tender and non-distended. EXTREMITIES: No edema. NEUROLOGIC: No focal neurological deficits. SKIN: Warm, dry. laboratory and microbiology Laboratory Tests 09/17/24 11:15 09/15/24 03:45 Test 09/15/24 03:45 Range/Units Serum Glucose 131 H 74-106 mg/dL Problem List Preprocedural cardiovascular examination. Left inguinal hernia. 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 Chronic compensated HFrEF. Presence of AICD ([employer], 05/2024). Pulmonary hypertension. Hypertension. Prediabetes. Recent history of methamphetamine abuse. Assessment/Plan Continued all current supportive medical care. IV antibiotics as ordered. GI prophylactics. IV Hydralazine for SBP > 150. Additional plan as per the hospital course. Dietary Evaluation Review Comments: 1. Advise pt to call his primary physician and let him know that he is hospitalized at [facility]. 2. Consider clear liquid if no furthter GI symtopms 3. Follow up with his lab values and progress notes for reassessment as needed. Expected Outcomes/Goals: free from GI symptoms Plan discussed with: Patient HONORIO GASTELUM MD Sep 18, 2024 14:27
[2024-09-19] VITALS (11 sets, daily range): BP systolic 147–171; BP diastolic 95–123; PULSE 79–100; RESP 16–19; TEMP 36.9; O2SAT 94–97
--- NOTE | 2024-09-19 14:10 | MEDREC ---
[facility] Intervention Section I [facility] Intervention: Review courses of therapy (Please consider D/C cefazolin, course of therapy is complete (6 days). ) KEYSHAWN LANDRY [facility] RESIDENT Sep 19, 2024 14:10
[2024-09-19] MEDS ORDERED: NAP500T PO (15:48)
[2024-09-19] MEDS ORDERED: CEPH250C PO (15:48)
--- NOTE | 2024-09-19 15:49 | DVHPN2 ---
Reviewed: Care Plan, H&P, Labs, Medications, Previous Orders, Radiology Changes from previous H/P or p: No Changes General: Per HPI Objective Vitals Vital Signs Date Time Temp Pulse Resp B/P (MAP) Pulse Ox O2 Delivery O2 Flow Rate FiO2 09/19/24 13:58 90 16 148/95 (112) 09/19/24 13:00 98.5 94 98.5 09/19/24 08:00 Room Air* 0 21 Intake/Output Intake and Output 09/19/24 07:00 Intake Total 1360 ml Output Total 2090 ml Balance -730 ml Intake Oral 1260 ml IV Total 100 ml Output Urine Total 2090 ml # Bowel Movements 3 General Appearance: Alert, Oriented X3 HEENT: Atraumatic Cardiovascular: Regular rate, Normal S1, Normal S2 Neuro: Normal gait, Normal speech Medications Current Medications Medications Dose Ordered Sig/Margarito Route Start Time Stop Time Status Last Admin Dose Admin Pantoprazole Sodium 40 mg DAILY IV 09/13/24 10:00 09/19/24 09:53 40 MG Ondansetron HCl 4 mg Q4HP PRN IV 09/12/24 19:15 09/19/24 03:45 4 MG Morphine Sulfate 2 mg Q4HPRN PRN IV 09/12/24 19:15 09/18/24 21:46 2 MG Hydralazine HCl 10 mg Q6HP PRN IV 09/12/24 23:45 09/19/24 09:53 10 MG Acetaminophen/ Codeine Phosphate 1 tab Q4HP PRN PO 09/14/24 17:00 09/19/24 03:49 1 TAB Cefazolin Sodium 50 ml @ 100 mls/hr Q8HR IV 09/14/24 22:00 09/19/24 12:49 100 MLS/HR Laboratory Results Laboratory Tests 09/15/24 03:45 09/17/24 11:15 Urinalysis Test 09/12/24 18:45 Urine Color Light-yellow (Yellow) Urine Clarity Clear (Clear) Urine pH 7.0 (5.0-9.0) Urine Specific [place] 1.015 (1.001-1.035) Urine Protein Negative (Negative) Urine Ketones Negative (Negative) Urine Blood Negative /uL (Negative) Urine Nitrite Negative (Negative) Urine Bilirubin Negative (Negative) Urine Urobilinogen Normal mg/dL (Negative) Urine Leukocyte Esterase Negative /uL (Negative) Urine RBC 1 /hpf (0 - 3) Urine Microscopic WBC /HPF (0-3) Urine Squamous Epithelial Cells None seen /hpf (<5) Urine Bacteria None seen /hpf (None Seen) Urine Glucose 4+ mg/dL (Normal) H Microbiology Microbiology Date/Time Source Procedure Growth Status 09/15/24 11:00 Blood Blood Culture - Preliminary NO GROWTH AFTER 72 HOURS OF INCUBATION. Resulted Labs and/or images reviewed: Labs reviewed by me, Image(s) reviewed by me Assessment/Plan Assessment/Plan Acute abdominal pain secondary to incarcerated left inguinal hernia: Status post surgery by on 09-14-24 Acute dehydration: IV fluids Hypertension Diabetes History of congestive heart failure Patient is seen in ICU Time spent 70 minutes Advanced care planning time 20 minutes Patient is full code Left inguinal hernia. 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 Chronic compensated HFrEF. Presence of AICD ([employer], 05/2024). Pulmonary hypertension. Hypertension. Prediabetes. Recent history of methamphetamine abuse. 09/16/2024: doing better, still has nausea/vomiting Plan discussed with: Patient My Orders Orders - TERRA PADGETT DO Procedure Category Date Status Time Discharge DISCHARGE 09/19/24 Transmitted 15:48 Date of Service: Sep 16, 2024 Billing Provider: TERRA PADGETT DO Common Visit Codes: [id number] INP/OBS CARE(HIGH) TERRA PADGETT DO Sep 19, 2024 15:49
--- NOTE | 2024-09-19 16:01 | DVHPN2 ---
Reviewed: Care Plan, H&P, Labs, Medications, Previous Orders, Radiology Changes from previous H/P or p: No Changes General: Per HPI Objective Vitals Vital Signs Date Time Temp Pulse Resp B/P (MAP) Pulse Ox O2 Delivery O2 Flow Rate FiO2 09/19/24 13:58 90 16 148/95 (112) 09/19/24 13:00 98.5 94 98.5 09/19/24 08:00 Room Air* 0 21 Intake/Output Intake and Output 09/19/24 07:00 Intake Total 1360 ml Output Total 2090 ml Balance -730 ml Intake Oral 1260 ml IV Total 100 ml Output Urine Total 2090 ml # Bowel Movements 3 General Appearance: Alert, Oriented X3 HEENT: Atraumatic Cardiovascular: Regular rate, Normal S1, Normal S2 Neuro: Normal gait, Normal speech Medications Current Medications Medications Dose Ordered Sig/Margarito Route Start Time Stop Time Status Last Admin Dose Admin Pantoprazole Sodium 40 mg DAILY IV 09/13/24 10:00 09/19/24 09:53 40 MG Ondansetron HCl 4 mg Q4HP PRN IV 09/12/24 19:15 09/19/24 03:45 4 MG Morphine Sulfate 2 mg Q4HPRN PRN IV 09/12/24 19:15 09/18/24 21:46 2 MG Hydralazine HCl 10 mg Q6HP PRN IV 09/12/24 23:45 09/19/24 09:53 10 MG Acetaminophen/ Codeine Phosphate 1 tab Q4HP PRN PO 09/14/24 17:00 09/19/24 03:49 1 TAB Cefazolin Sodium 50 ml @ 100 mls/hr Q8HR IV 09/14/24 22:00 09/19/24 12:49 100 MLS/HR Laboratory Results Laboratory Tests 09/15/24 03:45 09/17/24 11:15 Urinalysis Test 09/12/24 18:45 Urine Color Light-yellow (Yellow) Urine Clarity Clear (Clear) Urine pH 7.0 (5.0-9.0) Urine Specific [place] 1.015 (1.001-1.035) Urine Protein Negative (Negative) Urine Ketones Negative (Negative) Urine Blood Negative /uL (Negative) Urine Nitrite Negative (Negative) Urine Bilirubin Negative (Negative) Urine Urobilinogen Normal mg/dL (Negative) Urine Leukocyte Esterase Negative /uL (Negative) Urine RBC 1 /hpf (0 - 3) Urine Microscopic WBC /HPF (0-3) Urine Squamous Epithelial Cells None seen /hpf (<5) Urine Bacteria None seen /hpf (None Seen) Urine Glucose 4+ mg/dL (Normal) H Microbiology Microbiology Date/Time Source Procedure Growth Status 09/15/24 11:00 Blood Blood Culture - Preliminary NO GROWTH AFTER 72 HOURS OF INCUBATION. Resulted Labs and/or images reviewed: Labs reviewed by me, Image(s) reviewed by me Assessment/Plan Assessment/Plan Acute abdominal pain secondary to incarcerated left inguinal hernia: Status post surgery by on 09-14-24 Acute dehydration: IV fluids Hypertension Diabetes History of congestive heart failure Patient is seen in ICU Time spent 70 minutes Advanced care planning time 20 minutes Patient is full code Left inguinal hernia. 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 Chronic compensated HFrEF. Presence of AICD ([employer], 05/2024). Pulmonary hypertension. Hypertension. Prediabetes. Recent history of methamphetamine abuse. 09/16/2024: doing better, still has nausea/vomiting 09/17/2024 encourage more mobility tolerate food oka Plan discussed with: Patient My Orders Orders - TERRA PADGETT DO Procedure Category Date Status Time Discharge DISCHARGE 09/19/24 Transmitted 15:48 Date of Service: Sep 17, 2024 Billing Provider: TERRA PADGETT DO Common Visit Codes: [id number] INP/OBS CARE(HIGH) TERRA PADGETT DO Sep 19, 2024 16:01
--- NOTE | 2024-09-19 16:03 | DVHPN2 ---
Reviewed: Care Plan, H&P, Labs, Medications, Previous Orders, Radiology Changes from previous H/P or p: No Changes General: Per HPI Objective Vitals Vital Signs Date Time Temp Pulse Resp B/P (MAP) Pulse Ox O2 Delivery O2 Flow Rate FiO2 09/19/24 13:58 90 16 148/95 (112) 09/19/24 13:00 98.5 94 98.5 09/19/24 08:00 Room Air* 0 21 Intake/Output Intake and Output 09/19/24 07:00 Intake Total 1360 ml Output Total 2090 ml Balance -730 ml Intake Oral 1260 ml IV Total 100 ml Output Urine Total 2090 ml # Bowel Movements 3 General Appearance: Alert, Oriented X3 HEENT: Atraumatic Cardiovascular: Regular rate, Normal S1, Normal S2 Neuro: Normal gait, Normal speech Medications Current Medications Medications Dose Ordered Sig/Margarito Route Start Time Stop Time Status Last Admin Dose Admin Pantoprazole Sodium 40 mg DAILY IV 09/13/24 10:00 09/19/24 09:53 40 MG Ondansetron HCl 4 mg Q4HP PRN IV 09/12/24 19:15 09/19/24 03:45 4 MG Morphine Sulfate 2 mg Q4HPRN PRN IV 09/12/24 19:15 09/18/24 21:46 2 MG Hydralazine HCl 10 mg Q6HP PRN IV 09/12/24 23:45 09/19/24 09:53 10 MG Acetaminophen/ Codeine Phosphate 1 tab Q4HP PRN PO 09/14/24 17:00 09/19/24 03:49 1 TAB Cefazolin Sodium 50 ml @ 100 mls/hr Q8HR IV 09/14/24 22:00 09/19/24 12:49 100 MLS/HR Laboratory Results Laboratory Tests 09/15/24 03:45 09/17/24 11:15 Urinalysis Test 09/12/24 18:45 Urine Color Light-yellow (Yellow) Urine Clarity Clear (Clear) Urine pH 7.0 (5.0-9.0) Urine Specific [place] 1.015 (1.001-1.035) Urine Protein Negative (Negative) Urine Ketones Negative (Negative) Urine Blood Negative /uL (Negative) Urine Nitrite Negative (Negative) Urine Bilirubin Negative (Negative) Urine Urobilinogen Normal mg/dL (Negative) Urine Leukocyte Esterase Negative /uL (Negative) Urine RBC 1 /hpf (0 - 3) Urine Microscopic WBC /HPF (0-3) Urine Squamous Epithelial Cells None seen /hpf (<5) Urine Bacteria None seen /hpf (None Seen) Urine Glucose 4+ mg/dL (Normal) H Microbiology Microbiology Date/Time Source Procedure Growth Status 09/15/24 11:00 Blood Blood Culture - Preliminary NO GROWTH AFTER 72 HOURS OF INCUBATION. Resulted Assessment/Plan Assessment/Plan Acute abdominal pain secondary to incarcerated left inguinal hernia: Status post surgery by on 09-14-24 Acute dehydration: IV fluids Hypertension Diabetes History of congestive heart failure Patient is seen in ICU Time spent 70 minutes Advanced care planning time 20 minutes Patient is full code Left inguinal hernia. 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 Chronic compensated HFrEF. Presence of AICD ([employer], 05/2024). Pulmonary hypertension. Hypertension. Prediabetes. Recent history of methamphetamine abuse. 09/16/2024: doing better, still has nausea/vomiting 09/17/2024 encourage more mobility tolerate food okay 09/18/2024 having some bowel movements doing much better possible d/c in 24 hours if nausea improves Plan discussed with: Patient My Orders Orders - TERRA PADGETT DO Procedure Category Date Status Time Discharge DISCHARGE 09/19/24 Transmitted 15:48 Date of Service: Sep 18, 2024 Billing Provider: TERRA PADGETT DO Common Visit Codes: [id number] INP/OBS CARE(HIGH) TERRA PADGETT DO Sep 19, 2024 16:02
--- NOTE | 2024-09-19 16:13 | DVHDS2 ---
Discharge Summary Date of Admission Sep 12, 2024 at 19:13 Date of Discharge: Sep 19, 2024 Labs/Diagnostic Data: Laboratory Results Test 09/17/24 11:15 09/15/24 03:45 09/14/24 05:17 09/13/24 05:50 White Blood Count 9.4 10^3/uL (4.4-10.8) Red Blood Count 6.21 10^6/uL (4.5-5.90) Hemoglobin 13.8 g/dL (13.5-17.5) Hematocrit 42.9 % (41.0-53.0) Mean Corpuscular Volume 69.1 fL (80.0-100.0) Mean Corpuscular Hemoglobin 22.2 pg (28.0-32.0) Mean Corpuscular Hemoglobin Concent 32.1 g/dL (32.0-36.0) Red Cell Distribution Width 21.3 % (11.8-14.3) Platelet Count 159 10^3/uL (140-450) Mean Platelet Volume 8.7 fL (6.9-10.8) Neutrophils (%) (Auto) 72.6 % (37.0-80.0) Lymphocytes (%) (Auto) 15.5 % (10.0-50.0) Monocytes (%) (Auto) 8.9 % (0.0-12.0) Eosinophils (%) (Auto) 2.3 % (0.0-7.0) Basophils (%) (Auto) 0.7 % (0.0-2.0) Neutrophils # (Auto) 6.8 10 ^3/uL (1.6-8.6) Lymphocytes # (Auto) 1.5 10 ^3/uL (0.4-5.4) Monocytes # (Auto) 0.8 10 ^3/uL (0-1.3) Eosinophils # (Auto) 0.2 10 ^3/uL (0-0.8) Basophils # (Auto) 0.1 10 ^3/uL (0-0.2) Nucleated Red Blood Cells 0.0 % Sodium Level 136 mmol/L (136-145) Potassium Level 4.4 mmol/L (3.5-5.1) Chloride Level 101 mmol/L (98-107) Carbon Dioxide Level 22 mmol/L (20-31) Anion Gap 13 (5-15) Blood Urea Nitrogen 12 mg/dL (9-23) Creatinine 1.59 mg/dL (0.700-1.30) Glomerular Filtration Rate Calc 57 mL/min (>90) BUN/Creatinine Ratio 7.5 (10.0-20.0) Serum Glucose 131 mg/dL (74-106) Calcium Level 9.9 mg/dL (8.7-10.4) Total Bilirubin 1.1 mg/dL (0.2-1.0) Aspartate Amino Transferase (AST) 23 U/L (13-40) Alanine Aminotransferase (ALT) 22 U/L (7-40) Alkaline Phosphatase 75 U/L (46-116) Total Protein 6.8 g/dL (5.7-8.2) Albumin 4.4 g/dL (3.2-4.8) Platelet Estimate Adequate Hypochromasia (manual) Slight Anisocytosis (manual) Slight Microcytosis Moderate Hepatitis B Surface Antigen Negative (Negative) Hepatitis C Antibody Negative (Negative) Test 09/12/24 19:24 09/12/24 18:45 09/12/24 14:57 Prothrombin Time 10.5 sec (9.3-11.8) Prothrombin Time INR 0.99 (0.9-1.15) Activated Partial Thromboplast Time 30.4 SEC (24.5-34.5) Urine Color Light-yellow (Yellow) Urine Clarity Clear (Clear) Urine pH 7.0 (5.0-9.0) Urine Specific [place] 1.015 (1.001-1.035) Urine Protein Negative (Negative) Urine Ketones Negative (Negative) Urine Blood Negative /uL (Negative) Urine Nitrite Negative (Negative) Urine Bilirubin Negative (Negative) Urine Urobilinogen Normal mg/dL (Negative) Urine Leukocyte Esterase Negative /uL (Negative) Urine RBC 1 /hpf (0 - 3) Urine Microscopic WBC /HPF (0-3) Urine Squamous Epithelial Cells None seen /hpf (<5) Urine Bacteria None seen /hpf (None Seen) Urine Glucose 4+ mg/dL (Normal) Lipase 50 U/L (12-53) Other Laboratory Tests 09/17/24 11:15 09/15/24 03:45 Brief Hx & Hospital Course: Acute abdominal pain secondary to incarcerated left inguinal hernia: Status post surgery by on 09-14-24 Acute dehydration: IV fluids Hypertension Diabetes History of congestive heart failure Patient is seen in ICU Time spent 70 minutes Advanced care planning time 20 minutes Patient is full code Left inguinal hernia. 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 Chronic compensated HFrEF. Presence of AICD ([employer], 05/2024). Pulmonary hypertension. Hypertension. Prediabetes. Recent history of methamphetamine abuse. 09/16/2024: doing better, still has nausea/vomiting 09/17/2024 encourage more mobility tolerate food okay 09/18/2024 having some bowel movements doing much better possible d/c in 24 hours if nausea improves 09/19/2024 discharged to home Condition at Discharge: Fair Final Diagnosis/Problems List see above Discharge Disposition: Home Discharge Instruct/Medications Diet: Cardiac 2g Na,low cholest Activity: No Restrictions, As Tolerated Scheduled Acetaminophen (Acetaminophen), 500 MG PO Q4HPRN Amoxicillin & Pot Clavulanate (Amoxicillin/Potassium Cla), 1 TAB PO BID Aspirin (Aspirin), 81 MG PO DAILY Carvedilol (Carvedilol), 1 TAB PO BID Cephalexin (Keflex Capsule), 2 CAP PO BID Empagliflozin (Jardiance), 10 MG PO DAILY Famotidine (Pepcid Tablet), 1 TAB PO DAILY, (Reported) Furosemide (Furosemide), 1 TAB PO QAM Naproxen (Naprosyn Tablet), 1 TAB PO BID Oseltamivir Phosphate (Tamiflu), 1 CAP PO BID Sacubitril-Valsartan (Entresto 24-26 mg), 1 TAB PO BID Spironolactone (Aldactone), 25 MG PO DAILY Scheduled PRN Albuterol Sulfate (Ventolin Mdi), 90 MCG IN Q6HP PRN Discharge Statement: "Patient was advised to return to the ER or call 911 if any headaches, dizziness, shortness of breath, chest pain, abdominal pain, bleeding, fevers, or worsening of medical condition. Patient was counseled about treatment plan, medications, possible side effects, patientverbalized understanding. All questions were answered to the best of my ability. This discharge took greater then 30 minutes in planning, reviewing documentation, counseling the patient, and discussing with other team members." ASSESSMENT ASSESSMENT Assessment Date of Service: Sep 19, 2024 Billing Provider: TERRA PADGETT DO Common Visit Codes: [id number] INP/OBS CARE(HIGH) TERRA PADGETT DO Sep 19, 2024 16:13
[2024-09-19] MEDS ORDERED: NIFE1TAB36 PO (16:15)
[2024-09-19] MEDS: hydrALAZINE HCL 20 MG/ML VL IV ONE (16:42)
--- NOTE | 2024-09-19 22:50 | DVHPN2 ---
Progress Note - Dictate Date Seen: Sep 19, 2024 Medical Necessity Reason Pt with a Central, PICC or Fol: No Subjective Patient was seen and evaluated in follow up. Patient on 3 LPM NC. Patients B not controlled, receiving IV Hydralazine 10mg and Nifedipine. Discharge held as BP not controlled. Telemetry reviewed. vital signs Vital Sign Date Time Temp Pulse Resp B/P (MAP) Pulse Ox O2 Delivery O2 Flow Rate FiO2 09/19/24 21:00 97.8 98 19 163/111 (128) 96 97.8 09/19/24 20:00 Nasal Cannula* 3 32 Total Intake and Output 09/18/24 09/18/24 09/19/24 15:00 23:00 07:00 Intake Total 50 ml 860 ml 450 ml Output Total 1140 ml 950 ml Balance 50 ml -280 ml -500 ml medications Current Medications Medications Dose Ordered Sig/Margarito Route Start Time Stop Time Status Last Admin Dose Admin Pantoprazole Sodium 40 mg DAILY IV 09/13/24 10:00 09/19/24 09:53 40 MG Ondansetron HCl 4 mg Q4HP PRN IV 09/12/24 19:15 09/19/24 21:22 4 MG Morphine Sulfate 2 mg Q4HPRN PRN IV 09/12/24 19:15 09/19/24 17:41 2 MG Hydralazine HCl 10 mg Q6HP PRN IV 09/12/24 23:45 09/19/24 09:53 10 MG Acetaminophen/ Codeine Phosphate 1 tab Q4HP PRN PO 09/14/24 17:00 09/19/24 21:25 1 TAB Cefazolin Sodium 50 ml @ 100 mls/hr Q8HR IV 09/14/24 22:00 09/19/24 21:25 100 MLS/HR Nifedipine 60 mg DAILY PO 09/20/24 10:00 objective GENERAL: Alert and oriented x 3. No acute distress. EYES: PERRL, EOMI. Anicteric. HENT: Moist mucous membranes. LUNGS: Clear to auscultation bilaterally. CARDIOVASCULAR: Regular rate and rhythm. ABDOMEN: Soft, non-tender and non-distended. EXTREMITIES: No edema. NEUROLOGIC: No focal neurological deficits. SKIN: Warm, dry. laboratory and microbiology Laboratory Tests 09/17/24 11:15 09/15/24 03:45 Test 09/15/24 03:45 Range/Units Serum Glucose 131 H 74-106 mg/dL Problem List Preprocedural cardiovascular examination. Left inguinal hernia. 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 Chronic compensated HFrEF. Presence of AICD ([employer], 05/2024). Pulmonary hypertension. Hypertension. Prediabetes. Recent history of methamphetamine abuse. Assessment/Plan Continued all current supportive medical care. IV antibiotics as ordered. GI prophylactics. IV Hydralazine for SBP > 150. Additional plan as per the hospital course. Dietary Evaluation Review Comments: 1. Advise pt to call his primary physician and let him know that he is hospitalized at [facility]. 2. Consider clear liquid if no furthter GI symtopms 3. Follow up with his lab values and progress notes for reassessment as needed. Expected Outcomes/Goals: free from GI symptoms Plan discussed with: Patient HONORIO GASTELUM MD Sep 19, 2024 22:50
[2024-09-20 01:00] VITALS: BP 147/96; PULSE 83; RESP 18; TEMP 98.4; O2SAT 98
[2024-09-20 05:00] VITALS: BP 130/83; PULSE 107; RESP 18; TEMP 98.4; O2SAT 96
[2024-09-20 08:00] VITALS: PULSE 93
[2024-09-20 08:56] VITALS: BP 126/90; PULSE 95; RESP 18; TEMP 97.7; O2SAT 96
[2024-09-20 12:45] VITALS: BP 144/97; PULSE 85; RESP 18; TEMP 98.4; O2SAT 96
--- NOTE | 2024-09-20 15:33 | DVHPN2 ---
Progress Note - Dictate Date Seen: Sep 20, 2024 Medical Necessity Reason Pt with a Central, PICC or Fol: No Subjective Patient was seen and evaluated in follow up. Patient is complaining of a severe headache. Patients BP is better controlled today. Final blood cultures show no growth. Telemetry reviewed. vital signs Vital Sign Date Time Temp Pulse Resp B/P (MAP) Pulse Ox O2 Delivery O2 Flow Rate FiO2 09/20/24 14:43 94 16 136/88 09/20/24 12:45 98.4 96 98.4 09/20/24 07:54 Room Air* 0 21 Total Intake and Output 09/19/24 09/19/24 09/20/24 15:00 23:00 07:00 Intake Total 50 ml 850 ml 950 ml Output Total 600 ml 1000 ml Balance 50 ml 250 ml -50 ml medications Current Medications Medications Dose Ordered Sig/Margarito Route Start Time Stop Time Status Last Admin Dose Admin Pantoprazole Sodium 40 mg DAILY IV 09/13/24 10:00 09/20/24 08:45 40 MG Ondansetron HCl 4 mg Q4HP PRN IV 09/12/24 19:15 09/20/24 01:52 4 MG Morphine Sulfate 2 mg Q4HPRN PRN IV 09/12/24 19:15 09/20/24 14:43 2 MG Hydralazine HCl 10 mg Q6HP PRN IV 09/12/24 23:45 09/20/24 03:35 10 MG Acetaminophen/ Codeine Phosphate 1 tab Q4HP PRN PO 09/14/24 17:00 09/20/24 01:52 1 TAB Cefazolin Sodium 50 ml @ 100 mls/hr Q8HR IV 09/14/24 22:00 09/20/24 13:19 100 MLS/HR Nifedipine 60 mg DAILY PO 09/20/24 10:00 09/20/24 08:45 60 MG objective GENERAL: Alert and oriented x 3. No acute distress. EYES: PERRL, EOMI. Anicteric. HENT: Moist mucous membranes. LUNGS: Clear to auscultation bilaterally. CARDIOVASCULAR: Regular rate and rhythm. ABDOMEN: Soft, non-tender and non-distended. EXTREMITIES: No edema. NEUROLOGIC: No focal neurological deficits. SKIN: Warm, dry. laboratory and microbiology Laboratory Tests 09/17/24 11:15 09/15/24 03:45 Test 09/15/24 03:45 Range/Units Serum Glucose 131 H 74-106 mg/dL Problem List Preprocedural cardiovascular examination. Left inguinal hernia. 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 Chronic compensated HFrEF. Presence of AICD ([employer], 05/2024). Pulmonary hypertension. Hypertension. Prediabetes. Recent history of methamphetamine abuse. Assessment/Plan Continued all current supportive medical care. IV antibiotics as ordered. IV Hydralazine for SBP > 150. Morphine for pain management. Nifedipine. GI prophylactics. Additional plan as per the hospital course. Dietary Evaluation Review Comments: 1. Advise pt to call his primary physician and let him know that he is hospitalized at [facility]. 2. Consider clear liquid if no furthter GI symtopms 3. Follow up with his lab values and progress notes for reassessment as needed. Expected Outcomes/Goals: free from GI symptoms Plan discussed with: Patient HONORIO GASTELUM MD Sep 20, 2024 15:33
[2024-09-20] MEDS ORDERED: NIFE1TAB31 PO (15:56)
[2024-09-20] MEDS ORDERED: NAPR-746 PO (15:56)
--- NOTE | 2024-09-20 15:57 | DVHPN2 ---
Reviewed: Care Plan, H&P, Labs, Medications, Previous Orders, Radiology Changes from previous H/P or p: No Changes General: Per HPI Objective Vitals Vital Signs Date Time Temp Pulse Resp B/P (MAP) Pulse Ox O2 Delivery O2 Flow Rate FiO2 09/20/24 14:43 94 16 136/88 09/20/24 12:45 98.4 96 98.4 09/20/24 07:54 Room Air* 0 21 Intake/Output Intake and Output 09/20/24 07:00 Intake Total 1850 ml Output Total 1600 ml Balance 250 ml Intake Oral 1700 ml IV Total 150 ml Output Urine Total 1600 ml # Bowel Movements 2 General Appearance: Alert, Oriented X3 HEENT: Atraumatic Cardiovascular: Regular rate, Normal S1, Normal S2 Neuro: Normal gait, Normal speech Medications Current Medications Medications Dose Ordered Sig/Margarito Route Start Time Stop Time Status Last Admin Dose Admin Pantoprazole Sodium 40 mg DAILY IV 09/13/24 10:00 09/20/24 08:45 40 MG Ondansetron HCl 4 mg Q4HP PRN IV 09/12/24 19:15 09/20/24 01:52 4 MG Morphine Sulfate 2 mg Q4HPRN PRN IV 09/12/24 19:15 09/20/24 14:43 2 MG Hydralazine HCl 10 mg Q6HP PRN IV 09/12/24 23:45 09/20/24 03:35 10 MG Acetaminophen/ Codeine Phosphate 1 tab Q4HP PRN PO 09/14/24 17:00 09/20/24 01:52 1 TAB Cefazolin Sodium 50 ml @ 100 mls/hr Q8HR IV 09/14/24 22:00 09/20/24 13:19 100 MLS/HR Nifedipine 60 mg DAILY PO 09/20/24 10:00 09/20/24 08:45 60 MG Laboratory Results Laboratory Tests 09/15/24 03:45 09/17/24 11:15 Urinalysis Test 09/12/24 18:45 Urine Color Light-yellow (Yellow) Urine Clarity Clear (Clear) Urine pH 7.0 (5.0-9.0) Urine Specific [place] 1.015 (1.001-1.035) Urine Protein Negative (Negative) Urine Ketones Negative (Negative) Urine Blood Negative /uL (Negative) Urine Nitrite Negative (Negative) Urine Bilirubin Negative (Negative) Urine Urobilinogen Normal mg/dL (Negative) Urine Leukocyte Esterase Negative /uL (Negative) Urine RBC 1 /hpf (0 - 3) Urine Microscopic WBC /HPF (0-3) Urine Squamous Epithelial Cells None seen /hpf (<5) Urine Bacteria None seen /hpf (None Seen) Urine Glucose 4+ mg/dL (Normal) H Microbiology Microbiology Date/Time Source Procedure Growth Status 09/15/24 11:00 Blood Blood Culture - Final NO GROWTH AFTER 5 DAYS OF INCUBATION. Complete Assessment/Plan Assessment/Plan Acute abdominal pain secondary to incarcerated left inguinal hernia: Status post surgery by on 09-14-24 Acute dehydration: IV fluids Hypertension Diabetes History of congestive heart failure Patient is seen in ICU Time spent 70 minutes Advanced care planning time 20 minutes Patient is full code Left inguinal hernia. 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 Chronic compensated HFrEF. Presence of AICD ([employer], 05/2024). Pulmonary hypertension. Hypertension. Prediabetes. Recent history of methamphetamine abuse. HTN headache 09/16/2024: doing better, still has nausea/vomiting 09/17/2024 encourage more mobility tolerate food okay 09/18/2024 having some bowel movements doing much better possible d/c in 24 hours if nausea improves 09/20/2024 improving. still has some migraine headache will discharge to home with pain meds and nifedipine Plan discussed with: Patient My Orders Orders - TERRA PADGETT DO Procedure Category Date Status Time Nifedipine Er PHA 09/20/24 In Process (Procardia Xl 10:00 Discharge DISCHARGE 09/20/24 Transmitted 15:55 Date of Service: Sep 20, 2024 Billing Provider: TERRA PADGETT DO Common Visit Codes: [id number] INP/OBS CARE(HIGH) TERRA PADGETT DO Sep 20, 2024 15:57
[2024-09-20 16:41] VITALS: BP 125/94; PULSE 104; RESP 16
== END 2024-09-20 18:50 | disposition home or self-care (01) | DRG 228 ==
LOC: ER 14:01 → OVERFLOW 19:13 → EAST 23:00 → ICU WEST 09-14 18:26 → TELE-WESTW 09-15 17:43
PROVIDERS: ADMIT Internal Medicine; ATTEND Internal Medicine
PROC: 0YQ60ZZ Repair Left Inguinal Region, Open Approach (ICD-10-PCS; principal; 2024-09-14 15:48)
DX: K40.30 Unilateral inguinal hernia, with obstruction, without gangrene, not specified as recurrent (principal); N17.9 Acute kidney failure, unspecified; I27.20 Pulmonary hypertension, unspecified; I42.7 Cardiomyopathy due to drug and external agent; I50.22 Chronic systolic (congestive) heart failure; I11.0 Hypertensive heart disease with heart failure; E11.9 Type 2 diabetes mellitus without complications; E86.0 Dehydration; E78.5 Hyperlipidemia, unspecified; G43.909 Migraine, unspecified, not intractable, without status migrainosus; Z95.810 Presence of automatic (implantable) cardiac defibrillator; Z79.899 Other long term (current) drug therapy; Z79.82 Long term (current) use of aspirin; Z79.84 Long term (current) use of oral hypoglycemic drugs; Z82.49 Family history of ischemic heart disease and other diseases of the circulatory system; Z87.891 Personal history of nicotine dependence
CPT/HCPCS: 36415; 71045; 74176; 80048; 80053; 81001; 83690; 85025; 85610; 85730; 86803; 86850; 86900; 86901; 87040; 87340; 88302; 93005; G0378; J1100; J2250; J2405; J2470; J3490

== ENCOUNTER 2024-10-28 23:35 | Inpatient (IN) | payer MEDICAID ==
[~2024-10-28] VITALS: Ht 170.2 cm; Wt 75.6 kg
[~2024-10-28 23:35] MED LIST changes: +CEPH250C PO; +NAP500T PO; +NAPR-746 PO; +NIFE1TAB31 PO; +NIFE1TAB36 PO
--- NOTE | 2024-10-29 00:45 | ED.PDOC ---
GI ASSESSMENT HPI Comments 39-year-old male who came to ER for abdominal pain. Patient has a history of hernia repair, has been complaining of abdominal pain since yesterday, abdominal pain located in the periumbilical area, aching, constant, nonradiating associated bouts of nausea and vomiting. Last BM was few hours ago Chief Complaint: Abdominal Pain Time Seen by MD: 00:44 Primary Care Provider: DARIEN Gipson Notes: Nurses Notes Allergies: Coded Allergies: NO KNOWN ALLERGIES (Unverified , 05/21/22) Home Meds Active Scripts Naproxen (Naproxen) 500 Mg Tab, 500 MG PO TIDPRN PRN for 10 Days, #30 TAB Prov:TERRA PADGETT DO 09/20/24 Nifedipine (Nifedipine Er) 30 Mg Tab, 60 MG PO DAILY for 30 Days, #60 TAB 3 Refills Prov:TERRA PADGETT DO 09/20/24 Nifedipine (Nifedipine ER) 30 Mg Tab, 30 MG PO DAILY for 30 Days, #30 TAB 1 Refill Prov:TERRA PADGETT DO 09/19/24 Naproxen (NAPROSYN TABLET) 500 Mg Tb, 1 TAB PO BID for 10 Days, #20 TAB 1 Refill Prov:TERRA PADGETT DO 09/19/24 Cephalexin (KEFLEX CAPSULE) 250 Mg Cp, 2 CAP PO BID for 5 Days, #20 CAP Prov:TERRA PADGETT DO 09/19/24 Amoxicillin & Pot Clavulanate (Amoxicillin/Potassium Cla) 875 Mg Tab, 1 TAB PO BID for 7 Days, #14 TAB 0 Refills Prov:TIM VINCENT 03/22/24 Oseltamivir Phosphate (Tamiflu) 75 Mg Cap, 1 CAP PO BID for 5 Days, #10 CAP 0 Refills Prov:TIM VINCENT 03/22/24 Acetaminophen (Acetaminophen) 500 Mg Tab, 500 MG PO Q4HPRN, #30 TAB 0 Refills Prov:TIM VINCENT 03/22/24 Albuterol Sulfate (VENTOLIN MDI) 90 Mcg Ih, 90 MCG IN Q6HP PRN, #1 INH Prov:DAVID ROBLEDO MD 02/10/24 Aspirin (Aspirin) 81 Mg Tab, 81 MG PO DAILY for 30 Days, #30 TAB 3 Refills Prov:DAVID ROBLEDO MD 02/10/24 Spironolactone (Aldactone) 25 Mg Tab, 25 MG PO DAILY for 30 Days, #30 TAB 3 Refills Prov:DAVID ROBLEDO MD 02/10/24 Carvedilol (Carvedilol) 3.125 Mg Tab, 1 TAB PO BID for 30 Days, #60 TAB Prov:DAVID ROBLEDO MD 02/10/24 Furosemide (Furosemide) 40 Mg Tab, 1 TAB PO QAM for 30 Days, #30 TAB Prov:DAVID ROBLEDO MD 02/10/24 Sacubitril-Valsartan (Entresto 24-26 mg) 1 Tab Tab, 1 TAB PO BID for 30 Days, #60 TAB 3 Refills Prov:DAVID ROBLEDO MD 02/10/24 Empagliflozin (Jardiance) 10 Mg Tab, 10 MG PO DAILY for 30 Days, #30 TAB 3 Refills Prov:DAVID ROBLEDO MD 02/10/24 Reported Medications Famotidine (PEPCID TABLET) 20 Mg Tb, 1 TAB PO DAILY 02/06/24 Information Source: Patient Mode of Arrival: Ambulatory Timing: Hours Duration: Intermittent Quality: Aching Vomitus: Watery Stool: Normal Recent: None Recent Hx of: Abdominal Surgery Pain Location: Periumbilical Associated sign and symptoms: Nausea, Vomiting, Abdominal Pain Past Medical History Surgical History: Hernia Repair Family History Family History: Reviewed,noncontributory to illness Social History Smoker: Non-Smoker Alcohol: Denies ETOH Use Drugs: Denies Drug Use Lives In: Home Constitutional: denies: chills, diaphoresis, fatigue, fever, malaise, sweats, weakness, others EENTM: denies: blurred vision, double vision, ear bleeding, ear discharge, ear drainage, ear pain, ear ringing, eye pain, eye redness, hearing loss, mouth pain, mouth swelling, nasal discharge, nose bleeding, nose congestion, nose pain, photophobia, tearing, throat pain, throat swelling, voice changes, others Respiratory: denies: cough, hemoptysis, orthopnea, SOB at rest, shortness of breath, SOB with excertion, stridor, wheezing, others Cardiovascular: denies: chest pain, dizzy spells, diaphoresis, Dyspnea on exertion, edema, irregular heart beat, left arm pain, lightheadedness, palpitations, PND, syncope, others Gastrointestinal: reports: abdominal pain, nausea, vomiting; denies: abdomen distended, blood streaked bowels, constipated, diarrhea, dysphagia, difficulty swallowing, hematemesis, melena, poor appetite, poor fluid intake, rectal bl eeding, rectal pain, others Genitourinary: denies: burning, dysuria, flank pain, frequency, hematuria, inc ontinence, penile discharge, penile sore, pain, testicle pain, testicle swelling, urgency, others Neurological: denies: dizziness, fainting, headache, left sided numbness, left sided weakness, numbness, paresthesia, pre-existing deficit, right sided numbness, right sided weakness, seizure, speech problems, tingling, tremors, weakness, others Musculoskeletal: denies: back pain, gout, joint pain, joint swelling, muscle pain, muscle stiffness, neck pain, others Integumetry: denies: bruises, change in color, change in hair/nails, dryness, laceration, lesions, lumps, rash, wounds, others Allergic/Immunocompromised: denies: Difficulty Healing, Frequent Infections, Hives, Itching, others Hematologic/Lymphatic: denies: anemia, blood clots, easy bleeding, easy bruising, swollen glands, others Endocrine: denies: excessive hunger, excessive sweating, excessive thirst, excessive urination, flushing, intolerance to cold, intolerance to heat, unexplained weight gain, unexplained weight loss, others Psychiatric: denies: anxiety, bipolar disorder, depression, hopeless, panic disorder, schizophrenia, sleepless, suicidal, others Physical Exam General Appearance: No Apparent Distress, Normal HEENT: Normal ENT Inspection, Pharynx Normal, TMs Normal Neck: Full Range of Motion, Non-Tender, Normal, Normal Inspection Respiratory: Chest Non-Tender, Lungs Clear, No Accessory Muscle Use, No Respiratory Distress, Normal Breath Sounds Cardiovascular: No Edema, No JVD, No Murmur, No Gallop, Normal Peripheral Pulses, Regular Rate/Rhythm Breast Exam: Deferred Gastrointestinal: No Organomegaly, Non Tender, No Pulsatile Mass, Normal Bowel Sounds, Soft Genitalia: Deferred Pelvic: Deferred Rectal: Deferred Extremities: No calf tenderness, Normal capillary refill, Normal inspection, Normal range of motion, Non-tender, No pedal edema Musculoskeletal : Apperance: Normal Neurologic: Alert, 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 Was a procedure done?: No GI differential Dx Differential Diagnosis: Bowel Obstruction, Cholecystitis, Constipation, Diverticular disease, Gastritis/PUD, Gastroenteritis, UTI, Urolithiasis X-Ray, Labs, Meds, VS Vital Signs Date Time Temp Pulse Resp B/P (MAP) Pulse Ox O2 Delivery O2 Flow Rate FiO2 10/29/24 03:45 94 18 103/82 10/29/24 03:41 97.6 94 5 103/82 (89) 95 97.6 10/29/24 02:05 122 23 111/72 10/29/24 01:50 97.9 122 19 111/72 (85) 95 97.9 10/28/24 23:46 98.1 86 16 99/54 94 98.1 Lab Test 10/29/24 00:34 Range/Units White Blood Count 23.5 H 4.4-10.8 10^3/uL Red Blood Count 8.06 H 4.5-5.90 10^6/uL Hemoglobin 17.1 13.5-17.5 g/dL Hematocrit 52.4 41.0-53.0 % Mean Corpuscular Volume 71.2 L 80.0-100.0 fL Mean Corpuscular Hemoglobin 23.3 L 28.0-32.0 pg Mean Corpuscular Hemoglobin Concent 32.7 32.0-36.0 g/dL Red Cell Distribution Width 24.4 H 11.8-14.3 % Platelet Count 183 140-450 10^3/uL Mean Platelet Volume 9.0 6.9-10.8 fL Neutrophils (%) (Auto) 89.5 H 37.0-80.0 % Lymphocytes (%) (Auto) 5.0 L 10.0-50.0 % Monocytes (%) (Auto) 5.3 0.0-12.0 % Eosinophils (%) (Auto) 0.0 0.0-7.0 % Basophils (%) (Auto) 0.2 0.0-2.0 % Neutrophils # (Auto) 21.1 H 1.6-8.6 10 ^3/uL Lymphocytes # (Auto) 1.2 0.4-5.4 10 ^3/uL Monocytes # (Auto) 1.3 0-1.3 10 ^3/uL Eosinophils # (Auto) 0 0-0.8 10 ^3/uL Basophils # (Auto) 0.1 0-0.2 10 ^3/uL Nucleated Red Blood Cells 0.1 % Platelet Estimate [place] Large Platelets [place] Giant Platelets Few Sodium Level 137 136-145 mmol/L Potassium Level 3.9 3.5-5.1 mmol/L Chloride Level 94 L 98-107 mmol/L Carbon Dioxide Level 25 20-31 mmol/L Anion Gap 18 H 5-15 Blood Urea Nitrogen 34 H 9-23 mg/dL Creatinine 6.35 H 0.700-1.30 mg/dL Glomerular Filtration Rate Calc 11 >90 mL/min BUN/Creatinine Ratio 5.4 L 10.0-20.0 Serum Glucose 158 H 74-106 mg/dL Calcium Level 10.8 H 8.7-10.4 mg/dL Total Bilirubin 2.2 H 0.2-1.0 mg/dL Aspartate Amino Transferase (AST) 62 H 13-40 U/L Alanine Aminotransferase (ALT) 37 7-40 U/L Alkaline Phosphatase 101 46-116 U/L Total Protein 9.9 H 5.7-8.2 g/dL Albumin 6.0 H 3.2-4.8 g/dL Lipase 110 H 12-53 U/L Current Medications Medications (Trade) Dose Ordered Sig/Margarito Route Start Time Stop Time Status Last Admin Ondansetron HCl (Zofran) 4 mg ONCE ONCE IV 10/29/24 00:30 10/29/24 00:31 DC 10/29/24 01:58 Sodium Chloride 1,000 ml @ 1,000 mls/hr Q1H ONCE IVB 10/29/24 00:30 10/29/24 01:29 DC 10/29/24 02:40 Morphine Sulfate 4 mg ONCE ONCE IV 10/29/24 00:30 10/29/24 00:31 DC 10/29/24 02:05 Time of 1ST Reevaluation: 00:43 Reevaluation 1ST: Unchanged Patient Education/Counseling: Diagnosis, Treatment Family Education/Counseling: No Family Present SEPSIS Sepsis Screen Date sepsis recognized/suspect: Oct 28, 2024 Time Sepsis recognized/suspect: 2350 Recent Procedure: Yes (HERNIA REPAIR ) On Antibiotic Therapy: No Respiratory Rate >20: No Heart Rate >90: No Temp<36 C (96.8 F) or >38.3 C: No SBP <90 or MAP <65 mmHG: No New Acute Mental Status Change: No Is the patient on CPAP, BIPAP,: No Physician Orders Urinalysis (10/29/24 00:21) Ct Ab Pel Wo Con-No Oral Or Iv (10/29/24 00:21) Vital Signs Date Time Temp Pulse Resp B/P (MAP) Pulse Ox O2 Delivery O2 Flow Rate FiO2 10/29/24 03:45 94 18 103/82 10/29/24 03:41 97.6 94 5 103/82 (89) 95 97.6 10/29/24 02:05 122 23 111/72 10/29/24 01:50 97.9 122 19 111/72 (85) 95 97.9 10/28/24 23:46 98.1 86 16 99/54 94 98.1 Laboratory Tests Test 10/29/24 00:34 White Blood Count 23.5 10^3/uL (4.4-10.8) H Medications Medications Dose Ordered Sig/Margarito Route Start Time Stop Time Status Last Admin Dose Admin Morphine Sulfate 4 mg ONCE ONCE IV 10/29/24 00:30 10/29/24 00:31 DC 10/29/24 02:05 Ondansetron HCl 4 mg ONCE ONCE IV 10/29/24 00:30 10/29/24 00:31 DC 10/29/24 01:58 Sodium Chloride 1,000 ml @ 1,000 mls/hr Q1H ONCE IVB 10/29/24 00:30 10/29/24 01:29 DC 10/29/24 02:40 Departure 1 Departure Time of Disposition: 04:10 Impression: Primary Impression: Acute renal failure Additional Impressions: Abdominal pain Lymphocytosis Disposition: ADMITTED INPATIENT Condition: Guarded Comments 39-year-old male with a history of coronary artery disease is congestive heart failure now has a complaining of diffuse abdominal pain. On his lab review his white count is high at 23.5. He also has acute renal injury/acute renal failure with BUN high at 34 and creatinine high at 6.35. His potassium is normal at 3. 9. A noncontrast CT of the abdomen and pelvis shows no acute pathology. Patient was given IV fluids. Patient will need to be admitted for acute renal failure and abdominal pain. Critical Care Note Critical Care Time?: Yes (35 min-critical care time only) Critical care comment: Total critical care time: Approximately 36 minutes Due to a high probability of clinically significant, life threatening deterioration, the patient required my highest level of preparedness to intervene emergently and I personally spent this critical care time directly and personally managing the patient. This critical care time included obtaining a history; examining the patient; pulse oximetry; ordering and review of studies; arranging urgent treatment with development of a management plan; evaluation of patient's response to treatment; frequent reassessment; and, discussions with other providers. This critical care time was performed to assess and manage the high probability of imminent, life-threatening deterioration that could result in multi-organ failure. It was exclusive of separately billable procedures and treating other patients. Stability Stability form required: No Heart Score Heart Score: Heart Score Response (Comments) Value History N/A 0 EKG N/A 0 Age N/A 0 Risk Factors N/A 0 Troponin N/A 0 Total 0 I personally scribed for LOLIS FERNANDES MD ([email or web address]) on 10/29/24 at 00:45. Electronically submitted by Raul Andrews ([facility]). LOLIS FERNANDES MD Oct 29, 2024 00:45
[2024-10-29 01:24] LABS: Alanine Aminotransferase 37 U/L (7-40); Alkaline Phosphatase 101 U/L (46-116); Anion Gap 18 (5-15); BUN/Creatinine Ratio 5.4 (10.0-20.0); Carbon Dioxide 25 mmol/L (20-31); Potassium 3.9 mmol/L (3.5-5.1); Sodium 137 mmol/L (136-145)
[2024-10-29 01:29] LABS: Bilirubin, Total 2.2 mg/dL (0.2-1.0); Blood Urea Nitrogen 34 mg/dL (9-23); Calcium 10.8 mg/dL (8.7-10.4); Chloride 94 mmol/L (98-107); Glucose 158 mg/dL (74-106); Lipase 110 U/L (12-53); Total Protein 9.9 g/dL (5.7-8.2)
[2024-10-29 01:36] LABS: Albumin 6.0 g/dL (3.2-4.8)
[2024-10-29 01:50] VITALS: PULSE 122; RESP 19; O2SAT 95
[2024-10-29 01:57] LABS: Mean Corpuscular Volume 71.2 fL (80.0-100.0); Nucleated Red Blood Cells % 0.1 %
[2024-10-29] MEDS: ONDANSETRON HCL 4 MG/2 ML VIAL IV ONE (01:58)
[2024-10-29] MEDS: MORPHINE SULFATE 4 MG/ML SYR/VIAL IV ONE (02:05)
[2024-10-29 02:15] LABS: Hematocrit 52.4 % (41.0-53.0); Hemoglobin 17.1 g/dL (13.5-17.5); Mean Corpuscular Hemoglobin 23.3 pg (28.0-32.0)
[2024-10-29 02:22] LABS: Giant Platelets Few
[2024-10-29] MEDS: SODIUM CHLORIDE 0.9% 1,000 ML IVB ONE (02:40)
--- NOTE | 2024-10-29 03:50 | DVH ---
Exam: CT CT AB PEL WO CON-NO ORAL OR IV History: abd pain , vomiting Comparison Study: CT CT AB PEL WO CON-NO ORAL OR IV on DOS: 09/12/24, US ABDOMEN LIMITED on DOS: 4, CT CT AB PEL WO CON-NO ORAL OR IV on DOS: 08/21/23 Technique: Multidetector spiral CT of the abdomen was performed from lung bases to pubic symphysis. I maging was performed without IV contrast. Axial, coronal and sagittal multiplanar reformats were obta ined from the axial data set by the technologist. Radiation Dose : 1. Abdomen/Pelvis: CTDIvol 5.82 mGy, DLP 308.63 mGy*cm. Findings: Evaluation of solid organs is limited due to lack of intravenous contrast use. Lung Bases: No acute or significant lung base finding. Normal heart size. No pleural or pericardial effusion. Cardiac pacing leads. Liver: The liver is normal in size. No focal lesions. Gallbladder and Biliary Tree: Probable gallbladder sludge. Spleen: Unremarkable Pancreas: The pancreas is grossly normal in appearance. Adrenal Glands: Unremarkable Kidneys: Kidneys are grossly normal without calculi or hydronephrosis. Bladder: Grossly unremarkable for degree of distention. Bowel: The stomach is grossly normal in appearance. Small bowel and colon are normal in caliber and d istribution. The appendix is normal. Ascites: Absent Lymphadenopathy: No mesenteric, retroperitoneal or periportal lymphadenopathy. Abdominal Wall and Mesentery: Status post left inguinal herniorrhaphy. Vasculature: The visualized abdominal aorta is normal in size and caliber. Evaluation of abdominal a nd pelvic vessels is limited due to lack of intravenous contrast. Pelvic Organs: Unremarkable Musculoskeletal: No aggressive focal bony lesions, acute fractures or dislocation. IMPRESSION: 1. No acute abdominal or pelvic findings status post left inguinal herniorrhaphy. 2. Probable gallbladder sludge. Radiation optimization: All CT scans at this facility use at least one of these dose optimization irving hniques: automated exposure control mA and/or kV adjustment per patient size (includes targeted exam s where dose is matched to clinical indication) or iterative reconstruction.
[2024-10-29 07:37] LABS: Urine Protein, UAD 1+ (Negative)
[2024-10-29] MEDS ORDERED: ONDANSETRON HCL 4 MG/2 ML VIAL IV PRN (08:00)
[2024-10-29] MEDS ORDERED: MORPHINE SULFATE INJ 2 MG/ml SYRG IV PRN (08:00)
[2024-10-29] MEDS ORDERED: DEXTROSE (50%) 50ML SYRG IV PRN (08:00)
--- NOTE | 2024-10-29 08:05 | DVHHP2 ---
History of Present Illness Reason for Visit: Abdominal pain History of Present Illness Mustapha Travis JR is a 39-year-old male with past medical history of sick sinus syndrome with ICD/defibrillator placed at [facility] on June 10, 2024 and hernia repair who presents to the ED with abdominal pain with nausea and vomiting that started yesterday. Patient also reports that his pain is 8/10 sharp and constant but upon examination 0/10. He states that it was relieved with IV pain medications here. Patient also endorses that he was walking and fell yesterday hit his head with positive head strike but no loss of consciousness. He states he did not go to the doctor to be seen. He also reports that his last bowel movement was today this morning. Patient reports that he is compliant with his medications. He also states that there are no triggering factors. Patient denies any chest pain, shortness of breath, fever, chills, lightheadedness, weakness, dizziness, diarrhea, urinary symptoms, recent travels, recent ingestion of spoiled food, or recent sick contacts. Past Medical History Sick sinus syndrome Past Surgical History: Hernia Repair, Other (AICD/defibrillator) Family History: None Smoke: No ALCOHOL: none Drugs: None Lives: with Family Review of Systems Gastrointestinal: Nausea, Vomiting, Abdominal Pain Allergies: Coded Allergies: NO KNOWN ALLERGIES (Unverified , 05/21/22) Medications Current Medications Medications Dose Ordered Sig/Margarito Route Start Time Stop Time Status Last Admin Dose Admin Piperacillin Sod/ Tazobactam Sod 100 ml @ 25 mls/hr Q8HR IV 10/29/24 14:00 UNV Acetaminophen/ Hydrocodone Bitart 1 tab Q4HP PRN PO 10/29/24 08:00 UNV Ondansetron HCl 4 mg Q4HP PRN IV 10/29/24 08:00 UNV Acetaminophen 650 mg Q6HP PRN PO 10/29/24 08:00 UNV Morphine Sulfate 2 mg Q4HPRN PRN IV 10/29/24 08:00 UNV Diagnostic Test (Pha) 1 strip ACHS 10/29/24 11:30 UNV Insulin Human Regular ACHS SC 10/29/24 11:30 UNV Dextrose 50 ml UD PRN IV 10/29/24 08:00 UNV Exam Vital Signs Vital Signs Date Time Temp Pulse Resp B/P (MAP) Pulse Ox O2 Delivery O2 Flow Rate FiO2 10/29/24 07:58 97.6 98 15 121/84 (96) 99 97.6 10/29/24 01:50 Room Air* 0 21 General Appearance: Alert, Oriented X3, Cooperative, No acute distress HEENT: Atraumatic, PERRLA, EOMI, Mucous membr. moist/pink Respiratory: Normal air movement Cardiovascular: Normal S1, Normal S2 Abdominal: Soft Extremities: No clubbing, No cyanosis, No edema, Normal pulses Skin: No significant lesion Neuro: Normal gait, Normal speech, Strength at 5/5 X4 ext, Normal tone, Sensation intact Psych/Mental Status: Mental status NL, Mood NL Labs/Xrays Labs Test 10/29/24 06:52 10/29/24 00:34 Range/Units Urine Color Yellow Yellow Urine Clarity Turbid H Clear Urine pH 5.5 5.0-9.0 Urine Specific [place] 1.018 1.001-1.035 Urine Protein 1+ H Negative Urine Ketones 1+ H Negative Urine Blood 3+ H Negative /uL Urine Nitrite Negative Negative Urine Bilirubin Negative Negative Urine Urobilinogen Normal Negative mg/dL Urine Leukocyte Esterase Negative Negative /uL Urine RBC 1 0 - 3 /hpf Urine Microscopic WBC 9 H 0-3 /HPF Urine Squamous Epithelial Cells Few <5 /hpf Urine Bacteria None seen None Seen /hpf Urine Hyaline Casts Mod 0 - 2 /lpf Urine Mucus Few None Seen Urine Glucose 4+ H Normal mg/dL White Blood Count 23.5 H 4.4-10.8 10^3/uL Red Blood Count 8.06 H 4.5-5.90 10^6/uL Hemoglobin 17.1 13.5-17.5 g/dL Hematocrit 52.4 41.0-53.0 % Mean Corpuscular Volume 71.2 L 80.0-100.0 fL Mean Corpuscular Hemoglobin 23.3 L 28.0-32.0 pg Mean Corpuscular Hemoglobin Concent 32.7 32.0-36.0 g/dL Red Cell Distribution Width 24.4 H 11.8-14.3 % Platelet Count 183 140-450 10^3/uL Mean Platelet Volume 9.0 6.9-10.8 fL Neutrophils (%) (Auto) 89.5 H 37.0-80.0 % Lymphocytes (%) (Auto) 5.0 L 10.0-50.0 % Monocytes (%) (Auto) 5.3 0.0-12.0 % Eosinophils (%) (Auto) 0.0 0.0-7.0 % Basophils (%) (Auto) 0.2 0.0-2.0 % Neutrophils # (Auto) 21.1 H 1.6-8.6 10 ^3/uL Lymphocytes # (Auto) 1.2 0.4-5.4 10 ^3/uL Monocytes # (Auto) 1.3 0-1.3 10 ^3/uL Eosinophils # (Auto) 0 0-0.8 10 ^3/uL Basophils # (Auto) 0.1 0-0.2 10 ^3/uL Nucleated Red Blood Cells 0.1 % Platelet Estimate [place] Large Platelets [place]era Giant Platelets Few Sodium Level 137 136-145 mmol/L Potassium Level 3.9 3.5-5.1 mmol/L Chloride Level 94 L 98-107 mmol/L Carbon Dioxide Level 25 20-31 mmol/L Anion Gap 18 H 5-15 Blood Urea Nitrogen 34 H 9-23 mg/dL Creatinine 6.35 H 0.700-1.30 mg/dL Glomerular Filtration Rate Calc 11 >90 mL/min BUN/Creatinine Ratio 5.4 L 10.0-20.0 Serum Glucose 158 H 74-106 mg/dL Calcium Level 10.8 H 8.7-10.4 mg/dL Total Bilirubin 2.2 H 0.2-1.0 mg/dL Aspartate Amino Transferase (AST) 62 H 13-40 U/L Alanine Aminotransferase (ALT) 37 7-40 U/L Alkaline Phosphatase 101 46-116 U/L Total Protein 9.9 H 5.7-8.2 g/dL Albumin 6.0 H 3.2-4.8 g/dL Lipase 110 H 12-53 U/L Exam: CT CT AB PEL WO CON-NO ORAL OR IV History: abd pain , vomiting Comparison Study: CT CT AB PEL WO CON-NO ORAL OR IV on DOS: 09/12/24, US ABDOMEN LIMITED on DOS: 10/09/23, CT CT AB PEL WO CON-NO ORAL OR IV on DOS: 08/21/23 Technique: Multidetector spiral CT of the abdomen was performed from lung bases to pubic symphysis. Imaging was performed without IV contrast. Axial, coronal and sagittal multiplanar reformats were obtained from the axial data set by the technologist. Radiation Dose : 1. Abdomen/Pelvis: CTDIvol 5.82 mGy, DLP 308.63 mGy*cm. Findings: Evaluation of solid organs is limited due to lack of intravenous contrast use. Lung Bases: No acute or significant lung base finding. Normal heart size. No pleural or pericardial effusion. Cardiac pacing leads. Liver: The liver is normal in size. No focal lesions. Gallbladder and Biliary Tree: Probable gallbladder sludge. Spleen: Unremarkable Pancreas: The pancreas is grossly normal in appearance. Adrenal Glands: Unremarkable Kidneys: Kidneys are grossly normal without calculi or hydronephrosis. Bladder: Grossly unremarkable for degree of distention. Bowel: The stomach is grossly normal in appearance. Small bowel and colon are normal in caliber and distribution. The appendix is normal. Ascites: Absent Lymphadenopathy: No mesenteric, retroperitoneal or periportal lymphadenopathy. Abdominal Wall and Mesentery: Status post left inguinal herniorrhaphy. Vasculature: The visualized abdominal aorta is normal in size and caliber. Evaluation of abdominal and pelvic vessels is limited due to lack of intravenous contrast. Pelvic Organs: Unremarkable Musculoskeletal: No aggressive focal bony lesions, acute fractures or dislocation. IMPRESSION: 1. No acute abdominal or pelvic findings status post left inguinal herniorrhaphy. 2. Probable gallbladder sludge. SEPSIS Sepsis Screen Date sepsis recognized/suspect: Oct 28, 2024 Time Sepsis recognized/suspect: 2349 Recent Procedure: Yes (HERNIA REPAIR ) On Antibiotic Therapy: No Respiratory Rate >20: No Heart Rate >90: No Temp<36 C (96.8 F) or >38.3 C: No SBP <90 or MAP <65 mmHG: No New Acute Mental Status Change: No Is the patient on CPAP, BIPAP,: No Physician Orders Ct Ab Pel Wo Con-No Oral Or Iv (10/29/24 00:21) Piperacillin-Tazob 3.375gm (Zosyn 3.375g (10/29/24 14:00) Admit (10/29/24 07:51) Allergies (10/29/24 07:51) Code Status (10/29/24 07:51) Hydrocodone-Acet 5/325mg Tab (Post Falls 5/32 (10/29/24 08:00) Ondansetron Hcl (Zofran) (10/29/24 08:00) Complete Blood Count (10/30/24 04:00) Comprehensive Metabolic Panel (10/30/24 04:00) Cardiac Diet-2gna,Lofat,Lochol (10/29/24 Breakfast) Acetaminophen Tablet (Tylenol Tablet) (10/29/24 08:00) Morphine Sulfate Injection (10/29/24 08:00) Sequential Compression Device (10/29/24 ) Urine Bacterial Culture (10/29/24 07:51) Blood Culture (10/29/24 07:51) Lactic Acid W/ Reflex Order (10/29/24 07:51) Erythrocyte Sedimentation Rate (10/29/24 07:51) C-Reactive Protein (10/29/24 07:51) Hemoglobin A1c (10/29/24 07:51) Glucose Blood (Accu-Chek Comfort Curve T (10/29/24 11:30) Insulin R (Human) (Insulin R) (10/29/24 11:30) Dextrose 50% Syringe (10/29/24 08:00) Aspirin Enteric Coated Tablet (Ecotrin E (10/29/24 10:00) Carvedilol Tablet (Coreg Tablet) (10/29/24 10:00) Empagliflozin (Jardiance) (10/29/24 10:00) Famotidine Tablet (Pepcid Tablet) (10/29/24 10:00) Furosemide Tablet (Lasix Tablet) (10/30/24 07:00) Nifedipine Er (Procardia Xl (Time-Releas (10/29/24 10:00) Spironolactone (Aldactone) (10/29/24 10:00) Vital Signs Date Time Temp Pulse Resp B/P (MAP) Pulse Ox O2 Delivery O2 Flow Rate FiO2 10/29/24 07:58 97.6 98 15 121/84 (96) 99 97.6 10/29/24 05:53 97.5 102 17 112/90 (97) 98 97.5 10/29/24 03:45 94 18 103/82 10/29/24 03:41 97.6 94 5 103/82 (89) 95 97.6 10/29/24 02:05 122 23 111/72 10/29/24 01:50 97.9 122 19 111/72 (85) 95 97.9 10/29/24 01:50 122 19 95 Room Air* 0 21 Laboratory Tests Test 10/29/24 00:34 White Blood Count 23.5 10^3/uL (4.4-10.8) H Medications Medications Dose Ordered Sig/Margarito Route Start Time Stop Time Status Last Admin Dose Admin Morphine Sulfate 4 mg ONCE ONCE IV 10/29/24 00:30 10/29/24 00:31 DC 10/29/24 02:05 4 MG Ondansetron HCl 4 mg ONCE ONCE IV 10/29/24 00:30 10/29/24 00:31 DC 10/29/24 01:58 4 MG Sodium Chloride 1,000 ml @ 1,000 mls/hr Q1H ONCE IVB 10/29/24 00:30 10/29/24 01:29 DC 10/29/24 02:40 1,000 MLS/HR Assessment/Plan Assessment/Plan Assessment Leukocytosis rule out sepsis Intractable abdominal pain Acute renal failure Hyperglycemia Hyperlipasemia possibly due to dehydration Status post fall with positive head strike History of sick sinus syndrome with ICD/day AFib placed at [facility] on June 10, 2024 History of hernia repair Plan Admit to med surge Antiemetics Pain management NS 1 L given in ED CT abdomen and pelvis CT head ordered Hemoglobin A1c ISS and Accu-Cheks CRP ESR IV antibiotics-Zosyn Lactic level Blood cultures UA Urine culture Diet Home medications reconciled DVT prophylaxis-not indicated patient ambulating PUD prophylaxis-H2 blockers Discussed plan of care with patient and nurse Nephro consult [id number] Preventive counseling healthy eating habits, physical activity, and regular checkups Plan discussed with: Patient My Orders Orders - SAMI HERZOG [employer] REPRESENTATIVE Procedure Category Date Status Time Piperacillin-Tazob PHA 10/29/24 Logged 3.375gm (Zosyn 3.375g 14:00 Admit ADMIT 10/29/24 Transmitted 07:51 Allergies ROSIE 10/29/24 In Process 07:51 Code Status CODE 10/29/24 Transmitted 07:51 Hydrocodone-Acet PHA 10/29/24 Logged 5/325mg Tab (Post Falls 08:00 Ondansetron Hcl PHA 10/29/24 Logged (Zofran) 08:00 Complete Blood Count LAB 10/30/24 Verified 04:00 Comprehensive LAB 10/30/24 Verified Metabolic Panel 04:00 Cardiac DIET 10/29/24 Transmitted Diet-2gna,Lofat,Lochol Breakfast Acetaminophen Tablet PHA 10/29/24 Logged (Tylenol Tablet) 08:00 Morphine Sulfate PHA 10/29/24 Logged Injection 08:00 Sequential ROSIE 10/29/24 In Process Compression Device Urine Bacterial SOURAV 10/29/24 Logged Culture 07:51 Blood Culture SOURAV 10/29/24 Logged 07:51 Lactic Acid W/ Reflex LAB 10/29/24 Logged Order 07:51 Erythrocyte LAB 10/29/24 Logged Sedimentation Rate 07:51 C-Reactive Protein LAB 10/29/24 Logged 07:51 Hemoglobin A1c LAB 10/29/24 Logged 07:51 Glucose Blood PHA 10/29/24 Logged (Accu-Chek Comfort 11:30 Insulin R (Human) PHA 10/29/24 Logged (Insulin R) 11:30 Dextrose 50% Syringe PHA 10/29/24 Logged 08:00 Aspirin Enteric PHA 10/29/24 Verified Coated Tablet 10:00 Carvedilol Tablet PHA 10/29/24 Verified (Coreg Tablet) 10:00 Empagliflozin PHA 10/29/24 Verified (Jardiance) 10:00 Famotidine Tablet PHA 10/29/24 Verified (Pepcid Tablet) 10:00 Furosemide Tablet PHA 10/30/24 Verified (Lasix Tablet) 07:00 Nifedipine Er PHA 10/29/24 Verified (Procardia Xl 10:00 Spironolactone PHA 10/29/24 Verified (Aldactone) 10:00 Date of Service: Oct 29, 2024 Billing Provider: SAMI HERZOG Common Visit Codes: [id number] INP/OBS CARE (HIGH) Secondary Visit Codes: [id number] COUNSELING IND SAMI HERZOG Oct 29, 2024 08:05
--- NOTE | 2024-10-29 08:50 | DVH ---
CLINICAL HISTORY: s/p fall + head strike TECHNIQUE: Helical scanning was performed of the head from the skull base to the vertex. Multiplanar reconstructions were performed. This exam was performed according to our departmental dose optimizat ion program. Up-to-date CT equipment and radiation dose reduction techniques are utilized as appropri ate. CTDI 50.4 DLP 806.8 COMPARISON: None FINDINGS: There is no evidence for acute intracranial hemorrhage, acute ischemic changes, mass, mass effect, or extra-axial fluid collection. There is no hydrocephalus or midline shift. There is no effacement of the cerebral sulci and basal subarachnoid cisterns. The boudreaux-white matter differentiation is well naila ntained. The imaged paranasal sinuses are clear. IMPRESSION: NO ACUTE INTRACRANIAL ABNORMALITY SEEN.
[2024-10-29] MEDS: FAMOTIDINE 20 MG TAB PO SCH (09:07)
[2024-10-29] MEDS: EMPAGLIFLOZIN 10 MG TAB PO SCH (09:07)
[2024-10-29] MEDS: ASPirin-EC 81 mg tab PO SCH (09:07)
[2024-10-29] MEDS: CARVEDILOL 3.125 MG TAB PO SCH (09:08)
[2024-10-29] MEDS: SPIRONOLACTONE 25 MG TAB PO SCH (09:08)
[2024-10-29] MEDS: PIPERACILLIN-TAZOB 3.375GM 100 ML IV ONE (09:10)
[2024-10-29 09:26] LABS: Lactic Acid w/Reflex 2.2 mmol/L (0.4-2.0)
[2024-10-29] MEDS ORDERED: ACCU-CHEK COMFORT CURVE STRIP VI SCH (11:30)
[2024-10-29] MEDS ORDERED: InsuLIN REG 1unit/0.01ml Soln (100units/ml) SC SCH (11:30)
[2024-10-29 12:19] LABS: Opiate Scree,Urine Neg (NEGATIVE)
[2024-10-29 12:22] LABS: Amphetamine Screen, Urine Pos (NEGATIVE); Barbiturate Scree,Urine Neg (NEGATIVE); Benzodiazephine Screen, Urine Neg (NEGATIVE); Cannabinoid Screen, Urine Neg (NEGATIVE); Cocaine Screen, Urine Neg (NEGATIVE); Phencyclidine Screen, Urine Neg (NEGATIVE)
[2024-10-29] MEDS: SODIUM CHLORIDE 0.9% 1,000 ML IV ONE (13:20)
[2024-10-29 16:01] VITALS: RESP 18
[2024-10-29 17:00] VITALS: BP 118/70; PULSE 89; RESP 18; TEMP 98.1; O2SAT 95
[2024-10-29] MEDS: HYDROcodone-ACET 5/325MG TAB PO PRN (17:26)
--- NOTE | 2024-10-29 21:19 | DVHINCON2 ---
Date of service: Oct 29, 2024 Referring Physician [place] Reason for Consultation JA History of Present Illness 39 years old male with past medical history of hypertension for 10 years, chronic kidney disease, Congestive heart failure with reduced ejection fraction status post defibrillator, positive methamphetamine abuse, history of hernia surgery, presented with chief complaints of abdominal pain around the umbilical area 10 x 10, associated with vomitings 3 to 4 episodes for the past two days prior to the presentation to emergency room he denies any urinary complaints he denies any fevers or chills he attributes his GI symptoms possibly eating outside food Past Medical History As per HPI Past Surgical History As per HPI Allergies: Coded Allergies: NO KNOWN ALLERGIES (Unverified , 05/21/22) Home Meds Active Scripts Naproxen (Naproxen) 500 Mg Tab, 500 MG PO TIDPRN PRN for 10 Days, #30 TAB Prov:TERRA PADGETT DO 09/20/24 Nifedipine (Nifedipine Er) 30 Mg Tab, 60 MG PO DAILY for 30 Days, #60 TAB 3 Refills Prov:TERRA PADGETT DO 09/20/24 Nifedipine (Nifedipine ER) 30 Mg Tab, 30 MG PO DAILY for 30 Days, #30 TAB 1 Refill Prov:TERRA PADGETT DO 09/19/24 Naproxen (NAPROSYN TABLET) 500 Mg Tb, 1 TAB PO BID for 10 Days, #20 TAB 1 Refill Prov:TERRA PADGETT DO 09/19/24 Cephalexin (KEFLEX CAPSULE) 250 Mg Cp, 2 CAP PO BID for 5 Days, #20 CAP Prov:TERRA PADGETT DO 09/19/24 Amoxicillin & Pot Clavulanate (Amoxicillin/Potassium Cla) 875 Mg Tab, 1 TAB PO BID for 7 Days, #14 TAB 0 Refills Prov:TIM VINCENT 03/22/24 Oseltamivir Phosphate (Tamiflu) 75 Mg Cap, 1 CAP PO BID for 5 Days, #10 CAP 0 Refills Prov:TIM VINCENT 03/22/24 Acetaminophen (Acetaminophen) 500 Mg Tab, 500 MG PO Q4HPRN, #30 TAB 0 Refills Prov:TIM VINCENT 03/22/24 Albuterol Sulfate (VENTOLIN MDI) 90 Mcg Ih, 90 MCG IN Q6HP PRN, #1 INH Prov:DAVID ROBLEDO MD 02/10/24 Aspirin (Aspirin) 81 Mg Tab, 81 MG PO DAILY for 30 Days, #30 TAB 3 Refills Prov:DAVID ROBLEDO MD 02/10/24 Spironolactone (Aldactone) 25 Mg Tab, 25 MG PO DAILY for 30 Days, #30 TAB 3 Refills Prov:DAVID ROBLEDO MD 02/10/24 Carvedilol (Carvedilol) 3.125 Mg Tab, 1 TAB PO BID for 30 Days, #60 TAB Prov:DAVID ROBLEDO MD 02/10/24 Furosemide (Furosemide) 40 Mg Tab, 1 TAB PO QAM for 30 Days, #30 TAB Prov:DAVID ROBLEDO MD 02/10/24 Sacubitril-Valsartan (Entresto 24-26 mg) 1 Tab Tab, 1 TAB PO BID for 30 Days, #60 TAB 3 Refills Prov:DAVID ROBLEDO MD 02/10/24 Empagliflozin (Jardiance) 10 Mg Tab, 10 MG PO DAILY for 30 Days, #30 TAB 3 Refills Prov:DAVID ROBLEDO MD 02/10/24 Reported Medications Famotidine (PEPCID TABLET) 20 Mg Tb, 1 TAB PO DAILY 02/06/24 Current Medications Current Medications Medications (Trade) Dose Ordered Sig/Margarito Route PRN Reason Start Time Stop Time Status Last Admin Piperacillin Sod/ Tazobactam Sod 100 ml @ 25 mls/hr Q12HR IV 10/29/24 22:00 Acetaminophen/ Hydrocodone Bitart ([place] 5/325MG Tab) 1 tab Q4HP PRN PO MODERATE PAIN (4-6 PAIN SCALE) 10/29/24 08:00 10/29/24 17:26 Ondansetron HCl (Zofran) 4 mg Q4HP PRN IV NAUSEA / VOMITING 10/29/24 08:00 Acetaminophen (Tylenol Tablet) 650 mg Q6HP PRN PO PAIN SCALE 1-3 OR TEMP>100.4 10/29/24 08:00 Morphine Sulfate 2 mg Q4HPRN PRN IV SEVERE PAIN (7-10 PAIN SCALE) 10/29/24 08:00 Diagnostic Test (Pha) (Accu-Chek Comfort Curve T) 1 strip ACHS 10/29/24 11:30 10/29/24 10:01 DC Insulin Human Regular (InsuLIN R) ACHS SC 10/29/24 11:30 10/29/24 10:01 DC Dextrose 50 ml UD PRN IV Blood Sugar LESS THAN 60 10/29/24 08:00 10/29/24 10:01 DC Aspirin (Ecotrin Enteric Coated Tablet) 81 mg DAILY PO 10/29/24 10:00 10/29/24 09:07 Carvedilol (Coreg Tablet) 3.125 mg BID PO 10/29/24 10:00 10/29/24 09:08 Empaglifozin (Jardiance) 10 mg DAILY PO 10/29/24 10:00 10/29/24 12:51 DC 10/29/24 09:07 Famotidine (Pepcid Tablet) 20 mg DAILY PO 10/29/24 10:00 10/29/24 09:07 Furosemide (Lasix Tablet) 40 mg QAM PO 10/30/24 07:00 10/29/24 12:51 DC Nifedipine (Procardia Xl (Time-Release)) 30 mg DAILY PO 10/29/24 10:00 10/29/24 09:09 Spironolactone (Aldactone) 25 mg DAILY PO 10/29/24 10:00 10/29/24 12:51 DC 10/29/24 09:08 Sodium Chloride 1,000 ml @ 75 mls/hr [id number] IV 10/29/24 21:15 UNV Family History: Hypertension G8 FATHER, Onset:Unknown G8 FATHER Hypertension G8 FATHER, Onset:Unknown G8 FATHER Social History Positive for methamphetamine abuse Review of Systems HEENT-denies headache, denies vision changes, no hearing issue, denies neck complaints, denies throat issues Respiratory system-denies cough, denies shortness of breath Cardiovascular system-denies chest pain, denies palpitations Abdomen-positive abdominal pain, positive for nausea and vomiting, denies constipation or diarrhea Musculoskeletal-denies swelling in the legs, denies pain in the extremities Genitourinary-denies urinary symptoms like dysuria, stream issues Neuro-denies dizziness, denies seizures Psychiatric-denies psychiatric history H&P Exam Vital Signs/I&O Vital Sign Date Time Temp Pulse Resp B/P (MAP) Pulse Ox O2 Delivery O2 Flow Rate FiO2 10/29/24 17:00 98.1 89 18 118/70 (86) 95 98.1 10/29/24 16:01 Room Air* 0 21 Physical Exam General-not in any distress HEENT-normocephalic, no icterus, no pallor, neck supple Respiratory-fair air entry bilateral, no rhonchi, no wheeze [id number] heard, no murmurs appreciated Abdominal-soft, nontender, nondistended Musculoskeletal-no pedal edema, no calf tenderness Genitourinary-deferred Neuro-awake alert oriented x3, Psychiatric-not agitated, cooperative, Labs/Diagnostic Data Labs/Diagnostic Data Laboratory Tests Test 10/29/24 10:24 10/29/24 08:24 10/29/24 06:52 10/29/24 00:34 Range/Units Lactic Acid Level 2.1 *H 2.2 *H 0.4-2.0 mmol/L Erythrocyte Sedimentation Rate 1 0-20 mm/hr C-Reactive Protein High Sensitivity 2.34 H <1.0 mg/dL Urine Color Yellow Yellow Urine Clarity Turbid H Clear Urine pH 5.5 5.0-9.0 Urine Specific [place] 1.018 1.001-1.035 Urine Protein 1+ H Negative Urine Ketones 1+ H Negative Urine Blood 3+ H Negative /uL Urine Nitrite Negative Negative Urine Bilirubin Negative Negative Urine Urobilinogen Normal Negative mg/dL Urine Leukocyte Esterase Negative Negative /uL Urine RBC 1 0 - 3 /hpf Urine Microscopic WBC 9 H 0-3 /HPF Urine Squamous Epithelial Cells Few <5 /hpf Urine Bacteria None seen None Seen /hpf Urine Hyaline Casts Mod 0 - 2 /lpf Urine Mucus Few None Seen Urine Glucose 4+ H Normal mg/dL Urine Opiates Screen Neg NEGATIVE Urine Fentanyl Screen Neg NEGATIVE Urine Barbiturates Screen Neg NEGATIVE Urine Phencyclidine Screen Neg NEGATIVE Urine Amphetamines Screen Pos NEGATIVE Urine Benzodiazepines Screen Neg NEGATIVE Urine Cocaine Screen Neg NEGATIVE Urine Cannabinoids Screen Neg NEGATIVE White Blood Count 23.5 H 4.4-10.8 10^3/uL Red Blood Count 8.06 H 4.5-5.90 10^6/uL Hemoglobin 17.1 13.5-17.5 g/dL Hematocrit 52.4 41.0-53.0 % Mean Corpuscular Volume 71.2 L 80.0-100.0 fL Mean Corpuscular Hemoglobin 23.3 L 28.0-32.0 pg Mean Corpuscular Hemoglobin Concent 32.7 32.0-36.0 g/dL Red Cell Distribution Width 24.4 H 11.8-14.3 % Platelet Count 183 140-450 10^3/uL Mean Platelet Volume 9.0 6.9-10.8 fL Neutrophils (%) (Auto) 89.5 H 37.0-80.0 % Lymphocytes (%) (Auto) 5.0 L 10.0-50.0 % Monocytes (%) (Auto) 5.3 0.0-12.0 % Eosinophils (%) (Auto) 0.0 0.0-7.0 % Basophils (%) (Auto) 0.2 0.0-2.0 % Neutrophils # (Auto) 21.1 H 1.6-8.6 10 ^3/uL Lymphocytes # (Auto) 1.2 0.4-5.4 10 ^3/uL Monocytes # (Auto) 1.3 0-1.3 10 ^3/uL Eosinophils # (Auto) 0 0-0.8 10 ^3/uL Basophils # (Auto) 0.1 0-0.2 10 ^3/uL Nucleated Red Blood Cells 0.1 % Platelet Estimate [place] Large Platelets [place] Giant Platelets Few Sodium Level 137 136-145 mmol/L Potassium Level 3.9 3.5-5.1 mmol/L Chloride Level 94 L 98-107 mmol/L Carbon Dioxide Level 25 20-31 mmol/L Anion Gap 18 H 5-15 Blood Urea Nitrogen 34 H 9-23 mg/dL Creatinine 6.35 H 0.700-1.30 mg/dL Glomerular Filtration Rate Calc 11 >90 mL/min BUN/Creatinine Ratio 5.4 L 10.0-20.0 Serum Glucose 158 H 74-106 mg/dL Hemoglobin A1c 5.4 <5.7 % A1C Calcium Level 10.8 H 8.7-10.4 mg/dL Total Bilirubin 2.2 H 0.2-1.0 mg/dL Aspartate Amino Transferase (AST) 62 H 13-40 U/L Alanine Aminotransferase (ALT) 37 7-40 U/L Alkaline Phosphatase 101 46-116 U/L Total Protein 9.9 H 5.7-8.2 g/dL Albumin 6.0 H 3.2-4.8 g/dL Lipase 110 H 12-53 U/L Assessment Acute kidney injury possible prerenal etiology in the setting of severe sepsis Severe sepsis Congestive heart failure reduced ejection fraction chronic status post defibrillator Abdominal pain, vomiting possible gastroenteritis Recommendations fluids as ordered---trial of IV fluids CT scan no hydronephrosis Stop Jardiance, spironolactone given severe Acute kidney injury Echocardiogram We will monitor renal replacement therapy needs closely daily Needs strict Is&Os Reviewed vital signs, lab work, imaging studies, medications, microbiology, other physician recommendations Total time spent 80 minutes More than 50% of the time spent providing direct [id number] care . Thank you for allowing me to participate in the care of your patient. Plan discussed with: Patient CELESTE HANDY MD Oct 29, 2024 21:19
[2024-10-29] MEDS: SODIUM CHLORIDE 0.9% 1,000 ML IV SCH (22:48)
[2024-10-29] MEDS: PIPERACILLIN-TAZOB 3.375GM 100 ML IV SCH (22:49)
[2024-10-30 01:00] VITALS: BP 108/65; PULSE 88; RESP 12; TEMP 98.8; O2SAT 94
[2024-10-30 05:00] VITALS: BP 95/60; PULSE 93; TEMP 97.5; O2SAT 94
[2024-10-30 05:11] LABS: Alanine Aminotransferase 23 U/L (7-40); Albumin 4.6 g/dL (3.2-4.8); Alkaline Phosphatase 70 U/L (46-116); Anion Gap 14 (5-15); BUN/Creatinine Ratio 7.2 (10.0-20.0); Calcium 8.9 mg/dL (8.7-10.4); Carbon Dioxide 25 mmol/L (20-31); Potassium 3.6 mmol/L (3.5-5.1); Total Protein 7.4 g/dL (5.7-8.2)
[2024-10-30 05:14] LABS: Hemoglobin 16.0 g/dL (13.5-17.5); Nucleated Red Blood Cells % 0.1 %
[2024-10-30 05:17] LABS: Hematocrit 47.4 % (41.0-53.0); Mean Corpuscular Hemoglobin 24.0 pg (28.0-32.0); Mean Corpuscular Volume 70.8 fL (80.0-100.0)
[2024-10-30 05:20] LABS: Bilirubin, Total 1.3 mg/dL (0.2-1.0); Blood Urea Nitrogen 41 mg/dL (9-23); Chloride 96 mmol/L (98-107); Glucose 124 mg/dL (74-106); Sodium 135 mmol/L (136-145)
[2024-10-30] MEDS ORDERED: FUROSEMIDE 40 MG TAB PO SCH (07:00)
[2024-10-30 08:02] LABS: Anisocytosis Moderate
[2024-10-30 08:30] VITALS: BP 112/71; PULSE 102; RESP 16; TEMP 99.1; O2SAT 94
--- NOTE | 2024-10-30 08:40 | DVHPN2 ---
Progress Note Date Seen: Oct 30, 2024 Medical Necessity Reason Pt with a Central, PICC or Fol: No Subjective Patient reports: Other Review of Systems: HEENT:Normal, CVS:Normal, RESPIRATORY:Normal, GI:Abnormal, :Normal, MSK:Normal, NEURO:Normal Objective vital signs Vital Sign Date Time Temp Pulse Resp B/P (MAP) Pulse Ox O2 Delivery O2 Flow Rate FiO2 10/30/24 05:00 97.5 93 95/60 (72) 94 97.5 10/30/24 01:00 12 10/29/24 16:01 Room Air* 0 21 Total Intake and Output 10/29/24 10/29/24 10/30/24 15:00 23:00 07:00 Intake Total 100 ml 1084 ml 116 ml Output Total 475 ml Balance 100 ml 1084 ml -359 ml medications Current Medications Medications Dose Ordered Sig/Margarito Route Start Time Stop Time Status Last Admin Dose Admin Piperacillin Sod/ Tazobactam Sod 100 ml @ 25 mls/hr Q12HR IV 10/29/24 22:00 10/29/24 22:49 25 MLS/HR Acetaminophen/ Hydrocodone Bitart 1 tab Q4HP PRN PO 10/29/24 08:00 10/29/24 17:26 1 TAB Ondansetron HCl 4 mg Q4HP PRN IV 10/29/24 08:00 Acetaminophen 650 mg Q6HP PRN PO 10/29/24 08:00 Morphine Sulfate 2 mg Q4HPRN PRN IV 10/29/24 08:00 Aspirin 81 mg DAILY PO 10/29/24 10:00 10/29/24 09:07 81 MG Carvedilol 3.125 mg BID PO 10/29/24 10:00 10/29/24 22:48 3.125 MG Famotidine 20 mg DAILY PO 10/29/24 10:00 10/29/24 09:07 20 MG Nifedipine 30 mg DAILY PO 10/29/24 10:00 10/29/24 09:09 30 MG Sodium Chloride 1,000 ml @ 75 mls/hr [id number] IV 10/29/24 21:15 10/29/24 22:48 75 MLS/HR Examination: GENERAL:Normal, HEENT:Normal, NECK:Normal, LUNGS:Normal, CVS:Normal, ABDOMEN:Normal, MSK:Normal, SKIN:Normal, NEURO:Normal, :Normal laboratory and microbiology Laboratory Tests 10/30/24 03:55 Test 10/30/24 03:55 Range/Units Serum Glucose 124 H 74-106 mg/dL Problem List/Assessment/Plan Problem List/Assessment/Plan Acute kidney injury possible prerenal etiology in the setting of severe sepsis Severe sepsis Congestive heart failure reduced ejection fraction chronic status post defibrillator Abdominal pain, vomiting possible gastroenteritis Recommendations fluids as ordered---trial of IV fluids CT scan no hydronephrosis Stop Jardiance, spironolactone given severe Acute kidney injury Echocardiogram We will monitor renal replacement therapy needs closely daily Needs strict Is&Os Slightly better Renal function Plan discussed with: Patient My Orders My Orders Orders - CELESTE HANDY MD Procedure Category Date Status Time Sodium Chloride 0.9% PHA 10/29/24 In Process 21:15 Echo 2d Mode Cardiac US 10/30/24 Logged DOP 21:19 Chest Portable XY 10/30/24 Verified 08:37 CELESTE HANDY MD Oct 30, 2024 08:40
[2024-10-30] MEDS: ACETAMINOPHEN 325 MG TAB PO PRN (09:28)
--- NOTE | 2024-10-30 09:28 | DVH ---
XY CHEST PORTABLE, HISTORY: r/o edema COMPARISON: XY CHEST PORTABLE on DOS: 09/13/24, XY CHEST XRAY 1 VIEW on DOS: 03/21/24, XY CHEST XRAY 1 VIEW on DOS: 02/10/24 XY CHEST PORTABLE on DOS: 09/13/24, XY CHEST XRAY 1 VIEW on DOS: 03/21/24, XY CHEST XRAY 1 VIEW on DOS: 02/10/24 TECHNICAL DATA: 1 view of the chest was obtained. FINDINGS: Lines and tubes: A cardiac pacer is noted. Cardiomediastinal silhouette: normal Pulmonary vasculature: normal Lung expansion: normal Lung airspace: normal Lung interstitium: normal Pleura: normal Pneumothorax: no Bones: Unremarkable Other: no IMPRESSION: No acute intrathoracic abnormality.
[2024-10-30 12:00] VITALS: BP 95/66; PULSE 83; RESP 18; TEMP 98; O2SAT 93
--- NOTE | 2024-10-30 12:15 | DVHPN2 ---
Reviewed: Care Plan, H&P, Labs, Medications, Previous Orders, Radiology Changes from previous H/P or p: No Changes Gastrointestinal: Nausea, Vomiting, Abdominal Pain Objective Vitals Vital Signs Date Time Temp Pulse Resp B/P (MAP) Pulse Ox O2 Delivery O2 Flow Rate FiO2 10/30/24 09:15 112/71 10/30/24 09:14 102 10/30/24 08:30 99.1 16 94 99.1 10/29/24 16:01 Room Air* 0 21 Intake/Output Intake and Output 10/30/24 07:00 Intake Total 1300 ml Output Total 475 ml Balance 825 ml Intake Oral 1100 ml IV Total 200 ml Output Urine Total 475 ml # Voids 1 Medications Current Medications Medications Dose Ordered Sig/Margarito Route Start Time Stop Time Status Last Admin Dose Admin Piperacillin Sod/ Tazobactam Sod 100 ml @ 25 mls/hr Q12HR IV 10/29/24 22:00 10/30/24 09:14 25 MLS/HR Acetaminophen/ Hydrocodone Bitart 1 tab Q4HP PRN PO 10/29/24 08:00 10/29/24 17:26 1 TAB Ondansetron HCl 4 mg Q4HP PRN IV 10/29/24 08:00 Acetaminophen 650 mg Q6HP PRN PO 10/29/24 08:00 10/30/24 09:28 650 MG Morphine Sulfate 2 mg Q4HPRN PRN IV 10/29/24 08:00 Aspirin 81 mg DAILY PO 10/29/24 10:00 10/30/24 09:14 81 MG Carvedilol 3.125 mg BID PO 10/29/24 10:00 10/30/24 09:14 3.125 MG Famotidine 20 mg DAILY PO 10/29/24 10:00 10/30/24 09:15 20 MG Nifedipine 30 mg DAILY PO 10/29/24 10:00 10/30/24 09:15 30 MG Sodium Chloride 1,000 ml @ 75 mls/hr [id number] IV 10/29/24 21:15 10/29/24 22:48 75 MLS/HR Laboratory Results Laboratory Tests 10/30/24 03:55 Chemistry Test 10/30/24 03:55 Albumin 4.6 g/dL (3.2-4.8) Calcium Level 8.9 mg/dL (8.7-10.4) Total Protein 7.4 g/dL (5.7-8.2) LFT Test 10/30/24 03:55 Alanine Aminotransferase (ALT) 23 U/L (7-40) Alkaline Phosphatase 70 U/L (46-116) Aspartate Amino Transferase (AST) 34 U/L (13-40) Total Bilirubin 1.3 mg/dL (0.2-1.0) H Urinalysis Test 10/29/24 06:52 Urine Color Yellow (Yellow) Urine Clarity Turbid (Clear) H Urine pH 5.5 (5.0-9.0) Urine Specific [place] 1.018 (1.001-1.035) Urine Protein 1+ (Negative) H Urine Ketones 1+ (Negative) H Urine Blood 3+ /uL (Negative) H Urine Nitrite Negative (Negative) Urine Bilirubin Negative (Negative) Urine Urobilinogen Normal mg/dL (Negative) Urine Leukocyte Esterase Negative /uL (Negative) Urine RBC 1 /hpf (0 - 3) Urine Microscopic WBC 9 /HPF (0-3) H Urine Squamous Epithelial Cells Few /hpf (<5) Urine Bacteria None seen /hpf (None Seen) Urine Hyaline Casts Mod /lpf (0 - 2) Urine Mucus Few (None Seen) Urine Glucose 4+ mg/dL (Normal) H Microbiology Microbiology Date/Time Source Procedure Growth Status 10/29/24 08:39 Blood Blood Culture - Preliminary NO GROWTH AFTER 24 HOURS OF INCUBATION. Resulted 10/29/24 06:52 Voided Urine Urine Culture - Preliminary Resulted Labs and/or images reviewed: Labs reviewed by me, Image(s) reviewed by me Assessment/Plan Assessment/Plan Sepsis unknown etiology: Blood cultures urine cultures Zosyn Intractable abdominal pain: CT abdomen pelvis without contrast negative Acute renal failure consult for Nephrology Hyperglycemia Acute pancreatitis lipase 116: NPO, consult for GI Dr. Reggie Strauss Status post fall: CT head negative History of sick sinus syndrome with ICD/day AFib placed at [facility] on June 10, 2024 History of hernia repair Time spent 55 minutes Advanced care planning time 20 minutes Patient is full code Plan discussed with: Patient Date of Service: Oct 30, 2024 Billing Provider: MIRYAM ROSS MD Common Visit Codes: [id number] INP/OBS CARE(HIGH) Secondary Visit Codes: [id number] CARE PLAN 30 MINUTES MIRYAM ROSS MD Oct 30, 2024 12:15
--- NOTE | 2024-10-30 15:40 | DVHSR ---
APPROVED REPORT EXAM: Two-dimensional and M-mode echocardiogram with Doppler and color Doppler. Blood Pressure: 95/60 mmHg INDICATION CHF Surgery/Intervention Pacemaker: RISK FACTORS Height: 67, Weight: 160 DIMENSIONS LVDd3.5 (3.8-5.7cm)LA (2D)3.9 (1.9-4.0cm)Aortic Root3.6 (2.0-3.7cm) LVDs2.2 (2.5-4.0cm)LA (MM) (1.9-4.0cm)Aortic Cusp Exc1.9 (1.5-2.0cm) EF (%) 70.0 (55-70%)Rt. Atrium3.5 (1.9-4.0cm)Asc. Aorta cm IVSd1.5 (0.7-1.1cm)RV (D) (1.8-2.4cm) PWd1.5 (0.7-1.1cm) Mitral Valve MitralMitral Stenosis E wave0.29m/sMV Mean GR.mmHg A wave0.53m/sMV Peak GR.mmHg E/A ratio0.52D MVAcm2 DECEL [id number] 1/2 Ugen83mp IVRTmsDop MVA4.03cm2 Aortic Valve Aortic ValveAortic Stenosis V10.80m/Rosemary Mean GR.2mmHg V20.97m/Rosemary Peak GR.4mmHg LVOT Diameter2.1 (1.8-2.4cm)Doppler AVA2.86cm2 AI P 1/2 Hnku901.89ms Pulmonic Valve V20.61m/s Tricuspid Valve TR Velocity1.96m/s [id number] Conclusion Sinus rhythm. Concentric LVH. Left atrial enlargement. Aortic root enlargement with dilation of the sinuses of Va lsalva. The aortic mitral and tricuspid are structurally normal. The pulmonic is normal. Left ventricular function is preserved at 60% with normal RV function. Mild tricuspid regurgitation. Mild aortic insufficiency. No pericardial effusion masses or vegetations discernible. There is a pacing lead in the right ventr icle.
[2024-10-30 16:00] VITALS: BP 98/69; PULSE 78; RESP 16; TEMP 97.7; O2SAT 93
--- NOTE | 2024-10-30 21:54 | DVHINCON2 ---
Date of service: Oct 30, 2024 Referring Physician Teodoro Dominguez Reason for Consultation Acute pancreatitis History of Present Illness Mustapha Travis JR is a 39-year-old male with past medical history of HTN, CKD, CHF, amphetamine use, sick sinus syndrome with ICD/defibrillator placed at [facility] on June 10, 2024 and hernia repair who presents to the ED with abdominal pain with nausea and vomiting that started yesterday. Patient attributed his GI symptoms possibly to eating outside food. Patient also reports that his pain is 8/10 sharp and constant but upon examination 0/10. He states that it was relieved with IV pain medications here. Patient also endorses that he was walking and fell yesterday hit his head with positive head strike but no loss of consciousness. He states he did not go to the doctor to be seen. He also reports that his last bowel movement was today this morning. Patient denies any chest pain, shortness of breath, fever, chills, lightheadedness, weakness, dizziness, diarrhea, urinary symptoms, recent travels, recent ingestion of spoiled food, or recent sick contacts. Past Medical History Past Medical History Sick sinus syndrome Past Surgical History Past Surgical History: Hernia Repair, Other (AICD/defibrillator) Family History: Hypertension G8 FATHER, Onset:Unknown G8 FATHER Hypertension G8 FATHER, Onset:Unknown G8 FATHER Social History Family History: None Smoke: No ALCOHOL: none Drugs: None Lives: with Family Allergies: Coded Allergies: NO KNOWN ALLERGIES (Unverified , 05/21/22) Home Meds Active Scripts Naproxen (Naproxen) 500 Mg Tab, 500 MG PO TIDPRN PRN for 10 Days, #30 TAB Prov:TERRA PADGETT DO 09/20/24 Nifedipine (Nifedipine Er) 30 Mg Tab, 60 MG PO DAILY for 30 Days, #60 TAB 3 Refills Prov:TERRA PADGETT DO 09/20/24 Nifedipine (Nifedipine ER) 30 Mg Tab, 30 MG PO DAILY for 30 Days, #30 TAB 1 Refill Prov:TERRA PADGETT DO 09/19/24 Naproxen (NAPROSYN TABLET) 500 Mg Tb, 1 TAB PO BID for 10 Days, #20 TAB 1 Refill Prov:PADGETTTERRA Florentino Mehdi DO 09/19/24 Cephalexin (KEFLEX CAPSULE) 250 Mg Cp, 2 CAP PO BID for 5 Days, #20 CAP Prov:TERRA PADGETT DO 09/19/24 Amoxicillin & Pot Clavulanate (Amoxicillin/Potassium Cla) 875 Mg Tab, 1 TAB PO BID for 7 Days, #14 TAB 0 Refills Prov:TIM VINCENT 03/22/24 Oseltamivir Phosphate (Tamiflu) 75 Mg Cap, 1 CAP PO BID for 5 Days, #10 CAP 0 Refills Prov:TIM VINCENT 03/22/24 Acetaminophen (Acetaminophen) 500 Mg Tab, 500 MG PO Q4HPRN, #30 TAB 0 Refills Prov:TIM VINCENT 03/22/24 Albuterol Sulfate (VENTOLIN MDI) 90 Mcg Ih, 90 MCG IN Q6HP PRN, #1 INH Prov:DAVID ROBLEDO MD 02/10/24 Aspirin (Aspirin) 81 Mg Tab, 81 MG PO DAILY for 30 Days, #30 TAB 3 Refills Prov:DAVID ROBLEDO MD 02/10/24 Spironolactone (Aldactone) 25 Mg Tab, 25 MG PO DAILY for 30 Days, #30 TAB 3 Refills Prov:DAVID ROBLEDO MD 02/10/24 Carvedilol (Carvedilol) 3.125 Mg Tab, 1 TAB PO BID for 30 Days, #60 TAB Prov:DAVID ROBLEDO MD 02/10/24 Furosemide (Furosemide) 40 Mg Tab, 1 TAB PO QAM for 30 Days, #30 TAB Prov:DAVID ROBLEDO MD 02/10/24 Sacubitril-Valsartan (Entresto 24-26 mg) 1 Tab Tab, 1 TAB PO BID for 30 Days, #60 TAB 3 Refills Prov:DAVID ROBLEDO MD 02/10/24 Empagliflozin (Jardiance) 10 Mg Tab, 10 MG PO DAILY for 30 Days, #30 TAB 3 Refills Prov:DAVID ROBLEDO MD 02/10/24 Reported Medications Famotidine (PEPCID TABLET) 20 Mg Tb, 1 TAB PO DAILY 02/06/24 Current Medications Current Medications Medications (Trade) Dose Ordered Sig/Margarito Route PRN Reason Start Time Stop Time Status Last Admin Piperacillin Sod/ Tazobactam Sod 100 ml @ 25 mls/hr Q12HR IV 10/29/24 22:00 10/30/24 21:18 Furosemide (Lasix Tablet) 40 mg QAM PO 10/30/24 07:00 10/29/24 12:51 DC Vital Signs Vital Signs Date Time Temp Pulse Resp B/P (MAP) Pulse Ox O2 Delivery O2 Flow Rate FiO2 10/30/24 16:00 97.7 78 16 98/69 (79) 93 97.7 10/29/24 16:01 Room Air* 0 21 Physical Exam General-not in any distress HEENT-normocephalic, no icterus, no pallor, neck supple Respiratory-fair air entry bilateral, no rhonchi, no wheeze [id number] heard, no murmurs appreciated Abdominal-soft, nontender, nondistended Musculoskeletal-no pedal edema, no calf tenderness Genitourinary-deferred Neuro-awake alert oriented x3, Psychiatric-not agitated, cooperative, Labs/Diagnostic Data Labs Test 10/30/24 03:55 10/29/24 10:24 10/29/24 08:24 10/29/24 06:52 Range/Units White Blood Count 10.5 # 4.4-10.8 10^3/uL Red Blood Count 6.69 H 4.5-5.90 10^6/uL Hemoglobin 16.0 13.5-17.5 g/dL Hematocrit 47.4 41.0-53.0 % Mean Corpuscular Volume 70.8 L 80.0-100.0 fL Mean Corpuscular Hemoglobin 24.0 L 28.0-32.0 pg Mean Corpuscular Hemoglobin Concent 33.9 32.0-36.0 g/dL Red Cell Distribution Width 24.0 H 11.8-14.3 % Platelet Count 134 L 140-450 10^3/uL Mean Platelet Volume 9.2 6.9-10.8 fL Neutrophils (%) (Auto) 70.8 37.0-80.0 % Lymphocytes (%) (Auto) 14.8 10.0-50.0 % Monocytes (%) (Auto) 12.7 H 0.0-12.0 % Eosinophils (%) (Auto) 1.2 0.0-7.0 % Basophils (%) (Auto) 0.5 0.0-2.0 % Neutrophils # (Auto) 7.5 1.6-8.6 10 ^3/uL Lymphocytes # (Auto) 1.6 0.4-5.4 10 ^3/uL Monocytes # (Auto) 1.3 0-1.3 10 ^3/uL Eosinophils # (Auto) 0.1 0-0.8 10 ^3/uL Basophils # (Auto) 0.1 0-0.2 10 ^3/uL Nucleated Red Blood Cells 0.1 % Platelet Estimate Adequate Hypochromasia (manual) Moderate Anisocytosis (manual) Moderate Microcytosis Slight Sodium Level 135 L 136-145 mmol/L Potassium Level 3.6 3.5-5.1 mmol/L Chloride Level 96 L 98-107 mmol/L Carbon Dioxide Level 25 20-31 mmol/L Anion Gap 14 5-15 Blood Urea Nitrogen 41 H 9-23 mg/dL Creatinine 5.66 H 0.700-1.30 mg/dL Glomerular Filtration Rate Calc 12 >90 mL/min BUN/Creatinine Ratio 7.2 L 10.0-20.0 Serum Glucose 124 H 74-106 mg/dL Calcium Level 8.9 8.7-10.4 mg/dL Total Bilirubin 1.3 H 0.2-1.0 mg/dL Aspartate Amino Transferase (AST) 34 13-40 U/L Alanine Aminotransferase (ALT) 23 7-40 U/L Alkaline Phosphatase 70 46-116 U/L Total Protein 7.4 5.7-8.2 g/dL Albumin 4.6 3.2-4.8 g/dL Plasma/Serum Blood Alcohol < 3.0 <10 mg/dL Lactic Acid Level 2.1 *H 0.4-2.0 mmol/L Erythrocyte Sedimentation Rate 1 0-20 mm/hr C-Reactive Protein High Sensitivity 2.34 H <1.0 mg/dL Urine Color Yellow Yellow Urine Clarity Turbid H Clear Urine pH 5.5 5.0-9.0 Urine Specific [place] 1.018 1.001-1.035 Urine Protein 1+ H Negative Urine Ketones 1+ H Negative Urine Blood 3+ H Negative /uL Urine Nitrite Negative Negative Urine Bilirubin Negative Negative Urine Urobilinogen Normal Negative mg/dL Urine Leukocyte Esterase Negative Negative /uL Urine RBC 1 0 - 3 /hpf Urine Microscopic WBC 9 H 0-3 /HPF Urine Squamous Epithelial Cells Few <5 /hpf Urine Bacteria None seen None Seen /hpf Urine Hyaline Casts Mod 0 - 2 /lpf Urine Mucus Few None Seen Urine Glucose 4+ H Normal mg/dL Urine Opiates Screen Neg NEGATIVE Urine Fentanyl Screen Neg NEGATIVE Urine Barbiturates Screen Neg NEGATIVE Urine Phencyclidine Screen Neg NEGATIVE Urine Amphetamines Screen Pos NEGATIVE Urine Benzodiazepines Screen Neg NEGATIVE Urine Cocaine Screen Neg NEGATIVE Urine Cannabinoids Screen Neg NEGATIVE Test 10/29/24 00:34 Range/Units Large Platelets Modera Giant Platelets Few Hemoglobin A1c 5.4 <5.7 % A1C Lipase 110 H 12-53 U/L Microbiology Date/Time Source Procedure Growth Status 10/29/24 08:39 Blood Blood Culture - Preliminary NO GROWTH AFTER 24 HOURS OF INCUBATION. Resulted 10/29/24 06:52 Voided Urine Urine Culture - Preliminary Resulted CT SCAN ABD PELVIS IMPRESSION: 1. No acute abdominal or pelvic findings status post left inguinal herniorrhaphy. 2. Probable gallbladder sludge. Problems(with codes): (1) Abdominal pain (2) Acute renal failure (3) Inguinal hernia (4) CHF (congestive heart failure) (5) Lactic acid acidosis (6) Leukocytosis (7) Gallbladder sludge Plan/Recommendation Plan Continue supportive care NPO, start ice chips IV fluid hydration IV antibiotics Monitor labs Protonix 40 mg IV daily Check lipase in a.m. Gallbladder ultrasound Plan discussed with: Other (None) ANDREA LUCAS MD Oct 30, 2024 21:54
[2024-10-30 22:26] VITALS: BP 106/73; PULSE 91; RESP 32; TEMP 98.5; O2SAT 95
[2024-10-31] VITALS (7 sets, daily range): BP systolic 108–117; BP diastolic 67–82; PULSE 18–81; RESP 16–18; TEMP 97–98; O2SAT 96–99
--- NOTE | 2024-10-31 00:43 | DVH ---
INDICATION: gallbladder sludge elevated bilirubin pancreatitis TECHNIQUE: Multiple real-time sonographic images of the abdomen were obtained. COMPARISON: US ABDOMEN LIMITED on DOS: 10/09/23, US KIDNEY on DOS: 04/20/23 FINDINGS: Liver is within normal limits in size measuring 15.7 cm but demonstrates diffuse increased echogenici ty consistent with fatty infiltration. No focal lesion is identified in the liver. Hepatopetal flow n oted in the portal vein. No evidence of intrahepatic or extrahepatic biliary ductal dilatation with t he common bile duct measuring 4 mm. Possible sludge noted in the gallbladder. No definite gallstones identified. No evidence of gallbladd er wall thickening or pericholycystic fluid. Sonographic Resendiz's sign was reportedly negative. Pancr eas is obscured by overlying bowel gas. Right kidney appears unremarkable with no hydronephrosis. No fluid collection noted. IMPRESSION: No definite acute abnormality identified with no evidence of cholelithiasis/cholecystitis. Possible b iliary sludge. Fatty infiltration of the liver..
[2024-10-31 07:18] LABS: Hemoglobin 14.7 g/dL (13.5-17.5); Mean Corpuscular Hemoglobin 23.9 pg (28.0-32.0); Nucleated Red Blood Cells % 0.1 %
[2024-10-31 07:22] LABS: Hematocrit 44.2 % (41.0-53.0); Mean Corpuscular Volume 72.0 fL (80.0-100.0)
[2024-10-31 07:35] LABS: Alanine Aminotransferase 22 U/L (7-40); Albumin 4.4 g/dL (3.2-4.8); Alkaline Phosphatase 63 U/L (46-116); Anion Gap 9 (5-15); BUN/Creatinine Ratio 8.0 (10.0-20.0); Calcium 8.9 mg/dL (8.7-10.4); Carbon Dioxide 27 mmol/L (20-31); Chloride 102 mmol/L (98-107); Lipase 50 U/L (12-53); Potassium 3.7 mmol/L (3.5-5.1); Sodium 138 mmol/L (136-145); Total Protein 6.9 g/dL (5.7-8.2)
[2024-10-31 07:48] LABS: Amylase 167 U/L (30-118); Bilirubin, Total 1.8 mg/dL (0.2-1.0); Blood Urea Nitrogen 23 mg/dL (9-23); Glucose 68 mg/dL (74-106)
--- NOTE | 2024-10-31 08:32 | DVHPN2 ---
Progress Note Date Seen: Oct 31, 2024 Medical Necessity Reason Pt with a Central, PICC or Fol: No Subjective Patient reports: No new complaints Review of Systems: Deferred Objective vital signs Vital Sign Date Time Temp Pulse Resp B/P (MAP) Pulse Ox O2 Delivery O2 Flow Rate FiO2 10/31/24 05:00 97.0 81 16 112/70 (84) 97 97.0 10/30/24 22:26 Room Air* 0 21 Total Intake and Output 10/30/24 10/30/24 10/31/24 14:59 22:59 06:59 Intake Total 250 ml 1090 ml 100 ml Output Total 600 ml 200 ml Balance 250 ml 490 ml -100 ml medications Current Medications Medications Dose Ordered Sig/Margarito Route Start Time Stop Time Status Last Admin Dose Admin Piperacillin Sod/ Tazobactam Sod 100 ml @ 25 mls/hr Q12HR IV 10/29/24 22:00 10/30/24 21:18 25 MLS/HR Acetaminophen/ Hydrocodone Bitart 1 tab Q4HP PRN PO 10/29/24 08:00 10/29/24 17:26 1 TAB Ondansetron HCl 4 mg Q4HP PRN IV 10/29/24 08:00 Acetaminophen 650 mg Q6HP PRN PO 10/29/24 08:00 10/30/24 09:28 650 MG Morphine Sulfate 2 mg Q4HPRN PRN IV 10/29/24 08:00 Aspirin 81 mg DAILY PO 10/29/24 10:00 10/30/24 09:14 81 MG Carvedilol 3.125 mg BID PO 10/29/24 10:00 10/30/24 09:14 3.125 MG Famotidine 20 mg DAILY PO 10/29/24 10:00 10/30/24 09:15 20 MG Nifedipine 30 mg DAILY PO 10/29/24 10:00 10/30/24 09:15 30 MG Sodium Chloride 1,000 ml @ 75 mls/hr [id number] IV 10/29/24 21:15 10/30/24 21:19 75 MLS/HR laboratory and microbiology Laboratory Tests 10/31/24 05:49 Test 10/31/24 05:49 Range/Units Serum Glucose 68 L 74-106 mg/dL Microbiology Date/Time Source Procedure Growth Status 10/29/24 08:39 Blood Blood Culture - Preliminary NO GROWTH AFTER 24 HOURS OF INCUBATION. Resulted 10/29/24 06:52 Voided Urine Urine Culture - Preliminary Resulted Problem List/Assessment/Plan Problem List/Assessment/Plan Acute kidney injury possible prerenal etiology in the setting of severe sepsis Severe sepsis Abdominal pain, vomiting possible gastroenteritis Recommendations Improving renal function fluids as ordered---ns iv , U PCR CT scan no hydronephrosis Stop Jardiance, spironolactone given severe Acute kidney injury Echocardiogram EF looks okay Plan discussed with: Patient My Orders My Orders Orders - CELESTE HANDY MD Procedure Category Date Status Time Chest Portable XY 10/30/24 Resulted 08:37 CELESTE HANDY MD Oct 31, 2024 08:32
[2024-10-31 09:25] LABS: Anisocytosis Slight
--- NOTE | 2024-10-31 09:46 | DVHPN2 ---
Reviewed: Care Plan, H&P, Labs, Medications, Previous Orders, Radiology Changes from previous H/P or p: No Changes Gastrointestinal: Nausea, Vomiting, Abdominal Pain Objective Vitals Vital Signs Date Time Temp Pulse Resp B/P (MAP) Pulse Ox O2 Delivery O2 Flow Rate FiO2 10/31/24 09:40 112/81 10/31/24 05:00 97.0 81 16 97 97.0 10/30/24 22:26 Room Air* 0 21 Intake/Output Intake and Output 10/31/24 07:00 Intake Total 1440 ml Output Total 800 ml Balance 640 ml Intake Oral 240 ml IV Total 1200 ml Output Urine Total 800 ml # Voids 2 Medications Current Medications Medications Dose Ordered Sig/Margarito Route Start Time Stop Time Status Last Admin Dose Admin Piperacillin Sod/ Tazobactam Sod 100 ml @ 25 mls/hr Q12HR IV 10/29/24 22:00 10/31/24 09:35 25 MLS/HR Acetaminophen/ Hydrocodone Bitart 1 tab Q4HP PRN PO 10/29/24 08:00 10/29/24 17:26 1 TAB Ondansetron HCl 4 mg Q4HP PRN IV 10/29/24 08:00 Acetaminophen 650 mg Q6HP PRN PO 10/29/24 08:00 10/30/24 09:28 650 MG Morphine Sulfate 2 mg Q4HPRN PRN IV 10/29/24 08:00 Aspirin 81 mg DAILY PO 10/29/24 10:00 10/30/24 09:14 81 MG Carvedilol 3.125 mg BID PO 10/29/24 10:00 10/30/24 09:14 3.125 MG Famotidine 20 mg DAILY PO 10/29/24 10:00 10/30/24 09:15 20 MG Nifedipine 30 mg DAILY PO 10/29/24 10:00 10/30/24 09:15 30 MG Sodium Chloride 1,000 ml @ 75 mls/hr [id number] IV 10/29/24 21:15 10/30/24 21:19 75 MLS/HR Laboratory Results Laboratory Tests 10/31/24 05:49 Chemistry Test 10/31/24 05:49 Albumin 4.4 g/dL (3.2-4.8) Calcium Level 8.9 mg/dL (8.7-10.4) Total Protein 6.9 g/dL (5.7-8.2) Lipid panel Test 10/31/24 05:49 Lipase 50 U/L (12-53) LFT Test 10/31/24 05:49 Alanine Aminotransferase (ALT) 22 U/L (7-40) Alkaline Phosphatase 63 U/L (46-116) Aspartate Amino Transferase (AST) 32 U/L (13-40) Total Bilirubin 1.8 mg/dL (0.2-1.0) H Urinalysis Test 10/29/24 06:52 Urine Color Yellow (Yellow) Urine Clarity Turbid (Clear) H Urine pH 5.5 (5.0-9.0) Urine Specific [place] 1.018 (1.001-1.035) Urine Protein 1+ (Negative) H Urine Ketones 1+ (Negative) H Urine Blood 3+ /uL (Negative) H Urine Nitrite Negative (Negative) Urine Bilirubin Negative (Negative) Urine Urobilinogen Normal mg/dL (Negative) Urine Leukocyte Esterase Negative /uL (Negative) Urine RBC 1 /hpf (0 - 3) Urine Microscopic WBC 9 /HPF (0-3) H Urine Squamous Epithelial Cells Few /hpf (<5) Urine Bacteria None seen /hpf (None Seen) Urine Hyaline Casts Mod /lpf (0 - 2) Urine Mucus Few (None Seen) Urine Glucose 4+ mg/dL (Normal) H Microbiology Microbiology Date/Time Source Procedure Growth Status 10/29/24 08:39 Blood Blood Culture - Preliminary NO GROWTH AFTER 48 HOURS OF INCUBATION. Resulted 10/29/24 06:52 Voided Urine Urine Culture - Preliminary Resulted Labs and/or images reviewed: Labs reviewed by me, Image(s) reviewed by me Assessment/Plan Assessment/Plan Sepsis unknown etiology: Blood cultures negative, urine cultures negative, continue Zosyn Systemic inflammatory response syndrome secondary to acute pancreatitis Intractable abdominal pain: CT abdomen pelvis without contrast negative Acute renal failure consult for Nephrology appreciated, Aldactone and Jardiance discontinued secondary to acute kidney injury Hyperglycemia Acute pancreatitis lipase 116: NPO, consult for GI Dr. Reggie Strauss appreciated, lipase down to 50 Status post fall: CT head negative History of sick sinus syndrome with ICD/day AFib placed at [facility] on June 10, 2024 History of hernia repair Denies use of alcohol Time spent 55 minutes Advanced care planning time 20 minutes Patient is full code Plan discussed with: Patient My Orders Orders - ROSS,MIRYAM M MD Procedure Category Date Status Time * Gi Dvh Pillow Filler CONS 10/30/24 Transmitted 12:16 Npo (Nothing By DIET 10/30/24 Transmitted Mouth) Diet Lunch Hepatitis B Surface LAB 10/30/24 In Process Antigen 23:29 Hepatitis C Antibody LAB 10/30/24 In Process 23:29 Date of Service: Oct 31, 2024 Billing Provider: MIRYAM ROSS MD Common Visit Codes: [id number] INP/OBS CARE(HIGH) MIRYAM ROSS MD Oct 31, 2024 09:45
--- NOTE | 2024-10-31 12:04 | DVHPN2 ---
Progress Note Date Seen: Oct 31, 2024 Resident Creating Document: DEONTE MILLAN RESIDENT Medical Necessity Reason Pt with a Central, PICC or Fol: No Subjective Review of Systems Patient is a 39-year-old male with past medical history of hypertension, CKD, CHF, s/p AICD placement, amphetamine abuse, who came in due to abdominal pain associated with nausea and vomiting that started on 10/29/2024. Patient reports at the time of onset abdominal pain was 8/10, worsened with eating. At the time of my assessment patient notes abdominal pain is 2/10. Does note some nausea. Patient is seen and examined at bedside, serum lipase 110 yesterday, 50 today Serum amylase 167 Remains NPO Objective vital signs Vital Sign Date Time Temp Pulse Resp B/P (MAP) Pulse Ox O2 Delivery O2 Flow Rate FiO2 10/31/24 09:40 112/81 10/31/24 09:00 97.7 60 18 99 97.7 10/30/24 22:26 Room Air* 0 21 Total Intake and Output 10/30/24 10/30/24 10/31/24 15:00 23:00 07:00 Intake Total 250 ml 1090 ml 100 ml Output Total 600 ml 200 ml Balance 250 ml 490 ml -100 ml medications Current Medications Medications Dose Ordered Sig/Margarito Route Start Time Stop Time Status Last Admin Dose Admin Piperacillin Sod/ Tazobactam Sod 100 ml @ 25 mls/hr Q12HR IV 10/29/24 22:00 10/31/24 09:35 25 MLS/HR Acetaminophen/ Hydrocodone Bitart 1 tab Q4HP PRN PO 10/29/24 08:00 10/29/24 17:26 1 TAB Ondansetron HCl 4 mg Q4HP PRN IV 10/29/24 08:00 Acetaminophen 650 mg Q6HP PRN PO 10/29/24 08:00 10/30/24 09:28 650 MG Morphine Sulfate 2 mg Q4HPRN PRN IV 10/29/24 08:00 Aspirin 81 mg DAILY PO 10/29/24 10:00 10/30/24 09:14 81 MG Carvedilol 3.125 mg BID PO 10/29/24 10:00 10/30/24 09:14 3.125 MG Famotidine 20 mg DAILY PO 10/29/24 10:00 10/30/24 09:15 20 MG Nifedipine 30 mg DAILY PO 10/29/24 10:00 10/30/24 09:15 30 MG Sodium Chloride 1,000 ml @ 75 mls/hr [id number] IV 10/29/24 21:15 10/30/24 21:19 75 MLS/HR Examination General-not in any distress HEENT-normocephalic, no icterus, no pallor, neck supple Respiratory-fair air entry bilateral, no rhonchi, no wheeze [id number] heard, no murmurs appreciated Abdominal-soft, nontender, nondistended Musculoskeletal-no pedal edema, no calf tenderness Genitourinary-deferred Neuro-awake alert oriented x3, Psychiatric-not agitated, cooperative, laboratory and microbiology Laboratory Tests 10/31/24 05:49 Test 10/31/24 05:49 Range/Units Serum Glucose 68 L 74-106 mg/dL Microbiology Date/Time Source Procedure Growth Status 10/29/24 08:39 Blood Blood Culture - Preliminary NO GROWTH AFTER 48 HOURS OF INCUBATION. Resulted 10/29/24 06:52 Voided Urine Urine Culture - Preliminary Resulted Labs and/or images reviewed: Labs reviewed by me, Image(s) reviewed by me Problem List/Assessment/Plan Problem List/Assessment/Plan Acute pancreatitis Acute intractable abdominal pain Gallbladder sludge Congestive heart failure JA hemodynamically mediated/VMN on probable CKD Inguinal hernia Plan: Continue supportive care IV hydration Advanced to clear liquid diet Repeat lipase in the a.m. IV Protonix 40 mg daily IV antibiotics Lipid panel Thank you so much for the opportunity to consult on your patient. GI team will follow the patient. In case of any questions or concerns please feel free to reach out. Plan discussed with Dr. Strauss Plan discussed with: Patient, Other (RN) DEONTE MILLAN RESIDENT Oct 31, 2024 12:04
[2024-10-31 13:44] LABS: Hepatitis B Surface Antigen Negative (Negative); Hepatitis C Antibody Negative (Negative)
[2024-10-31] MEDS: D5W/SOD CHLO 0.9% 1,000 ML IV SCH (14:34)
[2024-11-01] VITALS (7 sets, daily range): BP systolic 126–135; BP diastolic 81–96; PULSE 60–87; RESP 18–20; TEMP 97.6–97.8; O2SAT 96–99
[2024-11-01] MEDS: SODIUM CHLORIDE 0.9% 1,000 ML IV SCH (05:20)
--- NOTE | 2024-11-01 08:46 | DVHPN2 ---
Progress Note Date Seen: Nov 01, 2024 Medical Necessity Reason Pt with a Central, PICC or Fol: No Subjective Patient reports: Feels better Objective vital signs Vital Sign Date Time Temp Pulse Resp B/P (MAP) Pulse Ox O2 Delivery O2 Flow Rate FiO2 11/01/24 05:00 97.6 65 18 128/86 (100) 98 97.6 10/31/24 20:10 Room Air* 0 21 Total Intake and Output 10/31/24 10/31/24 11/01/24 15:00 23:00 07:00 Intake Total 100 ml 1700 ml Output Total 1700 ml Balance 100 ml -1700 ml 1700 ml medications Current Medications Medications Dose Ordered Sig/Margarito Route Start Time Stop Time Status Last Admin Dose Admin Piperacillin Sod/ Tazobactam Sod 100 ml @ 25 mls/hr Q12HR IV 10/29/24 22:00 10/31/24 21:46 25 MLS/HR Acetaminophen/ Hydrocodone Bitart 1 tab Q4HP PRN PO 10/29/24 08:00 10/29/24 17:26 1 TAB Ondansetron HCl 4 mg Q4HP PRN IV 10/29/24 08:00 Acetaminophen 650 mg Q6HP PRN PO 10/29/24 08:00 10/30/24 09:28 650 MG Morphine Sulfate 2 mg Q4HPRN PRN IV 10/29/24 08:00 Aspirin 81 mg DAILY PO 10/29/24 10:00 10/30/24 09:14 81 MG Carvedilol 3.125 mg BID PO 10/29/24 10:00 10/31/24 21:48 3.125 MG Famotidine 20 mg DAILY PO 10/29/24 10:00 10/30/24 09:15 20 MG Nifedipine 30 mg DAILY PO 10/29/24 10:00 10/30/24 09:15 30 MG Sodium Chloride 1,000 ml @ 75 mls/hr [id number] IV 10/31/24 16:45 11/01/24 05:20 75 MLS/HR Examination: GENERAL:Normal laboratory and microbiology Laboratory Tests 10/31/24 05:49 Test 10/31/24 05:49 Range/Units Serum Glucose 68 L 74-106 mg/dL Microbiology Date/Time Source Procedure Growth Status 10/29/24 08:39 Blood Blood Culture - Preliminary NO GROWTH AFTER 72 HOURS OF INCUBATION. Resulted 10/29/24 06:52 Voided Urine Urine Culture - Final Complete Problem List/Assessment/Plan Problem List/Assessment/Plan Acute kidney injury possible prerenal etiology in the setting of severe sepsis Severe sepsis Abdominal pain, vomiting possible gastroenteritis methamphetamine positive Recommendations labs pending today fluids as ordered---ns iv CT scan no hydronephrosis held Jardiance, spironolactone given severe Acute kidney injury can resume jardiance once AI resolves rec holf off aldactone until followed by outpatient primary doctor Echocardiogram EF 60% Plan discussed with: Patient My Orders My Orders Orders - RUDDY TAPIA MD Procedure Category Date Status Time Basic Metabolic Panel LAB 11/01/24 Verified 08:41 Basic Metabolic Panel LAB 11/02/24 Verified 04:00 Dietary Evaluation Review Comments: r/o sepsis, Advance to low fat diet and consider renal diet with 0.6-0.8g/kg ABW protein restriction after sepsis clears. Expected Outcomes/Goals: avoid uremia, RUDDY TAPIA MD Nov 01, 2024 08:46
--- NOTE | 2024-11-01 09:45 | DVHPN2 ---
Progress Note Date Seen: Nov 01, 2024 Resident Creating Document: DEONTE MILLAN RESIDENT Medical Necessity Reason Pt with a Central, PICC or Fol: No Subjective Review of Systems Patient seen and examined at bedside today Denies any nausea, vomiting or abdominal pain Tolerating clear liquid diet without any complaints Serum lipase 55 today, slightly up trended from yesterday Last BM 10/31 x2, soft. Objective vital signs Vital Sign Date Time Temp Pulse Resp B/P (MAP) Pulse Ox O2 Delivery O2 Flow Rate FiO2 11/01/24 09:27 148/97 11/01/24 09:27 70 11/01/24 05:00 97.6 18 98 97.6 10/31/24 20:10 Room Air* 0 21 Total Intake and Output 10/31/24 10/31/24 11/01/24 15:00 23:00 07:00 Intake Total 100 ml 1700 ml Output Total 1700 ml Balance 100 ml -1700 ml 1700 ml medications Current Medications Medications Dose Ordered Sig/Margarito Route Start Time Stop Time Status Last Admin Dose Admin Piperacillin Sod/ Tazobactam Sod 100 ml @ 25 mls/hr Q12HR IV 10/29/24 22:00 11/01/24 09:22 25 MLS/HR Acetaminophen/ Hydrocodone Bitart 1 tab Q4HP PRN PO 10/29/24 08:00 10/29/24 17:26 1 TAB Ondansetron HCl 4 mg Q4HP PRN IV 10/29/24 08:00 Acetaminophen 650 mg Q6HP PRN PO 10/29/24 08:00 10/30/24 09:28 650 MG Morphine Sulfate 2 mg Q4HPRN PRN IV 10/29/24 08:00 Aspirin 81 mg DAILY PO 10/29/24 10:00 11/01/24 09:26 81 MG Carvedilol 3.125 mg BID PO 10/29/24 10:00 11/01/24 09:27 3.125 MG Famotidine 20 mg DAILY PO 10/29/24 10:00 11/01/24 09:26 20 MG Nifedipine 30 mg DAILY PO 10/29/24 10:00 11/01/24 09:27 30 MG Sodium Chloride 1,000 ml @ 75 mls/hr [id number] IV 10/31/24 16:45 11/01/24 05:20 75 MLS/HR Examination General-not in any distress HEENT-normocephalic, no icterus, no pallor, neck supple Respiratory-fair air entry bilateral, no rhonchi, no wheeze [id number] heard, no murmurs appreciated Abdominal-soft, nontender, nondistended Musculoskeletal-no pedal edema, no calf tenderness Genitourinary-deferred Neuro-awake alert oriented x3, Psychiatric-not agitated, cooperative, laboratory and microbiology Laboratory Tests 10/31/24 05:49 Test 10/31/24 05:49 Range/Units Serum Glucose 68 L 74-106 mg/dL Microbiology Date/Time Source Procedure Growth Status 10/29/24 08:39 Blood Blood Culture - Preliminary NO GROWTH AFTER 72 HOURS OF INCUBATION. Resulted 10/29/24 06:52 Voided Urine Urine Culture - Final Complete Labs and/or images reviewed: Labs reviewed by me, Image(s) reviewed by me Problem List/Assessment/Plan Problem List/Assessment/Plan Acute pancreatitis Acute intractable abdominal pain Gallbladder sludge Congestive heart failure JA hemodynamically mediated/VMN on probable CKD Inguinal hernia Plan: Continue supportive care IV hydration Advanced to full liquid diet Repeat lipase in the a.m. IV Protonix 40 mg daily IV antibiotics Pending Lipid panel Thank you so much for the opportunity to consult on your patient. GI team will follow the patient. In case of any questions or concerns please feel free to reach out. Plan discussed with Dr. Strauss Plan discussed with: Patient, Other (RN) My Orders My Orders Orders - DEONTE MILLAN RESIDENT Procedure Category Date Status Time Clear Liq Diet DIET 10/31/24 Transmitted Dinner Sodium Chloride 0.9% PHA 10/31/24 In Process 16:45 Complete Blood Count LAB 11/01/24 Transmitted 09:43 Comprehensive LAB 11/01/24 Transmitted Metabolic Panel 09:43 Dietary Evaluation Review Comments: r/o sepsis, Advance to low fat diet and consider renal diet with 0.6-0.8g/kg ABW protein restriction after sepsis clears. Expected Outcomes/Goals: avoid uremiaYANA EMAN RESIDENT Nov 01, 2024 09:45
[2024-11-01 10:21] LABS: Hemoglobin 13.7 g/dL (13.5-17.5)
[2024-11-01 10:24] LABS: Hematocrit 41.6 % (41.0-53.0); Mean Corpuscular Hemoglobin 23.8 pg (28.0-32.0); Mean Corpuscular Volume 72.3 fL (80.0-100.0); Nucleated Red Blood Cells % 0.1 %
--- NOTE | 2024-11-01 11:10 | DVHPN2 ---
Reviewed: Care Plan, H&P, Labs, Medications, Previous Orders, Radiology Changes from previous H/P or p: No Changes Gastrointestinal: Nausea, Vomiting, Abdominal Pain Objective Vitals Vital Signs Date Time Temp Pulse Resp B/P (MAP) Pulse Ox O2 Delivery O2 Flow Rate FiO2 11/01/24 09:27 148/97 11/01/24 09:27 70 11/01/24 08:00 Room Air* 0 21 11/01/24 05:00 97.6 18 98 97.6 Intake/Output Intake and Output 11/01/24 07:00 Intake Total 1800 ml Output Total 1700 ml Balance 100 ml Intake Oral 600 ml IV Total 1200 ml Output Urine Total 1700 ml # Voids 3 # Bowel Movements 4 Medications Current Medications Medications Dose Ordered Sig/Margarito Route Start Time Stop Time Status Last Admin Dose Admin Acetaminophen/ Hydrocodone Bitart 1 tab Q4HP PRN PO 10/29/24 08:00 10/29/24 17:26 1 TAB Ondansetron HCl 4 mg Q4HP PRN IV 10/29/24 08:00 Acetaminophen 650 mg Q6HP PRN PO 10/29/24 08:00 10/30/24 09:28 650 MG Morphine Sulfate 2 mg Q4HPRN PRN IV 10/29/24 08:00 Aspirin 81 mg DAILY PO 10/29/24 10:00 11/01/24 09:26 81 MG Carvedilol 3.125 mg BID PO 10/29/24 10:00 11/01/24 09:27 3.125 MG Famotidine 20 mg DAILY PO 10/29/24 10:00 11/01/24 09:26 20 MG Nifedipine 30 mg DAILY PO 10/29/24 10:00 11/01/24 09:27 30 MG Sodium Chloride 1,000 ml @ 75 mls/hr [id number] IV 10/31/24 16:45 11/01/24 05:20 75 MLS/HR Piperacillin Sod/ Tazobactam Sod 100 ml @ 25 mls/hr Q8HR IV 11/01/24 15:30 Laboratory Results Laboratory Tests 11/01/24 06:05 Chemistry Test 11/01/24 06:05 Albumin Pending Calcium Level Pending Total Protein Pending Lipid panel Test 11/01/24 06:05 Lipase 55 U/L (12-53) H LFT Test 11/01/24 06:05 Alanine Aminotransferase (ALT) Pending Alkaline Phosphatase Pending Aspartate Amino Transferase (AST) Pending Total Bilirubin Pending Urinalysis Test 10/29/24 06:52 Urine Color Yellow (Yellow) Urine Clarity Turbid (Clear) H Urine pH 5.5 (5.0-9.0) Urine Specific [place] 1.018 (1.001-1.035) Urine Protein 1+ (Negative) H Urine Ketones 1+ (Negative) H Urine Blood 3+ /uL (Negative) H Urine Nitrite Negative (Negative) Urine Bilirubin Negative (Negative) Urine Urobilinogen Normal mg/dL (Negative) Urine Leukocyte Esterase Negative /uL (Negative) Urine RBC 1 /hpf (0 - 3) Urine Microscopic WBC 9 /HPF (0-3) H Urine Squamous Epithelial Cells Few /hpf (<5) Urine Bacteria None seen /hpf (None Seen) Urine Hyaline Casts Mod /lpf (0 - 2) Urine Mucus Few (None Seen) Urine Glucose 4+ mg/dL (Normal) H Microbiology Microbiology Date/Time Source Procedure Growth Status 10/29/24 08:39 Blood Blood Culture - Preliminary NO GROWTH AFTER 72 HOURS OF INCUBATION. Resulted 10/29/24 06:52 Voided Urine Urine Culture - Final Complete Labs and/or images reviewed: Labs reviewed by me, Image(s) reviewed by me Assessment/Plan Assessment/Plan Sepsis unknown etiology: Blood cultures negative, urine cultures negative, continue Zosyn Systemic inflammatory response syndrome secondary to acute pancreatitis Intractable abdominal pain: CT abdomen pelvis without contrast negative Acute renal failure consult for Nephrology appreciated, Aldactone and Jardiance discontinued secondary to acute kidney injury Hyperglycemia Acute pancreatitis lipase 116: NPO, consult for GI Dr. Reggie Strauss appreciated, lipase down to 50 Status post fall: CT head negative History of sick sinus syndrome with ICD/day AFib placed at [facility] on June 10, 2024 Current meth abuser: Counseled History of hernia repair Denies use of alcohol Time spent 55 minutes Advanced care planning time 20 minutes Patient is full code Plan discussed with: Patient Date of Service: Nov 01, 2024 Billing Provider: MIRYAM ROSS MD Common Visit Codes: [id number] INP/OBS CARE(HIGH) MIRYAM ROSS MD Nov 01, 2024 11:10
[2024-11-01 11:43] LABS: Alanine Aminotransferase 18 U/L (7-40); Albumin 3.9 g/dL (3.2-4.8); Alkaline Phosphatase 54 U/L (46-116); Anion Gap 12 (5-15); BUN/Creatinine Ratio 9.9 (10.0-20.0); Blood Urea Nitrogen 19 mg/dL (9-23); Carbon Dioxide 24 mmol/L (20-31); Chloride 107 mmol/L (98-107); Glucose 99 mg/dL (74-106); Potassium 4.1 mmol/L (3.5-5.1); Sodium 143 mmol/L (136-145); Total Protein 6.5 g/dL (5.7-8.2)
[2024-11-01 11:45] LABS: Bilirubin, Total 1.2 mg/dL (0.2-1.0); Calcium 8.5 mg/dL (8.7-10.4)
[2024-11-01 15:00] LABS: Cholesterol 207 mg/dL (< 200); HDL Cholesterol 29 mg/dL (40-59); Triglycerides 166 mg/dL (< 150)
[2024-11-01] MEDS ORDERED: PIPERACILLIN-TAZOB 3.375GM 100 ML IV SCH (15:30)
[2024-11-01] MEDS: PIPERACILLIN-TAZOB 3.375GM 100 ML IV SCH (17:34)
[2024-11-02 01:00] VITALS: BP 158/112; PULSE 62; RESP 18; TEMP 98; O2SAT 96
[2024-11-02 05:00] VITALS: BP 138/98; PULSE 65; RESP 18; TEMP 97.9; O2SAT 99
[2024-11-02 05:53] LABS: Anion Gap 9 (5-15); Carbon Dioxide 25 mmol/L (20-31); Chloride 107 mmol/L (98-107); Potassium 4.0 mmol/L (3.5-5.1); Sodium 141 mmol/L (136-145)
[2024-11-02 05:59] LABS: BUN/Creatinine Ratio 6.0 (10.0-20.0); Blood Urea Nitrogen 9 mg/dL (9-23); Glucose 83 mg/dL (74-106); Lipase 52 U/L (12-53)
[2024-11-02 06:00] LABS: Calcium 8.5 mg/dL (8.7-10.4)
[2024-11-02 07:32] VITALS: BP 148/97; PULSE 65; RESP 20; TEMP 98.3; O2SAT 96
--- NOTE | 2024-11-02 10:35 | DVHPN2 ---
Reviewed: Care Plan, H&P, Labs, Medications, Previous Orders, Radiology Changes from previous H/P or p: No Changes Gastrointestinal: Nausea, Vomiting, Abdominal Pain Objective Vitals Vital Signs Date Time Temp Pulse Resp B/P (MAP) Pulse Ox O2 Delivery O2 Flow Rate FiO2 11/02/24 09:28 148/97 11/02/24 09:28 65 11/02/24 07:32 98.3 20 96 98.3 11/01/24 19:50 Room Air* 0 21 Intake/Output Intake and Output 11/02/24 06:59 Intake Total 2560 ml Output Total 5300 ml Balance -2740 ml Intake Oral 2360 ml IV Total 200 ml Output Urine Total 5300 ml Medications Current Medications Medications Dose Ordered Sig/Margarito Route Start Time Stop Time Status Last Admin Dose Admin Acetaminophen/ Hydrocodone Bitart 1 tab Q4HP PRN PO 10/29/24 08:00 10/29/24 17:26 1 TAB Ondansetron HCl 4 mg Q4HP PRN IV 10/29/24 08:00 Acetaminophen 650 mg Q6HP PRN PO 10/29/24 08:00 10/30/24 09:28 650 MG Morphine Sulfate 2 mg Q4HPRN PRN IV 10/29/24 08:00 Aspirin 81 mg DAILY PO 10/29/24 10:00 11/02/24 09:28 81 MG Carvedilol 3.125 mg BID PO 10/29/24 10:00 11/02/24 09:28 3.125 MG Famotidine 20 mg DAILY PO 10/29/24 10:00 11/02/24 09:28 20 MG Nifedipine 30 mg DAILY PO 10/29/24 10:00 11/02/24 09:28 30 MG Sodium Chloride 1,000 ml @ 75 mls/hr [id number] IV 10/31/24 16:45 11/01/24 05:20 75 MLS/HR Piperacillin Sod/ Tazobactam Sod 100 ml @ 25 mls/hr Q8H IV 11/01/24 18:00 11/02/24 09:27 25 MLS/HR Laboratory Results Laboratory Tests 11/01/24 06:05 11/02/24 05:05 Chemistry Test 11/02/24 05:05 Calcium Level 8.5 mg/dL (8.7-10.4) L Lipid panel Test 11/02/24 05:05 Lipase 52 U/L (12-53) Urinalysis Test 10/29/24 06:52 Urine Color Yellow (Yellow) Urine Clarity Turbid (Clear) H Urine pH 5.5 (5.0-9.0) Urine Specific [place] 1.018 (1.001-1.035) Urine Protein 1+ (Negative) H Urine Ketones 1+ (Negative) H Urine Blood 3+ /uL (Negative) H Urine Nitrite Negative (Negative) Urine Bilirubin Negative (Negative) Urine Urobilinogen Normal mg/dL (Negative) Urine Leukocyte Esterase Negative /uL (Negative) Urine RBC 1 /hpf (0 - 3) Urine Microscopic WBC 9 /HPF (0-3) H Urine Squamous Epithelial Cells Few /hpf (<5) Urine Bacteria None seen /hpf (None Seen) Urine Hyaline Casts Mod /lpf (0 - 2) Urine Mucus Few (None Seen) Urine Glucose 4+ mg/dL (Normal) H Microbiology Microbiology Date/Time Source Procedure Growth Status 10/29/24 08:39 Blood Blood Culture - Preliminary NO GROWTH AFTER 72 HOURS OF INCUBATION. Resulted 10/29/24 06:52 Voided Urine Urine Culture - Final Complete Labs and/or images reviewed: Labs reviewed by me, Image(s) reviewed by me Assessment/Plan Assessment/Plan Sepsis unknown etiology: Blood cultures negative, urine cultures negative, treated with Zosyn, now resolved Systemic inflammatory response syndrome secondary to acute pancreatitis Intractable abdominal pain: CT abdomen pelvis without contrast negative Acute renal failure consult for Nephrology appreciated, Aldactone and Jardiance discontinued secondary to acute kidney injury Hyperglycemia Acute pancreatitis lipase 116: consult for GI Dr. Reggie Strauss appreciated, lipase down to 50 Status post fall: CT head negative History of sick sinus syndrome with ICD/day AFib placed at [facility] on June 10, 2024 Current meth abuser: Counseled History of hernia repair Father at the bedside MARY Deutsch at bedside Plan discussed with: Patient My Orders Orders - MIRYAM ROSS MD Procedure Category Date Status Time Initiate Vte ROSIE 11/02/24 In Process Prophylaxis 08:21 Date of Service: Nov 02, 2024 Billing Provider: MIRYAM ROSS MD Common Visit Codes: [id number] INP/OBS CARE(HIGH) MIRYAM ROSS MD Nov 02, 2024 10:35
[2024-11-02] MEDS ORDERED: HYDR-4902 PO (10:37)
[2024-11-02] MEDS ORDERED: PANT40T PO (10:37)
--- NOTE | 2024-11-02 10:47 | DVHDS2 ---
Discharge Summary Date of Admission Oct 29, 2024 at 07:51 Date of Discharge: Nov 02, 2024 Admitting Diagnosis Abdominal pain Wounds: None Labs/Diagnostic Data: Laboratory Results Test 11/02/24 05:05 11/01/24 06:05 10/31/24 05:49 10/30/24 03:55 Sodium Level 141 mmol/L (136-145) Potassium Level 4.0 mmol/L (3.5-5.1) Chloride Level 107 mmol/L (98-107) Carbon Dioxide Level 25 mmol/L (20-31) Anion Gap 9 (5-15) Blood Urea Nitrogen 9 mg/dL (9-23) Creatinine 1.51 mg/dL (0.700-1.30) Glomerular Filtration Rate Calc 60 mL/min (>90) BUN/Creatinine Ratio 6.0 (10.0-20.0) Serum Glucose 83 mg/dL (74-106) Calcium Level 8.5 mg/dL (8.7-10.4) Lipase 52 U/L (12-53) White Blood Count 5.7 10^3/uL (4.4-10.8) Red Blood Count 5.76 10^6/uL (4.5-5.90) Hemoglobin 13.7 g/dL (13.5-17.5) Hematocrit 41.6 % (41.0-53.0) Mean Corpuscular Volume 72.3 fL (80.0-100.0) Mean Corpuscular Hemoglobin 23.8 pg (28.0-32.0) Mean Corpuscular Hemoglobin Concent 32.9 g/dL (32.0-36.0) Red Cell Distribution Width 23.3 % (11.8-14.3) Platelet Count 119 10^3/uL (140-450) Mean Platelet Volume 9.0 fL (6.9-10.8) Neutrophils (%) (Auto) 60.7 % (37.0-80.0) Lymphocytes (%) (Auto) 23.8 % (10.0-50.0) Monocytes (%) (Auto) 9.5 % (0.0-12.0) Eosinophils (%) (Auto) 4.6 % (0.0-7.0) Basophils (%) (Auto) 1.4 % (0.0-2.0) Neutrophils # (Auto) 3.4 10 ^3/uL (1.6-8.6) Lymphocytes # (Auto) 1.4 10 ^3/uL (0.4-5.4) Monocytes # (Auto) 0.5 10 ^3/uL (0-1.3) Eosinophils # (Auto) 0.3 10 ^3/uL (0-0.8) Basophils # (Auto) 0.1 10 ^3/uL (0-0.2) Nucleated Red Blood Cells 0.1 % Total Bilirubin 1.2 mg/dL (0.2-1.0) Aspartate Amino Transferase (AST) 25 U/L (13-40) Alanine Aminotransferase (ALT) 18 U/L (7-40) Alkaline Phosphatase 54 U/L (46-116) Total Protein 6.5 g/dL (5.7-8.2) Albumin 3.9 g/dL (3.2-4.8) Triglycerides Level 166 mg/dL (< 150) Cholesterol Level 207 mg/dL (< 200) LDL Cholesterol 147 mg/dL (< 100) HDL Cholesterol 29 mg/dL (40-59) Platelet Estimate Adequate Hypochromasia (manual) Moderate Anisocytosis (manual) Slight Microcytosis Moderate Amylase Level 167 U/L (30-118) Plasma/Serum Blood Alcohol < 3.0 mg/dL (<10) Hepatitis B Surface Antigen Negative (Negative) Hepatitis C Antibody Negative (Negative) Test 10/29/24 10:24 10/29/24 08:24 10/29/24 06:52 10/29/24 00:34 Lactic Acid Level 2.1 mmol/L (0.4-2.0) Erythrocyte Sedimentation Rate 1 mm/hr (0-20) C-Reactive Protein High Sensitivity 2.34 mg/dL (<1.0) Urine Color Yellow (Yellow) Urine Clarity Turbid (Clear) Urine pH 5.5 (5.0-9.0) Urine Specific Mize 1.018 (1.001-1.035) Urine Protein 1+ (Negative) Urine Ketones 1+ (Negative) Urine Blood 3+ /uL (Negative) Urine Nitrite Negative (Negative) Urine Bilirubin Negative (Negative) Urine Urobilinogen Normal mg/dL (Negative) Urine Leukocyte Esterase Negative /uL (Negative) Urine RBC 1 /hpf (0 - 3) Urine Microscopic WBC 9 /HPF (0-3) Urine Squamous Epithelial Cells Few /hpf (<5) Urine Bacteria None seen /hpf (None Seen) Urine Hyaline Casts Mod /lpf (0 - 2) Urine Mucus Few (None Seen) Urine Glucose 4+ mg/dL (Normal) Urine Opiates Screen Neg (NEGATIVE) Urine Fentanyl Screen Neg (NEGATIVE) Urine Barbiturates Screen Neg (NEGATIVE) Urine Phencyclidine Screen Neg (NEGATIVE) Urine Amphetamines Screen Pos (NEGATIVE) Urine Benzodiazepines Screen Neg (NEGATIVE) Urine Cocaine Screen Neg (NEGATIVE) Urine Cannabinoids Screen Neg (NEGATIVE) Large Platelets Modera Giant Platelets Few Hemoglobin A1c 5.4 % A1C (<5.7) Other Laboratory Tests 11/02/24 05:05 11/01/24 06:05 Brief Hx & Hospital Course: 39-year-old male with a history of sick sinus syndrome status post ICD in [facility] May 2024 chronic current meth abuser had a mechanical fall and came in for abdominal pain admitted for mild pancreatitis lipase [address] Reggie Strauss lipase came down to 50 patient was not sepsis with the elevated white count possibly systemic inflammatory response syndrome secondary to pancreatitis treated with the Zosyn which has now resolved acute kidney injury secondary to sepsis seen by the horse racer. Jardiance and Aldactone held because of acute kidney injury ileus slowly improved and at the time of discharge patient is afebrile without any symptoms of abdominal pain nausea or vomiting. The father at the bedside patient being discharged home. Pantoprazole and [place] transmitted to the pharmacy. Reviewed all other home medications. He was advised to stop using methamphetamine He will follow up with his primary Dr Dr Gandhi. Consults/Reason for consult GI Dr. Reggie Strauss Operations or Procedures CT abdomen pelvis without contrast Condition at Discharge: Fair Final Diagnosis/Problems List Sepsis unknown etiology: Blood cultures negative, urine cultures negative, treated with Zosyn, now resolved Systemic inflammatory response syndrome secondary to acute pancreatitis Intractable abdominal pain: CT abdomen pelvis without contrast negative Acute renal failure consult for Nephrology appreciated, Aldactone and Jardiance discontinued secondary to acute kidney injury Hyperglycemia Acute pancreatitis lipase 116: consult for GI Dr. Reggie Strauss appreciated, lipase down to 50 Status post fall: CT head negative History of sick sinus syndrome with ICD/day AFib placed at [facility] on June 10, 2024 Current meth abuser: Counseled History of hernia repair Discharge Disposition: Home Discharge Instruct/Medications Diet: Cardiac 2g Na,low cholest Activity: Light activity Follow Up/Referral: Follow up with your primary Dr Dr. Gandhi Resume all previous home meds Medications: Pantoprazole [place] Scheduled Acetaminophen (Acetaminophen), 500 MG PO Q4HPRN Amoxicillin & Pot Clavulanate (Amoxicillin/Potassium Cla), 1 TAB PO BID Aspirin (Aspirin), 81 MG PO DAILY Carvedilol (Carvedilol), 1 TAB PO BID Cephalexin (Keflex Capsule), 2 CAP PO BID Empagliflozin (Jardiance), 10 MG PO DAILY Famotidine (Pepcid Tablet), 1 TAB PO DAILY, (Reported) Furosemide (Furosemide), 1 TAB PO QAM Naproxen (Naprosyn Tablet), 1 TAB PO BID Nifedipine (Nifedipine ER), 30 MG PO DAILY Nifedipine (Nifedipine Er), 60 MG PO DAILY Oseltamivir Phosphate (Tamiflu), 1 CAP PO BID Pantoprazole Sodium Sesquihydr (Pantoprazole Sodium), 40 MG PO BID Sacubitril-Valsartan (Entresto 24-26 mg), 1 TAB PO BID Spironolactone (Aldactone), 25 MG PO DAILY Scheduled PRN Albuterol Sulfate (Ventolin Mdi), 90 MCG IN Q6HP PRN Hydrocodone-Acetaminophen (Hydrocodone Bitartrate/AC 5-325 mg), 1 TAB PO QID PRN Naproxen (Naproxen), 500 MG PO TIDPRN PRN 39 (Time Taken for discharge summary 39 minutes) Discharge Statement: "Patient was advised to return to the ER or call 911 if any headaches, dizziness, shortness of breath, chest pain, abdominal pain, bleeding, fevers, or worsening of medical condition. Patient was counseled about treatment plan, medications, possible side effects, patientverbalized understanding. All questions were answered to the best of my ability. This discharge took greater then 30 minutes in planning, reviewing documentation, counseling the patient, and discussing with other team members." ASSESSMENT ASSESSMENT Hospital Course Improved Assessment Sepsis unknown etiology: Blood cultures negative, urine cultures negative, treated with Zosyn, now resolved Systemic inflammatory response syndrome secondary to acute pancreatitis Intractable abdominal pain: CT abdomen pelvis without contrast negative Acute renal failure consult for Nephrology appreciated, Aldactone and Jardiance discontinued secondary to acute kidney injury Hyperglycemia Acute pancreatitis lipase 116: consult for GI Dr. Reggie Strauss appreciated, lipase down to 50 Status post fall: CT head negative History of sick sinus syndrome with ICD/day AFib placed at [facility] on June 10, 2024 Current meth abuser: Counseled History of hernia repair Date of Service: Nov 02, 2024 Billing Provider: MIRYAM ROSS MD Common Visit Codes: [id number] INP/OBS CARE(HIGH) MIRYAM ROSS MD Nov 02, 2024 10:47
[2024-11-02 13:00] VITALS: BP 137/87; PULSE 59; RESP 18; TEMP 97.8; O2SAT 96
--- NOTE | 2024-11-02 14:08 | DVHPN2 ---
Progress Note Date Seen: Nov 02, 2024 Resident Creating Document: DEONTE MILLAN RESIDENT Medical Necessity Reason Pt with a Central, PICC or Fol: No Subjective Review of Systems Patient seen and examined at bedside, denies any nausea or vomiting, minimal abdominal pain, much improved from prior. Tolerating diet without any complaints Serum lipase 50, downtrended today Objective vital signs Vital Sign Date Time Temp Pulse Resp B/P (MAP) Pulse Ox O2 Delivery O2 Flow Rate FiO2 11/02/24 13:00 97.8 59 18 137/87 (104) 96 97.8 11/02/24 08:00 Room Air* 0 21 Total Intake and Output 11/01/24 11/01/24 11/02/24 15:00 23:00 07:00 Intake Total 1860 ml 700 ml Output Total 1200 ml 2000 ml 2100 ml Balance -1200 ml -140 ml -1400 ml medications Current Medications Medications Dose Ordered Sig/Margarito Route Start Time Stop Time Status Last Admin Dose Admin Acetaminophen/ Hydrocodone Bitart 1 tab Q4HP PRN PO 10/29/24 08:00 10/29/24 17:26 1 TAB Ondansetron HCl 4 mg Q4HP PRN IV 10/29/24 08:00 Acetaminophen 650 mg Q6HP PRN PO 10/29/24 08:00 10/30/24 09:28 650 MG Morphine Sulfate 2 mg Q4HPRN PRN IV 10/29/24 08:00 Aspirin 81 mg DAILY PO 10/29/24 10:00 11/02/24 09:28 81 MG Carvedilol 3.125 mg BID PO 10/29/24 10:00 11/02/24 09:28 3.125 MG Famotidine 20 mg DAILY PO 10/29/24 10:00 11/02/24 09:28 20 MG Nifedipine 30 mg DAILY PO 10/29/24 10:00 11/02/24 09:28 30 MG Sodium Chloride 1,000 ml @ 75 mls/hr [id number] IV 10/31/24 16:45 11/01/24 05:20 75 MLS/HR Piperacillin Sod/ Tazobactam Sod 100 ml @ 25 mls/hr Q8H IV 11/01/24 18:00 11/02/24 09:27 25 MLS/HR Examination General-not in any distress HEENT-normocephalic, no icterus, no pallor, neck supple Respiratory-fair air entry bilateral, no rhonchi, no wheeze [id number] heard, no murmurs appreciated Abdominal-soft, nontender, nondistended Musculoskeletal-no pedal edema, no calf tenderness Genitourinary-deferred Neuro-awake alert oriented x3, Psychiatric-not agitated, cooperative, laboratory and microbiology Laboratory Tests 11/02/24 05:05 11/01/24 06:05 Test 11/02/24 05:05 Range/Units Serum Glucose 83 74-106 mg/dL Microbiology Date/Time Source Procedure Growth Status 10/29/24 08:39 Blood Blood Culture - Preliminary NO GROWTH AFTER 72 HOURS OF INCUBATION. Resulted 10/29/24 06:52 Voided Urine Urine Culture - Final Complete Labs and/or images reviewed: Labs reviewed by me, Image(s) reviewed by me Problem List/Assessment/Plan Problem List/Assessment/Plan Acute pancreatitis Acute intractable abdominal pain Gallbladder sludge Congestive heart failure JA hemodynamically mediated/VMN on probable CKD Inguinal hernia Plan: Continue supportive care IV hydration Advanced to mechanical soft IV Protonix 40 mg daily IV antibiotics Possible discharge today Thank you so much for the opportunity to consult on your patient. GI team will follow the patient. In case of any questions or concerns please feel free to reach out. Plan discussed with Dr. Strauss Plan discussed with: Patient, Other (RN) My Orders My Orders Orders - DEONTE MILLAN RESIDENT Procedure Category Date Status Time Mechanical Soft Diet DIET 11/02/24 Transmitted Lunch Dietary Evaluation Review Comments: r/o sepsis, Advance to low fat diet and consider renal diet with 0.6-0.8g/kg ABW protein restriction after sepsis clears. Expected Outcomes/Goals: avoid uremia, DEONTE MILLAN RESIDENT Nov 02, 2024 14:08
== END 2024-11-02 15:55 | disposition home or self-care (01) | DRG 282 ==
LOC: ER 23:35 → OVERFLOW 10-29 07:51 → CENTRAL 10-30 22:25
PROVIDERS: ADMIT Family Medicine; ATTEND Family Medicine
DX: K85.90 Acute pancreatitis without necrosis or infection, unspecified (principal); N17.0 Acute kidney failure with tubular necrosis; E87.20 Acidosis, unspecified; R65.11 Systemic inflammatory response syndrome (SIRS) of non-infectious origin with acute organ dysfunction; K56.7 Ileus, unspecified; A04.9 Bacterial intestinal infection, unspecified; I13.0 Hypertensive heart and chronic kidney disease with heart failure and stage 1 through stage 4 chronic kidney disease, or unspecified chronic kidney disease; I50.22 Chronic systolic (congestive) heart failure; R73.9 Hyperglycemia, unspecified; D72.820 Lymphocytosis (symptomatic); K40.90 Unilateral inguinal hernia, without obstruction or gangrene, not specified as recurrent; F15.10 Other stimulant abuse, uncomplicated; N18.9 Chronic kidney disease, unspecified; I48.91 Unspecified atrial fibrillation; Z79.2 Long term (current) use of antibiotics; Z79.82 Long term (current) use of aspirin; Z79.899 Other long term (current) drug therapy; Z95.810 Presence of automatic (implantable) cardiac defibrillator; Z82.49 Family history of ischemic heart disease and other diseases of the circulatory system
CPT/HCPCS: 36415; 70450; 71045; 74176; 76705; 80048; 80053; 80061; 80307; 80320; 81001; 82150; 83036; 83605; 83690; 85025; 85652; 86141; 86803; 87040; 87086; 87340; 93306; 96365; 96375; 99291; G0378; J2405; J2543; J7042